=== PATIENT | female | born 1955 | race Caucasian/White ===

== ENCOUNTER 2018-01-08 12:46 | Inpatient (IN) | payer OTHER ==
[~2018-01-08] VITALS: Ht 165.1 cm; Wt 93.2 kg
[~2018-01-08 12:46] MED LIST: LEVOTHYROXINE150 MCG PO
--- NOTE | 2018-01-08 13:08 | ED GENERAL ADULT ---
History of Present Illness General Chief Complaint: General Adult Stated Complaint: FALL Source: patient, family, old records, EMS Exam Limitations: confusion Vital Signs & Intake/Output Vital Signs & Intake/Output Vital Signs Date Time Temp Pulse Resp B/P B/P Pulse O2 O2 Flow FiO2 Mean Ox Delivery Rate 01/08 1438 72 22 108/71 100 Nasal 2.0L Cannula 01/08 1352 99 Nasal 2.0L Cannula 01/08 1254 90 18 126/74 100 Nasal Cannula Allergies Coded Allergies: Sulfa (Sulfonamide Antibiotics) (UNKNOWN 09/03/17) Reconcile Medications Levothyroxine Sodium 150 MCG TABLET 1 TAB PO DAILY HYPOTHYROID (Reported) Triage Note: PT WAS HOME BY HERSELF AND WAS USING HER DRESSER TO WALK BY AND FELL. PT THEN PULLED THE DRESSER ON HERSELF. BEFORE HER FALL PT PUT THE PROPANE STOVE ON SO IT WAS LEAKING INTO THE HOUSE UNTIL HER RETURNED HOME TO FIND HER ON THE FLOOR. SPOUSE WAS GONE FROM 0700 UNTIL NOON WHEN HE CAME HOME TO CHECK ON HER. PT IN NON COMPLIANT WITH HER THYROID MEDS PER SPOUSE. PT IS SLOW TO RESPOND BUT OFFERS NO COMPLAINTS AT THIS TIME Triage Nurses Notes Reviewed? yes HPI: Patient lives at home with her . Her gives her her Synthroid in the morning and then he goes to work. He usually calls multiple times during the day to check on her. Today she took her Synthroid but then spit it out. states that this is unusual for her. He then went to work and called but she did not answer so he became concerned so came home. He found the patient on the floor with a dresser on top of her. There was also the odor propane in the house. Patient had turned on the stove but did not like it. EMS and fire department were contacted. also found behind the tipped over dresser that her multiple Synthroid tablets that look like they have been spit out over time. He is unsure how long she has been spitting out her Synthroid. Is confused and has no idea where she is otherwise she is here. Past History Travel History Traveled to [place] past 21 day No Medical History Any Pertinent Medical History? see below for history Neurological: NONE EENT: NONE Cardiovascular: NONE Respiratory: NONE Gastrointestinal: NONE Hepatic: NONE Renal: NONE Musculoskeletal: NONE Psychiatric: NONE Endocrine: hypothyroidism Cancer(s): THYROID CA Surgical History Surgical History: THYROIDECTOMY Psychosocial History What is your primary language Irish Tobacco Use: Quit >30 days ago ETOH Use: denies use Illicit Drug Use: denies illicit drug use Family History Hx Contributory? No Review of Systems Review of Systems Constitutional: Reports: see HPI. Physical Exam Physical Exam General Appearance: lethargic, severe distress Head: atraumatic Eyes: Bilateral: PERRL, EOMI. Ears, Nose, Throat: normal pharynx, normal ENT inspection, hearing grossly normal Neck: normal inspection, supple, full range of motion Respiratory: normal breath sounds, chest non-tender, no respiratory distress, lungs clear Cardiovascular: normal peripheral pulses, bradycardia Gastrointestinal: normal bowel sounds, soft, non-tender, no organomegaly Back: normal inspection Extremities: MULTIPLE HEMATOMAS Neurologic/Psych: awake, disoriented x 3 Skin: pallor, COOL Core Measures ACS in differential dx? Yes CVA/TIA Diagnosis: No Sepsis Present: Yes Sepsis Focused Exam Completed? Yes ED Sepsis Exam Date of Focused Sepsis Exam: 01/08/18 Time of Focused Sepsis Exam: 1532 Sepsis Cardiac Exam: Bradycardia Sepsis Resp Exam: CTA Sepsis Cap Refill Exam: >2 sec Sepsis Peripheral Pulse Exam: Normal Sepsis Peripheral Pulse Location: Radial Sepsis Skin Color Exam: Pale, COOL Skin Temp/Moisture Exam: Cool/Dry Progress Differential Diagnoses I considered the following diagnoses in my evaluation of the patient: [Myxedema coma, trauma, sepsis] Plan of Care: Orders Procedure Date/time Status Patient Data 01/08 1519 Active Admit to inpatient 01/08 1509 Active [id number], RIGHT 01/08 1439 Active XRY-HUMERUS, RIGHT 01/[address] CHEST W IV CONTRAST 01/[address] ABD & PELVIS W IV CONTRAST 01/08 1439 Active Add-on Test (ER Only) 01/08 1437 Active BLOOD CULTURE 01/08 1437 Active Add-on Test (ER Only) 01/08 1429 Active LACTIC ACID 01/08 1330 Complete FREE T4 01/08 1330 Complete Telemetry/Fitness And Wellness Coordinator 01/08 1307 Active URINE DRUGS OF ABUSE 01/08 1307 Active URINALYSIS 01/08 1307 Active TSH REFLEX 01/08 1307 Complete TROPONIN LEVEL 01/08 1307 Complete COMPREHENSIVE METABOLIC PANEL 01/08 1307 Complete CBC WITHOUT DIFFERENTIAL 01/08 1307 Complete EKG 01/08 1249 Active Current Medications Sig/Tabatha Start time Last Medication Dose Stop Time Status Admin Vancomycin HCl 1,000 MG ONCE ONE 01/08 1445 AC Dextrose/Water 250 ML 01/08 1544 (D5W) Laboratory Tests 01/08/18 1330: Lactic Acid 1.3 01/08/18 1330: Anion Gap 10, Estimated GFR > 60, BUN/Creatinine Ratio 48.6 H, Glucose 145 H, Calcium 9.7, Total Bilirubin 1.5 H, AST 2923 H, ALT 2400 H, Alkaline Phosphatase 76, Troponin I < 0.01, Total Protein 6.8, Albumin 3.8, Globulin 3.0, Albumin/Globulin Ratio 1.3, Free T4 < 0.07 L, TSH &T3 &Free T4 Intrp 63.500 H, CBC w Diff MAN DIFF ORDERED, RBC 3.42 L, MCV 93.9, MCH 32.0 H, MCHC 34.0, RDW 16.7 H, MPV 8.9, Gran % 71.7, Lymphocytes % 20.1 L, Monocytes % 7.7, Eosinophils % 0.3, Basophils % 0.2, Absolute Granulocytes 0.7 L, Segmented Neutrophils 61, Band Neutrophils 5, Absolute Lymphocytes 0.2 L, Lymphocytes 20 L, Monocytes 11 H, Absolute Monocytes 0.1, Absolute Eosinophils 0, Basophils 3 H, Absolute Basophils 0, Nucleated RBCs 2 H, Platelet Estimate , Hypochromic- Microcytic 2+, Poikilocytosis 1+, Anisocytosis 1+ Microbiology 01/08 1515 BLOOD: Blood Culture - RECD 01/08 1505 BLOOD: Blood Culture - RECD Diagnostic Imaging: Viewed by Me: CT Scan. Discussed w/RAD: CT Scan. Radiology Impression: PATIENT: MILAGROS PERERIA PRESENT AGE: 62 PATIENT ACCOUNT NO: [id number] : 54 LOCATION: [facility] ORDERING PHYSICIAN: Eyad Noguera MD SERVICE DATE: 01/08/18 EXAM TYPE: CAT - CT CERV SPINE WO IV CONTRAST; CT HEAD WO IV CONTRAST EXAMINATION: CT HEAD AND CERVICAL SPINE CLINICAL INFORMATION: Patient found on floor. Confused. COMPARISON: No relevant prior imaging. TECHNIQUE: Access Clerk images were obtained. CT acquisition of the head and cervical spine was performed without intravenous administration of contrast. Data was reformatted into multiplanar images at the acquisition workstation. DLP: 925.97 mGy-cm. FINDINGS: Head: There is no acute intracranial hemorrhage or abnormal extra-axial collection. No intracranial mass effect or midline shift. Lateral and third ventricles are normal. No hydrocephalus. Rg-white matter differentiation is grossly preserved and there is no evidence of acute territorial infarct. The calvarium and skull base are intact. Mastoid air cells and middle ear cavities are well aerated. Visualized paranasal sinuses are well-aerated. Cervical spine: There is nonspecific straightening of the cervical lordosis. Vertebral alignment is otherwise normal. Vertebral heights are preserved. There is loss of intervertebral disc height with associated disc osteophyte spurring at the levels of C4-C5, C5-C6, and C6- C7. No acute fracture. No abnormal prevertebral soft tissue swelling. A small amount of atheromatous calcification involves both carotid bifurcations. Chronic changes of a thyroidectomy are noted. Soft tissues of the neck are otherwise unremarkable. Visualized lung apices are clear. IMPRESSION: Head: No evidence of acute territorial infarct or hemorrhage. Cervical spine: No acute cervical spine fracture. Mild degenerative changes at multiple levels. Grossly no evidence of canal compromise. DICTATED BY: Lance Garcia MD DATE/TIME DICTATED:01/08/181425 DAY CARE DIRECTOR:TIGIST DATE/TIME TRANSCRIBED:01/08/181425 CONFIDENTIAL, DO NOT COPY WITHOUT APPROPRIATE AUTHORIZATION. <Electronically signed in Other Vendor System> SIGNED BY: Lance Garcia MD 01/08/18 1436 Initial ED EKG: BRADYCARDIA Comments: D/W DR. ISRAEL AND DR. FANG Departure Departure Disposition: STILL A PATIENT Condition: Critical Clinical Impression Primary Impression: Myxedema coma Secondary Impressions: Bradycardia, Leukopenia, Thrombocytopenia Referrals: Jefferson Mead MD (PCP/Family) Departure Forms: Customer Survey General Discharge Information Admission Note Spoke With: Beni Bo MD Documentation of Exam: Documentation of any treatments & extenuating circumstances including Concerns Regarding Discharge (functional status, medication knowledge or non-compliance, living conditions, etc.) that warrant an admission rather than observation: [ICU ADMISSION, ENDOCRINE CONULT, CARDIOLOGYCONSULT, HEME CONSULT, CULTURES, BROAD SPECTRUM ABX] Critical Care Note Critical Care Note Critical Care Time: mins: (120 MIN)
[2018-01-08 13:44] LABS: ABSOLUTE BASOPHIL COUNT 0 /CUMM (0.0-0.2); ABSOLUTE EOSINOPHIL COUNT 0 /CUMM (0.0-0.7); ABSOLUTE GRANULOCYTE CT 0.7 /CUMM (1.4-6.5); ABSOLUTE LYMPH COUNT 0.2 /CUMM (1.2-3.4); ABSOLUTE MONOCYTE COUNT 0.1 /CUMM (0.10-0.60); BASOPHIL % 0.2 % (0.0-2.0); HEMATOCRIT 32.1 % (37-47)
[2018-01-08 13:47] LABS: EOSINOPHIL % 0.3 % (0-5); GRANULOCYTE % 71.7 % (42.2-75.2); MEAN CORPUSCULAR VOLUME 93.9 FL (81.0-99.0); MEAN PLATELET VOLUME 8.9 FL (7.4-10.4); RBC DISTRIBUTION WIDTH 16.7 % (11.5-14.5); RED BLOOD CELL CT 3.42 /CUMM (4.20-5.40)
[2018-01-08 14:03] LABS: PLATELET COUNT 32 /CUMM (130-400)
--- NOTE | 2018-01-08 14:17 | RADIOLOGY REPORT ---
EXAMINATION: XR PORTABLE CHEST CLINICAL INFORMATION: Confusion COMPARISON: None TECHNIQUE: Portable frontal view of the chest was obtained. FINDINGS: Borderline heart size. Low lung volumes. No acute airspace opacity. Bony thorax is intact. Postoperative changes with surgical clips lower neck. IMPRESSION: No acute pulmonary disease.
--- NOTE | 2018-01-08 14:36 | CT SCAN REPORT ---
EXAMINATION: CT HEAD AND CERVICAL SPINE CLINICAL INFORMATION: Patient found on floor. Confused. COMPARISON: No relevant prior imaging. TECHNIQUE: Chocolate Finisher Operator images were obtained. CT acquisition of the head and cervical spine was performed without intravenous administration of contrast. Data was reformatted into multiplanar images at the acquisition workstation. DLP: 925.97 mGy-cm. FINDINGS: Head: There is no acute intracranial hemorrhage or abnormal extra-axial collection. No intracranial mass effect or midline shift. Lateral and third ventricles are normal. No hydrocephalus. Rg-white matter differentiation is grossly preserved and there is no evidence of acute territorial infarct. The calvarium and skull base are intact. Mastoid air cells and middle ear cavities are well aerated. Visualized paranasal sinuses are well-aerated. Cervical spine: There is nonspecific straightening of the cervical lordosis. Vertebral alignment is otherwise normal. Vertebral heights are preserved. There is loss of intervertebral disc height with associated disc osteophyte spurring at the levels of C4-C5, C5-C6, and C6-C7. No acute fracture. No abnormal prevertebral soft tissue swelling. A small amount of atheromatous calcification involves both carotid bifurcations. Chronic changes of a thyroidectomy are noted. Soft tissues of the neck are otherwise unremarkable. Visualized lung apices are clear. IMPRESSION: Head: No evidence of acute territorial infarct or hemorrhage. Cervical spine: No acute cervical spine fracture. Mild degenerative changes at multiple levels. Grossly no evidence of canal compromise.
--- NOTE | 2018-01-08 15:58 | RADIOLOGY REPORT ---
EXAMINATION: XR TIBIA AND FIBULA, RIGHT CLINICAL INFORMATION: Pain. Hematoma. COMPARISON: None TECHNIQUE: AP and lateral views of the right tibia and fibula were obtained. FINDINGS: There are no fractures or dislocations. There is mild medial compartment narrowing and osteophyte formation. There is mild tibial spine spurring. There is a small plantar surface calcaneal spur. There is no ankle joint effusion. IMPRESSION: Mild degenerative change without evidence of acute injury.
--- NOTE | 2018-01-08 15:59 | RADIOLOGY REPORT ---
EXAMINATION: XR HUMERUS, RIGHT CLINICAL INFORMATION: Trauma. Found on floor. COMPARISON: None TECHNIQUE: AP and lateral views of the right humerus. FINDINGS: [id number] osteoarthritis of the acromioclavicular joint as manifest by subarticular cystic change and osteophyte formation. Mild osteoarthritis of the glenohumeral joint, as well. The humerus is intact and alignment is normal at the glenohumeral joint and elbow. No elbow joint effusion. IMPRESSION: 1. The right humerus is intact. 2. 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
--- NOTE | 2018-01-08 16:28 | History & Physical ---
Vernon Schililng MD 01/08/18 1857: General Information and HPI MD Statement: I have seen and personally examined MILAGROS PEREIRA and documented this H&P. The patient is a 62 year old F who presented with a patient stated chief complaint of [confusion]. Source of Information: family, EMS Exam Limitations: not alert/orientated, clinical condition, confusion History of Present Illness: Patient is a 62-year-old female with past medical history of long-standing hypothyroidism and thyroid cancer status post total thyroidectomy and multiple radioactive iodine ablations in 1989 and 1998, status post hernia repair and cholecystectomy presenting this admission with confusion. Due to patient's clinical condition majority of the history was obtained from patient's who is at bedside. When patient is questioned she simply states that she is doing fine. Patient has trouble answering simple questions like her name and birthdate. Patient was brought in by EMS after patient's returned home from work early to find patient at the foot of the bed on the floor with dresser on top of her. reports that there was the smell of gas in the apartment and EMS found the stove was on. Patient's states that he has been giving the patient her thyroid medication every morning. States that this week he spoke to the patient about taking vitamins which he gave her for the first time the night before this admission. States this morning patient refused to chew the vitamin pill and spit it out at which point he noticed that the thyroid medication was stuck to the pill. After which the noticed that there were more thyroid medications on the floor under the bed and behind the dresser. States that he thinks there was as many as 60-70 pills. Reports that over the past 2 weeks patient has become acutely worse and has become weak and confused. States that she has not been eating well for the past 6 months and does not eat on her own. Reports that the patient has lost approximately 30-40 pounds. States that the patient is reliant on him to move around and has become very weak and recently has had trouble standing up. States patient does not go outside and is either in bed or sitting on the couch. Patient has been on thyroid medications for the past 30 years. Patient's states that up until patient and her moved from [place] in 2009 patient has been taking care of her medications and her health with no problem. Reports that the move was quite traumatic as he had lost his job and they were required to move out of the house they had been living in for the past 17 years. Reports that the patient over the past year and a half has been deteriorating. Reports in February 2017 patient was sent in by her primary care physician for concern of myxedema coma and was seen in the ED. At that time patient was treated in the ED and sent home with instructions to take her thyroid medications. States that the patient has not been compliant with her medications since approximately September 2016 when she reported to the physician that she stopped taking the pills because the color of the pill changed. reports that he was sick a few weeks ago with flulike symptoms however the patient did not exhibit any symptoms herself. States that aside from himself patient has not been exposed to anyone also she does not leave the house. Denies any recent travel. reports that patient has been falling over the past year. Past medical history: Hypothyroidism, thyroid cancer, hamartoma Past surgical history: Thyroidectomy, radioactive iodine ablation 2, cholecystectomy, hernia repair and Social history: Patient lives with her in an apartment. Patient is reliant on her for meals and medications. reports that patient is able to change and shower herself. Patient quit smoking in 1983, denies alcohol use. Family history: Grandmother- goiter, father- diabetic, 1 daughter in good health Medications: Levothyroxine 150 g daily, multivitamin supplement Per , patient has only been seeing her pcp, Dr. Taurus Mead. Allergies/Medications Allergies: Coded Allergies: Sulfa (Sulfonamide Antibiotics) (UNKNOWN 09/03/17) Home Med list Levothyroxine Sodium 150 MCG TABLET 1 TAB PO DAILY HYPOTHYROID (Reported) Past History Travel History Traveled to [place] past 21 day No Medical History Neurological: NONE EENT: NONE Cardiovascular: NONE Respiratory: NONE Gastrointestinal: NONE Hepatic: NONE Renal: NONE Musculoskeletal: NONE Psychiatric: NONE Endocrine: hypothyroidism Cancer(s): THYROID CA Surgical History Surgical History: cholecystectomy, THYROIDECTOMY, hernia repair Past Family/Social History Psychosocial History ETOH Use: denies use Illicit Drug Use: denies illicit drug use Review of Systems Review of Systems Constitutional: Reports: see HPI (limited due to confusion). Exam & Diagnostic Data Last 24 Hrs of Vital Signs/I&O Vital Signs Date Time Temp Pulse Resp B/P B/P Pulse O2 O2 Flow FiO2 Mean Ox Delivery Rate 01/08 1833 52 20 96/58 98 Nasal 2.0L Cannula 01/08 1807 Nasal 2.0L Cannula 01/08 1626 94/60 01/08 1625 108 22 104/76 100 Nasal 2.0L Cannula 01/08 1438 72 22 108/71 100 Nasal 2.0L Cannula 01/08 1352 99 Nasal 2.0L Cannula 01/08 1254 90 18 126/74 100 Nasal Cannula Intake & Output 01/08 1600 01/08 0800 01/08 0000 Intake Total 0 Output Total 0 Balance 0 Intake, Oral 0 Output, Urine 0 Patient 155 lb Weight Weight Estimated Measurement Method Physical Exam General Appearance Alert, No Acute Distress, patient is alert to person but not place or time, only states she is fine, follows some commands, but not all Skin dry skin, cuts on hands and feet, bruising on her shins Skin Temp/Moisture Exam: Cool/Dry HEENT Atraumatic, dry mucosal membranes, pupils are equal and reactive to light but sluggish Neck No thryomegaly, No LAD Cardiovascular Normal S1, Normal S2, bradycardic Lungs Clear to Auscultation, Normal Air Movement Abdomen Soft, No Tenderness, hypoactive bowel sounds Neurological Cranial Nerves 3-12 NL, unable to assess completely due to confusion, moving all extremities, absent deep tendon reflexes Extremities No Clubbing, No Cyanosis, No Edema, Normal Pulses, No Tenderness/ Swelling, dry skin, bruising, dry blood and cuts on toes of right foot Last 24 Hrs of Labs/Chad: Laboratory Tests 01/08/18 1758: Urine Opiates Screen < 100, Methadone Screen < 40, Barbiturate Screen < 60, Ur Phencyclidine Scrn < 6.00, Amphetamines Screen < 100, U Benzodiazepines Scrn < 85, Urine Cocaine Screen < 50, Urine Cannabis Screen < 5.00, Urine Color Pending , Urine Clarity Pending, Urine pH Pending, Ur Specific [place] Pending, Urine Protein Pending, Urine Ketones Pending, Urine Nitrite Pending, Urine Bilirubin Pending, Urine Urobilinogen Pending, Ur Leukocyte Esterase Pending, Ur Microscopic SEDIMENT EXAMINED, Urine RBC Pending, Urine Hemoglobin Pending, Urine Glucose Pending 01/08/18 1330: Lactic Acid 1.3 01/08/18 1330: Anion Gap 10, Estimated GFR > 60, BUN/Creatinine Ratio 48.6 H, Glucose 145 H, Calcium 9.7, Total Bilirubin 1.5 H, AST 2923 H, ALT 2400 H, Alkaline Phosphatase 76, Lactate Dehydrogenase 22518 H, Troponin I < 0.01, Total Protein 6.8, Albumin 3.8, Globulin 3.0, Albumin/Globulin Ratio 1.3, Free T4 < 0.07 L, TSH &T3 &Free T4 Intrp 63.500 H, Cortisol PM Sample 14.8 H, CBC w Diff MAN DIFF ORDERED, RBC 3.42 L, MCV 93.9, MCH 32.0 H, MCHC 34.0, RDW 16.7 H, MPV 8.9, Gran % 71.7, Lymphocytes % 20.1 L, Monocytes % 7.7, Eosinophils % 0.3, Basophils % 0.2, Absolute Granulocytes 0.7 L, Segmented Neutrophils 61, Band Neutrophils 5, Absolute Lymphocytes 0.2 L, Lymphocytes 20 L, Monocytes 11 H, Absolute Monocytes 0.1, Absolute Eosinophils 0, Basophils 3 H, Absolute Basophils 0, Nucleated RBCs 2 H, Platelet Estimate , Hypochromic-Microcytic 2 +, Poikilocytosis 1+, Anisocytosis 1+, Retic Count 1.48 01/08/18 1307: Thyroglobulin Pending, Thyroglobulin Antibody Pending Microbiology 01/08 1758 URINE ROUT: Urine Culture - RECD 01/08 1718 UPPER RESP: Surveillance Culture - COLB 01/08 1718 GI: Surveillance Culture - COLB 01/08 1705 NASOPHARYN: Influenza Virus A & B Rapid Smear - COLB 01/08 1515 BLOOD: Blood Culture - RECD 01/08 1505 BLOOD: Blood Culture - RECD Assessment/Plan Assessment: Patient is a 62-year-old female with past medical history significant for iatrogenic hypothyroidism status post total thyroidectomy for thyroid cancer presenting this admission with myxedema coma secondary to noncompliance, neutropenia, thrombocytopenia and bradycardia. Patient is admitted to the ICU for management of following: Respiratory Patient is currently saturating well on 2 L nasal cannula. Infectious: Neutropenia Patient has an absolute neutrophil count of 700. Etiology of patient's neutropenia is unclear at this time and requires further workup. Patient remains afebrile on admission however this is likely due to severe hypothyroidism. Therefore patient is being covered by antibiotics with ceftazidime and vancomycin. Hematology was consulted. - Continue ceftaz and vancomycin - Repeat CBCs in a.m. - Hepatitis panel - HIV panel - Rapid flu Cardiac: Bradycardia Likely secondary to severe hypothyroidism. - Serial troponin and EKG - Echocardiogram - Cardiology consulted - Monitor on telemetry Hypotension - Patient received IV fluid boluses and stress dose steroids - continue to monitor bp - continue IV fluids Heme: Pancytopenia: Patient is neutropenic, anemic and severely thrombocytopenic. There have been case reports of pancytopenia with severe hypothyroidism however patient will require further workup at this time. Patient has a reticulocyte count of 1.48% with absolute reticulocyte count of 1.1 and a reticulocyte count index of 0.75 indicating bone marrow suppression. LDH count is elevated. - Iron panel, B12, folate - haptoglobin, direct bilirubin - HIV, hepatitis panel - Continue to monitor CBC - Hematology consulted. Appreciate recommendations. - Thrombocytopenic precautions Metabolic: Myxedema coma Patient presented confused, hypothermic, bradycardic and with elevated TSH and low T4. Patient has been noncompliant with medications. Endocrinology was consulted. Patient was given levothyroxine 100 g. A cortisol level was checked in the setting of hypotension. Patient's cortisol level was low and she was given 100 mg IV Solu-Cortef. - Repeat free T4 and TSH tomorrow - Thyroglobulin panel for concern of recurrent cancer - Warming with bear hugger Transaminitis: Unclear etiology of abnormal LFTs. Patient reports no abdominal pain. No pathology seen on CT Abd. Patient's LFTs may be secondary to hypotension - Abdominal ultrasound Alimentary Hypernatremia - D5 normal saline at a rate of 100 mL per hour - Repeat sodium in a.m. Patient is nothing by mouth and setting of AMS. Neurology Altered mental status in setting of severe hypothyroidism. Patient was found on the ground with a dressing over her it is unclear if she fell. Patient has had multiple falls recently. Head CT and cervical CT were negative for any acute findings. Tibula/ fibula and humerus x-rays without any acute fracture. - Nothing by mouth - Swallow eval - Fall precautions - Neurochecks - PT eval Nephrology: None DVT prophylaxis: Alps only in the setting of thrombocytopenia As Ranked By This Provider Problem List: 1. Myxedema coma 2. Bradycardia 3. Leukopenia 4. Thrombocytopenia Core Measures/Misc (9/17) Acute Coronary Syndrome ACS Diagnosis: No Congestive Heart Failure Congestive Heart Failure Diagnosis No Cerebrovascular Accident CVA/TIA Diagnosis: No VTE (View Protocol) VTE Risk Factors Age>40 No Mechanical VTE Prophylaxis d/t N/A MechProphylax Ordered No VTE Pharm Prophylaxis d/t Platelets below ref range Sepsis (View protocol) Sepsis Present: No Beni Bo MD 01/08/18 1628: Attending MD Review Statement Attending Statement Attending MD Statement: examined this patient, discuss w/resident/PA/CASHIER SELF SERV[employer] GASOLINE, agreed w/resident/PA/[employer] GASOLINE, discussed with family, reviewed EMR data (avail), discussed with nursing, discussed with case mgmt, reviewed images, amended to note Attending Assessment/Plan: Beni Contreras M.D. have examined this patient, reviewed available EMR data, personally reviewed images, discussed with resident/PA/[employer] G[employer]OLINE, discussed management plan with housestaff and nursing staff, discussed managment plan all of healthcare providers, discussed management plan with patient and/or family, agreed with resident/PA/[employer] G[employer]OLINE. The past history and parts of the chart have been autopopulated. Impression 62 year old woman * pancytopenia * hx of thyroid ca - significant hypothyroidism consistent with myxedema * transaminitis Plan -agree with above residents plan -f/u endocrine and heme recs -stress steroids, iv thyroid replacement -empiric abx, if no evidence of infection and continues to no longer be thrombocytpoenic will d/c abx -ECHO DVT prophylaxis at all times TTS 35 min D/w TTS 40 min [place] 01/08/18 1652: Resident Review Statement Resident Statement: examined this patient, discussed with business management intern, agreed with business management intern, discussed with family, reviewed EMR data (avail), discussed with nursing , discussed with case mgmt, reviewed images, amended to note Other Findings: This is a 62-year-old women with medical history of long-standing hypothyroidism and papillary thyroid cancer status post total thyroidectomy and multiple radioactive iodine ablations in 1989 and 1998, status post hernia repair and cholecystectomy. She presented to the ED with C/O confusion and AMS. Most of the history was taken from her . He stated that he has been giving the thyroid medication to her every morning and she was taking the Med with water in early AM before he go to work. This AM due to her AMS and confusion status he thought she had stroke but as patient refused to chew the vitamin pill and spit it out at which point he noticed that the thyroid medication was stuck to the pill. After which the noticed that there were more thyroid medications on the floor under the bed and behind the dresser. States that he thinks there was as many as 60-70 pills. Also he stated that over the past 2 weeks patient has become acutely worse and has become weak and confused. States that she has not been eating well for the past 6 months and does not eat on her own. Reports that the patient has lost approximately 30-40 pounds. Reports in February 2017 patient was sent in by her primary care physician for concern of myxedema coma and was seen in the ED. At that time patient was treated in the ED and sent home with instructions to take her thyroid medications. States that the patient has not been compliant with her medications since approximately September 2016 when she reported to the physician that she stopped taking the pills because the color of the pill changed. In the ED she was found to be hypothermic and bradycardic and her TSH was 63.500 with sever pancytopenia. She was evaluated by the mold shifter and she recommended 100 MCG iv levothyroxin and to check the cortisol, thyroglobulin panel to assess the need for stress dose of IV steroid. Also was consulted via the ED team for the bradycardic. she received 1 dose of IV Vanc and fortaz in the ED and the Blood Cx sent. Physical exam, imaging and lab as above. 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 -Hypotension/bradycardia due to above. -Pancytopenia with sever leukopenia with possible underlying infection process. -Transaminitis with hyperbilirubinemia. -Hx of papillary thyroid cancer status post resection and radioactive iodine. Plan: -Admit patient to critical care unit -Vital every shift, continuous blood pressure monitoring -Neutropenic precaution, bleeding precaution -As recommended by endocrinology 100 MCG of levothyroxine was given -Stress dose of hydrocortisone 100 mg IV -Continue passive warming with bear hugger -Check cortisol, thyroglobulin panel -Recheck TSH, free T4 in a.m. -Keep systolic blood pressure more than 90 or map more than 60 -Continue IV fluid hydration, if needed will start pressor(consent obtained from her ) -Echocardiogram, serial troponin and EKG -Cardiology consultation -Continue IV vancomycin and Fortaz -Panculture, obtain hepatitis panel, HIV panel, rapid flu. -Obtain iron panel, LDH, heptoglobin, reticulocyte count -Type and crossmatch, if needed will give platelet -Hematology consultation(we discussed with over the phone he recommended to obtain the above test for now) -Obtain CT abdomen pelvis, chest without IV contrast -Trend LFTs -Avoid NSAIDs, Tylenol -Keep nothing by mouth for now -Repeat electrolytes as needed -Pain pathway -DVT prophylaxis:Alps -Full code I spoke with around 10:45 PM regarding the hospital don't carry isoproterenol drip, so he recommended using Levophed if needed I spoke with around 11:36 PM regarding giving the patient additional dose of IV hydrocortisone 100 mg as the BP still low and to start Q8 after that she agreed
--- NOTE | 2018-01-08 16:58 | Cons- Endocrinology ---
General Information and HPI Consulting Request Date of Consult: 01/08/18 Requested By: ER and ICU Reason for Consult: evaluation and management of profound hypothyroidism. Source of Information: family Exam Limitations: unable to give history History of Present Illness: 62 y/o female, hx of thyroid cancer which was diagnosed in and was treated with thyroid surgery twice and ELDER twice. Detail unclear. She was supposed to take Levothyroxine 150 mcg daily. However, she hasn't been compliance with the medication. Patient was in ER in 05/2017 and 08/2017-- her TSH was > 60 and free T4 was < 0.07. She was brought to ER today again after she was found that she was on the floor. In ER, patient was hypothermia and bradycardic. Blood work showed TSH 63.5, free T4 < 0.07, random cortisol 14.8; [id number] and ALT 2400; WBC 1.0, platelet 32 and H/H 10.9/32.1 Allergies/Medications Allergies: Coded Allergies: Sulfa (Sulfonamide Antibiotics) (UNKNOWN 09/03/17) Home Med List: Levothyroxine Sodium 150 MCG TABLET 1 TAB PO DAILY HYPOTHYROID (Reported) Review of Systems Review of Systems Constitutional: Reports: see HPI (unable to provide information). Past History Travel History Traveled to [place] past 21 day No Medical History Neurological: NONE EENT: NONE Cardiovascular: NONE Respiratory: NONE Gastrointestinal: NONE Hepatic: NONE Renal: NONE Musculoskeletal: NONE Psychiatric: NONE Endocrine: hypothyroidism Cancer(s): THYROID CA Surgical History Surgical History: THYROIDECTOMY Psychosocial History ETOH Use: denies use Illicit Drug Use: denies illicit drug use Exam & Diagnostic Data Last 24 Hrs of Vital Signs/I&O Vital Signs Date Time Temp Pulse Resp B/P B/P Pulse O2 O2 Flow FiO2 Mean Ox Delivery Rate 01/08 1626 94/60 01/08 1625 108 22 104/76 100 Nasal 2.0L Cannula 01/08 1438 72 22 108/71 100 Nasal 2.0L Cannula 01/08 1352 99 Nasal 2.0L Cannula 01/08 1254 90 18 126/74 100 Nasal Cannula Intake & Output 01/08 1600 01/08 0800 04/ 0000 Intake Total 0 Output Total 0 Balance 0 Intake, Oral 0 Output, Urine 0 Patient 155 lb Weight Weight Estimated Measurement Method Physical Exam General Appearance: anxious, pale, puffy Respiratory: decreased breath sounds Cardiovascular: bradycardia Gastrointestinal: soft Extremities: no edema Labs/Chad Results: Laboratory Tests 01/08 01/08 01/08 1330 1330 1307 Chemistry Sodium (137 - 145 mmol/L) 147 H Potassium (3.5 - 5.1 mmol/L) 4.0 Chloride (98 - 107 mmol/L) 104 Carbon Dioxide (22 - 30 mmol/L) 33 H Anion Gap (5 - 16) 10 BUN (7 - 17 mg/dL) 34 H Creatinine (0.5 - 1.0 mg/dL) 0.7 Estimated GFR (>60 ml/min) > 60 BUN/Creatinine Ratio (7 - 25 %) 48.6 H Glucose (65 - 99 mg/dL) 145 H Lactic Acid (0.7 - 2.1 mmol/L) 1.3 Calcium (8.4 - 10.2 mg/dL) 9.7 Total Bilirubin (0.2 - 1.3 mg/dL) 1.5 H AST (14 - 36 U/L) 2923 H ALT (9 - 52 U/L) 2400 H Alkaline Phosphatase (<127 U/L) 76 Troponin I (< 0.11 ng/ml) < 0.01 Total Protein (6.3 - 8.2 g/dL) 6.8 Albumin (3.5 - 5.0 g/dL) 3.8 Globulin (1.9 - 4.2 gm/dL) 3.0 Albumin/Globulin Ratio (1.1 - 2.2 %) 1.3 Free T4 (0.78 - 2.44 ng/dL) < 0.07 L Thyroglobulin Pending TSH &T3 &Free T4 Intrp (0.270 - 4.20 uIU/mL) 63.500 H Cortisol PM Sample (1.7 - 14.1) 14.8 H Hematology CBC w Diff MAN DIFF ORDERED WBC (4.8 - 10.8 /CUMM) 1.0 *L RBC (4.20 - 5.40 /CUMM) 3.42 L Hgb (12.0 - 16.0 G/DL) 10.9 L Hct (37 - 47 %) 32.1 L MCV (81.0 - 99.0 FL) 93.9 MCH (27.0 - 31.0 PG) 32.0 H MCHC (33.0 - 37.0 G/DL) 34.0 RDW (11.5 - 14.5 %) 16.7 H Plt Count (130 - 400 /CUMM) 32 L MPV (7.4 - 10.4 FL) 8.9 Gran % (42.2 - 75.2 %) 71.7 Lymphocytes % (20.5 - 51.1 %) 20.1 L Monocytes % (1.7 - 9.3 %) 7.7 Eosinophils % (0 - 5 %) 0.3 Basophils % (0.0 - 2.0 %) 0.2 Absolute Granulocytes (1.4 - 6.5 /CUMM) 0.7 L Segmented Neutrophils (42.2 - 75.2 %) 61 Band Neutrophils (0.0 - 5.0 %) 5 Absolute Lymphocytes (1.2 - 3.4 /CUMM) 0.2 L Lymphocytes (20.5 - 51.1 %) 20 L Monocytes (1.7 - 9.3 %) 11 H Absolute Monocytes (0.10 - 0.60 /CUMM) 0.1 Absolute Eosinophils (0.0 - 0.7 /CUMM) 0 Basophils (0.0 - 2.0 %) 3 H Absolute Basophils (0.0 - 0.2 /CUMM) 0 Nucleated RBCs (0.0 - 0.0 /100WBC) 2 H Platelet Estimate (ADEQUATE) Hypochromic-Microcytic 2+ Poikilocytosis 1+ Anisocytosis 1+ Immunology Thyroglobulin Antibody Pending Assessment/Plan Assessment/Plan 62 y/o female, hx of thyroid cancer which was diagnosed in and was treated with thyroid surgery twice and ELDER twice. Detail unclear. She was supposed to take Levothyroxine 150 mcg daily. However, she hasn't been compliance with the medication. Patient was in ER in 05/2017 and 08/2017-- her TSH was > 60 and free T4 was < 0.07. She presented to ER today again after she was found that she was on the floor. Patient was hypothermia and bradycardic. Blood work showed profound hypothyroidism along with borderline low cortisol, abnormal LFT and pancytopenia. Plan: 1. Levothyroxine 100 mcg iv x one time stat; 2. stress dose of hydrocortisone 100 mg x one time stat; 3. monitor vital signs; 4. continue the current supportive treatments; 5. abnormal LFT and pancytopenia--- underlying etiology unclear ---recommend checking Tg panel; ---recommend liver u.s ---recommend hematology consult. 6. repeat free T4 and TSH tomorrow am. will follow Consult Acknowledgment - Thank you for your consult request.
--- NOTE | 2018-01-08 17:56 | CT SCAN REPORT ---
EXAMINATION: CT CHEST, ABDOMEN AND PELVIS WITHOUT CONTRAST CLINICAL INFORMATION: Pain after fall. Trauma. COMPARISON: 09/03/2017. TECHNIQUE: Contiguous axial thin section helical images of the chest, abdomen and pelvis were performed without oral or IV contrast. The data set was reformatted in the coronal and sagittal planes and reviewed on an independent workstation. DLP: 629 mGy-cm. FINDINGS: The heart is of normal size. There is a small pericardial effusion. There is neither mediastinal, hilar nor axillary lymphadenopathy. There are no chest wall masses. Review of lung windows demonstrates that there are neither pleural effusions nor pneumothoraces. There are no consolidations. There is dependent bibasilar atelectasis. There are no pulmonary parenchymal nodules. The liver is of normal size and attenuation without focal lesions nor intrahepatic biliary ductal dilation. The patient is status post cholecystectomy. Surgical clips are identified. The spleen, pancreas, adrenal glands are unremarkable. Both kidneys are of normal size and attenuation without hydronephrosis or nephrolithiasis. There is no abdominal free fluid. There is neither mesenteric nor retroperitoneal lymphadenopathy. There is a fat-containing umbilical hernia. Normal unopacified loops of small and large bowel are identified. There is no pelvic free fluid. The urinary bladder is unremarkable. There is neither pelvic nor inguinal lymphadenopathy. Bone windows: Neither sclerotic nor lytic bone lesions are identified. IMPRESSION: No evidence for acute traumatic injury. Small pericardial effusion. Status post cholecystectomy. Dependent bibasilar atelectasis. Fat-containing umbilical hernia.
[2018-01-08 19:30] VITALS: BP 96/72
--- NOTE | 2018-01-08 22:06 | Cons- Cardiology ---
General Information and HPI Consulting Request Date of Consult: 01/08/18 Requested By: Beni Bo MD History of Present Illness: This patient is a 62 year old female with history of hypothyroidism and thyroid cancer status post total thyroidectomy along with multiple radioactive iodine ablations in 1989 and 1998. The patient was brought to the ER after her found her on the floor with a dresser on top of her. The stove was also left on and there was the smell of gas in the house. This morning the patient's also found her thyroid medication under the bed and behind the dresser. The patient has been noted to be weak and confused over the past two weeks. She has lost 30-40 pounds and is not eating well. She also has trouble standing up. The patient is currently too ill to give a history. No chest discomfort, shortness of breath, lightheadedness or palpitations are admitted to or reported. The patient at the present time is bradycardiac and hypotensive. She was found on initial labs to be severely hypothyroid. Ms. Goode has been on thyroid medications for the past 30 years. In February 2017 the patient was sent in by her primary care physician for concern of myxedema coma and was seen in the ED. At that time patient she was treated in the ER and sent home with instructions to take her thyroid medications. She has not been compliant with her medications since approximately September 2016 when she reported to the physician that she stopped taking the pills because the color of the pill changed. Allergies/Medications Allergies: Coded Allergies: Sulfa (Sulfonamide Antibiotics) (UNKNOWN 09/03/17) Home Med List: Levothyroxine Sodium 150 MCG TABLET 1 TAB PO DAILY HYPOTHYROID (Reported) Review of Systems Review of Systems: A review of systems in unobtainable. Past History Travel History Traveled to [place] past 21 day No Medical History Neurological: NONE EENT: NONE Cardiovascular: NONE Respiratory: NONE Gastrointestinal: NONE Hepatic: NONE Renal: NONE Musculoskeletal: NONE Psychiatric: NONE Endocrine: hypothyroidism Cancer(s): THYROID CA Surgical History Surgical History: cholecystectomy, THYROIDECTOMY hernia repair Psychosocial History ETOH Use: denies use Illicit Drug Use: denies illicit drug use Exam & Diagnostic Data Vital Signs and I&O Vital Signs Date Time Temp Pulse Resp B/P B/P Pulse O2 O2 Flow FiO2 Mean Ox Delivery Rate 01/08 2150 Nasal 2.0L Cannula 04/05 1930 94.8 40 19 96/72 96 01/08 1833 52 20 96/58 98 Nasal 2.0L Cannula 01/08 1807 Nasal 2.0L Cannula 01/08 1626 94/60 01/08 1625 108 22 104/76 100 Nasal 2.0L Cannula 01/08 1438 72 22 108/71 100 Nasal 2.0L Cannula 01/08 1352 99 Nasal 2.0L Cannula 01/08 1254 90 18 126/74 100 Nasal Cannula Intake & Output 01/08 1600 01/08 0801/08 0000 01/07 1600 01/07 0801/07 0000 Intake Total 0 Output Total 0 Balance 0 Intake, Oral 0 Output, Urine 0 Patient 155 lb Weight Weight Estimated Measurement Method Physical Exam: General: WD/WN female; lethargic with decreased responsiveness HEENT: swollen left cheek, PERRL, EOMI Neck: no JVD, no carotid bruit Heart: bradycardic with regular rhythm, no murmur Lungs: clear bilaterally Abdomen: soft, NT, +ve bowel sounds Extremities; 1+ edema bilaterally Assessment/Plan Assessment/Plan * This patient is hypotensive and bradycardic due to myxedema and myxedema coma. She may have hepatic congestion with shock liver causing her elevated hepatic transaminases. Although she has very low voltage on her ECG she is in a sinus rhythm. A small pericaridial effusion is noted which is not unexpected in the setting of severe hypothyroidism which may also be contributing to low voltage. I do not think she has evidence of tamponade. * This patient should be given a 500cc NS fluid bolus followed by a constant infusion to maintain her blood pressure. It is expected that her bradycardia will improve with thyroid supplementation and with steroid therapy. For now keep transcutaneous pacer pads in place and have atropine by the bedside. If she has persistent brdycardia with hypotension then begin an isoproterenol drip. Her bradycardia is expected to be transient. Although it is almost certain that her bradycardia is related to hypothyroidism, I would sent off a Lyme titer. * Obtain an echocardiogram. Consult Acknowledgment - Thank you for your consult request.
[2018-01-08 23:12] LABS: PT 11.6 SEC (9.4-12.5); PTT 39 SEC (25-37)
[2018-01-09] VITALS: BP 90/0
[2018-01-09 04:22] LABS: ABSOLUTE BASOPHIL COUNT 0 /CUMM (0.0-0.2); ABSOLUTE EOSINOPHIL COUNT 0 /CUMM (0.0-0.7); ABSOLUTE GRANULOCYTE CT 1.7 /CUMM (1.4-6.5); ABSOLUTE LYMPH COUNT 0.1 /CUMM (1.2-3.4); ABSOLUTE MONOCYTE COUNT 0 /CUMM (0.10-0.60); BASOPHIL % 0.4 % (0.0-2.0); EOSINOPHIL % 0.1 % (0-5); GRANULOCYTE % 91.8 % (42.2-75.2); HEMATOCRIT 28.7 % (37-47); MEAN CORPUSCULAR HGB CONC 34.1 G/DL (33.0-37.0); MEAN CORPUSCULAR VOLUME 93.7 FL (81.0-99.0); MEAN PLATELET VOLUME 9.2 FL (7.4-10.4); PLATELET COUNT 40 /CUMM (130-400); RBC DISTRIBUTION WIDTH 16.6 % (11.5-14.5); RED BLOOD CELL CT 3.07 /CUMM (4.20-5.40)
[2018-01-09 04:30] LABS: WHITE BLOOD CELL COUNT 1.9 /CUMM (4.8-10.8)
--- NOTE | 2018-01-09 07:40 | PN- Resident CRCU ---
Shakir QUICK,[place] 01/09/18 0740: Subjective HPI/CRCU Issues: Overnight events: Patient overnight has remained hypotensive with blood pressure ranging from 60s to 90s/40s to 60s. Patient's heart rate has improved to the 60s. Patient is no longer hypothermic with the bear hugger. Patient today is arousable but remains lethargic and does not respond to questions. Accu-Cheks: 300, 145, 106 Labs: WBC 1.9 up from 1.0, 91.8% granulocytes, H&H 9.8 and 28.7, platelet count 40 up from 32 Smear showing nucleated red blood cells Haptoglobin pending Sodium 148, potassium 3.9, chloride 112, bicarbonate 26, BUN 25, creatinine 0.7, glucose 114, calcium 8.7, phosphorus 2.5, magnesium 1.5, total bilirubin 1.1 AST 1454 (down from 2923) ALT 1590 (down from 2400) LDH 7954 down from 34030) B12 >000 Folate 16.1 TSH 63.3 (down from 63.5) T4 0.09 (down from < 0.07) Utox negative U/A: +protein Thyroglobulin pending Lyme Ab pending Hep panel pending HIV nonreactive CT Chest/Abd/Pelvis: No evidence for acute traumatic injury. Small pericardial effusion Status post cholecystectomy Dependent bibasilar atelectasis. Fat-containing umbilical hernia Objective Vital Signs & I&O Last 8 Hrs of Vitals and I&O: Vital Signs Date Time Temp Pulse Resp B/P B/P Pulse O2 O2 Flow FiO2 Mean Ox Delivery Rate 01/09 0800 95 Nasal 2.0L Cannula 01/09 0800 98.4 60 16 90/60 96 Nasal 2.0L Cannula 01/09 0400 96 Nasal 2.0L Cannula 01/09 0000 98 Nasal 2.0L Cannula 01/09 0000 97.3 67 20 90/0 98 Nasal 2.0L Cannula 01/08 2150 Nasal 2.0L Cannula 01/09 2000 99 Nasal 2.0L Cannula 01/08 1930 94.8 40 19 96/72 96 / 1833 52 20 96/58 98 Nasal 2.0L Cannula 01/08 1807 Nasal 2.0L Cannula 01/08 1626 94/60 01/08 1625 108 22 104/76 100 Nasal 2.0L Cannula 01/08 1438 72 22 108/71 100 Nasal 2.0L Cannula 01/08 1352 99 Nasal 2.0L Cannula 01/08 1254 90 18 126/74 100 Nasal Cannula Intake & Output 01/09 1600 Intake Total Output Total Balance Patient 187 lb Weight Exam General Appearance: lethargic, awake, but not responding to questions or following commands Head: atraumatic, normal appearance Ears, Nose, Throat: dry mucosal membranes Respiratory: normal breath sounds, chest non-tender, no respiratory distress, lungs clear Cardiovascular: regular rate/rhythm Gastrointestinal: soft, non-tender, hypoactive Extremities: no edema, absent deep tendon reflexes, bruising on shins Cranial Nerves: pupils equal and reactive but sluggish, is not speaking but turns to voices Skin: warm/dry Current Medications: Current Medications Sig/Tabatha Start time Last Medication Dose Route Stop Time Status Admin Ceftazidime 1,000 MG IQ8 01/09 0000 AC 01/09 IV 0823 Ceftazidime 0 .STK-MED ONE 01/08 1530 DC .ROUTE Ceftazidime 1,000 MG ONCE ONE 01/08 1445 DC 04/05 IV 04 1446 1531 Dextrose/Sodium 500 ML .Q1H 01/08 1930 DC Chloride IV Dextrose/Sodium 1,000 ML Q10H 01/08 1630 DC 04/ Chloride IV 01/09 0229 1643 Glycerin/Mineral Oil 1 JUAN ALBERTO TID PRN 01/08 1645 01/09 TOP 0430 Hydrocortisone 100 MG ONE ONE 01/08 2345 CAN Sodium Succinate IV 01/08 2346 Hydrocortisone 100 MG Q8 01/08 2345 AC 04 Sodium Succinate IV 0608 Hydrocortisone 100 MG ONE ONE 01/08 1645 DC 04/05 Sodium Succinate IV 04/ 1646 1923 Lactated Ringer's 1,000 ML Q10H 01/09 0615 AC 01/09 IV 0657 Levothyroxine Sodium 100 MCG DAILY AC 01/09 0808 IV Levothyroxine Sodium 100 MCG ONCE ONE 01/08 1545 DC 04/05 IV 01/08 1546 1717 Magnesium Oxide 400 MG ONE ONE 01/08 2130 CAN PO 01/08 2131 Magnesium Sulfate 1 GM Q2H 01/09 0615 AC 01/09 Dextrose/Water 100 ML IV 01/09 1014 0657 Methylprednisolone 0 .STK-MED ONE 01/08 1730 DC .ROUTE Morphine Sulfate 2 MG Q4P PRN 01/08 1645 AC IV Norepinephrine 4 MG .STK-MED ONE 01/08 2337 DC IV 01/08 2338 Norepinephrine 4 MG Q8H 01/08 2330 AC Sodium Chloride 250 ML IV Pantoprazole Sodium 40 MG DAILY 01/08 1930 AC / IV 2020 Phosphate 250 MG ONCE ONE 01/08 2130 CAN PO 01/08 2131 Sodium Chloride 500 ML BOLUS ONE 01/09 0615 CAN IV 01/09 0714 Sodium Chloride 1,000 ML Q10H 01/09 0330 DC 04 IV 0336 Sodium Chloride 1,000 ML BOLUS ONE 01/09 0200 DC 04/ IV 01/09 0259 2345 Sodium Chloride 500 ML BOLUS ONE 01/09 0200 DC / IV 01/09 0259 0203 Sodium Chloride 1,000 ML BOLUS ONE 01/08 2330 CAN IV 01/09 0029 Sodium Chloride 1,000 ML BOLUS ONE 01/08 2145 DC 04/ IV 01/08 2244 2301 Sodium Chloride 1,000 ML BOLUS ONE 01/08 2015 DC 04/05 IV /05 2114 2022 Vancomycin HCl 1,000 MG DAILY 01/09 1000 AC Dextrose/Water 250 ML IV Vancomycin HCl 0 .STK-MED ONE 01/08 1530 DC .ROUTE Vancomycin HCl 1,000 MG ONCE ONE 01/08 1445 DC 04 Dextrose/Water 250 ML IV 01/08 1544 1547 Impression/Plan Impression/Problem List Impression: Patient is a 62-year-old female with past medical history significant for iatrogenic hypothyroidism status post total thyroidectomy for thyroid cancer presenting this admission with myxedema coma secondary to noncompliance, neutropenia, thrombocytopenia and bradycardia. Patient is admitted to the ICU for management of following: Respiratory Patient is currently saturating well on 2 L nasal cannula. Infectious: Neutropenia Patient has an absolute neutrophil count of 700 on admission. This has slightly improved today. Etiology of patient's neutropenia is unclear at this time however may be secondary to severe hypothyroidism. Further work up is necessary. Patient remains was severely hypothermic on admission however this is likely due to severe hypothyroidism. Patient is prophylaxtically being covered with antibiotics as the mortality rate of patient's with myxedema coma who become septic is much higher. There are no signs of acute infection. Patient is HIV and hepatitis negative. Rapid flu was negative. CXR shows no infiltrates. Blood and urine cultures were sent with no growth. Due to bradycardia, a lyme titer was sent. - Continue ceftaz and vancomycin - Repeat CBCs in a.m. - Follow up blood cultures - Follow up urine cultures Cardiac: Bradycardia Likely secondary to severe hypothyroidism. Serial troponin and EKG have been negative. Lyme titer ordered in setting of bradycardia and pancytopneia which was negative. ECHO shows low normal EF of 50% with no wall motion abnormalities or significant valvular pathology, with moderate LV hypertrophy, with a small pericardial effusion - which is seen with hypothyroidism. - Cardiology consulted - Monitor on telemetry - Transcutaneous pacer pads and atropine at bedside Hypotension Patient's hypotension is likely secondary to severe hypothyroidism. Patient has received IV fluid boluses along with stress dose steroids. Patient continues to remain hypotensive however patient's manual blood pressure this morning is >90 systolic after receiving a small fluid bolus. Patient's hypotension worsened this afternoon requiring levophed and a central line. An right internal jugular line was placed. Patient had received levophed peripherally for a short duration prior to accessing central line. After ~15 minutes patient had an adverse reaction to the levophed in the right arm and appeared to have phlebitis. The levophed through the peripheral IV site was stopped. Patient was given phentolamine to counter act the vasocontrictive effect of levophed and a cold compress was placed on top. - continue IV levophed through the central line - continue to monitor bp - continue IV D5 1/2 NS - continue IV Solu-Medrol q8h - continue compress on right arm Heme: Pancytopenia: Patient is neutropenic, anemic and severely thrombocytopenic. There have been case reports of pancytopenia with severe hypothyroidism however patient will require further workup at this time. Patient has a reticulocyte count of 1.48% with absolute reticulocyte count of 1.1 and a reticulocyte count index of 0.75 indicating bone marrow suppression which can be caused by hypothyroidism. LDH count is elevated. Iron panel revealed elevated iron, normal TIBC and elevated ferritin. Vitamin B12 is elevated. Folate levels normal. HIV negative. - haptoglobin pending - flow cytometry - Continue to monitor CBC - Hematology consulted. Appreciate recommendations. - Thrombocytopenic precautions Metabolic: Myxedema coma Patient presented confused, hypothermic, bradycardic and with elevated TSH and low T4. Patient has been noncompliant with medications. Endocrinology was consulted. Patient was given levothyroxine 100 g IV x 1 on admission. A cortisol level was checked in the setting of hypotension. Patient's cortisol level was low and she was given 100 mg IV Solu-Cortef. Patient's TSH and Free T4 has minimally changed. Patient continues to remain lethargic. Patient is was normothermic in the morning however started to become hypothermic again in the afternoon. - Continue IV Levothyroxine - Continue IV Solu-Cortef - Repeat free T4 and TSH tomorrow - Thyroglobulin panel for concern of recurrent cancer - Warming with bear austen Transaminitis: Unclear etiology of abnormal LFTs. Patient reports no abdominal pain. LFTs are improving today. CT Abd/Pelvis shows no focal defects in the liver. Patient is s /p cholecystectomy. Alk phos and bili are normal. These abnormal LFTs may be secondary to severe hypothyroidism, however this is unclear. Alimentary Hypernatremia Patients with hypothyroidism typically have hyponatremia, however patient on presentation appears severely dehydrated which may be the cause of her hypernatremia. Patient has also been given multiple doses of normal saline. - D5 1/2 normal saline at a rate of 100 mL per hour - Repeat sodium in a.m. Swallow evaluation Patient placed on puree with nectar thick liquids. Neurology Altered mental status in setting of severe hypothyroidism. Patient was found on the ground with a dresser over her - it is unclear if she fell. Patient has had multiple falls recently. Head CT and cervical CT were negative for any acute findings. Tibula/ fibula and humerus x-rays without any acute fracture. - Fall precautions - Neurochecks - PT eval Nephrology: None DVT prophylaxis: Alps only in the setting of thrombocytopenia Problem List: 1. Myxedema coma 2. Bradycardia 3. Pancytopenia Pain Ratin Pain Location: n/a Tomorrow's Labs & Rationales: cbc - pancytopenia icu bundle - electrolytes, abnormal lfts tsh and t4 - severe hypothyroidism Plan DVT/Prophylaxis: mechanical (only due to thrombocytopenia) Beni Bo MD 01/09/18 1446: Attending MD Review Statement Attending Sign Off Attending Cosign Statement: I have: examined this patient, reviewed [facility] EMR data, personally reviewd images, discussd w/resident/PA/GATE SERVICES SUPERVISOR, discussed mgmt plan w/clarence, discussed mgmt plan w/CM, discussed mgmt plan w/pt, agreed w/resident/PA/GATE SERVICES SUPERVISOR, amended to note. Other Findings: Impression 62 year old woman * pancytopenia * hx of thyroid ca - significant hypothyroidism consistent with myxedema * transaminitis Plan -agree with above residents plan -RUQ sono, trend lfts, if no improvement GI consult -f/u endocrine and heme recs -stress steroids, iv thyroid replacement -empiric abx, if no evidence of infection and continues to no longer be thrombocytpoenic will d/c abx -ECHO DVT prophylaxis at all times Central access in anticipation of possible pressors TTS 35 min D/w
[2018-01-09 08:00] VITALS: BP 90/60
--- NOTE | 2018-01-09 08:14 | PN- Endocrinology ---
Assessment/Plan Endoscopy Assessment: 62 y/o female, hx of thyroid cancer which was diagnosed in and was treated with thyroid surgery twice and ELDER twice. Detail unclear. She was supposed to take Levothyroxine 150 mcg daily. However, she hasn't been compliance with the medication. Patient was in ER in 05/2017 and 08/2017-- her TSH was > 60 and free T4 was < 0.07. She presented to ER today again after she was found that she was on the floor. Patient was hypothermia and bradycardic. Blood work showed profound hypothyroidism along with borderline low cortisol, abnormal LFT and pancytopenia. She was put on Levothyroxine 100 mcg iv and stress dose of steroid. Her HR has improved. But she was hypotensive overnight and she was started on pressor. Currently she is on hydrocortisone 100 mg iv every 8 hours. Am lab showed TSH 63.3 and free T4 0.09. Plan: 1. continue Levothyroxine 100 mcg iv daily for now; 2. continue stress dose of steroid-- hydrocortisone 100 mg iv every 8 hours. 3. continue other supportive treatment; 4. monitor vital sign and electrolytes. 5. repeat free T4 level tomorrow am. will follow. Subjective Subjective: She is still lethargic. Objective Last 24 Hrs of Vital Signs/I&O Vital Signs Date Time Temp Pulse Resp B/P B/P Pulse O2 O2 Flow FiO2 Mean Ox Delivery Rate 01/09 0400 96 Nasal 2.0L Cannula 01/09 0000 98 Nasal 2.0L Cannula 01/09 0000 97.3 67 20 90/0 98 Nasal 2.0L Cannula 01/08 2150 Nasal 2.0L Cannula / 2000 99 Nasal 2.0L Cannula 04/05 1930 94.8 40 19 96/72 96 04/05 1833 52 20 96/58 98 Nasal 2.0L Cannula 04/05 1807 Nasal 2.0L Cannula 04/05 1626 94/60 04/05 1625 108 22 104/76 100 Nasal 2.0L Cannula 04/05 1438 72 22 108/71 100 Nasal 2.0L Cannula 04/05 1352 99 Nasal 2.0L Cannula 04/05 1254 90 18 126/74 100 Nasal Cannula Intake & Output 01/09 1600 /06 0800 04/ 0000 Intake Total 1736 2500 Output Total 430 145 Balance 1306 2355 Intake, IV 1736 2500 Number 0 Bowel Movements Output, Urine 430 145 Patient 187 lb 188 lb 155 lb Weight Weight Bed scale Bed scale Measurement Method Results Pertinent Lab/Chad Results: Laboratory Tests 01/09 01/09 01/08 0350 0005 1845 Chemistry Sodium (137 - 145 mmol/L) 148 H Potassium (3.5 - 5.1 mmol/L) 3.9 Chloride (98 - 107 mmol/L) 112 H Carbon Dioxide (22 - 30 mmol/L) 26 Anion Gap (5 - 16) 11 BUN (7 - 17 mg/dL) 25 H Creatinine (0.5 - 1.0 mg/dL) 0.7 Estimated GFR (>60 ml/min) > 60 Glucose (65 - 99 mg/dL) 114 H Calcium (8.4 - 10.2 mg/dL) 8.7 Phosphorus (2.5 - 4.5 mg/dL) 2.5 Magnesium (1.6 - 2.3 mg/dL) 1.5 L Total Bilirubin (0.2 - 1.3 mg/dL) 1.1 AST (14 - 36 U/L) 1454 H ALT (9 - 52 U/L) 1590 H Troponin I (< 0.11 ng/ml) < 0.01 < 0.01 Albumin (3.5 - 5.0 g/dL) 3.2 L TSH (0.270 - 4.200 uIU/mL) 63.300 H Free T4 (0.78 - 2.44 ng/dL) 0.09 L Hematology CBC w Diff MAN DIFF ORDERED WBC (4.8 - 10.8 /CUMM) 1.9 L RBC (4.20 - 5.40 /CUMM) 3.07 L Hgb (12.0 - 16.0 G/DL) 9.8 L Hct (37 - 47 %) 28.7 L MCV (81.0 - 99.0 FL) 93.7 MCH (27.0 - 31.0 PG) 32.0 H MCHC (33.0 - 37.0 G/DL) 34.1 RDW (11.5 - 14.5 %) 16.6 H Plt Count (130 - 400 /CUMM) 40 L MPV (7.4 - 10.4 FL) 9.2 Gran % (42.2 - 75.2 %) 91.8 H Lymphocytes % (20.5 - 51.1 %) 5.9 L Monocytes % (1.7 - 9.3 %) 1.8 Eosinophils % (0 - 5 %) 0.1 Basophils % (0.0 - 2.0 %) 0.4 Absolute Granulocytes (1.4 - 6.5 /CUMM) 1.7 Segmented Neutrophils (42.2 - 75.2 %) 85 H Band Neutrophils (0.0 - 5.0 %) 1 Absolute Lymphocytes (1.2 - 3.4 /CUMM) 0.1 L Lymphocytes (20.5 - 51.1 %) 9 L Monocytes (1.7 - 9.3 %) 3 Absolute Monocytes (0.10 - 0.60 /CUMM) 0 L Eosinophils (0 - 5.0 %) 1 Absolute Eosinophils (0.0 - 0.7 /CUMM) 0 Basophils (0.0 - 2.0 %) 1 Absolute Basophils (0.0 - 0.2 /CUMM) 0 Nucleated RBCs (0.0 - 0.0 /100WBC) 2 H Platelet Estimate (ADEQUATE) DECREASED Normochromic RBCs VERIFIED Macrocytic Cells FEW Ovalocytes FEW Stomatocytes FEW Other Body Source Fld Total RBCs Counted (%) 100 Serology Lyme Disease Antibody Pending 01/08 01/08 01/08 1845 1758 1330 Chemistry Lactic Acid (0.7 - 2.1 mmol/L) 1.3 Phosphorus (2.5 - 4.5 mg/dL) 2.7 Magnesium (1.6 - 2.3 mg/dL) 1.8 Iron (37 - 170 ug/dL) 265 H TIBC (265 - 497 ug/dL) 296 Ferritin (11.1 - 264 ng/mL) 5770.0 H Direct Bilirubin (< 0.4 mg/dL) 0.7 H Lactate Dehydrogenase (313 - 618 U/L) 7954 H Troponin I (< 0.11 ng/ml) < 0.01 Vitamin B12 (239 - 931 pg/mL) > 1000 H Folate (2.76 - 20.0 ng/mL) 16.1 Hematology Haptoglobin Pending Serology Hepatitis A IgM Ab (NONREACTIVE) Pending Hep Bs Antigen (NONREACTIVE) Pending Hep B Core IgM Ab Conf (NONREACTIVE) Pending Hepatitis C Antibody (NONREACTIVE) Pending HIV 1&2 Ab Western Blot (NONREACTIVE) NONREACTIVE Toxicology Urine Opiates Screen (>2000 NG/ML) < 100 Methadone Screen (>300 NG/ML) < 40 Barbiturate Screen (>200 NG/ML) < 60 Ur Phencyclidine Scrn (>25 NG/ML) < 6.00 Amphetamines Screen (>1000 NG/ML) < 100 U Benzodiazepines Scrn (>200 NG/ML) < 85 Urine Cocaine Screen (>300 NG/ML) < 50 Urine Cannabis Screen (>50 NG/ML) < 5.00 Urines Urinalysis LIGHT H Urine Color (YEL,AMB,STR) YEL Urine Clarity (CLEAR) CLEAR Urine pH (5.0 - 8.0) 6.5 Ur Specific Nora (1.001 - 1.035) 1.025 Urine Protein (NEG,<30 MG/DL) 100 H Urine Ketones (NEG) NEG Urine Nitrite (NEG) NEG Urine Bilirubin (NEG) NEG Urine Urobilinogen (0.1 - 1.0 EU/dl) 1.0 Ur Leukocyte Esterase (NEG) NEG Ur Microscopic SEDIMENT EXAMINED Urine RBC (0 - 5 /HPF) 1-3 Ur Epithelial Cells (NONE,FEW) RARE Urine Hemoglobin (NEG) TRACE-LYSED Urine Glucose (N MG/DL) NEG 01/08 01/08 1330 1307 Chemistry Sodium (137 - 145 mmol/L) 147 H Potassium (3.5 - 5.1 mmol/L) 4.0 Chloride (98 - 107 mmol/L) 104 Carbon Dioxide (22 - 30 mmol/L) 33 H Anion Gap (5 - 16) 10 BUN (7 - 17 mg/dL) 34 H Creatinine (0.5 - 1.0 mg/dL) 0.7 Estimated GFR (>60 ml/min) > 60 BUN/Creatinine Ratio (7 - 25 %) 48.6 H Glucose (65 - 99 mg/dL) 145 H Calcium (8.4 - 10.2 mg/dL) 9.7 Total Bilirubin (0.2 - 1.3 mg/dL) 1.5 H AST (14 - 36 U/L) 2923 H ALT (9 - 52 U/L) 2400 H Alkaline Phosphatase (<127 U/L) 76 Lactate Dehydrogenase (313 - 618 U/L) 21059 H Troponin I (< 0.11 ng/ml) < 0.01 Total Protein (6.3 - 8.2 g/dL) 6.8 Albumin (3.5 - 5.0 g/dL) 3.8 Globulin (1.9 - 4.2 gm/dL) 3.0 Albumin/Globulin Ratio (1.1 - 2.2 %) 1.3 Free T4 (0.78 - 2.44 ng/dL) < 0.07 L Thyroglobulin Pending TSH &T3 &Free T4 Intrp (0.270 - 4.20 uIU/mL) 63.500 H Cortisol PM Sample (1.7 - 14.1) 14.8 H Coagulation PT (9.4 - 12.5 SEC) 11.6 INR (0.90 - 1.19) 1.06 APTT (25 - 37 SEC) 39 H Hematology CBC w Diff MAN DIFF ORDERED WBC (4.8 - 10.8 /CUMM) 1.0 *L RBC (4.20 - 5.40 /CUMM) 3.42 L Hgb (12.0 - 16.0 G/DL) 10.9 L Hct (37 - 47 %) 32.1 L MCV (81.0 - 99.0 FL) 93.9 MCH (27.0 - 31.0 PG) 32.0 H MCHC (33.0 - 37.0 G/DL) 34.0 RDW (11.5 - 14.5 %) 16.7 H Plt Count (130 - 400 /CUMM) 32 L MPV (7.4 - 10.4 FL) 8.9 Gran % (42.2 - 75.2 %) 71.7 Lymphocytes % (20.5 - 51.1 %) 20.1 L Monocytes % (1.7 - 9.3 %) 7.7 Eosinophils % (0 - 5 %) 0.3 Basophils % (0.0 - 2.0 %) 0.2 Absolute Granulocytes (1.4 - 6.5 /CUMM) 0.7 L Segmented Neutrophils (42.2 - 75.2 %) 61 Band Neutrophils (0.0 - 5.0 %) 5 Absolute Lymphocytes (1.2 - 3.4 /CUMM) 0.2 L Lymphocytes (20.5 - 51.1 %) 20 L Monocytes (1.7 - 9.3 %) 11 H Absolute Monocytes (0.10 - 0.60 /CUMM) 0.1 Absolute Eosinophils (0.0 - 0.7 /CUMM) 0 Basophils (0.0 - 2.0 %) 3 H Absolute Basophils (0.0 - 0.2 /CUMM) 0 Nucleated RBCs (0.0 - 0.0 /100WBC) 2 H Platelet Estimate (ADEQUATE) Hypochromic-Microcytic 2+ Poikilocytosis 1+ Anisocytosis 1+ Retic Count (0.5 - 2.0 %) 1.48 Immunology Thyroglobulin Antibody Pending
--- NOTE | 2018-01-09 08:21 | Cons- Hematology ---
General Information and HPI Consulting Request Date of Consult: 01/09/18 Requested By: Beni Bo MD Reason for Consult: pancytopenia Source of Information: old records Exam Limitations: clinical condition, confusion History of Present Illness: Mrs. Goode is a 62-year-old female with hypothyroidism, thyroid malignancy status post total thyroidectomy, ELDER ablation who presented to the hospital after being found to be confused and down by her . History is obtained through chart review given her clinical condition. She was found to be down with dresser on top of her by her after he returned home from work. It was noted that the stove was on and smell of gas in the home. EMS was called. She has not been feeling well over the past year according to her . He found pills behind the dresser. He has been giving her medication every morning but suspect she is spiting them out. She has been more confused and deconditioned over the last few weeks. She has had weight loss. She has been sitting or lying in bed most of the time. She has had similar issue in 2017 with not taking her thyroid medication. On presentation to the hospital, she was noted to not be responsive. Her blood work demonstrated WBC of 1,000, Hgb 10.9, Hct 32.1, MCV 93.9, platelet of 32,000 , 2% nucleated RBC, ALT 2400, AST 2923, bilirubin 1.5, creatinine 0.7, TSH 63.5, and free T4 0.9. CT head and cervical were relatively normal. CT abdomen and pelvis were also normal. She was noted to be hypotensive and bradycardiac. She was started on levothyroxine IV and hydrocortisone. She was started on empiric antibiotics and fluids. Allergies/Medications Allergies: Coded Allergies: Sulfa (Sulfonamide Antibiotics) (UNKNOWN 09/03/17) Home Med List: Levothyroxine Sodium 150 MCG TABLET 1 TAB PO DAILY HYPOTHYROID (Reported) Current Medications: Current Medications Sig/Tabatha Start time Last Medication Dose Route Stop Time Status Admin Ceftazidime 1,000 MG IQ8 01/09 0000 AC 01/09 IV 0031 Ceftazidime 0 .STK-MED ONE 01/08 1530 DC .ROUTE Ceftazidime 1,000 MG ONCE ONE 01/08 1445 DC 01/08 IV 01/08 1446 1531 Dextrose/Sodium 500 ML .Q1H 01/08 1930 DC Chloride IV Dextrose/Sodium 1,000 ML Q10H 01/08 1630 DC 04/05 Chloride IV 01/09 0229 1643 Glycerin/Mineral Oil 1 JUAN ALBERTO TID PRN 01/08 1645 AC 04/ TOP 0430 Hydrocortisone 100 MG ONE ONE 04 2345 CAN Sodium Succinate IV 04 2346 Hydrocortisone 100 MG Q8 01/08 2345 AC 04 Sodium Succinate IV 0608 Hydrocortisone 100 MG ONE ONE 01/08 1645 DC 04/ Sodium Succinate IV 04 1646 1923 Lactated Ringer's 1,000 ML Q10H 01/09 0615 AC 01/09 IV 0657 Levothyroxine Sodium 100 MCG ONCE ONE 01/08 1545 DC 04 IV 01/08 1546 1717 Magnesium Oxide 400 MG ONE ONE 01/08 2130 CAN PO 01/08 2131 Magnesium Sulfate 1 GM Q2H 01/09 0615 AC 01/09 Dextrose/Water 100 ML IV 01/09 1014 0657 Methylprednisolone 0 .STK-MED ONE 01/08 1730 DC .ROUTE Morphine Sulfate 2 MG Q4P PRN 01/08 1645 AC IV Norepinephrine 4 MG .STK-MED ONE 01/08 2337 DC IV 01/08 2338 Norepinephrine 4 MG Q8H 01/08 2330 AC Sodium Chloride 250 ML IV Pantoprazole Sodium 40 MG DAILY 01/08 1930 AC 0405 IV 2020 Phosphate 250 MG ONCE ONE 01/08 2130 CAN PO 01/08 2131 Sodium Chloride 500 ML BOLUS ONE 01/09 0615 CAN IV 01/09 0714 Sodium Chloride 1,000 ML Q10H / 0330 DC 04/ IV 0336 Sodium Chloride 1,000 ML BOLUS ONE 01/09 0200 DC 04/05 IV 04 0259 2345 Sodium Chloride 500 ML BOLUS ONE 01/09 0200 DC 04/06 IV 04 0259 0203 Sodium Chloride 1,000 ML BOLUS ONE 01/08 2330 CAN IV 04 0029 Sodium Chloride 1,000 ML BOLUS ONE 01/08 2145 DC 04/05 IV 04 2244 2301 Sodium Chloride 1,000 ML BOLUS ONE 01/08 2015 DC 04/05 IV 04/05 2114 2022 Vancomycin HCl 1,000 MG DAILY 01/09 1000 AC Dextrose/Water 250 ML IV Vancomycin HCl 0 .STK-MED ONE 01/08 1530 DC .ROUTE Vancomycin HCl 1,000 MG ONCE ONE 01/08 1445 DC 01/08 Dextrose/Water 250 ML IV 01/08 1544 1547 Review of Systems Review of Systems: Unable to obtain due to clinical status, non-responsive Past History Travel History Traveled to [place] past 21 day No Medical History Neurological: NONE EENT: NONE Cardiovascular: NONE Respiratory: NONE Gastrointestinal: NONE Hepatic: NONE Renal: NONE Musculoskeletal: NONE Psychiatric: NONE Endocrine: hypothyroidism Cancer(s): THYROID CA Surgical History Surgical History: cholecystectomy, THYROIDECTOMY hernia repair Psychosocial History Where Do You Live? Home Services at Home: None Smoking Status: Former Smoker ETOH Use: denies use Illicit Drug Use: denies illicit drug use Exam & Diagnostic Data Vital Signs and I&O Vital Signs Date Time Temp Pulse Resp B/P B/P Pulse O2 O2 Flow FiO2 Mean Ox Delivery Rate 01/09 0400 96 Nasal 2.0L Cannula 01/09 0000 98 Nasal 2.0L Cannula 01/09 0000 97.3 67 20 90/0 98 Nasal 2.0L Cannula 01/08 2150 Nasal 2.0L Cannula 01/08 2000 99 Nasal 2.0L Cannula 01/08 1930 94.8 40 19 96/72 96 04 1833 52 20 96/58 98 Nasal 2.0L Cannula 01/08 1807 Nasal 2.0L Cannula 01/08 1626 94/60 01/08 1625 108 22 104/76 100 Nasal 2.0L Cannula 01/08 1438 72 22 108/71 100 Nasal 2.0L Cannula 01/08 1352 99 Nasal 2.0L Cannula 01/08 1254 90 18 126/74 100 Nasal Cannula Intake & Output 01/09 1600 01/09 0800 01/09 0000 Intake Total 1736 2500 Output Total 430 145 Balance 1306 2355 Intake, IV 1736 2500 Number 0 Bowel Movements Output, Urine 430 145 Patient 85.105 kg 70.307 kg Weight Weight Bed scale Bed scale Measurement Method Physical Exam General Appearance: no apparent distress, awake Head: atraumatic, normal appearance, swelling (left side of face) Eyes: Bilateral: PERRL, EOMI. Ears, Nose, Throat: normal pharynx, moist mucus membranes Neck: supple Respiratory: normal breath sounds, chest non-tender, no respiratory distress, quiet respiration Cardiovascular: regular rate/rhythm Gastrointestinal: normal bowel sounds, soft, tenderness (diffusely) Extremities: no edema Neurologic/Psych: awake, disoriented x 3, unresponsive Skin: normal color, warm/dry, petechiae noted Lymphatic: no anterior cervical nettie, no organomegaly or lymphadenopathy Last 48 Hours of Lab Results: Laboratory Tests 01/09 01/09 01/08 0350 0005 1845 Chemistry Sodium (137 - 145 mmol/L) 148 H Potassium (3.5 - 5.1 mmol/L) 3.9 Chloride (98 - 107 mmol/L) 112 H Carbon Dioxide (22 - 30 mmol/L) 26 Anion Gap (5 - 16) 11 BUN (7 - 17 mg/dL) 25 H Creatinine (0.5 - 1.0 mg/dL) 0.7 Estimated GFR (>60 ml/min) > 60 Glucose (65 - 99 mg/dL) 114 H Calcium (8.4 - 10.2 mg/dL) 8.7 Phosphorus (2.5 - 4.5 mg/dL) 2.5 Magnesium (1.6 - 2.3 mg/dL) 1.5 L Total Bilirubin (0.2 - 1.3 mg/dL) 1.1 AST (14 - 36 U/L) 1454 H ALT (9 - 52 U/L) 1590 H Troponin I (< 0.11 ng/ml) < 0.01 < 0.01 Albumin (3.5 - 5.0 g/dL) 3.2 L TSH (0.270 - 4.200 uIU/mL) 63.300 H Free T4 (0.78 - 2.44 ng/dL) 0.09 L Hematology CBC w Diff MAN DIFF ORDERED WBC (4.8 - 10.8 /CUMM) 1.9 L RBC (4.20 - 5.40 /CUMM) 3.07 L Hgb (12.0 - 16.0 G/DL) 9.8 L Hct (37 - 47 %) 28.7 L MCV (81.0 - 99.0 FL) 93.7 MCH (27.0 - 31.0 PG) 32.0 H MCHC (33.0 - 37.0 G/DL) 34.1 RDW (11.5 - 14.5 %) 16.6 H Plt Count (130 - 400 /CUMM) 40 L MPV (7.4 - 10.4 FL) 9.2 Gran % (42.2 - 75.2 %) 91.8 H Lymphocytes % (20.5 - 51.1 %) 5.9 L Monocytes % (1.7 - 9.3 %) 1.8 Eosinophils % (0 - 5 %) 0.1 Basophils % (0.0 - 2.0 %) 0.4 Absolute Granulocytes (1.4 - 6.5 /CUMM) 1.7 Segmented Neutrophils (42.2 - 75.2 %) 85 H Band Neutrophils (0.0 - 5.0 %) 1 Absolute Lymphocytes (1.2 - 3.4 /CUMM) 0.1 L Lymphocytes (20.5 - 51.1 %) 9 L Monocytes (1.7 - 9.3 %) 3 Absolute Monocytes (0.10 - 0.60 /CUMM) 0 L Eosinophils (0 - 5.0 %) 1 Absolute Eosinophils (0.0 - 0.7 /CUMM) 0 Basophils (0.0 - 2.0 %) 1 Absolute Basophils (0.0 - 0.2 /CUMM) 0 Nucleated RBCs (0.0 - 0.0 /100WBC) 2 H Platelet Estimate (ADEQUATE) DECREASED Normochromic RBCs VERIFIED Macrocytic Cells FEW Ovalocytes FEW Stomatocytes FEW Other Body Source Fld Total RBCs Counted (%) 100 Serology Lyme Disease Antibody Pending 01/08 01/08 01/08 1845 1758 1330 Chemistry Lactic Acid (0.7 - 2.1 mmol/L) 1.3 Phosphorus (2.5 - 4.5 mg/dL) 2.7 Magnesium (1.6 - 2.3 mg/dL) 1.8 Iron (37 - 170 ug/dL) 265 H TIBC (265 - 497 ug/dL) 296 Ferritin (11.1 - 264 ng/mL) 5770.0 H Direct Bilirubin (< 0.4 mg/dL) 0.7 H Lactate Dehydrogenase (313 - 618 U/L) 7954 H Troponin I (< 0.11 ng/ml) < 0.01 Vitamin B12 (239 - 931 pg/mL) > 1000 H Folate (2.76 - 20.0 ng/mL) 16.1 Hematology Haptoglobin Pending Serology Hepatitis A IgM Ab (NONREACTIVE) Pending Hep Bs Antigen (NONREACTIVE) Pending Hep B Core IgM Ab Conf (NONREACTIVE) Pending Hepatitis C Antibody (NONREACTIVE) Pending HIV 1&2 Ab Western Blot (NONREACTIVE) NONREACTIVE Toxicology Urine Opiates Screen (>2000 NG/ML) < 100 Methadone Screen (>300 NG/ML) < 40 Barbiturate Screen (>200 NG/ML) < 60 Ur Phencyclidine Scrn (>25 NG/ML) < 6.00 Amphetamines Screen (>1000 NG/ML) < 100 U Benzodiazepines Scrn (>200 NG/ML) < 85 Urine Cocaine Screen (>300 NG/ML) < 50 Urine Cannabis Screen (>50 NG/ML) < 5.00 Urines Urinalysis LIGHT H Urine Color (YEL,AMB,STR) YEL Urine Clarity (CLEAR) CLEAR Urine pH (5.0 - 8.0) 6.5 Ur Specific [place] (1.001 - 1.035) 1.025 Urine Protein (NEG,<30 MG/DL) 100 H Urine Ketones (NEG) NEG Urine Nitrite (NEG) NEG Urine Bilirubin (NEG) NEG Urine Urobilinogen (0.1 - 1.0 EU/dl) 1.0 Ur Leukocyte Esterase (NEG) NEG Ur Microscopic SEDIMENT EXAMINED Urine RBC (0 - 5 /HPF) 1-3 Ur Epithelial Cells (NONE,FEW) RARE Urine Hemoglobin (NEG) TRACE-LYSED Urine Glucose (N MG/DL) NEG 01/08 01/08 1330 1307 Chemistry Sodium (137 - 145 mmol/L) 147 H Potassium (3.5 - 5.1 mmol/L) 4.0 Chloride (98 - 107 mmol/L) 104 Carbon Dioxide (22 - 30 mmol/L) 33 H Anion Gap (5 - 16) 10 BUN (7 - 17 mg/dL) 34 H Creatinine (0.5 - 1.0 mg/dL) 0.7 Estimated GFR (>60 ml/min) > 60 BUN/Creatinine Ratio (7 - 25 %) 48.6 H Glucose (65 - 99 mg/dL) 145 H Calcium (8.4 - 10.2 mg/dL) 9.7 Total Bilirubin (0.2 - 1.3 mg/dL) 1.5 H AST (14 - 36 U/L) 2923 H ALT (9 - 52 U/L) 2400 H Alkaline Phosphatase (<127 U/L) 76 Lactate Dehydrogenase (313 - 618 U/L) 21830 H Troponin I (< 0.11 ng/ml) < 0.01 Total Protein (6.3 - 8.2 g/dL) 6.8 Albumin (3.5 - 5.0 g/dL) 3.8 Globulin (1.9 - 4.2 gm/dL) 3.0 Albumin/Globulin Ratio (1.1 - 2.2 %) 1.3 Free T4 (0.78 - 2.44 ng/dL) < 0.07 L Thyroglobulin Pending TSH &T3 &Free T4 Intrp (0.270 - 4.20 uIU/mL) 63.500 H Cortisol PM Sample (1.7 - 14.1) 14.8 H Coagulation PT (9.4 - 12.5 SEC) 11.6 INR (0.90 - 1.19) 1.06 APTT (25 - 37 SEC) 39 H Hematology CBC w Diff MAN DIFF ORDERED WBC (4.8 - 10.8 /CUMM) 1.0 *L RBC (4.20 - 5.40 /CUMM) 3.42 L Hgb (12.0 - 16.0 G/DL) 10.9 L Hct (37 - 47 %) 32.1 L MCV (81.0 - 99.0 FL) 93.9 MCH (27.0 - 31.0 PG) 32.0 H MCHC (33.0 - 37.0 G/DL) 34.0 RDW (11.5 - 14.5 %) 16.7 H Plt Count (130 - 400 /CUMM) 32 L MPV (7.4 - 10.4 FL) 8.9 Gran % (42.2 - 75.2 %) 71.7 Lymphocytes % (20.5 - 51.1 %) 20.1 L Monocytes % (1.7 - 9.3 %) 7.7 Eosinophils % (0 - 5 %) 0.3 Basophils % (0.0 - 2.0 %) 0.2 Absolute Granulocytes (1.4 - 6.5 /CUMM) 0.7 L Segmented Neutrophils (42.2 - 75.2 %) 61 Band Neutrophils (0.0 - 5.0 %) 5 Absolute Lymphocytes (1.2 - 3.4 /CUMM) 0.2 L Lymphocytes (20.5 - 51.1 %) 20 L Monocytes (1.7 - 9.3 %) 11 H Absolute Monocytes (0.10 - 0.60 /CUMM) 0.1 Absolute Eosinophils (0.0 - 0.7 /CUMM) 0 Basophils (0.0 - 2.0 %) 3 H Absolute Basophils (0.0 - 0.2 /CUMM) 0 Nucleated RBCs (0.0 - 0.0 /100WBC) 2 H Platelet Estimate (ADEQUATE) Hypochromic-Microcytic 2+ Poikilocytosis 1+ Anisocytosis 1+ Retic Count (0.5 - 2.0 %) 1.48 Immunology Thyroglobulin Antibody Pending Imaging/Other Studies: CT chest/abdomen/pelvis 01/08/2018: The heart is of normal size. There is a small pericardial effusion. There is neither mediastinal, hilar nor axillary lymphadenopathy. There are no chest wall masses. Review of lung windows demonstrates that there are neither pleural effusions nor pneumothoraces. There are no consolidations. There is dependent bibasilar atelectasis. There are no pulmonary parenchymal nodules. The liver is of normal size and attenuation without focal lesions nor intrahepatic biliary ductal dilation. The patient is status post cholecystectomy. Surgical clips are identified. The spleen, pancreas, adrenal glands are unremarkable. Both kidneys are of normal size and attenuation without hydronephrosis or nephrolithiasis. There is no abdominal free fluid. There is neither mesenteric nor retroperitoneal lymphadenopathy. There is a fat-containing umbilical hernia. Normal unopacified loops of small and large bowel are identified. There is no pelvic free fluid. The urinary bladder is unremarkable. There is neither pelvic nor inguinal lymphadenopathy. Bone windows: Neither sclerotic nor lytic bone lesions are identified. IMPRESSION: No evidence for acute traumatic injury. Small pericardial effusion. Status post cholecystectomy. Dependent bibasilar atelectasis. Fat-containing umbilical hernia. Assessment/Plan Assessment: Mrs. Goode is a 62-year-old female with hypothyroidism, thyroid malignancy status post total thyroidectomy, ELDER ablation who presented to the hospital after being found to be confused and down by her . History is obtained through chart review given her clinical condition. She was noted to be down when her returned from work. EMS was call. noted large number of pills behind the dresser and suspect she had spit out her medications. On presentation, she was noted to be pancytopenic with WBC 1.0, platelet of 32, 000, and hemoglobin of 10.9. Vitamin B12 and folated was normal. Ferritin was elevated at 5770. Her AST and ALT were >2000. LDH is elevated at 7954. Bilirubin was elevated at 1.5. Her TSH was elevated and T4 was low. There is concern for myxedema coma. She was started on hydrocortisone and levothyroxine. She was started on empiric antibiotics. Imaging with CT head, cervical, chest, abdomen, and pelvis are reviewed and negative for any significant acute findings. She was admitted to the ICU for monitoring. She remains non-verbal. Blood work demonstrated WBC 1.9, hemoglobin 9.8, and platelet of 40,000 this morning. She has 2% nucleated RBC. Peripheral blood smear was reviewd. She has increased bands, decreased bands, no nucleated RBC, segmented neutrophils, and no blast. Blood work demonstrated improvement this morning. AST and ALT have decreased to 1500. Bilirubin has normalized. HIV was negative. Pancytopenia is likely related to myxedema coma. This has been seen previous in case reports. Other etiology may include medication effects. It is unclear if she had taken other medications. Underlying hematologic disorder can not be rule out at the moment. Given the nucleated RBC, it is reason to send for flow cytometry. If pancytopenia persist with treatement of hypothyroidism, she should have bone marrow biopsy done. She will be continued on supportive care for now. Recommendations: Pancytopenia: -send for flow cytometry -monitor CBC -consider bone marrow biopsy/aspiration if persistent pancytoenia Myxedema coma: -endocrinology following -treatment as per primary Problem List: 1. Pancytopenia 2. Myxedema coma Other Findings/Comments: Please call [phone] with any questions or concerns. Consult Acknowledgment - Thank you for your consult request.
--- NOTE | 2018-01-09 13:46 | ECHOCARDIOGRAM REPORT ---
MILAGROS PEREIRA Age: 62 : 1955 Gender: F Exam Date: 01/08/2018 18:01 Exam Location: ER Ht (in): 65 Wt (lb): 155 BSA: 1.81 BP: 94 / 60 Ordering Physician: Vernon Schilling MD Referring Physician: Thierno Liriano MD, PhD Technologist: Niecy Ivy EVELYN Room Number: [id number] Indications: HYPOTENSION Rhythm: Sinus bradycardia Technical Quality: good FINDINGS Left Ventricle Normal left ventricular size with mild to moderate left ventricular hypertrophy. Low normal systolic function with no obvious regional wall motion abnormalities. Normal left ventricular diastolic filling pattern for age. The ejection fraction is visually estimated at 50%. Right Ventricle The right ventricle is thickened with normal function. Right Atrium The right atrium is normal in size. Left Atrium The left atrium is normal in size. The interatrial septum is intact. Mitral Valve The mitral valve is normal in structure and function. There is trace mitral regurgitation. Aortic Valve Structurally normal aortic valve without significant sclerosis or stenosis. There is no aortic regurgitation. Tricuspid Valve The tricuspid valve is normal in structure and function. There is trace tricuspid regurgitation. Pulmonary artery systolic pressure is normal. Pulmonic Valve Structurally normal pulmonic valve. There is no pulmonic regurgitation. Pericardium Normal pericardium with small effusion. No pleural effusion. Great Vessels Normal aortic root dimension. The aortic arch and great vessels are well seen and are normal. CONCLUSIONS 1. Low normal EF of 50%. 2. Mild to moderate left ventricular hypertrophy. 3. Trace mitral regurgitation. 4. Trace tricuspid regurgitation. 5. Small pericardial effusion. Thierno Liriano M.D. (Electronically Signed) Final Date: 09 January 2018 13:46 MEASUREMENTS (Male / Female) Normal Values 2D ECHO LV Diastolic Diameter PLAX 4.0 cm 4.2 - 5.9 / 3.9 - 5.3 cm LV Systolic Diameter PLAX 2.1 cm 2.1 - 4.0 cm LV Fractional Shortening PLAX 47.5 % 25 - 46 % LV Ejection Fraction 2D Teich 79.4 % IVS Diastolic Thickness 1.5 cm LVPW Diastolic Thickness 1.3 cm LV Relative Wall Thickness 0.7 RV Internal Dim ED PLAX 2.7 cm 1.9 - 3.8 cm LVOT Diameter 1.9 cm Aortic Root Diameter 3.0 cm LA Systolic Diameter LX 3.3 cm 3.0 - 4.0 / 2.7 - 3.8 cm Ascending Aorta Diameter 2.9 cm DOPPLER AV Peak Velocity 102.0 cm/s AV Peak Gradient 4.2 mmHg AV Mean Velocity 68.0 cm/s AV Mean Gradient 2.0 mmHg AV Velocity Time Integral 39.0 cm LVOT Peak Velocity 64.7 cm/s LVOT Peak Gradient 1.7 mmHg LVOT Mean Velocity 40.9 cm/s LVOT Mean Gradient 1.0 mmHg LVOT Velocity Time Integral 21.5 cm LVOT Stroke Volume 61.0 cm AV Area Cont Eq vti 1.6 cm AV Area Cont Eq pk 1.8 cm MV Peak Velocity 62.0 cm/s MV Peak Gradient 1.5 mmHg MV Mean Velocity 38.2 cm/s MV Mean Gradient 1.0 mmHg Mitral E Point Velocity 69.6 cm/s Mitral A Point Velocity 49.4 cm/s Mitral E to A Ratio 1.4 MV PHT Velocity 65.2 cm/s MV Deceleration [place] 160.0 cm/s MV Pressure Half Time 122.3 ms MV Area PHT 1.8 cm MV Deceleration Time 239.0 ms TR Peak Velocity 127.0 cm/s TR Peak Gradient 6.5 mmHg Right Atrial Pressure 5.0 mmHg Pulmonary Artery Systolic Pressu 11.5 mmHg Right Ventricular Systolic Press 11.5 mmHg PV Peak Velocity 52.1 cm/s PV Peak Gradient 1.1 mmHg PV Mean Velocity 40.9 cm/s PV Mean Gradient 1.0 mmHg PV Velocity Time Integral 20.7 cm LV E' Lateral Velocity 6.5 cm/s Mitral E to LV E' Lateral Ratio 10.7 LV E' Septal Velocity 3.9 cm/s Mitral E to LV E' Septal Ratio 17.8
--- NOTE | 2018-01-09 14:29 | Proc Note Internal Medicine ---
Medicine Procedure Procedure Date: 01/09/18 Medical Procedure(s): central venous cath place Pre-Operative Diagnosis: Hypotension Myxedema Coma Post-Operative Diagnosis: Same Estimated Blood Loss: less than 50ml Anesthesia: local monitored anesthesi Procedure Findings: Resident: Vernon Schilling/Skip Cisneros Attending: Dr. Beni Bo A time-out was completed verifying correct patient, procedure, site, positioning , and special equipment if applicable. The patient was placed in a dependent position appropriate for central line placement based on the vein to be cannulated. The patients right neck was prepped and draped in sterile fashion. 1% Lidocaine was used to anesthetize the surrounding skin area. A triple lumen 9 -[place] Cordis catheter was introduced into the the internal jugularusing the Seldinger technique and under ultrasound guidance. The catheter was threaded smoothly over the guide wire and appropriate blood return was obtained. Each lumen of the catheter was evacuated of air and flushed with sterile saline. The catheter was then sutured in place to the skin and a sterile dressing applied. Perfusion to the extremity distal to the point of catheter insertion was checked and found to be adequate. Dr. Cisneros was present for the entire procedure. The patient tolerated the procedure well and there were no complications. A portable chest xray was ordered to confirm placement.
--- NOTE | 2018-01-09 15:21 | RADIOLOGY REPORT ---
EXAMINATION: XR PORTABLE CHEST CLINICAL INFORMATION: IJ placement COMPARISON: Chest CT scan 01/09/2020 TECHNIQUE: Portable AP supine view of the chest was obtained. FINDINGS: The x-ray is taken with rotation toward the left side. A right-sided IJ catheter is in place with its tip projecting over inferior aspect of the right ventricle. No pneumothorax. The cardiomediastinal silhouette is unremarkable based on AP view. Retrocardiac opacity noted, could represent atelectasis. Blunting of the left lateral costophrenic angle can represent pleural effusion. IMPRESSION: Right IJ central venous catheter is in place with its tip projecting over the inferior right ventricle. No pneumothorax. Left lower lobe opacity and possible small left-sided pleural effusion.
[2018-01-09 16:00] VITALS: BP 86/60
--- NOTE | 2018-01-09 17:03 | RADIOLOGY REPORT ---
EXAMINATION: XR PORTABLE CHEST CLINICAL INFORMATION: Status post right IJ placement after readjustment COMPARISON: Radiograph from earlier today TECHNIQUE: Portable frontal view of the chest was obtained. FINDINGS: The right internal jugular central venous catheter is been partially retracted. The patient is rotated which limits exact evaluation, but this terminates over the expected region of the cavoatrial junction at this time. Small left pleural effusion again noted with basilar opacity. The right lung appears clear. No pneumothorax. The cardiomediastinal silhouette is unchanged, with a calcified aorta. IMPRESSION: Right internal jugular central venous catheter has been retracted, now terminating in the region of the cavoatrial junction. Persistent small left pleural effusion with airspace opacity.
--- NOTE | 2018-01-09 17:09 | PN- Cardiology ---
Subjective Subjective: * Patient is still not able to answer questions. * sinus bradycardia with improved heart rate compared to yesterday. Blood pressure is in the 85-90 systolic range. * Patient is making adequate urine. * Low normal EF on echo Objective Vital Signs and I&Os Vital Signs Date Time Temp Pulse Resp B/P B/P Pulse O2 O2 Flow FiO2 Mean Ox Delivery Rate 01/09 1648 59 91/63 01/09 1322 50 76/00 01/09 0800 95 Nasal 2.0L Cannula 01/09 0800 98.4 60 16 90/60 96 Nasal 2.0L Cannula 01/09 0400 96 Nasal 2.0L Cannula 01/09 0000 98 Nasal 2.0L Cannula 01/09 0000 97.3 67 20 90/0 98 Nasal 2.0L Cannula 01/08 2150 Nasal 2.0L Cannula 01/08 2000 99 Nasal 2.0L Cannula 01/08 1930 94.8 40 19 96/72 96 01/08 1833 52 20 96/58 98 Nasal 2.0L Cannula 01/08 1807 Nasal 2.0L Cannula Intake & Output 01/09 1600 01/09 0800 01/09 0000 04/ 1600 01/08 0800 04 0000 Intake Total 1048 1736 2500 0 Output Total 200 430 145 0 Balance 848 1306 2355 0 Intake, IV 1048 1736 2500 Intake, Oral 0 Number 0 Bowel Movements Output, Stool 0 Output, Urine 200 430 145 0 Patient 187 lb 188 lb 155 lb 155 lb Weight Weight Bed scale Bed scale Estimated Measurement Method Physical Exam: General: WD/WN female; lethargic with decreased responsiveness HEENT: swollen left cheek, PERRL, EOMI Neck: no JVD, no carotid bruit Heart: bradycardic with regular rhythm, no murmur Lungs: clear bilaterally Extremities; 1+ edema bilaterally Assessment/Plan Assessment/Plan * This patient has a borderline blood pressure. I would add levophed to maintain her BP at 90 systolic to avoid ATN and to improve cerebral perfusion. Her bradycardia is improved to a reasonable level in the 50's. Her hemodynamic issues are due to myxedema and are expected to improve. She may have hepatic congestion with shock liver causing her elevated hepatic transaminases. Although she has very low voltage on her ECG she is in a sinus rhythm. A small pericaridial effusion is noted which is not unexpected in the setting of severe hypothyroidism which may also be contributing to low voltage. There is no evidence of tamponade. Continue maintenance IV fluids. * It is expected that her bradycardia will improve with thyroid supplementation and with steroid therapy. For now keep transcutaneous pacer pads in place and have atropine by the bedside. Continue telemetry? Yes
--- NOTE | 2018-01-09 17:46 | ULTRASOUND REPORT ---
EXAMINATION: US ABDOMEN COMPLETE CLINICAL INFORMATION: Abnormal LFTs. COMPARISON: CT 09/03/2017 TECHNIQUE: Real-time imaging of the abdominal viscera. FINDINGS: PANCREAS: Not well seen secondary to bowel gas. ABDOMINAL AORTA: The proximal segment is normal in caliber. INFERIOR VENA CAVA: Visualized portions are normal. LIVER: There is diffuse increased liver parenchymal echogenicity, consistent with hepatic steatosis. The liver is normal in size and contour. No biliary ductal dilatation. GALLBLADDER: Status post cholecystectomy. COMMON BILE DUCT: Normal in caliber measuring 0.4 cm in diameter. RIGHT KIDNEY: Normal. No hydronephrosis. No renal calculi or focal parenchymal lesions. The kidney measures 9.2 cm in maximum dimension. LEFT KIDNEY: Not visualized due to patient positioning. SPLEEN: Not able to be assessed due to patient positioning and condition. FREE FLUID: None. IMPRESSION: No acute findings of the right upper quadrant. The left abdomen is not assessed. The pancreas is not assessed due to bowel gas. Hepatic steatosis. Status post cholecystectomy.
[2018-01-09 23:00] VITALS: BP 108/60
[2018-01-10 04:54] LABS: ABSOLUTE BASOPHIL COUNT 0 /CUMM (0.0-0.2); ABSOLUTE EOSINOPHIL COUNT 0 /CUMM (0.0-0.7); ABSOLUTE GRANULOCYTE CT 4.4 /CUMM (1.4-6.5); ABSOLUTE LYMPH COUNT 0.2 /CUMM (1.2-3.4); ABSOLUTE MONOCYTE COUNT 0 /CUMM (0.10-0.60); BASOPHIL % 0.1 % (0.0-2.0); EOSINOPHIL % 0 % (0-5); HEMATOCRIT 26.3 % (37-47); MEAN CORPUSCULAR HGB CONC 34.4 G/DL (33.0-37.0); MEAN CORPUSCULAR VOLUME 92.9 FL (81.0-99.0); MEAN PLATELET VOLUME 9.4 FL (7.4-10.4); PLATELET COUNT 37 /CUMM (130-400); RBC DISTRIBUTION WIDTH 16.8 % (11.5-14.5); RED BLOOD CELL CT 2.83 /CUMM (4.20-5.40)
[2018-01-10 05:02] LABS: WHITE BLOOD CELL COUNT 4.6 /CUMM (4.8-10.8)
[2018-01-10 08:00] VITALS: BP 98/60
--- NOTE | 2018-01-10 08:06 | PN- Endocrinology ---
Assessment/Plan Endoscopy Assessment: 62 y/o female, hx of thyroid cancer which was diagnosed in and was treated with thyroid surgery twice and ELDER twice. Detail unclear. She was supposed to take Levothyroxine 150 mcg daily. However, she hasn't been compliance with the medication. Patient was in ER in 05/2017 and 08/2017-- her TSH was > 60 and free T4 was < 0.07. She presented to ER today again after she was found that she was on the floor. Patient was hypothermia and bradycardic. Blood work showed profound hypothyroidism along with borderline low cortisol, abnormal LFT and pancytopenia. The patient is on levothyroxine 100 mcg IV daily and continues on hydrocortisone 100 mg every 8 hours. She is still on levo fed. She is awake but does not answer questions. Labs show that her white blood count is improved to 4.6 hematocrit 26.3 and platelets 37,000. TSH is 40.5 with a free T4 0.18. These numbers are getting better. The patient's potassium is low at 3.3. Calcium is 8.1 and albumin 3.1. Plan: Suggest continue the present dose of levothyroxine intravenously and continue hydrocortisone 100 mg every 8 hours. The patient has hypernatremia and a hyperosmolar state. She would benefit from some free water. She is is not taking anything p.o. at this point we may want to give her free water through a Keofeed tube. With regard to repleting her potassium, the dangers of giving potassium phosphate would be to lower the patient's serum calcium resulting tetany. The patient's phosphorus level is not low and raising it to a high level can lower the serum calcium and also cause precipitation out of calcium phosphorus complexes. Subjective Subjective: Does not answer questions appropriately Objective Last 24 Hrs of Vital Signs/I&O Vital Signs Date Time Temp Pulse Resp B/P B/P Pulse O2 O2 Flow FiO2 Mean Ox Delivery Rate 01/10 0400 99 Nasal 2.0L Cannula 01/10 0300 80 15 96/68 01/10 0000 100 Nasal 2.0L Cannula 01/09 2300 95.8 51 16 108/60 99 Nasal 2.0L Cannula 01/09 2000 98 Nasal 2.0L Cannula 01/09 1648 59 91/63 01/09 1600 97 Nasal 2.0L Cannula 01/09 1600 96.7 56 20 86/60 99 Nasal 2.0L Cannula 01/09 1322 50 76/00 01/09 1200 97 Nasal 2.0L Cannula Intake & Output 01/10 1600 01/10 0801/10 0000 Intake Total 906 1374 Output Total 145 155 Balance 761 1219 Intake, IV 906 1374 Number 0 0 Bowel Movements Output, Urine 145 155 Vital Signs Date Time Temp Pulse Resp B/P B/P Pulse O2 O2 Flow FiO2 Mean Ox Delivery Rate 01/10 0400 99 Nasal 2.0L Cannula 01/10 0300 80 15 96/68 04/ 0000 100 Nasal 2.0L Cannula 01/09 2300 95.8 51 16 108/60 99 Nasal 2.0L Cannula 01/09 2000 98 Nasal 2.0L Cannula 01/09 1648 59 91/63 01/09 1600 97 Nasal 2.0L Cannula 01/09 1600 96.7 56 20 86/60 99 Nasal 2.0L Cannula 01/09 1322 50 76/00 01/09 1200 97 Nasal 2.0L Cannula Intake & Output 01/10 1600 01/10 0801/10 0000 Intake Total 906 1374 Output Total 145 155 Balance 761 1219 Intake, IV 906 1374 Number 0 0 Bowel Movements Output, Urine 145 155 Physical Exam General Appearance: awake, lethargic Head: normal appearance Neck: normal inspection Respiratory: normal breath sounds Cardiovascular: regular rate/rhythm Abdomen: normal bowel sounds Extremities: normal inspection Current Medications: Current Medications Sig/Tabatha Start time Last Medication Dose Route Stop Time Status Admin Ceftazidime 1,000 MG IQ8 01/09 0000 DC 01/09 IV 01/10 0000 2314 Dextrose/Sodium 1,000 ML Q10H / 1815 AC 01/10 Chloride IV 0509 Glycerin/Mineral Oil 1 JUAN ALBERTO TID PRN 01/08 1645 AC 01/09 TOP 0430 Hydrocortisone 100 MG Q8 / 2345 AC 04 [place] 0610 Lactated Ringer's 1,000 ML Q10H / 0615 DC 01/09 IV 1648 Levothyroxine Sodium 100 MCG DAILY AC 01/09 0808 AC 01/09 IV 0938 Lidocaine 20 ML .STK-MED ONE 01/09 1528 DC IA 01/09 1529 Magnesium Sulfate 1 GM Q2H 01/09 0615 DC 01/09 Dextrose/Water 100 ML IV 01/09 1014 0938 Morphine Sulfate 2 MG Q4P PRN 01/08 1645 AC IV Norepinephrine 4 MG Q13H 01/09 1500 AC 01/10 Sodium Chloride 250 ML IV 0300 Norepinephrine 4 MG Q8H 01/08 2330 DC 01/09 Sodium Chloride 250 ML IV 1322 Pantoprazole Sodium 40 MG DAILY 01/08 1930 AC 01/09 IV 0938 Phentolamine Mesylate 5 MG ONE ONE 01/09 1715 DC 01/09 IV 01/09 1716 1730 Potassium Phosphate 15 mMol ONE ONE 01/10 0615 AC Sodium Chloride 250 ML IV 01/10 1019 Potassium Phosphate 15 mMol ONE ONE 01/09 1245 DC 01/09 Sodium Chloride 250 ML IV 01/09 1649 1649 Vancomycin HCl 1,000 MG DAILY 01/09 1000 DC 01/09 Dextrose/Water 250 ML IV 0938 Results Pertinent Lab/Chad Results: Laboratory Tests 01/10 01/09 01/09 0400 1748 0810 Blood Gas pH (7.35 - 7.45 PH) 7.42 pCO2 (35 - 45 TORR) 39 pO2 (80 - 100 TORR) 122 H HCO3 (21 - 28 MEQ/L) 25 ABG O2 Sat (Measured) (>96.0 %) 97.0 P-50 (Temp Corrected) N Carboxyhemoglobin (1.5 - 5.0 %) 0.2 L O2 Concentration % 2L Temperature (97.0 - 100.0 FARH) 97.1 O2 Delivery Method N/C Chemistry Sodium (137 - 145 mmol/L) 147 H Potassium (3.5 - 5.1 mmol/L) 3.3 L Chloride (98 - 107 mmol/L) 110 H Carbon Dioxide (22 - 30 mmol/L) 27 Anion Gap (5 - 16) 10 BUN (7 - 17 mg/dL) 21 H Creatinine (0.5 - 1.0 mg/dL) 0.8 Estimated GFR (>60 ml/min) > 60 Glucose (65 - 99 mg/dL) 170 H Calcium (8.4 - 10.2 mg/dL) 8.1 L Phosphorus (2.5 - 4.5 mg/dL) 3.1 Magnesium (1.6 - 2.3 mg/dL) 2.0 Total Bilirubin (0.2 - 1.3 mg/dL) 0.7 AST (14 - 36 U/L) 689 H ALT (9 - 52 U/L) 1113 H Ammonia (9 - 30 umol/L) < 9 L Albumin (3.5 - 5.0 g/dL) 3.1 L TSH (0.270 - 4.200 uIU/mL) 40.500 H Free T4 (0.78 - 2.44 ng/dL) 0.18 L Hematology CBC w Diff MAN DIFF ORDERED WBC (4.8 - 10.8 /CUMM) 4.6 L RBC (4.20 - 5.40 /CUMM) 2.83 L Hgb (12.0 - 16.0 G/DL) 9.1 L Hct (37 - 47 %) 26.3 L MCV (81.0 - 99.0 FL) 92.9 MCH (27.0 - 31.0 PG) 32.0 H MCHC (33.0 - 37.0 G/DL) 34.4 RDW (11.5 - 14.5 %) 16.8 H Plt Count (130 - 400 /CUMM) 37 L MPV (7.4 - 10.4 FL) 9.4 Gran % (42.2 - 75.2 %) 95.0 H Lymphocytes % (20.5 - 51.1 %) 4.1 L Monocytes % (1.7 - 9.3 %) 0.8 L Eosinophils % (0 - 5 %) 0 Basophils % (0.0 - 2.0 %) 0.1 Absolute Granulocytes (1.4 - 6.5 /CUMM) 4.4 Segmented Neutrophils (42.2 - 75.2 %) 89 H Band Neutrophils (0.0 - 5.0 %) 5 Absolute Lymphocytes (1.2 - 3.4 /CUMM) 0.2 L Lymphocytes (20.5 - 51.1 %) 5 L Monocytes (1.7 - 9.3 %) 1 L Absolute Monocytes (0.10 - 0.60 /CUMM) 0 L Absolute Eosinophils (0.0 - 0.7 /CUMM) 0 Absolute Basophils (0.0 - 0.2 /CUMM) 0 Nucleated RBCs (0.0 - 0.0 /100WBC) 2 H Platelet Estimate (ADEQUATE) DECREASED Polychromasia 1+ Anisocytosis 1+ Macrocytic Cells 1+ Miscellaneous Phlebotomy Draw Site LEFT RADIAL 01/09 01/09 01/08 0350 0005 1845 Chemistry Sodium (137 - 145 mmol/L) 148 H Potassium (3.5 - 5.1 mmol/L) 3.9 Chloride (98 - 107 mmol/L) 112 H Carbon Dioxide (22 - 30 mmol/L) 26 Anion Gap (5 - 16) 11 BUN (7 - 17 mg/dL) 25 H Creatinine (0.5 - 1.0 mg/dL) 0.7 Estimated GFR (>60 ml/min) > 60 Glucose (65 - 99 mg/dL) 114 H Calcium (8.4 - 10.2 mg/dL) 8.7 Phosphorus (2.5 - 4.5 mg/dL) 2.5 Magnesium (1.6 - 2.3 mg/dL) 1.5 L Total Bilirubin (0.2 - 1.3 mg/dL) 1.1 AST (14 - 36 U/L) 1454 H ALT (9 - 52 U/L) 1590 H Creatine Kinase (30 - 135 U/L) 398 H Troponin I (< 0.11 ng/ml) < 0.01 < 0.01 Albumin (3.5 - 5.0 g/dL) 3.2 L TSH (0.270 - 4.200 uIU/mL) 63.300 H Free T4 (0.78 - 2.44 ng/dL) 0.09 L Hematology CBC w Diff MAN DIFF ORDERED WBC (4.8 - 10.8 /CUMM) 1.9 L RBC (4.20 - 5.40 /CUMM) 3.07 L Hgb (12.0 - 16.0 G/DL) 9.8 L Hct (37 - 47 %) 28.7 L MCV (81.0 - 99.0 FL) 93.7 MCH (27.0 - 31.0 PG) 32.0 H MCHC (33.0 - 37.0 G/DL) 34.1 RDW (11.5 - 14.5 %) 16.6 H Plt Count (130 - 400 /CUMM) 40 L MPV (7.4 - 10.4 FL) 9.2 Gran % (42.2 - 75.2 %) 91.8 H Lymphocytes % (20.5 - 51.1 %) 5.9 L Monocytes % (1.7 - 9.3 %) 1.8 Eosinophils % (0 - 5 %) 0.1 Basophils % (0.0 - 2.0 %) 0.4 Absolute Granulocytes (1.4 - 6.5 /CUMM) 1.7 Segmented Neutrophils (42.2 - 75.2 %) 85 H Band Neutrophils (0.0 - 5.0 %) 1 Absolute Lymphocytes (1.2 - 3.4 /CUMM) 0.1 L Lymphocytes (20.5 - 51.1 %) 9 L Monocytes (1.7 - 9.3 %) 3 Absolute Monocytes (0.10 - 0.60 /CUMM) 0 L Eosinophils (0 - 5.0 %) 1 Absolute Eosinophils (0.0 - 0.7 /CUMM) 0 Basophils (0.0 - 2.0 %) 1 Absolute Basophils (0.0 - 0.2 /CUMM) 0 Nucleated RBCs (0.0 - 0.0 /100WBC) 2 H Platelet Estimate (ADEQUATE) DECREASED Normochromic RBCs VERIFIED Macrocytic Cells FEW Ovalocytes FEW Stomatocytes FEW Miscellaneous Flow Cytometry Specimen Pending Other Body Source Fld Total RBCs Counted (%) 100 Serology Lyme Disease Antibody (RATIO) 0.07 01/08 01/08 01/08 1845 1758 1330 Chemistry Lactic Acid (0.7 - 2.1 mmol/L) 1.3 Phosphorus (2.5 - 4.5 mg/dL) 2.7 Magnesium (1.6 - 2.3 mg/dL) 1.8 Iron (37 - 170 ug/dL) 265 H TIBC (265 - 497 ug/dL) 296 Ferritin (11.1 - 264 ng/mL) 5770.0 H Direct Bilirubin (< 0.4 mg/dL) 0.7 H Lactate Dehydrogenase (313 - 618 U/L) 7954 H Troponin I (< 0.11 ng/ml) < 0.01 Vitamin B12 (239 - 931 pg/mL) > 1000 H Folate (2.76 - 20.0 ng/mL) 16.1 Hematology Haptoglobin Pending Serology Hepatitis A IgM Ab (NONREACTIVE) NONREACTIVE Hep Bs Antigen (NONREACTIVE) NONREACTIVE Hep B Core IgM Ab Conf (NONREACTIVE) NONREACTIVE Hepatitis C Antibody (NONREACTIVE) NONREACTIVE HIV 1&2 Ab Western Blot (NONREACTIVE) NONREACTIVE Toxicology Urine Opiates Screen (>2000 NG/ML) < 100 Methadone Screen (>300 NG/ML) < 40 Barbiturate Screen (>200 NG/ML) < 60 Ur Phencyclidine Scrn (>25 NG/ML) < 6.00 Amphetamines Screen (>1000 NG/ML) < 100 U Benzodiazepines Scrn (>200 NG/ML) < 85 Urine Cocaine Screen (>300 NG/ML) < 50 Urine Cannabis Screen (>50 NG/ML) < 5.00 Urines Urinalysis LIGHT H Urine Color (YEL,AMB,STR) YEL Urine Clarity (CLEAR) CLEAR Urine pH (5.0 - 8.0) 6.5 Ur Specific [place] (1.001 - 1.035) 1.025 Urine Protein (NEG,<30 MG/DL) 100 H Urine Ketones (NEG) NEG Urine Nitrite (NEG) NEG Urine Bilirubin (NEG) NEG Urine Urobilinogen (0.1 - 1.0 EU/dl) 1.0 Ur Leukocyte Esterase (NEG) NEG Ur Microscopic SEDIMENT EXAMINED Urine RBC (0 - 5 /HPF) 1-3 Ur Epithelial Cells (NONE,FEW) RARE Urine Hemoglobin (NEG) TRACE-LYSED Urine Glucose (N MG/DL) NEG 01/08 01/08 1330 1307 Chemistry Sodium (137 - 145 mmol/L) 147 H Potassium (3.5 - 5.1 mmol/L) 4.0 Chloride (98 - 107 mmol/L) 104 Carbon Dioxide (22 - 30 mmol/L) 33 H Anion Gap (5 - 16) 10 BUN (7 - 17 mg/dL) 34 H Creatinine (0.5 - 1.0 mg/dL) 0.7 Estimated GFR (>60 ml/min) > 60 BUN/Creatinine Ratio (7 - 25 %) 48.6 H Glucose (65 - 99 mg/dL) 145 H Calcium (8.4 - 10.2 mg/dL) 9.7 Total Bilirubin (0.2 - 1.3 mg/dL) 1.5 H AST (14 - 36 U/L) 2923 H ALT (9 - 52 U/L) 2400 H Alkaline Phosphatase (<127 U/L) 76 Lactate Dehydrogenase (313 - 618 U/L) 18128 H Troponin I (< 0.11 ng/ml) < 0.01 Total Protein (6.3 - 8.2 g/dL) 6.8 Albumin (3.5 - 5.0 g/dL) 3.8 Globulin (1.9 - 4.2 gm/dL) 3.0 Albumin/Globulin Ratio (1.1 - 2.2 %) 1.3 Free T4 (0.78 - 2.44 ng/dL) < 0.07 L Thyroglobulin (() ng/mL) 0.1 L TSH &T3 &Free T4 Intrp (0.270 - 4.20 uIU/mL) 63.500 H Cortisol PM Sample (1.7 - 14.1) 14.8 H Coagulation PT (9.4 - 12.5 SEC) 11.6 INR (0.90 - 1.19) 1.06 APTT (25 - 37 SEC) 39 H Hematology CBC w Diff MAN DIFF ORDERED WBC (4.8 - 10.8 /CUMM) 1.0 *L RBC (4.20 - 5.40 /CUMM) 3.42 L Hgb (12.0 - 16.0 G/DL) 10.9 L Hct (37 - 47 %) 32.1 L MCV (81.0 - 99.0 FL) 93.9 MCH (27.0 - 31.0 PG) 32.0 H MCHC (33.0 - 37.0 G/DL) 34.0 RDW (11.5 - 14.5 %) 16.7 H Plt Count (130 - 400 /CUMM) 32 L MPV (7.4 - 10.4 FL) 8.9 Gran % (42.2 - 75.2 %) 71.7 Lymphocytes % (20.5 - 51.1 %) 20.1 L Monocytes % (1.7 - 9.3 %) 7.7 Eosinophils % (0 - 5 %) 0.3 Basophils % (0.0 - 2.0 %) 0.2 Absolute Granulocytes (1.4 - 6.5 /CUMM) 0.7 L Segmented Neutrophils (42.2 - 75.2 %) 61 Band Neutrophils (0.0 - 5.0 %) 5 Absolute Lymphocytes (1.2 - 3.4 /CUMM) 0.2 L Lymphocytes (20.5 - 51.1 %) 20 L Monocytes (1.7 - 9.3 %) 11 H Absolute Monocytes (0.10 - 0.60 /CUMM) 0.1 Absolute Eosinophils (0.0 - 0.7 /CUMM) 0 Basophils (0.0 - 2.0 %) 3 H Absolute Basophils (0.0 - 0.2 /CUMM) 0 Nucleated RBCs (0.0 - 0.0 /100WBC) 2 H Platelet Estimate (ADEQUATE) Hypochromic-Microcytic 2+ Poikilocytosis 1+ Anisocytosis 1+ Retic Count (0.5 - 2.0 %) 1.48 Immunology Thyroglobulin Antibody (< or = 1 IU/mL) <1
--- NOTE | 2018-01-10 08:31 | PN- Resident CRCU ---
Subjective HPI/CRCU Issues: Patient is in ICU with central line, with low blood pressure requiring IV levophed running at 3mcg (was started at 5 yesterday). I followed up and examined the patient today. She is resting comfortably in bed, appears slightly slow to respond to conversation as yesterday. She mentions she is comfortable, has not been drinking as much water as instructed for her hypernatremia, doesn't endorse any fever or chills, chest pain, shortness of breath, confusion. 24 Hour Events: A central line was placed on the right internal jugular vein, to start her on IV levophed at yesterday afternoon. Objective Vital Signs & I&O Last 8 Hrs of Vitals and I&O: Vital Signs Date Time Temp Pulse Resp B/P B/P Pulse O2 O2 Flow FiO2 Mean Ox Delivery Rate 01/10 0800 Room Air 01/10 0800 96.1 52 10 98/60 94 Room Air 01/10 0400 99 Nasal 2.0L Cannula 01/10 0300 80 15 96/68 04 0000 100 Nasal 2.0L Cannula 01/09 2300 95.8 51 16 108/60 99 Nasal 2.0L Cannula 01/09 2000 98 Nasal 2.0L Cannula 01/09 1648 59 91/63 01/09 1600 97 Nasal 2.0L Cannula / 1600 96.7 56 20 86/60 99 Nasal 2.0L Cannula / 1322 50 76/00 / 1200 97 Nasal 2.0L Cannula Exam General Appearance: alert, awake, comfortable, obese Head: atraumatic, normal appearance, chronic hamartoma of left cheek, no change Neck: normal inspection, supple, full range of motion Respiratory: no respiratory distress, quiet respiration, rhonchi (b/l) Cardiovascular: regular rate/rhythm, edema, bradycardia (50s) Gastrointestinal: normal bowel sounds, soft, non-tender Extremities: normal inspection, normal capillary refill, normal range of motion, no pitting edema Cranial Nerves: normal hearing, PERRL, slow speech, as yesterday Skin: intact, normal color, warm/dry Skin Temp/Moisture Exam: Warm/Dry Sepsis Skin Exam (color): Normal for Ethnicity Sepsis Peripheral Pulse Location: Radial Sepsis Peripheral Pulse Exam: Weak Sepsis Cap Refill Exam: <2 Sec Central Line Site: Rt IJV Date In: 01/09/18 Need for Catheter: pressors Noble Site: urethra Still Needed? Yes (strict i/o note, low UO rt now) IV Drips IV Drips: D5W 1/2 NS @ 100 ml/hr Nutrition Nutrition: P.O. diet Current Medications: Current Medications Sig/Tabatha Start time Last Medication Dose Route Stop Time Status Admin Ceftazidime 1,000 MG IQ8 01/09 0000 DC 01/09 IV 01/10 0000 2314 Dextrose/Sodium 1,000 ML Q10H 01/09 1815 AC 01/10 Chloride IV 0509 Glycerin/Mineral Oil 1 JUAN ALBERTO TID PRN 01/08 1645 AC 01/09 TOP 0430 Hydrocortisone 100 MG Q8 01/08 2345 AC 01/10 Sodium Succinate IV 0610 Lactated Ringer's 1,000 ML Q10H 01/09 0615 DC 01/09 IV 1648 Levothyroxine Sodium 100 MCG DAILY AC 01/09 0808 AC 01/09 IV 0938 Lidocaine 20 ML .STK-MED ONE 01/09 1528 DC IA 01/09 1529 Magnesium Sulfate 1 GM Q2H 01/09 0615 DC 01/09 Dextrose/Water 100 ML IV 01/09 1014 0938 Morphine Sulfate 2 MG Q4P PRN 01/08 1645 AC IV Norepinephrine 4 MG Q13H 01/09 1500 AC 01/10 Sodium Chloride 250 ML IV 0300 Norepinephrine 4 MG Q8H / 2330 DC 01/09 Sodium Chloride 250 ML IV 1322 Pantoprazole Sodium 40 MG DAILY / 1930 AC 01/10 IV 0931 Phentolamine Mesylate 5 MG ONE ONE 01/09 1715 DC 04 IV 01/09 1716 1730 Potassium Chloride 20 MEQ Q1H 01/10 1015 UNVr IV 01/10 1116 Potassium Chloride 40 MEQ ONCE ONE 01/10 1000 CANr PO 01/10 1001 Potassium Phosphate 15 mMol ONE ONE 01/10 0615 CAN Sodium Chloride 250 ML IV 01/10 1019 Potassium Phosphate 15 mMol ONE ONE 01/09 1245 DC / Sodium Chloride 250 ML IV 01/09 1649 1649 Vancomycin HCl 1,000 MG DAILY 04/ 1000 DC 04/ Dextrose/Water 250 ML IV 0938 Impression/Plan Impression/Problem List Impression: 62-year-old female with past history of iatrogenic hypothyroidism after total thyroidectomy for thyroid cancer on oral supplements presented with myxedema picture secondary to noncompliance, pancytopenia, and bradycardia is in the ICU for management of following issues: Respiratory Saturating well on room air. Infectious Neutropenia Patient's absolute neutrophil count on admission was 700, and with hypothermia, patient was started empirically on ceftazidime and vancomycin after blood and urine cultures sent to the lab. -Cultures are negative so far. -Continuing Ceftazidime and vancomycin for now Cardiology Bradycardia, hypotension Likely due to hypothyroidism, patient has a tendency to become bradycardic, in hypotensive. She was found to have heart rate of 44-55 yesterday, with systolic BP of 70s over Doppler only, therefore a triple-lumen catheter was placed on right internal jugular vein yesterday and started with IV Levophed, initially at 5. -Continuing IV Levophed as blood pressure this morning is 90/60 -Plan to titrate down IV pressor as her blood pressure increases -Patient still has heart rate around 50s, sinus rhythm, thus continuing pacer pads on with atropine by the bedside -If persistent bradycardic, then will start Dopamine drip -Following cardiology recommendations. Hematology Pancytopenia Patient's initial presentation of pancytopenia is likely due to hypothyroidism, which since admission, has improved slightly as mentioned above. Hematology has been on board, who suggested a bone marrow biopsy if the patient fails to improve. -Daily CBC monitoring -We'll avoid heparin products in view of thrombocytopenia -Continue thrombocytopenic precautions -We'll follow hematology recommendations Metabolic Myxedema/hypothyroidism Patient's clinical picture, in her left findings were consistent with myxedematous state. She received IV levothyroxin, IV steroids in the ED, after which we have been following recommendations according to puppy sitter. -Continue with IV levothyroxin 100 g daily -Continue with IV hydrocortisone 100 mg every 8 hours -Continue to monitor thyroid function tests closely -Continue to watch temperature very closely, with malissa boyce as needed -We'll follow hematology recommendations Hypokalemia Patient is having food poorly PO, thus will supplement her potassium by IV (20 meq x2 via central line), tried PO first (pt not taking pill or powder form) Hypernatremia Her sodium has remained on the higher side, today at 147, and if she does not comply with oral free water supplements, will plan for [place] tube for free water flusehes today. -Continue with D5W 1/2 NS @100 ml/hr for now, THIS BAG -Switch to D5W @60 ml/hr after this Alimentary Passed swallow eval yesterday. -Continuing PO, Pure with nectar thick liquids Neurology Patient's current condition seems to be due to hypothyroidism. -Continue neuro checks, fall precautions Nephrology No issues Catheters: Noble catheter, triple lumen catheter in right internal jugular vein, still required Diet: Pure with nectar thick liquids DVT prophylaxis: Alps only (thrombocytopenia) CODE STATUS: Full code Problem List: 1. Hypothyroidism 2. Myxedema coma 3. Bradycardia 4. Hypotension 5. Pancytopenia 6. Hypokalemia 7. Hypernatremia Pain Ratin Pain Goal: Pain 4 or less Pain Plan: prn Tomorrow's Labs & Rationales: ICU bundle, CBC, TFT as follow up, closely watching Plan DVT/Prophylaxis: mechanical (only due to thrombocytopenia)
--- NOTE | 2018-01-10 11:21 | PN- CRCU ---
Subjective HPI/Critical Care Issues: Patient is in ICU with central line, with low blood pressure requiring IV levophed running at 3mcg (was started at 5 yesterday). I followed up and examined the patient today. She is resting comfortably in bed, appears slightly slow to respond to conversation as yesterday. She mentions she is comfortable, has not been drinking as much water as instructed for her hypernatremia, doesn't endorse any fever or chills, chest pain, shortness of breath, confusion. 24 Hour Events: A central line was placed on the right internal jugular vein, to start her on IV levophed at yesterday afternoon. Objective Current Medications: Current Medications Sig/Tabatha Start time Last Medication Dose Route Stop Time Status Admin Ceftazidime 1,000 MG IQ8 01/09 0000 DC 01/09 IV 01/10 0000 2314 Dextrose/Sodium 1,000 ML Q10H 01/09 1815 AC 01/10 Chloride IV 0509 Glycerin/Mineral Oil 1 JUAN ALBERTO TID PRN 01/08 1645 AC 01/09 TOP 0430 Hydrocortisone 100 MG Q8 01/08 2345 AC 01/10 S[place] 0610 Lactated Ringer's 1,000 ML Q10H 01/09 0615 DC 01/09 IV 1648 Levothyroxine Sodium 100 MCG DAILY AC 01/09 0808 AC 01/10 IV 1103 Lidocaine 20 ML .STK-MED ONE 01/09 1528 DC IA 01/09 1529 Morphine Sulfate 2 MG Q4P PRN 01/08 1645 AC IV Norepinephrine 4 MG Q13H 01/09 1500 AC 01/10 Sodium Chloride 250 ML IV 0300 Norepinephrine 4 MG Q8H / 2330 DC 01/09 Sodium Chloride 250 ML IV 1322 Pantoprazole Sodium 40 MG DAILY 01/08 1930 AC 01/10 IV 0931 Phentolamine Mesylate 5 MG ONE ONE 01/09 1715 DC 01/09 IV 01/09 1716 1730 Potassium Chloride 20 MEQ Q1H 01/10 1015 AC 01/10 IV 01/10 1116 1031 Potassium Chloride 40 MEQ ONCE ONE 01/10 1000 CAN PO 01/10 1001 Potassium Phosphate 15 mMol ONE ONE 01/10 0615 CAN Sodium Chloride 250 ML IV 01/10 1019 Potassium Phosphate 15 mMol ONE ONE 01/09 1245 DC 01/09 Sodium Chloride 250 ML IV 01/09 1649 1649 Vancomycin HCl 1,000 MG DAILY 01/09 1000 DC 01/09 Dextrose/Water 250 ML IV 0938 Vital Signs & I&O Last 24 Hrs of Vitals and I&O: Vital Signs Date Time Temp Pulse Resp B/P B/P Pulse O2 O2 Flow FiO2 Mean Ox Delivery Rate 01/11 800 Room Air 01/10 08 96.1 52 10 98/60 94 Room Air 01/10 0400 99 Nasal 2.0L Cannula 01/10 0300 80 15 96/68 01/10 0000 100 Nasal 2.0L Cannula 01/09 2300 95.8 51 16 108/60 99 Nasal 2.0L Cannula 01/09 2000 98 Nasal 2.0L Cannula 01/09 1648 59 91/63 01/09 1600 97 Nasal 2.0L Cannula 01/09 1600 96.7 56 20 86/60 99 Nasal 2.0L Cannula 01/09 1322 50 76/00 01/09 1200 97 Nasal 2.0L Cannula Intake & Output 01/10 1600 01/10 0801/10 0000 Intake Total 906 1374 Output Total 145 155 Balance 761 1219 Intake, IV 906 1374 Number 0 0 Bowel Movements Output, Urine 145 155 Patient 194 lb Weight Weight Bed scale Measurement Method Impression/Plan Impression/Plan Impression/Plan: General Appearance: no apparent distress, awake Head: atraumatic, normal appearance, swelling (left side of face) Eyes: Bilateral: PERRL, EOMI. 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 total thyroidectomy for thyroid cancer on oral supplements presented with myxedema picture secondary to noncompliance, pancytopenia, and bradycardia Issues Profound hypothyroidism with myexedema coma like features now improving slowly Mild hypotension now better due to hypothyroidism and prob hypocortisol with no clinical evidence of septic or cardiogenic shock Pt has a small pericardial effusion but no tamponade physiology Pancytopenia prob related to his endo issues, hiv neg and no evidence of consumption, heme onboard and flow pending Hyperosmolar state slowly improving SHock liver with fatty liver aswell improving, no evidence of sig cirrhosis Bilateral atx and obesity with no sig hypercarbia REC COnt current rx Change to iv d5 with kcl in it Keep cvp around 6 Avoid unnecessary bolus Cont levofed and titrate off to map of 60 - 65 IF persistantly belen can change to dopamine 5 mics Replace potassium by kcl by mouth Will follow Pt is critically ill still needing vasopressors etc and tts 38 mins Discussed with taina
[2018-01-10 12:00] VITALS: BP 102/70
--- NOTE | 2018-01-10 13:50 | PN- Cardiology ---
Subjective Subjective: The patient is more alert today. She is sitting comfortably in bed and is able to respond to questions. No chest pain. No shortness of breath. She denies lightheadedness or dizziness. She remains on Levophed for blood pressure support. Objective Vital Signs and I&Os Vital Signs Date Time Temp Pulse Resp B/P B/P Pulse O2 O2 Flow FiO2 Mean Ox Delivery Rate 01/10 1200 96.0 72 19 102/70 96 Room Air 01/10 0800 Room Air 01/10 08 96.1 52 10 98/60 94 Room Air 01/10 0400 99 Nasal 2.0L Cannula 01/10 0300 80 15 96/68 01/10 0000 100 Nasal 2.0L Cannula 01/09 2300 95.8 51 16 108/60 99 Nasal 2.0L Cannula 01/09 2000 98 Nasal 2.0L Cannula 01/09 1648 59 91/63 01/09 1600 97 Nasal 2.0L Cannula 01/09 1600 96.7 56 20 86/60 99 Nasal 2.0L Cannula Intake & Output 01/10 1600 01/10 0800 01/10 0000 01/09 1600 01/09 0800 01/09 0000 Intake Total 906 1374 1048 1736 2500 Output Total 145 155 200 430 145 Balance 761 0040 424 5850 2355 Intake, IV 906 1374 1048 1736 2500 Number 0 0 0 Bowel Movements Output, Stool 0 Output, Urine 145 155 200 430 145 Patient 194 lb 187 lb 188 lb 155 lb Weight Weight Bed scale Bed scale Bed scale Measurement Method Physical Exam: Gen: NAD HEENT: normal Lungs: clear to auscultation, normal resp. effort Heart: RRR, S1, S2, no murmurs Abdomen: Soft, nontender, no masses Extremities: 1+ edema Neuro: Alert and oriented x 3, cranial nerves intact Current Medications: Current Medications Sig/Tabatha Start time Last Medication Dose Route Stop Time Status Admin Ceftazidime 1,000 MG IQ8 01/09 0000 DC 01/09 IV 01/10 0000 2314 Dextrose/Sodium 1,000 ML Q10H 01/09 1815 DC 01/10 Chloride IV 0509 Dextrose/Water 1,000 ML .[id number] 01/10 1115 DC IV Glycerin/Mineral Oil 1 JUAN ALBERTO TID PRN 01/08 1645 AC 04/06 TOP 0430 Hydrocortisone 100 MG Q8 01/08 2345 AC 01/10 S[place] 0610 Lactated Ringer's 1,000 ML Q10H 01/09 0615 DC 01/09 IV 1648 Levothyroxine Sodium 100 MCG DAILY AC 01/09 0808 AC 01/10 IV 1103 Lidocaine 20 ML .STK-MED ONE 01/09 1528 DC IA 01/09 1529 Morphine Sulfate 2 MG Q4P PRN 01/08 1645 AC IV Norepinephrine 4 MG Q13H 01/09 1500 AC 01/10 Sodium Chloride 250 ML IV 0300 Norepinephrine 4 MG Q8H 01/08 2330 DC 01/09 Sodium Chloride 250 ML IV 1322 Pantoprazole Sodium 40 MG DAILY 01/08 1930 AC 01/10 IV 0931 Phentolamine Mesylate 5 MG ONE ONE 01/09 1715 DC 01/09 IV 01/09 1716 1730 Potassium Chloride 40 MEQ Q20H 01/10 1130 AC Dextrose/Water 1,000 ML IV Potassium Chloride 20 MEQ Q1H 01/10 1015 DC 01/10 IV 01/10 1116 1139 Potassium Chloride 40 MEQ ONCE ONE 01/10 1000 CAN PO 01/10 1001 Potassium Phosphate 15 mMol ONE ONE 01/10 0615 CAN Sodium Chloride 250 ML IV 01/10 1019 Potassium Phosphate 15 mMol ONE ONE 01/09 1245 DC 01/09 Sodium Chloride 250 ML IV 01/09 1649 1649 Vancomycin HCl 1,000 MG DAILY 01/09 1000 DC 04/ Dextrose/Water 250 ML IV 0938 Results Last 48 Hrs of Labs/Mics: Laboratory Tests 01/10/18 0400: Anion Gap 10, Estimated GFR > 60, Glucose 170 H, Calcium 8.1 L, Phosphorus 3.1 , Magnesium 2.0, Total Bilirubin 0.7, AST 689 H, ALT 1113 H, Albumin 3.1 L, TSH 40.500 H, Free T4 0.18 L, CBC w Diff MAN DIFF ORDERED, RBC 2.83 L, MCV 92.9, MCH 32.0 H, MCHC 34.4, RDW 16.8 H, MPV 9.4, Gran % 95.0 H, Lymphocytes % 4.1 L, Monocytes % 0.8 L, Eosinophils % 0, Basophils % 0.1, Absolute Granulocytes 4.4, Segmented Neutrophils 89 H, Band Neutrophils 5, Absolute Lymphocytes 0.2 L, Lymphocytes 5 L, Monocytes 1 L, Absolute Monocytes 0 L, Absolute Eosinophils 0, Absolute Basophils 0, Nucleated RBCs 2 H, Platelet Estimate DECREASED, Polychromasia 1+, Anisocytosis 1+, Macrocytic Cells 1+ 01/09/18 1748: Ammonia < 9 L 01/09/18 0810: pH 7.42, pCO2 39, pO2 122 H, HCO3 25, ABG O2 Sat (Measured) 97.0, P-50 (Temp Corrected) N, Carboxyhemoglobin 0.2 L, O2 Concentration % 2L, Temperature 97.1, O2 Delivery Method N/C, Phlebotomy Draw Site LEFT RADIAL 01/09/18 0350: Anion Gap 11, Estimated GFR > 60, Glucose 114 H, Calcium 8.7, Phosphorus 2.5, Magnesium 1.5 L, Total Bilirubin 1.1, AST 1454 H, ALT 1590 H, Creatine Kinase 398 H, Troponin I < 0.01, Albumin 3.2 L, TSH 63.300 H, Free T4 0.09 L, CBC w Diff MAN DIFF ORDERED, RBC 3.07 L, MCV 93.7, MCH 32.0 H, MCHC 34.1, RDW 16.6 H, MPV 9.2, Gran % 91.8 H, Lymphocytes % 5.9 L, Monocytes % 1.8, Eosinophils % 0.1, Basophils % 0.4, Absolute Granulocytes 1.7, Segmented Neutrophils 85 H, Band Neutrophils 1, Absolute Lymphocytes 0.1 L, Lymphocytes 9 L, Monocytes 3, Absolute Monocytes 0 L, Eosinophils 1, Absolute Eosinophils 0, Basophils 1, Absolute Basophils 0, Nucleated RBCs 2 H, Platelet Estimate DECREASED, Normochromic RBCs VERIFIED, Macrocytic Cells FEW, Ovalocytes FEW, Stomatocytes FEW, Flow Cytometry Specimen Pending, Fld Total RBCs Counted 100 01/09/18 0005: Troponin I < 0.01 01/08/18 1845: Lyme Disease Antibody 0.07 01/08/18 184: Phosphorus 2.7, Magnesium 1.8, Iron 265 H, TIBC 296, Ferritin 5770.0 H, Direct Bilirubin 0.7 H, Lactate Dehydrogenase 7954 H, Troponin I < 0.01, Vitamin B12 > 1000 H, Folate 16.1, Haptoglobin Pending, Hepatitis A IgM Ab NONREACTIVE, Hep Bs Antigen NONREACTIVE, Hep B Core IgM Ab Conf NONREACTIVE, Hepatitis C Antibody NONREACTIVE, HIV 1&2 Ab Western Blot NONREACTIVE 01/08/18 1758: Urine Opiates Screen < 100, Methadone Screen < 40, Barbiturate Screen < 60, Ur Phencyclidine Scrn < 6.00, Amphetamines Screen < 100, U Benzodiazepines Scrn < 85, Urine Cocaine Screen < 50, Urine Cannabis Screen < 5.00, Urinalysis LIGHT H , Urine Color YEL, Urine Clarity CLEAR, Urine pH 6.5, Ur Specific Matteson 1.025, Urine Protein 100 H, Urine Ketones NEG, Urine Nitrite NEG, Urine Bilirubin NEG, Urine Urobilinogen 1.0, Ur Leukocyte Esterase NEG, Ur Microscopic SEDIMENT EXAMINED, Urine RBC 1-3, Ur Epithelial Cells RARE, Urine Hemoglobin TRACE-LYSED, Urine Glucose NEG Microbiology 01/08 2039 NASOPHARYN: Influenza Virus A & B Rapid Smear - COMP 01/08 1850 UPPER RESP: Surveillance Culture - COMP 01/08 1850 GI: Surveillance Culture - COMP 01/08 1758 URINE ROUT: Urine Culture - COMP Recent Imaging Studies: Chest x-ray: Right internal jugular central venous catheter has been retracted, now terminating in the region of the cavoatrial junction. Persistent small left pleural effusion with airspace opacity. Assessment/Plan Assessment/Plan Assessment: 1. Status post total thyroidectomy 2. 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 Small pericardial effusion 4. Hypotension 5. Sinus bradycardia Plan: * Continue Levophed for blood pressure support * If further significant bradycardia, would consider changing from Levophed to dopamine * Supplement potassium Continue telemetry? Yes
[2018-01-10 16:00] VITALS: BP 98/70
[2018-01-10 23:00] VITALS: BP 102/60
[2018-01-11 04:50] LABS: ABSOLUTE BASOPHIL COUNT 0 /CUMM (0.0-0.2); ABSOLUTE EOSINOPHIL COUNT 0 /CUMM (0.0-0.7); ABSOLUTE GRANULOCYTE CT 4.1 /CUMM (1.4-6.5); ABSOLUTE LYMPH COUNT 0.2 /CUMM (1.2-3.4); ABSOLUTE MONOCYTE COUNT 0.1 /CUMM (0.10-0.60); BASOPHIL % 0 % (0.0-2.0); EOSINOPHIL % 0 % (0-5); HEMATOCRIT 29.3 % (37-47); MEAN CORPUSCULAR HGB 32.1 PG (27.0-31.0); MEAN CORPUSCULAR HGB CONC 34.2 G/DL (33.0-37.0); MEAN CORPUSCULAR VOLUME 93.9 FL (81.0-99.0); MEAN PLATELET VOLUME 8.9 FL (7.4-10.4); RBC DISTRIBUTION WIDTH 16.6 % (11.5-14.5); RED BLOOD CELL CT 3.12 /CUMM (4.20-5.40)
[2018-01-11 05:23] LABS: WHITE BLOOD CELL COUNT 4.4 /CUMM (4.8-10.8)
[2018-01-11 05:24] LABS: PLATELET COUNT 38 /CUMM (130-400)
[2018-01-11 08:00] VITALS: BP 120/74
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
--- NOTE | 2018-01-11 08:53 | PN- Endocrinology ---
Assessment/Plan Endoscopy Assessment: Patient is alert and awake. She is still somewhat confused. She knows she is in [facility]. She is trying to pull all the lines out and pull out her Noble catheter. The patient's labs today show a TSH of 37 and a free T4 0.24. Her thyroid tests are gradually improving. Her serum sodium is now more normal at 145 with a creatinine of 0.7. Calcium is 8.9 with an albumin of 3.7. The patient is still requiring pressors. Plan: Suggest discontinue the warming blanket. Continue the present dose of thyroid hormone and continue hydrocortisone 100 mg IV every 8 hours. Check the patient's vitamin D level. Try to improve her dietary intake. Apparently she did eat one meal yesterday. Right now she is refusing breakfast. The patient still has a metabolic encephalopathy from severe hypothyroidism. It will take several weeks before her brain responds completely to normalization of her thyroid hormone levels. Subjective Subjective: Cannot answer questions appropriately Objective Last 24 Hrs of Vital Signs/I&O Vital Signs Date Time Temp Pulse Resp B/P B/P Pulse O2 O2 Flow FiO2 Mean Ox Delivery Rate 01/11 0400 94 Nasal 2.0L Cannula 01/116 20 18 01/11 0315 40 18 01/11 0000 95 Room Air Room Air 01/10 2300 94.6 50 13 102/60 95 Room Air Room Air 01/11 2000 98 Room Air Room Air 01/10 1600 Room Air 01/10 1600 95.9 54 9 98/70 97 Room Air 01/10 1200 Room Air 01/10 1200 96.0 72 19 102/70 96 Room Air Intake & Output 01/11 1600 08 0800 08 0000 Intake Total 665 1027 Output Total 670 163 Balance -5 864 Intake, IV 665 707 Intake, Oral 320 Number 0 0 Bowel Movements Output, Urine 670 163 Vital Signs Date Time Temp Pulse Resp B/P B/P Pulse O2 O2 Flow FiO2 Mean Ox Delivery Rate 01/11 0400 94 Nasal 2.0L Cannula 01/11 0316 20 18 /68 01/11 0315 40 18 /01/11 0000 95 Room Air Room Air 01/10 2300 94.6 50 13 102/60 95 Room Air Room Air 01/11 2000 98 Room Air Room Air 01/10 1600 Room Air 01/10 1600 95.9 54 9 98/70 97 Room Air 01/10 1200 Room Air 01/10 1200 96.0 72 19 102/70 96 Room Air Intake & Output 01/11 1600 01/11 0800 01/11 0000 Intake Total 665 1027 Output Total 670 163 Balance -5 864 Intake, IV 665 707 Intake, Oral 320 Number 0 0 Bowel Movements Output, Urine 670 163 Physical Exam General Appearance: alert, awake, lethargic Head: normal appearance Neck: normal inspection Respiratory: normal breath sounds Cardiovascular: regular rate/rhythm Abdomen: normal bowel sounds Extremities: normal inspection Current Medications: Current Medications Sig/Tabatha Start time Last Medication Dose Route Stop Time Status Admin Dextrose/Sodium 1,000 ML Q10H 01/09 1815 DC 01/10 Chloride IV 0509 Dextrose/Water 1,000 ML .[id number] 01/10 1115 DC IV Dopamine HCl 400 MG Q12H 01/11 0245 AC 01/11 Dextrose/Water 500 ML IV 0315 Glycerin/Mineral Oil 1 JUAN ALBERTO TID PRN 01/08 1645 AC 01/09 TOP 0430 Hydrocortisone 100 MG Q8 01/08 2345 AC 01/11 Sodium Succinate IV 0626 Levothyroxine Sodium 100 MCG DAILY AC 01/09 0808 AC 01/10 IV 1103 Morphine Sulfate 2 MG Q4P PRN 01/08 1645 AC IV Norepinephrine 4 MG Q13H 01/09 1500 AC 01/11 Sodium Chloride 250 ML IV 0316 Pantoprazole Sodium 40 MG DAILY 01/08 1930 AC 01/10 IV 0931 Potassium Chloride 40 MEQ Q20H 01/10 1130 AC 01/11 Dextrose/Water 1,000 ML IV 0819 Potassium Chloride 20 MEQ Q1H 01/10 1015 DC 01/10 IV 01/10 1116 1139 Potassium Chloride 40 MEQ ONCE ONE 01/10 1000 CAN PO 01/10 1001 Potassium Phosphate 15 mMol ONE ONE 01/11 0900 AC Dextrose/Water 250 ML IV 01/11 1304 Results Pertinent Lab/Chad Results: Laboratory Tests 01/11 0439 Chemistry Sodium (137 - 145 mmol/L) 145 Potassium (3.5 - 5.1 mmol/L) 3.6 Chloride (98 - 107 mmol/L) 109 H Carbon Dioxide (22 - 30 mmol/L) 25 Anion Gap (5 - 16) 11 BUN (7 - 17 mg/dL) 17 Creatinine (0.5 - 1.0 mg/dL) 0.7 Estimated GFR (>60 ml/min) > 60 Glucose (65 - 99 mg/dL) 186 H Calcium (8.4 - 10.2 mg/dL) 8.9 Phosphorus (2.5 - 4.5 mg/dL) 2.2 L Magnesium (1.6 - 2.3 mg/dL) 2.0 Total Bilirubin (0.2 - 1.3 mg/dL) 0.9 AST (14 - 36 U/L) 437 H ALT (9 - 52 U/L) 939 H Albumin (3.5 - 5.0 g/dL) 3.7 TSH (0.270 - 4.200 uIU/mL) 37.100 H Free T4 (0.78 - 2.44 ng/dL) 0.24 L Hematology CBC w Diff NO MAN DIFF REQ WBC (4.8 - 10.8 /CUMM) 4.4 L RBC (4.20 - 5.40 /CUMM) 3.12 L Hgb (12.0 - 16.0 G/DL) 10.0 L Hct (37 - 47 %) 29.3 L MCV (81.0 - 99.0 FL) 93.9 MCH (27.0 - 31.0 PG) 32.1 H MCHC (33.0 - 37.0 G/DL) 34.2 RDW (11.5 - 14.5 %) 16.6 H Plt Count (130 - 400 /CUMM) 38 L MPV (7.4 - 10.4 FL) 8.9 Gran % (42.2 - 75.2 %) 93.0 H Lymphocytes % (20.5 - 51.1 %) 5.5 L Monocytes % (1.7 - 9.3 %) 1.5 L Eosinophils % (0 - 5 %) 0 Basophils % (0.0 - 2.0 %) 0 Absolute Granulocytes (1.4 - 6.5 /CUMM) 4.1 Absolute Lymphocytes (1.2 - 3.4 /CUMM) 0.2 L Absolute Monocytes (0.10 - 0.60 /CUMM) 0.1 Absolute Eosinophils (0.0 - 0.7 /CUMM) 0 Absolute Basophils (0.0 - 0.2 /CUMM) 0
--- NOTE | 2018-01-11 11:00 | PN- Cardiology ---
Subjective Subjective: The patient is awake and alert, however she continues to not lethargic. She has been in sinus bradycardia with heart rate in the 50s, occasionally dropping to the 40s in the high 30s. She is now on dopamine for support of blood pressure and heart rate. Repeat EKG today shows significantly decreased voltage compared to the prior EKG. thyroid function studies are gradually improving Objective Vital Signs and I&Os Vital Signs Date Time Temp Pulse Resp B/P B/P Pulse O2 O2 Flow FiO2 Mean Ox Delivery Rate 01/12 800 97.6 52 10 120/74 93 Room Air 01/11 0400 94 Nasal 2.0L Cannula 01/11 0316 20 18 99/68 01/11 0315 40 18 99/68 01/11 0000 95 Room Air Room Air 01/10 2300 94.6 50 13 102/60 95 Room Air Room Air 01/10 2000 98 Room Air Room Air 01/10 1600 Room Air 01/10 1600 95.9 54 9 98/70 97 Room Air 01/10 1200 Room Air 01/10 1200 96.0 72 19 102/70 96 Room Air Intake & Output 01/11 1600 01/11 0800 08 0000 01/10 1600 01/10 0800 01/10 0000 Intake Total 665 1027 0032 282 3511 Output Total 670 163 150 145 155 Balance -5 864 639 966 8274 Intake, IV 665 707 895 013 3499 Intake, Oral 320 220 Number 0 0 0 0 Bowel Movements Output, Urine 670 163 150 145 155 Patient 189 lb 194 lb Weight Weight Bed scale Bed scale Measurement Method Physical Exam: Gen: The patient is in no acute distress HEENT: Normal nose, ears, and oropharynx. Pupils equal bilaterally. Conjunctiva normal. Neck: Supple with no JVD, no masses, and no thyromegaly Lungs: Clear to auscultation with normal respiratory effort Heart: RRR, S1, S2, no murmurs. 1+ peripheral edema, 2+ pulses in the lower extremities bilaterally Abdomen: Soft, nontender, no masses. No hepatomegaly. No splenomegaly Extremities: No clubbing or cyanosis. Normal muscle strength in the upper and lower extremities Skin: Normal skin turgor with no skin ulcers or lesions noted. Neuro: Cranial nerves intact. Sensation intact Psych: Alert and oriented x 3 with depressed affect Current Medications: Current Medications Sig/Tabatha Start time Last Medication Dose Route Stop Time Status Admin Dextrose/Sodium 1,000 ML Q10H 01/09 1815 DC 01/10 Chloride IV 0509 Dextrose/Water 1,000 ML .[id number] 01/10 1115 DC IV Dopamine HCl 400 MG Q12H 01/11 0245 AC 01/11 Dextrose/Water 500 ML IV 0315 Glycerin/Mineral Oil 1 JUAN ALBERTO TID PRN 01/08 1645 01/09 TOP 0430 Hydrocortisone 100 MG Q8 01/08 2345 AC 01/11 Sodium Succinate IV 0626 Levothyroxine Sodium 100 MCG DAILY AC 01/09 0808 AC 01/10 IV 1103 Morphine Sulfate 2 MG Q4P PRN 01/08 1645 AC IV Norepinephrine 4 MG Q13H 01/09 1500 AC 01/11 Sodium Chloride 250 ML IV 0316 Pantoprazole Sodium 40 MG DAILY 01/08 1930 AC 01/11 IV 0921 Potassium Chloride 40 MEQ Q20H 01/10 1130 AC 01/11 Dextrose/Water 1,000 ML IV 0819 Potassium Chloride 20 MEQ Q1H 01/10 1015 DC 01/10 IV 01/10 1116 1139 Potassium Phosphate 15 mMol ONE ONE 01/11 0900 AC 01/11 Dextrose/Water 250 ML IV 01/11 1304 0921 Results Last 48 Hrs of Labs/Mics: Laboratory Tests 01/11/18 0439: Anion Gap 11, Estimated GFR > 60, Glucose 186 H, Calcium 8.9, Phosphorus 2.2 L , Magnesium 2.0, Total Bilirubin 0.9, AST 437 H, ALT 939 H, Albumin 3.7, 25-OH Vitamin D Total Pending, TSH 37.100 H, Free T4 0.24 L, CBC w Diff NO MAN DIFF REQ, RBC 3.12 L, MCV 93.9, MCH 32.1 H, MCHC 34.2, RDW 16.6 H, MPV 8.9, Gran % 93.0 H, Lymphocytes % 5.5 L, Monocytes % 1.5 L, Eosinophils % 0, Basophils % 0, Absolute Granulocytes 4.1, Absolute Lymphocytes 0.2 L, Absolute Monocytes 0.1, Absolute Eosinophils 0, Absolute Basophils 0 01/10/18 0400: Anion Gap 10, Estimated GFR > 60, Glucose 170 H, Calcium 8.1 L, Phosphorus 3.1 , Magnesium 2.0, Total Bilirubin 0.7, AST 689 H, ALT 1113 H, Albumin 3.1 L, TSH 40.500 H, Free T4 0.18 L, CBC w Diff MAN DIFF ORDERED, RBC 2.83 L, MCV 92.9, MCH 32.0 H, MCHC 34.4, RDW 16.8 H, MPV 9.4, Gran % 95.0 H, Lymphocytes % 4.1 L, Monocytes % 0.8 L, Eosinophils % 0, Basophils % 0.1, Absolute Granulocytes 4.4, Segmented Neutrophils 89 H, Band Neutrophils 5, Absolute Lymphocytes 0.2 L, Lymphocytes 5 L, Monocytes 1 L, Absolute Monocytes 0 L, Absolute Eosinophils 0, Absolute Basophils 0, Nucleated RBCs 2 H, Platelet Estimate DECREASED, Polychromasia 1+, Anisocytosis 1+, Macrocytic Cells 1+ 01/09/18 1748: Ammonia < 9 L Recent Imaging Studies: Echocardiogram 01/08/18: 1. Low normal EF of 50%. 2. Mild to moderate left ventricular hypertrophy. 3. Trace mitral regurgitation. 4. Trace tricuspid regurgitation. 5. Small pericardial effusion. EKG tracing is independently reviewed, and shows significantly decreased voltage compared to the prior EKG. The rhythm is difficult to discern with the low- voltage, but appears to be most likely sinus bradycardia at a rate of 50. Assessment/Plan Assessment/Plan Assessment: 1. Status post total thyroidectomy 2. 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 Small pericardial effusion 4. Hypotension 5. Sinus bradycardia 6. Profoundly decreased voltage on EKG compared to prior EKG, with concern for increasing pericardial effusion. Lead placement may play a role as well. Recommendations: * Would repeat a limited echo to reevaluate pericardial effusion * Continue dopamine for blood pressure and heart rate support * Management of hypothyroidism/myxedema as per endocrine Critical care time: 40 minutes Continue telemetry? Yes
--- NOTE | 2018-01-11 11:26 | PN- CRCU ---
Subjective HPI/Critical Care Issues: The patient is awake and alert, however she continues to not lethargic. She has been in sinus bradycardia with heart rate in the 50s, occasionally dropping to the 40s in the high 30s. She is now on dopamine for support of blood pressure and heart rate. Repeat EKG today shows significantly decreased voltage compared to the prior EKG. thyroid function studies are gradually improving Objective Current Medications: Current Medications Sig/Tabatha Start time Last Medication Dose Route Stop Time Status Admin Dextrose/Water 1,000 ML .[id number] 01/10 1115 DC IV Dopamine HCl 400 MG Q12H 01/11 0245 AC 01/11 Dextrose/Water 500 ML IV 0315 Glycerin/Mineral Oil 1 JUAN ALBERTO TID PRN 01/08 1645 AC 01/09 TOP 0430 Hydrocortisone 100 MG Q8 01/08 2345 AC 01/11 Sodium Succinate IV 0626 Levothyroxine Sodium 100 MCG DAILY AC 01/09 0808 AC 01/10 IV 1103 Morphine Sulfate 2 MG Q4P PRN 01/08 1645 AC IV Norepinephrine 4 MG Q13H 01/09 1500 AC 01/11 Sodium Chloride 250 ML IV 0316 Pantoprazole Sodium 40 MG DAILY 01/08 1930 AC 01/11 IV 0921 Potassium Chloride 40 MEQ Q20H 01/10 1130 AC 01/11 Dextrose/Water 1,000 ML IV 0819 Potassium Phosphate 15 mMol ONE ONE 01/11 0900 AC 01/11 Dextrose/Water 250 ML IV 01/11 1304 0921 Vital Signs & I&O Last 24 Hrs of Vitals and I&O: Vital Signs Date Time Temp Pulse Resp B/P B/P Pulse O2 O2 Flow FiO2 Mean Ox Delivery Rate 01/12 800 97.6 52 10 120/74 93 Room Air 01/11 0400 94 Nasal 2.0L Cannula 01/11 0316 20 18 99/68 01/11 0315 40 18 99/68 / 0000 95 Room Air Room Air 01/10 2300 94.6 50 13 102/60 95 Room Air Room Air 01/10 2000 98 Room Air Room Air 01/10 1600 Room Air 01/10 1600 95.9 54 9 98/70 97 Room Air 01/10 1200 Room Air 01/10 1200 96.0 72 19 102/70 96 Room Air Intake & Output 01/11 1600 01/11 0800 01/11 0000 Intake Total 665 1027 Output Total 670 163 Balance -5 864 Intake, IV 665 707 Intake, Oral 320 Number 0 0 Bowel Movements Output, Urine 670 163 Patient 189 lb Weight Weight Bed scale Measurement Method Exam Other Physical Findings: Gen: The patient is in no acute distress HEENT: Normal nose, ears, and oropharynx. Pupils equal bilaterally. Conjunctiva normal. Neck: Supple with no JVD, no masses, and no thyromegaly Lungs: Clear to auscultation with normal respiratory effort Heart: RRR, S1, S2, no murmurs. 1+ peripheral edema, 2+ pulses in the lower extremities bilaterally Abdomen: Soft, nontender, no masses. No hepatomegaly. No splenomegaly Extremities: No clubbing or cyanosis. Normal muscle strength in the upper and lower extremities Skin: Normal skin turgor with no skin ulcers or lesions noted. Neuro: Cranial nerves intact. Sensation intact Psych: Alert and oriented x 3 with depressed affect Laboratory Tests 01/11 01/10 0439 0400 Chemistry Sodium (137 - 145 mmol/L) 145 147 H Potassium (3.5 - 5.1 mmol/L) 3.6 3.3 L Chloride (98 - 107 mmol/L) 109 H 110 H Carbon Dioxide (22 - 30 mmol/L) 25 27 Anion Gap (5 - 16) 11 10 BUN (7 - 17 mg/dL) 17 21 H Creatinine (0.5 - 1.0 mg/dL) 0.7 0.8 Estimated GFR (>60 ml/min) > 60 > 60 Glucose (65 - 99 mg/dL) 186 H 170 H Calcium (8.4 - 10.2 mg/dL) 8.9 8.1 L Phosphorus (2.5 - 4.5 mg/dL) 2.2 L 3.1 Magnesium (1.6 - 2.3 mg/dL) 2.0 2.0 Total Bilirubin (0.2 - 1.3 mg/dL) 0.9 0.7 AST (14 - 36 U/L) 437 H 689 H ALT (9 - 52 U/L) 939 H 1113 H Albumin (3.5 - 5.0 g/dL) 3.7 3.1 L 25-OH Vitamin D Total (30 - 100 ng/ml) 26.6 L TSH (0.270 - 4.200 uIU/mL) 37.100 H 40.500 H Free T4 (0.78 - 2.44 ng/dL) 0.24 L 0.18 L Hematology CBC w Diff NO MAN DIFF REQ MAN DIFF ORDERED WBC (4.8 - 10.8 /CUMM) 4.4 L 4.6 L RBC (4.20 - 5.40 /CUMM) 3.12 L 2.83 L Hgb (12.0 - 16.0 G/DL) 10.0 L 9.1 L Hct (37 - 47 %) 29.3 L 26.3 L MCV (81.0 - 99.0 FL) 93.9 92.9 MCH (27.0 - 31.0 PG) 32.1 H 32.0 H MCHC (33.0 - 37.0 G/DL) 34.2 34.4 RDW (11.5 - 14.5 %) 16.6 H 16.8 H Plt Count (130 - 400 /CUMM) 38 L 37 L MPV (7.4 - 10.4 FL) 8.9 9.4 Gran % (42.2 - 75.2 %) 93.0 H 95.0 H Lymphocytes % (20.5 - 51.1 %) 5.5 L 4.1 L Monocytes % (1.7 - 9.3 %) 1.5 L 0.8 L Eosinophils % (0 - 5 %) 0 0 Basophils % (0.0 - 2.0 %) 0 0.1 Absolute Granulocytes (1.4 - 6.5 /CUMM) 4.1 4.4 Segmented Neutrophils (42.2 - 75.2 %) 89 H Band Neutrophils (0.0 - 5.0 %) 5 Absolute Lymphocytes (1.2 - 3.4 /CUMM) 0.2 L 0.2 L Lymphocytes (20.5 - 51.1 %) 5 L Monocytes (1.7 - 9.3 %) 1 L Absolute Monocytes (0.10 - 0.60 /CUMM) 0.1 0 L Absolute Eosinophils (0.0 - 0.7 /CUMM) 0 0 Absolute Basophils (0.0 - 0.2 /CUMM) 0 0 Nucleated RBCs (0.0 - 0.0 /100WBC) 2 H Platelet Estimate (ADEQUATE) DECREASED Polychromasia 1+ Anisocytosis 1+ Macrocytic Cells 1+ 04 1748 Chemistry Ammonia (9 - 30 umol/L) < 9 L Microbiology Date/Time Procedure - Status Source Growth 01/08 2039 Influenza Virus A & B Rapid Smear - COMP NASOPHARYN 01/08 1850 Surveillance Culture - COMP UPPER RESP 01/08 1850 Surveillance Culture - COMP GI 01/08 1758 Urine Culture - COMP URINE ROUT 01/08 1515 Blood Culture - RES BLOOD 01/08 1505 Blood Culture - RES BLOOD Impression/Plan Impression/Plan Impression/Plan: EKG low voltage complex 62-year-old female with past history of iatrogenic hypothyroidism after total thyroidectomy for thyroid cancer on oral supplements presented with myxedema picture secondary to noncompliance, pancytopenia, and bradycardia Issues Profound hypothyroidism with myexedema coma like features now improving slowly Mild hypotension now better due to hypothyroidism and prob hypocortisol with no clinical evidence of septic Pt has a small pericardial effusion but no tamponade physiology before - now with ekg findings sugg of worsening effusion (low electrical complex by ekg) Sig belen Pancytopenia prob related to his endo issues, hiv neg and no evidence of consumption, heme onboard and flow pending Hyperosmolar state slowly improving Improving SHock liver with fatty liver Bilateral atx and obesity with no sig hypercarbia REC ECHOI COnt Dopa Carido on board COnt current rx Cont d5 with kcl in it Keep cvp around 6 Avoid unnecessary boluses of fluid Cont levofed and titrate off to map of 60 - 65 Replace potassium by kcl by mouth Will follow Pt is critically ill still needing vasopressors etc and tts 38 mins Discussed with
[2018-01-11 12:00] VITALS: BP 142/90
[2018-01-11 16:00] VITALS: BP 138/84
[2018-01-11 23:00] VITALS: BP 142/80
[2018-01-12 04:42] LABS: ABSOLUTE BASOPHIL COUNT 0 /CUMM (0.0-0.2); ABSOLUTE EOSINOPHIL COUNT 0 /CUMM (0.0-0.7); ABSOLUTE GRANULOCYTE CT 6.2 /CUMM (1.4-6.5); ABSOLUTE LYMPH COUNT 0.3 /CUMM (1.2-3.4); ABSOLUTE MONOCYTE COUNT 0.2 /CUMM (0.10-0.60); BASOPHIL % 0 % (0.0-2.0); EOSINOPHIL % 0 % (0-5); GRANULOCYTE % 92.8 % (42.2-75.2); HEMATOCRIT 33.2 % (37-47); MEAN CORPUSCULAR HGB 32.3 PG (27.0-31.0); MEAN CORPUSCULAR HGB CONC 34.7 G/DL (33.0-37.0); MEAN CORPUSCULAR VOLUME 93.1 FL (81.0-99.0); MEAN PLATELET VOLUME 8.3 FL (7.4-10.4); PLATELET COUNT 48 /CUMM (130-400); RBC DISTRIBUTION WIDTH 16.7 % (11.5-14.5); RED BLOOD CELL CT 3.57 /CUMM (4.20-5.40)
[2018-01-12 04:52] LABS: WHITE BLOOD CELL COUNT 6.7 /CUMM (4.8-10.8)
--- NOTE | 2018-01-12 07:21 | PN- Resident CRCU ---
Shakir QUICK,[place] 01/12/18 0720: Subjective HPI/CRCU Issues: Overnight events: No acute events. However patient is continuing to refuse medications and food. Patient continues to deny any complaints at this time. Patient is alert and oriented 2. Currently on an IV dopamine drip, D5 half normal saline at 50 mL with potassium 40 mEq running at 60 mL per hour Vitals: 97.6, lowest temperature 97, heart rate 36-63, sinus bradycardia, first- degree AV block, respiration rate 12-30, blood pressure 136/88, CVP 4, saturating 97-100% on room air Accu-Cheks: 186, 204, 194, 155, 151, 167, WBC 6.7, H&H 11.5 and 33.2, platelet count 48 (all cell counts have increased from previous) Sodium 148, potassium 3.0, chloride 103, bicarbonate 32, BUN 11 and 0.7, glucose 170, calcium 9.1, phosphorus 2.0, magnesium 1.9, albumin 4.2 AST 235 downtrending from 437 previous day ALT 825 downtrending from 939 previous day TSH 13.8 downtrending from 37.1 previous day Free T4 0.32 up from 0.24 Echocardiogram showing normal left ejection fraction of 60% with trace pericardial effusion. Objective Vital Signs & I&O Last 8 Hrs of Vitals and I&O: Intake & Output 01/12 1600 01/12 0801/12 0000 Intake Total 923 883 Output Total 1950 1850 Balance -1027 -967 Intake, IV 923 873 Intake, Oral 10 Number 0 0 Bowel Movements Output, Urine 1949 1850 Patient 181 lb Weight Weight Bed scale Measurement Method Vital Signs Date Time Temp Pulse Resp B/P B/P Pulse O2 O2 Flow FiO2 Mean Ox Delivery Rate 01/13 800 97.0 48 20 132/84 96 Room Air 01/12 0800 96 Room Air 01/12 0400 97 Room Air Room Air 01/12 0011 97.4 50 30 138/79 01/12 0000 96 Room Air Room Air 01/11 2300 97.6 59 19 142/80 94 Room Air Room Air 01/11 2000 97 Room Air Room Air 01/11 1600 97.5 47 28 138/84 96 Room Air 01/11 1600 96 Room Air 01/11 1200 Room Air 04/08 1200 97.4 45 10 142/90 96 Room Air Intake & Output 01/12 1600 Intake Total Output Total Balance Patient 181 lb Weight Weight Bed scale Measurement Method Exam General Appearance: well developed/nourished, alert, awake 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 Respiratory: normal breath sounds, chest non-tender, no respiratory distress, quiet respiration, lungs clear Cardiovascular: regular rate/rhythm Gastrointestinal: normal bowel sounds, soft, non-tender Cranial Nerves: normal hearing, normal speech, PERRL IV Drips IV Drips: IV dopamine Current Medications: Current Medications Sig/Tabatha Start time Last Medication Dose Route Stop Time Status Admin Bisacodyl 10 MG ONCE ONE 01/12 1100 DC 01/12 MD 01/12 1101 1116 Dopamine HCl 400 MG Q12H 01/11 0245 AC 01/12 Dextrose/Water 500 ML IV 0857 Glycerin/Mineral Oil 1 JUAN ALBERTO TID PRN 01/08 1645 AC 01/09 TOP 0430 Hydrocortisone 50 MG Q8 01/12 1400 AC Sodium Succinate IV Hydrocortisone 100 MG Q8 01/08 2345 DC 01/12 Sodium Succinate IV 0558 Levothyroxine Sodium 100 MCG DAILY 01/12 1000 AC 01/12 IV 0941 Levothyroxine Sodium 100 MCG DAILY AC 01/11 1200 DC 01/11 IV 1221 Levothyroxine Sodium 100 MCG DAILY AC 01/09 0808 DC 01/10 IV 1103 Morphine Sulfate 2 MG Q4P PRN 01/08 1645 AC IV Norepinephrine 4 MG Q13H 01/09 1500 DC 01/11 Sodium Chloride 250 ML IV 0316 Pantoprazole Sodium 40 MG DAILY 01/08 1930 AC 01/12 IV 0941 Potassium Chloride 40 MEQ Q20H 01/11 1500 AC 01/12 Dextrose/Sodium 1,000 ML IV 0310 Chloride Potassium Chloride 40 MEQ Q20H 01/10 1130 DC 01/11 Dextrose/Water 1,000 ML IV 0819 Potassium Phosphate 15 mMol ONE ONE 01/12 1100 AC Dextrose/Water 250 ML IV 01/12 1504 Potassium Phosphate 15 mMol ONE ONE 01/11 0900 DC 01/11 Dextrose/Water 250 ML IV 01/11 1304 0921 Impression/Plan Impression/Problem List Impression: Patient is a 62-year-old female with past medical history significant for iatrogenic hypothyroidism status post total thyroidectomy for thyroid cancer presenting this admission with myxedema coma secondary to noncompliance, neutropenia, thrombocytopenia and bradycardia. Patient is admitted to the ICU for management of following: Respiratory Patient is currently saturating well on 2 L nasal cannula. Infectious: Neutropenia Patient has an absolute neutrophil count of 700 on admission. This has slightly improved today. Etiology of patient's neutropenia is unclear at this time however may be secondary to severe hypothyroidism. Further work up is necessary. Patient was severely hypothermic on admission however this is likely due to severe hypothyroidism. Patient is HIV and hepatitis negative. Rapid flu was negative. CXR shows no infiltrates. Blood and urine cultures were sent with no growth. Lyme titer was negative. Patient was prophylaxtically covered with antibiotics as the mortality rate of patient's with myxedema coma who become septic is much higher, however antibiotics have been stopped as there are no signs of acute infection and WBC count has increased to normal and likely neutropenia was secondary to severe hypothyroidism. - Repeat CBCs in a.m. - Follow up blood cultures - Follow up urine cultures - Monitor vitals closely Cardiac: Bradycardia Likely secondary to severe hypothyroidism. Serial troponin and EKG have been negative. Lyme titer ordered in setting of bradycardia and pancytopneia which was negative. ECHO shows low normal EF of 50% with no wall motion abnormalities or significant valvular pathology, with moderate LV hypertrophy, with a small pericardial effusion - which is seen with hypothyroidism. Patient over the weekend continued to remain bradycardic with improvement in blood pressure on levophed. Per cardiology patient's leveophed was discontinued and patient was started on dopamine drip. HR remains in the 30s to 60s. Patient's EKG yesterday showed low voltage with concern of worsening pericardial effusion. Repeat limited echo showed trace pericardial effusion. Per cardiology, patient may require pacemaker. - Cardiology consulted - Monitor on telemetry - Transcutaneous pacer pads and atropine at bedside - Continue IV dopamine drip Hypotension- resolved Patient's hypotension is likely secondary to severe hypothyroidism. Patient has received IV fluid boluses along with stress dose steroids. Patient continues to remain hypotensive however patient's manual blood pressure this morning is >90 systolic after receiving a small fluid bolus. Patient's hypotension worsened on 01/10 requiring levophed and a central line. A right internal jugular line was placed. Patient had received levophed peripherally for a short duration prior to accessing central line. After ~15 minutes patient had an adverse reaction to the levophed in the right arm and appeared to have phlebitis. The levophed through the peripheral IV site was stopped. Patient was given phentolamine to counter act the vasocontrictive effect of levophed and a cold compress was placed on top. The site appears to be improving. Levo fed was discontinued over the weekend as patient's blood pressure improved. - continue to monitor bp - continue IV D5 1/2 NS - decrease IV Solu-Medrol to 50 every 8 - continue compress on right arm as needed Heme: Pancytopenia: Resolving Patient on admission was neutropenic, anemic and severely thrombocytopenic. There have been case reports of pancytopenia with severe hypothyroidism however patient will require further workup at this time. Patient had a reticulocyte count of 1.48% with absolute reticulocyte count of 1.1 and a reticulocyte count index of 0.75 indicating bone marrow suppression which can be caused by hypothyroidism. LDH count is elevated. Iron panel revealed elevated iron, normal TIBC and elevated ferritin. Vitamin B12 is elevated. Folate levels normal. HIV negative. Flow cytometry was performed which showed no evidence of active myelodysplasia or blasts, monoclonal B-cell lymphoproliferative disease, and no unusual phenotype T cells identified. As all cell lines are improving with current treatment it is likely that patient 's pancytopenia is due to her severe hypothyroidism. - haptoglobin pending - Continue to monitor CBC - Hematology consulted. Appreciate recommendations. - Thrombocytopenic precautions Metabolic: Myxedema coma Patient presented confused, hypothermic, bradycardic and with elevated TSH and low T4. Patient has been noncompliant with medications. Endocrinology was consulted. Patient was given levothyroxine 100 g IV x 1 on admission. A cortisol level was checked in the setting of hypotension. Patient's cortisol level was low and she was started on 100 mg IV Solu-Cortef q8h. Today patient continues to remain confused however is more vocal. Patient's hypothermia has resolved. Patient continues to remain bradycardic currently on an IV dopamine drip. With improvement of patient's blood pressure, IV Solu- Cortef was decreased today to 50 mg every 8 hours. - Continue IV Levothyroxine - Continue IV Solu-Cortef - Repeat free T4 and TSH tomorrow - Warming with bear hugger if necessary. Transaminitis: Unclear etiology of abnormal LFTs. Patient reports no abdominal pain. LFTs are improving today. CT Abd/Pelvis shows no focal defects in the liver. Patient is s /p cholecystectomy. Alk phos and bili are normal. These abnormal LFTs may be secondary to severe hypothyroidism, however this is unclear. Alimentary Hypernatremia Patients with hypothyroidism typically have hyponatremia, however patient on presentation appears severely dehydrated which may be the cause of her hypernatremia. Patient has also been given multiple doses of normal saline. - D5 1/2 normal saline at a rate of 60 mL per hour - Continue to monitor Na Swallow evaluation Patient placed on puree with nectar thick liquids. Patient is refusing to eat. Currently on IV fluids. Patient may require NG tube if she continues to refuse. Neurology Altered mental status in setting of severe hypothyroidism. Patient was found on the ground with a dresser over her - it is unclear if she fell. Patient has had multiple falls recently. Head CT and cervical CT were negative for any acute findings. Tibula/ fibula and humerus x-rays without any acute fracture. - Fall precautions - Neurochecks - PT eval Nephrology: None DVT prophylaxis: Alps only in the setting of thrombocytopenia Problem List: 1. Myxedema coma 2. Hypothyroidism 3. Bradycardia 4. Thrombocytopenia Pain Ratin Tomorrow's Labs & Rationales: cbc - anemia, thrombocytopenia icu bundle - monitor electrolytes, lfts tsh and free t4 - hypothyroidism Plan DVT/Prophylaxis: mechanical (only due to thrombocytopenia) Beni Bo MD 01/12/18 0916: Attending MD Review Statement Attending Sign Off Attending Cosign Statement: I have: examined this patient, reviewed [facility] EMR data, personally reviewd images, discussd w/resident/PA/CHECK SERVICES CLERK, discussed mgmt plan w/clarence, discussed mgmt plan w/CM, discussed mgmt plan w/pt, agreed w/resident/PA/CHECK SERVICES CLERK, amended to note. Other Findings: Impression 62 year old woman * pancytopenia * hx of thyroid ca - significant hypothyroidism consistent with myxedema * transaminitis improved * bradycardia Plan -agree with above residents plan -f/u endocrine and heme recs -stress steroids, iv thyroid replacement -off empiric abx -EF 50%, cont dopamine DVT prophylaxis at all times TTS 35 min TTS 35 min D/w
--- NOTE | 2018-01-12 07:26 | PN- Hematology ---
Subjective Subjective: She denies any new issues. She remains disoriented. Review of Systems: Limited due to mental status. Objective Vital Signs and I&Os Vital Signs Date Time Temp Pulse Resp B/P B/P Pulse O2 O2 Flow FiO2 Mean Ox Delivery Rate 01/12 0400 97 Room Air Room Air 01/12 0011 97.4 50 30 138/79 04/ 0000 96 Room Air Room Air 01/11 2300 97.6 59 19 142/80 94 Room Air Room Air 01/11 2000 97 Room Air Room Air 01/11 1600 97.5 47 28 138/84 96 Room Air 01/11 1600 96 Room Air 01/11 1200 Room Air 01/11 1200 97.4 45 10 142/90 96 Room Air 01/11 0800 93 Room Air 01/11 0800 97.6 52 10 120/74 93 Room Air Intake & Output 01/12 0800 / 0000 08 1600 01/11 0800 01/11 0000 01/10 1600 Intake Total 627 723 5588 665 1027 1125 Output Total 1950 1850 1900 670 163 150 Balance -1027 -967 -793 -5 864 975 Intake, IV 323 582 7240 665 707 905 Intake, Oral 10 10 320 220 Number 0 0 0 0 Bowel Movements Output, Urine 1950 1850 1900 670 163 150 Patient 85.729 kg 87.997 kg Weight Weight Bed scale Bed scale Measurement Method Physical Exam General Appearance: no apparent distress, alert, awake, comfortable Head: atraumatic Respiratory: normal breath sounds, chest non-tender, no respiratory distress, quiet respiration Cardiovascular: bradycardia Abdomen: normal bowel sounds, soft, non-tender, no organomegaly Extremities: no edema Skin: ecchymosis (left thigh) Current Medications: Current Medications Sig/Tabatha Start time Last Medication Dose Route Stop Time Status Admin Dopamine HCl 400 MG Q12H 01/11 0245 AC 01/12 Dextrose/Water 500 ML IV 0011 Glycerin/Mineral Oil 1 JUAN ALBERTO TID PRN 01/08 1645 AC 01/09 TOP 0430 Hydrocortisone 100 MG Q8 01/08 2345 AC 01/12 Sodium Succinate IV 0558 Levothyroxine Sodium 100 MCG DAILY AC 01/11 1200 AC 01/11 IV 1221 Levothyroxine Sodium 100 MCG DAILY AC 01/09 0808 DC 01/10 IV 1103 Morphine Sulfate 2 MG Q4P PRN 01/08 1645 AC IV Norepinephrine 4 MG Q13H 01/09 1500 DC 01/11 Sodium Chloride 250 ML IV 0316 Pantoprazole Sodium 40 MG DAILY 01/08 1930 AC 01/11 IV 0921 Potassium Chloride 40 MEQ Q20H 01/11 1500 AC 01/12 Dextrose/Sodium 1,000 ML IV 0310 Chloride Potassium Chloride 40 MEQ Q20H 01/10 1130 DC 01/11 Dextrose/Water 1,000 ML IV 0819 Potassium Phosphate 15 mMol ONE ONE 01/11 0900 DC 01/11 Dextrose/Water 250 ML IV 01/11 1304 0921 Results Last 24 Hours of Lab Results: Laboratory Tests 01/126 Chemistry Sodium (137 - 145 mmol/L) 148 H Potassium (3.5 - 5.1 mmol/L) 3.0 L Chloride (98 - 107 mmol/L) 103 Carbon Dioxide (22 - 30 mmol/L) 32 H Anion Gap (5 - 16) 13 BUN (7 - 17 mg/dL) 11 Creatinine (0.5 - 1.0 mg/dL) 0.7 Estimated GFR (>60 ml/min) > 60 Glucose (65 - 99 mg/dL) 170 H Calcium (8.4 - 10.2 mg/dL) 9.1 Phosphorus (2.5 - 4.5 mg/dL) 2.0 L Magnesium (1.6 - 2.3 mg/dL) 1.9 Total Bilirubin (0.2 - 1.3 mg/dL) 1.3 AST (14 - 36 U/L) 235 H ALT (9 - 52 U/L) 825 H Albumin (3.5 - 5.0 g/dL) 4.2 TSH (0.270 - 4.200 uIU/mL) 13.800 H Free T4 (0.78 - 2.44 ng/dL) 0.32 L Hematology CBC w Diff MAN DIFF ORDERED WBC (4.8 - 10.8 /CUMM) 6.7 RBC (4.20 - 5.40 /CUMM) 3.57 L Hgb (12.0 - 16.0 G/DL) 11.5 L Hct (37 - 47 %) 33.2 L MCV (81.0 - 99.0 FL) 93.1 MCH (27.0 - 31.0 PG) 32.3 H MCHC (33.0 - 37.0 G/DL) 34.7 RDW (11.5 - 14.5 %) 16.7 H Plt Count (130 - 400 /CUMM) 48 L MPV (7.4 - 10.4 FL) 8.3 Gran % (42.2 - 75.2 %) 92.8 H Lymphocytes % (20.5 - 51.1 %) 3.8 L Monocytes % (1.7 - 9.3 %) 3.4 Eosinophils % (0 - 5 %) 0 Basophils % (0.0 - 2.0 %) 0 Absolute Granulocytes (1.4 - 6.5 /CUMM) 6.2 Segmented Neutrophils (42.2 - 75.2 %) 91 H Band Neutrophils (0.0 - 5.0 %) 2 Absolute Lymphocytes (1.2 - 3.4 /CUMM) 0.3 L Lymphocytes (20.5 - 51.1 %) 2 L Monocytes (1.7 - 9.3 %) 5 Absolute Monocytes (0.10 - 0.60 /CUMM) 0.2 Absolute Eosinophils (0.0 - 0.7 /CUMM) 0 Absolute Basophils (0.0 - 0.2 /CUMM) 0 Platelet Estimate (ADEQUATE) DECREASED Polychromasia 1+ Hypochromic-Microcytic 1+ Ovalocytes FEW Other Body Source Fld Total RBCs Counted (%) 100 Assessment/Plan Hematology Assessment/Recommendations: Mrs. Goode is a 62-year-old female with hypothyroidism, thyroid malignancy status post total thyroidectomy, ELDER ablation who presented to the hospital after being found to be confused and down by her . On presentation, she was noted to be pancytopenic with WBC 1.0, platelet of 32,000, and hemoglobin of 10.9. Vitamin B12 and folated was normal. Ferritin was elevated at 5770. Her AST and ALT were >2000. LDH is elevated at 7954. Bilirubin was elevated at 1.5. Her TSH was elevated and T4 was low. There is concern for myxedema coma. She was started on hydrocortisone and levothyroxine. She was started on empiric antibiotics. Imaging with CT head, cervical, chest, abdomen, and pelvis are reviewed and negative for any significant acute findings. She remains disoriented but seems more alert. She remains on dopamine for pressor support. She is off antibiotics. She remains on hydrocortisone and levothyroxine. Endocrine is following patient. Pancytopenia is improving. This should continue to improve with improvement in her clinical condition and myxedema coma. Platelet will likely be the last to improve. Flow cytometry is pending. Pancytopenia: -follow up flow cytometry Myxedema coma: -endocrinology following -treatment as per primary and endocrinology Please call [phone] with any questions or concerns. Problem List: 1. Pancytopenia 2. Myxedema coma 3. Bradycardia
[2018-01-12 08:00] VITALS: BP 132/84
--- NOTE | 2018-01-12 08:53 | PN- Endocrinology ---
Assessment/Plan Endoscopy Assessment: 62 y/o female, hx of thyroid cancer which was diagnosed in and was treated with thyroid surgery twice and ELDER twice. Detail unclear. She was supposed to take Levothyroxine 150 mcg daily. However, she hasn't been compliance with the medication. Patient was in ER in 05/2017 and 08/2017-- her TSH was > 60 and free T4 was < 0.07. She presented to ER today again after she was found that she was on the floor. Patient was hypothermia and bradycardic. Blood work showed profound hypothyroidism along with borderline low cortisol, abnormal LFT and pancytopenia. She was put on Levothyroxine 100 mcg iv and stress dose of steroid. She is still on dopamine drip. Her BP has improved. Repeat TFT showed TSH 13.8 and free T4 0.32. Plan: 1. continue Levothyroxine 100 mcg iv daily for now; 2. decrease Hydrocortisone to 50 mg iv every 8 hours; 3. replete K; 4. continue monitoring electrolytes, vital signs; 5. monitor TSH, free T4 tomorrow. will follow. Subjective Subjective: Her facial swelling has been better. Objective Last 24 Hrs of Vital Signs/I&O Vital Signs Date Time Temp Pulse Resp B/P B/P Pulse O2 O2 Flow FiO2 Mean Ox Delivery Rate 01/12 0400 97 Room Air Room Air 01/12 0011 97.4 50 30 138/79 04 0000 96 Room Air Room Air 01/11 2300 97.6 59 19 142/80 94 Room Air Room Air 01/11 2000 97 Room Air Room Air 01/11 1600 97.5 47 28 138/84 96 Room Air 01/11 1600 96 Room Air 01/11 1200 Room Air 01/11 1200 97.4 45 10 142/90 96 Room Air Intake & Output 01/12 1600 01/12 0800 01/12 0000 Intake Total 923 883 Output Total 1950 1850 Balance -1027 -967 Intake, IV 923 873 Intake, Oral 10 Number 0 0 Bowel Movements Output, Urine 1949 1849 Results Pertinent Lab/Chad Results: Laboratory Tests 01/13 416 Chemistry Sodium (137 - 145 mmol/L) 148 H Potassium (3.5 - 5.1 mmol/L) 3.0 L Chloride (98 - 107 mmol/L) 103 Carbon Dioxide (22 - 30 mmol/L) 32 H Anion Gap (5 - 16) 13 BUN (7 - 17 mg/dL) 11 Creatinine (0.5 - 1.0 mg/dL) 0.7 Estimated GFR (>60 ml/min) > 60 Glucose (65 - 99 mg/dL) 170 H Calcium (8.4 - 10.2 mg/dL) 9.1 Phosphorus (2.5 - 4.5 mg/dL) 2.0 L Magnesium (1.6 - 2.3 mg/dL) 1.9 Total Bilirubin (0.2 - 1.3 mg/dL) 1.3 AST (14 - 36 U/L) 235 H ALT (9 - 52 U/L) 825 H Albumin (3.5 - 5.0 g/dL) 4.2 TSH (0.270 - 4.200 uIU/mL) 13.800 H Free T4 (0.78 - 2.44 ng/dL) 0.32 L Hematology CBC w Diff MAN DIFF ORDERED WBC (4.8 - 10.8 /CUMM) 6.7 RBC (4.20 - 5.40 /CUMM) 3.57 L Hgb (12.0 - 16.0 G/DL) 11.5 L Hct (37 - 47 %) 33.2 L MCV (81.0 - 99.0 FL) 93.1 MCH (27.0 - 31.0 PG) 32.3 H MCHC (33.0 - 37.0 G/DL) 34.7 RDW (11.5 - 14.5 %) 16.7 H Plt Count (130 - 400 /CUMM) 48 L MPV (7.4 - 10.4 FL) 8.3 Gran % (42.2 - 75.2 %) 92.8 H Lymphocytes % (20.5 - 51.1 %) 3.8 L Monocytes % (1.7 - 9.3 %) 3.4 Eosinophils % (0 - 5 %) 0 Basophils % (0.0 - 2.0 %) 0 Absolute Granulocytes (1.4 - 6.5 /CUMM) 6.2 Segmented Neutrophils (42.2 - 75.2 %) 91 H Band Neutrophils (0.0 - 5.0 %) 2 Absolute Lymphocytes (1.2 - 3.4 /CUMM) 0.3 L Lymphocytes (20.5 - 51.1 %) 2 L Monocytes (1.7 - 9.3 %) 5 Absolute Monocytes (0.10 - 0.60 /CUMM) 0.2 Absolute Eosinophils (0.0 - 0.7 /CUMM) 0 Absolute Basophils (0.0 - 0.2 /CUMM) 0 Platelet Estimate (ADEQUATE) DECREASED Polychromasia 1+ Hypochromic-Microcytic 1+ Ovalocytes FEW Other Body Source Fld Total RBCs Counted (%) 100
--- NOTE | 2018-01-12 09:46 | ECHOCARDIOGRAM REPORT ---
MILAGROS PEREIRA Age: 62 : 1955 Gender: F Exam Date: 01/11/2018 11:40 Exam Location: [facility] Ht (in): 65 Wt (lb): 187 BSA: 2.00 BP: 138 / 68 Ordering Physician: JUAN CARLSO BEAVER MD Referring Physician: Thierno Liriano MD, PhD Technologist: Niecy Ivy [facility] Room Number: 104 Indications: ARRHYTHMIAS, F/U PERICARDIAL EFFUSION Rhythm: Sinus Technical Quality: limited study FINDINGS Left Ventricle Normal left ventricular size, wall thickness and systolic function with no obvious regional wall motion abnormalities. The ejection fraction is visually estimated at 60%. Right Ventricle The right ventricle is normal in size and function. Right Atrium The right atrium is normal in size. Left Atrium The left atrium is normal in size. The interatrial septum is intact. Mitral Valve The mitral valve is normal in structure and function. There is no mitral regurgitation. Aortic Valve Structurally normal aortic valve without significant sclerosis or stenosis. There is no aortic regurgitation. Tricuspid Valve The tricuspid valve is normal in structure and function. There is no tricuspid regurgitation. Pulmonic Valve Structurally normal pulmonic valve. There is no pulmonic regurgitation. Pericardium Normal pericardium with trace effusion. No pleural effusion. Great Vessels Normal aortic root dimension. The aortic arch and great vessels are well seen and are normal. CONCLUSIONS 1. Limited study. Normal EF of 60%. 2. Trace pericardial effusion. Thierno Liriano M.D. (Electronically Signed) Final Date: 12 January 2018 09:46 MEASUREMENTS (Male / Female) Normal Values
[2018-01-12 12:00] VITALS: BP 122/62
--- NOTE | 2018-01-12 12:06 | Transfer of Care Summary ---
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 Patient is admitted to the ICU for management of followin. Severe hypothyroidism with myxedema coma features 2. Pancytopenia 3. Persistent Bradycardia 4. Hypotension 2/2 hypothyroidism and adrenal insufficiency 5. Small pericardial effusion 6. Shock liver with hepatosteatosis 7. Confusion/AMS 2/2 to hypothyroidism Neutropenia - improving Patient has an absolute neutrophil count of 700 on admission. Etiology of patient's neutropenia is unclear at this time however may be secondary to severe hypothyroidism. Further work up is necessary. Patient was severely hypothermic on admission however this is likely due to severe hypothyroidism. Patient is HIV and hepatitis negative. Rapid flu was negative. CXR shows no infiltrates. Blood and urine cultures were sent with no growth. Lyme titer was negative. Patient was prophylaxtically covered with antibiotics as the mortality rate of patient's with myxedema coma who become septic is much higher, however antibiotics have been stopped as there are no signs of acute infection and WBC count has increased to normal and likely neutropenia was secondary to severe hypothyroidism. - Repeat CBCs in a.m. - Follow up blood cultures - Follow up urine cultures - Monitor vitals closely Bradycardia Likely secondary to severe hypothyroidism. Serial troponin and EKG have been negative. Lyme titer ordered in setting of bradycardia and pancytopneia which was negative. ECHO shows low normal EF of 50% with no wall motion abnormalities or significant valvular pathology, with moderate LV hypertrophy, with a small pericardial effusion - which is seen with hypothyroidism. Patient over the weekend continued to remain bradycardic with improvement in blood pressure on levophed. Per cardiology patient's leveophed was discontinued and patient was started on dopamine drip. HR remains in the 30s to 60s. Patient's EKG yesterday showed low voltage with concern of worsening pericardial effusion. Repeat limited echo showed trace pericardial effusion. Per cardiology, patient may require pacemaker. - Cardiology consulted - Monitor on telemetry - Transcutaneous pacer pads and atropine at bedside - Discontinue IV dopamine per cardiology Hypotension- resolved Patient's hypotension is likely secondary to severe hypothyroidism. Patient has received IV fluid boluses along with stress dose steroids. Patient continues to remain hypotensive however patient's manual blood pressure this morning is >90 systolic after receiving a small fluid bolus. Patient's hypotension worsened on 01/10 requiring levophed and a central line. A right internal jugular line was placed. Patient had received levophed peripherally for a short duration prior to accessing central line. After ~15 minutes patient had an adverse reaction to the levophed in the right arm and appeared to have phlebitis. The levophed through the peripheral IV site was stopped. Patient was given phentolamine to counter act the vasocontrictive effect of levophed and a cold compress was placed on top. The site appears to be improving. Levo fed was discontinued over the weekend as patient's blood pressure improved. - continue to monitor bp - continue IV D5 / NS - decrease IV Solu-Medrol to 50 every 8 - continue compress on right arm as needed Pancytopenia: Resolving Patient on admission was neutropenic, anemic and severely thrombocytopenic. There have been case reports of pancytopenia with severe hypothyroidism however patient will require further workup at this time. Patient had a reticulocyte count of 1.48% with absolute reticulocyte count of 1.1 and a reticulocyte count index of 0.75 indicating bone marrow suppression which can be caused by hypothyroidism. LDH count is elevated. Iron panel revealed elevated iron, normal TIBC and elevated ferritin. Vitamin B12 is elevated. Folate levels normal. HIV negative. Flow cytometry was performed which showed no evidence of active myelodysplasia or blasts, monoclonal B-cell lymphoproliferative disease, and no unusual phenotype T cells identified. As all cell lines are improving with current treatment it is likely that patient 's pancytopenia is due to her severe hypothyroidism. - haptoglobin pending - Continue to monitor CBC - Hematology consulted. Appreciate recommendations. - Thrombocytopenic precautions Myxedema coma Patient presented confused, hypothermic, bradycardic and with elevated TSH and low T4. Patient has been noncompliant with medications. Endocrinology was consulted. Patient was given levothyroxine 100 g IV x 1 on admission. A cortisol level was checked in the setting of hypotension. Patient's cortisol level was low and she was started on 100 mg IV Solu-Cortef q8h. Today patient continues to remain confused however is more vocal. Patient's hypothermia has resolved. Patient continues to remain bradycardic currently on an IV dopamine drip. With improvement of patient's blood pressure, IV Solu- Cortef was decreased today to 50 mg every 8 hours. - Continue IV Levothyroxine - Continue IV Solu-Cortef - Repeat free T4 and TSH tomorrow - Warming with bear hugger if necessary. Shock liver 2/2 Severe hypothyroidism These abnormal LFTs may be secondary to severe hypothyroidism, however this is unclear. Patient reports no abdominal pain. LFTs are improving today. CT Abd/ Pelvis shows no focal defects in the liver. Patient is s/p cholecystectomy. Alk phos and bili are normal. Hypernatremia Patients with hypothyroidism typically have hyponatremia, however patient on presentation appears severely dehydrated which may be the cause of her hypernatremia. Patient has also been given multiple doses of normal saline. - D5 1/2 normal saline at a rate of 60 mL per hour - Continue to monitor Na Swallow evaluation Patient placed on puree with nectar thick liquids. Patient is refusing to eat. Currently on IV fluids. Patient may require NG tube if she continues to refuse. Altered mental status in setting of severe hypothyroidism. Patient was found on the ground with a dresser over her - it is unclear if she fell. Patient has had multiple falls recently. Head CT and cervical CT were negative for any acute findings. Tibula/ fibula and humerus x-rays without any acute fracture. - Fall precautions - Neurochecks - PT eval DVT prophylaxis: Alps only in the setting of thrombocytopenia Assessment/Plan: see above None DVT prophylaxis: Alps only in the setting of thrombocytopenia
--- NOTE | 2018-01-12 13:13 | PN- Cardiology ---
Subjective Subjective: * Patient is slow to respond and does not know where she is at the present time but denies any complaints and certainly communicates better than she did the day of admission. * sinus rhythm * Normal EF on echo with small effusion. * potassium is 3.0 Objective Vital Signs and I&Os Vital Signs Date Time Temp Pulse Resp B/P B/P Pulse O2 O2 Flow FiO2 Mean Ox Delivery Rate 01/13 800 97.0 48 20 132/84 96 Room Air 01/12 0800 96 Room Air 01/12 0400 97 Room Air Room Air 01/12 0011 97.4 50 30 138/79 04/ 0000 96 Room Air Room Air 01/11 2300 97.6 59 19 142/80 94 Room Air Room Air 01/11 2000 97 Room Air Room Air 01/11 1600 97.5 47 28 138/84 96 Room Air 01/11 1600 96 Room Air Intake & Output 01/12 1600 01/12 0800 04/ 0000 / 1600 01/11 0800 01/11 0000 Intake Total 720 092 1332 665 1027 Output Total 1950 1849 1900 670 163 Balance -1027 -967 -793 -5 864 Intake, IV 093 535 5875 665 707 Intake, Oral 10 10 320 Number 0 0 0 0 Bowel Movements Output, Urine 1949 1849 1899 670 163 Patient 181 lb 189 lb Weight Weight Bed scale Bed scale Measurement Method Physical Exam: General: WD/WN female; slow to respond HEENT: swollen left cheek, PERRL, EOMI Neck: no JVD, no carotid bruit Heart: bradycardic with regular rhythm, no murmur Lungs: clear bilaterally Extremities; 1+ edema bilaterally Assessment/Plan Assessment/Plan * This patient has a well controlled blood pressure despite some bradycardia. She is maintaining her renal function. Stop Dopamine. Her bradycardia is improved to a reasonable level in the 50's and will hopefully improve with hormone replacement for her hypothyroidism. If not we will need to consider a permanent pacemaker. She may have hepatic congestion with shock liver causing her elevated hepatic transaminases but these enzymes are improving. A small pericaridial effusion is noted which is not unexpected in the setting of severe hypothyroidism which may have contributed to her low voltage. There is no evidence of tamponade and the effusion has become smaller. Continue maintenance IV fluids. Continue telemetry? Yes
[2018-01-12 16:00] VITALS: BP 128/72
--- NOTE | 2018-01-12 22:08 | Event Note ---
Event Note Event Note: Situation Recurrent bradycardia Background 62 year old woman with multiple medical problems admitted for myxedema coma with hypotension and multipe electrolyte abnormalities requiring IV levothyroxine and vasopressor support. Patient had a period of bradycardia this morning for which it was recommended to discontinue dopamine. Patients blood pressure dropped to the 60s systolic when dopamine was at 5mcg. 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 Normal Saline + KCl was increased to 125mL/hr. Assessment Patients heart rate remains in the 50-70s in the evening when she was at rest but dropped to the 30s-40s between 9:30 PM and 10PM. Telemetry tracting demonstrated varying TX interval with occasional non-conducted P-waves concerning for wenkebach. Patient otherwise remained hemodynamically stable. Potassium was found to be 2.9 during the evening labs; this was drawn just after K-Phos and IV KCL was given. Chemistries should be rechecked. When patient was awakened her heart rate increased to 70s-80s. Recommendations -Stat ICU bundle -Replete electrolytes if needed -Obtain EKG if arrhythmia returns -Pacer pads in place conneceted to machine -Atropine at bedside
[2018-01-13] VITALS: BP 110/80
[2018-01-13 05:56] LABS: ABSOLUTE BASOPHIL COUNT 0 /CUMM (0.0-0.2); ABSOLUTE EOSINOPHIL COUNT 0 /CUMM (0.0-0.7); ABSOLUTE GRANULOCYTE CT 4.2 /CUMM (1.4-6.5); ABSOLUTE LYMPH COUNT 0.3 /CUMM (1.2-3.4); ABSOLUTE MONOCYTE COUNT 0.2 /CUMM (0.10-0.60); BASOPHIL % 0 % (0.0-2.0); EOSINOPHIL % 0.1 % (0-5); GRANULOCYTE % 89.2 % (42.2-75.2); HEMATOCRIT 32.1 % (37-47); MEAN CORPUSCULAR HGB 31.6 PG (27.0-31.0); MEAN CORPUSCULAR HGB CONC 33.7 G/DL (33.0-37.0); MEAN PLATELET VOLUME 8.5 FL (7.4-10.4); PLATELET COUNT 43 /CUMM (130-400); RBC DISTRIBUTION WIDTH 16.2 % (11.5-14.5); RED BLOOD CELL CT 3.41 /CUMM (4.20-5.40); WHITE BLOOD CELL COUNT 4.7 /CUMM (4.8-10.8)
--- NOTE | 2018-01-13 07:41 | PN- Resident CRCU ---
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 -Hx of papillary thyroid cancer status post resection and radioactive iodine -Confusion/AMS with agitation due to Myxedema coma. -Hypotension/bradycardia due to above, remains on dopamine. -Pancytopenia (improving). -Transaminitis due to shock liver 2/2 Myxedema coma. 24 Hour Events: Patient is somnolent and arousable to sternal rub only. Still refusing by mouth medications and meals. Patient was tried to wean off the dopamine drip last night but was bradycardic and hypotensive again and the dopamine drip was restarted. Heart rate currently in the mid 50s. She had a negative fluid balance of almost 1600 yesterday. ABGs was obtained last night beacuse of patient's mental status which showed metabolic alkolosis with PH of 7.48 and HCO3 of 30. RIJ day 5 Noble Catheter day 6 Objective Vital Signs & I&O Last 8 Hrs of Vitals and I&O: Intake & Output 01/13 1600 Intake Total 1455 Output Total 1200 Balance 255 Intake, IV 1455 Intake, Oral 0 Number 0 Bowel Movements Output, Urine 1200 Exam General Appearance: no apparent distress, Somnolent Head: atraumatic, normal appearance Neck: normal inspection, supple Respiratory: normal breath sounds, lungs clear Cardiovascular: regular rate/rhythm Gastrointestinal: normal bowel sounds, soft, non-tender Cranial Nerves: normal hearing, normal speech, PERRL IV Drips IV Drips: Dopamine Current Medications: Current Medications Sig/Tabatha Start time Last Medication Dose Route Stop Time Status Admin Atropine Sulfate 0.5 MG Q 5 MINUTES X 3 DO.. 01/12 2230 AC IV Atropine Sulfate 0.5 MG Q 5 MINUTES X 3 DO.. 01/12 2215 CAN IV Dopamine HCl 400 MG Q12H 01/13 1200 AC 01/13 Dextrose/Water 500 ML IV 1216 Dopamine HCl 400 MG Q12H 01/11 0245 DC 01/12 Dextrose/Water 500 ML IV 2305 Glycerin/Mineral Oil 1 JUAN ALBERTO TID PRN 01/08 1645 AC 01/09 TOP 0430 Hydrocortisone 50 MG Q8 01/12 1400 AC 01/13 Sodium Succinate IV 0556 Levothyroxine Sodium 100 MCG DAILY 01/12 1000 AC 01/13 IV 0952 Magnesium Sulfate 1 GM Q2H 01/12 1945 DC 01/12 Dextrose/Water 100 ML IV 01/12 2344 2311 Morphine Sulfate 2 MG Q4P PRN 01/08 1645 AC IV Pantoprazole Sodium 40 MG DAILY 01/08 1930 AC 01/13 IV 0801 Potassium Chloride 20 MEQ ONCE ONE 01/13 0800 DC 01/13 IV 01/13 0801 0801 Potassium Chloride 20 MEQ Q1H 01/13 0230 DC 01/13 IV 01/13 0331 0343 Potassium Chloride 40 MEQ Q13H 01/12 1815 AC 01/13 Sodium Chloride 1,000 ML IV 1217 Potassium Chloride 40 MEQ Q20H 01/11 1500 DC 01/12 Dextrose/Sodium 1,000 ML IV 0310 Chloride Potassium Phosphate 15 mMol ONE ONE 01/13 0800 DC 01/13 Sodium Chloride 250 ML IV 01/13 1204 0952 Potassium Phosphate 15 mMol ONE ONE 01/12 1100 DC 01/12 Dextrose/Water 250 ML IV 01/12 1504 1324 Impression/Plan Impression/Problem List Impression: Patient is a 62-year-old female with past medical history significant for iatrogenic hypothyroidism status post total thyroidectomy for thyroid cancer presenting this admission with myxedema coma secondary to noncompliance, neutropenia, thrombocytopenia and bradycardia. Patient is admitted to the ICU for management of following: Respiratory Patient's also supplemental oxygen and saturating 96% on room air. Infectious: Neutropenia Patient has an absolute neutrophil count of 700 on admission improved to 4.2 today. Etiology of patient's neutropenia is unclear at this time however may be secondary to severe hypothyroidism, less likely infectious as patient is HIV and hepatitis negative, Rapid flu, lyme titre, blood and urine Cx were negative and CXR also negative for any acute pathology. Patient was initially prophylaxtically covered with antibiotics as the mortality rate of patient's with myxedema coma who become septic is much higher, however antibiotics have been stopped as there are no signs of acute infection and WBC count has increased to normal and likely neutropenia was secondary to severe hypothyroidism. - Follow off antibiotics - Repeat CBCs in a.m. - Follow up blood and urine cultures - Monitor vitals closely Cardiac: 1. Bradycardia Likely secondary to severe hypothyroidism. Lyme titer ordered in setting of bradycardia and pancytopneia was negative. Patient was initially started on Levophed for hypotension but was switched to dopamine after improvement of blood pressure but with persistent bradycardia. Initial echocardiogram showed normal ejection fraction with small pericardial effusion. Repeat limited echo was done for concerns of worsening pericardial effusion as patient's EKG on 01/11/18 showed low voltage which showed trace pericardial effusion. - Appreciate cardiology recommendations - Transcutaneous pacer pads and atropine at bedside - Continue IV dopamine drip - Monitor on telemetry; showning 2;1 AV block. Patient might need a permanent pacemaker placement. 2. Hypotension Patient's hypotension is likely secondary to severe hypothyroidism. Patient's hypotension worsened on 01/10 requiring levophed and a central line. A right internal jugular line was placed on 01/09/18. Levo fed was discontinued over the weekend and was started on dopamine because of persistent hypotesion and bradycardia. Patient was tried to wean off dopamine yesterday but SBP dropped down to 60's and dopamine drip was restarted. - Continue to monitor bp - Continue dopamine drip; will try to titrate down - Continue hydration with IV NS - Continue IV Solu-Medrol 50mg every 8 - Continue compress on right arm as needed.(Phlebitis from peripheral levophed) Heme: Pancytopenia: Improving Patient on admission was neutropenic, anemic and severely thrombocytopenic. There have been case reports of pancytopenia with severe hypothyroidism however patient will require further workup at this time. Patient had a reticulocyte count of 1.48% with absolute reticulocyte count of 1.1 and a reticulocyte count index of 0.75 indicating bone marrow suppression which can be caused by hypothyroidism. LDH count is elevated. Iron panel revealed elevated iron, normal TIBC and elevated ferritin. Vitamin B12 is elevated. Folate levels normal. HIV negative. Flow cytometry was performed which showed no evidence of active myelodysplasia or blasts, monoclonal B-cell lymphoproliferative disease, and no unusual phenotype T cells identified. As all cell lines are improving with current treatment it is likely that patient 's pancytopenia is due to her severe hypothyroidism. - haptoglobin pending - Continue to monitor CBC - Hematology consulted. Appreciate recommendations. - Thrombocytopenic precautions Metabolic: Myxedema coma; from medication non-compliance Patient presented confused, hypothermic, bradycardic and with elevated TSH and low T4. Patient's hypothermia has resolved. Patient continues to remain bradycardic and hypotensive requiring IV dopamine drip, IV Solu-Cortef was decreased today to 50 mg every 8 hours. - Appreciate endocrinology recommendations - Continue IV Levothyroxine - Continue IV Solu-Cortef - Repeat free T4 and TSH tomorrow - Warming with bear hugger if necessary. Transaminitis: Unclear etiology of abnormal LFTs. Patient reports no abdominal pain. LFTs are improving. CT Abd/Pelvis shows no focal defects in the liver. Patient is s/p cholecystectomy. Alk phos and bili are normal. These abnormal LFTs may be secondary to severe hypothyroidism, however this is unclear. Alimentary 1. Hypernatremia; resolved Patients with hypothyroidism typically have hyponatremia, however patient on presentation appeared severely dehydrated which may be the cause of her hypernatremia. Patient has also been given multiple doses of normal saline. - Continue normal saline at 125 ml per hour - Continue to monitor Na 2. Swallow evaluation Patient is refusing to eat. Currently on IV fluids. Patient may require NG tube if she continues to refuse. Will keep nothing by mouth pending swallow evaluation Neurology Altered mental status in setting of severe hypothyroidism. Patient was found on the ground with a dresser over her - it is unclear if she fell. Patient has had multiple falls recently. Head CT and cervical CT were negative for any acute findings. Tibula/ fibula and humerus x-rays without any acute fracture. - Fall precautions - Neurochecks - PT eval- pending Nephrology: None DVT prophylaxis: Alps only in the setting of thrombocytopenia Patient is full code Problem List: 1. Myxedema coma 2. Hypothyroidism 3. Bradycardia Pain Ratin Pain Location: NA Tomorrow's Labs & Rationales: CBC(Pancytopenia) ICU bundle Plan DVT/Prophylaxis: mechanical (only due to thrombocytopenia) Beni Bo MD 01/13/18 1337: Attending MD Review Statement Attending Sign Off Attending Cosign Statement: I have: examined this patient, reviewed [employer] EMR data, personally reviewd images, discussd w/resident/PA/CREDIT REPORTING CLERK, discussed mgmt plan w/clarence, discussed mgmt plan w/CM, discussed mgmt plan w/pt, agreed w/resident/PA/CREDIT REPORTING CLERK, amended to note. Other Findings: Impression 62 year old woman * pancytopenia * hx of thyroid ca - significant hypothyroidism consistent with myxedema * transaminitis improved * bradycardia Plan -f/u endocrine and heme recs -stress steroids, iv thyroid replacement -off empiric abx -EF 50%, cont dopamine -f/u cardiology DVT prophylaxis at all times TTS 35 min
[2018-01-13 08:00] VITALS: BP 118/78
--- NOTE | 2018-01-13 09:15 | PN- Endocrinology ---
Assessment/Plan Endoscopy Assessment: 62 y/o female, hx of thyroid cancer which was diagnosed in and was treated with thyroid surgery twice and ELDER twice. Detail unclear. She was supposed to take Levothyroxine 150 mcg daily. However, she hasn't been compliance with the medication. Patient was in ER in 05/2017 and 08/2017-- her TSH was > 60 and free T4 was < 0.07. She presented to ER today again after she was found that she was on the floor. Patient was hypothermia and bradycardic. Blood work showed profound hypothyroidism along with borderline low cortisol, abnormal LFT and pancytopenia. She was put on Levothyroxine 100 mcg iv and stress dose of steroid. The dopamine drip was off for a while. But she had bardycardia again. She was restarted on Dopamine drip. Hydrocortisone was decreased to 50 mg iv every 8 hours. Repeat TFT showed TSH 10.9 and free T4 0.35. Plan: 1. continue Levothyroxine 100 mcg iv daily for now; 2. continue Hydrocortisone 50 mg iv every 8 hours for now; 3. replete K; 4. continue monitoring electrolytes, vital signs; 5. monitor TSH, free T4 in 2-3 days. will follow. Plan: see above. Subjective Subjective: Patient was sleeping in the morning. Objective Last 24 Hrs of Vital Signs/I&O Vital Signs Date Time Temp Pulse Resp B/P B/P Pulse O2 O2 Flow FiO2 Mean Ox Delivery Rate 01/14 800 97.6 51 16 118/78 96 Room Air 01/13 0400 98 Room Air 01/13 0000 96.2 56 18 110/80 95 Room Air 01/12 2305 96.2 54 20 127/78 01/12 2000 96 Room Air 01/12 1600 Room Air 01/12 1600 97.1 66 22 128/72 96 Room Air 01/12 1200 Room Air 01/12 1200 97.0 66 15 122/62 99 Room Air Intake & Output 01/13 1600 01/13 0800 01/13 0000 Intake Total 1172 1288 Output Total 1250 1020 Balance -78 268 Intake, IV 1172 1288 Output, Urine 1250 1020 Results Pertinent Lab/Chad Results: Laboratory Tests 01/13 01/13 0545 0500 Blood Gas pH (7.35 - 7.45 PH) 7.48 H pCO2 (35 - 45 TORR) 41 pO2 (80 - 100 TORR) 70 L HCO3 (21 - 28 MEQ/L) 30 H ABG O2 Sat (Measured) (>96.0 %) 94.0 L P-50 (Temp Corrected) Y Carboxyhemoglobin (1.5 - 5.0 %) 0.4 L O2 Concentration % RA Temperature (97.0 - 100.0 FARH) 97.1 Chemistry Sodium (137 - 145 mmol/L) 143 Potassium (3.5 - 5.1 mmol/L) 3.3 L Chloride (98 - 107 mmol/L) 99 Carbon Dioxide (22 - 30 mmol/L) 35 H Anion Gap (5 - 16) 9 BUN (7 - 17 mg/dL) 10 Creatinine (0.5 - 1.0 mg/dL) 0.6 Estimated GFR (>60 ml/min) > 60 Glucose (65 - 99 mg/dL) 138 H Calcium (8.4 - 10.2 mg/dL) 8.3 L Phosphorus (2.5 - 4.5 mg/dL) 1.9 L Magnesium (1.6 - 2.3 mg/dL) 2.1 Total Bilirubin (0.2 - 1.3 mg/dL) 1.3 AST (14 - 36 U/L) 151 H ALT (9 - 52 U/L) 655 H Troponin I (< 0.11 ng/ml) 0.01 Albumin (3.5 - 5.0 g/dL) 3.5 TSH (0.270 - 4.200 uIU/mL) 10.900 H Free T4 (0.78 - 2.44 ng/dL) 0.35 L Hematology CBC w Diff MAN DIFF ORDERED WBC (4.8 - 10.8 /CUMM) 4.7 L RBC (4.20 - 5.40 /CUMM) 3.41 L Hgb (12.0 - 16.0 G/DL) 10.8 L Hct (37 - 47 %) 32.1 L MCV (81.0 - 99.0 FL) 94.0 MCH (27.0 - 31.0 PG) 31.6 H MCHC (33.0 - 37.0 G/DL) 33.7 RDW (11.5 - 14.5 %) 16.2 H Plt Count (130 - 400 /CUMM) 43 L MPV (7.4 - 10.4 FL) 8.5 Gran % (42.2 - 75.2 %) 89.2 H Lymphocytes % (20.5 - 51.1 %) 5.8 L Monocytes % (1.7 - 9.3 %) 4.9 Eosinophils % (0 - 5 %) 0.1 Basophils % (0.0 - 2.0 %) 0 Absolute Granulocytes (1.4 - 6.5 /CUMM) 4.2 Segmented Neutrophils (42.2 - 75.2 %) 93 H Band Neutrophils (0.0 - 5.0 %) 3 Absolute Lymphocytes (1.2 - 3.4 /CUMM) 0.3 L Lymphocytes (20.5 - 51.1 %) 3 L Monocytes (1.7 - 9.3 %) 1 L Absolute Monocytes (0.10 - 0.60 /CUMM) 0.2 Absolute Eosinophils (0.0 - 0.7 /CUMM) 0 Absolute Basophils (0.0 - 0.2 /CUMM) 0 Platelet Estimate (ADEQUATE) VERIFIED BY SMEAR Basophilic Stippling RARE Anisocytosis 1+ Macrocytic Cells FEW Stomatocytes 1+ Miscellaneous Phlebotomy Draw Site RIGHT BRACHIAL 01/13 01/12 01/12 0000 2200 1758 Chemistry Sodium (137 - 145 mmol/L) Cancelled 143 142 Potassium (3.5 - 5.1 mmol/L) Cancelled 3.2 L 2.9 *L Chloride (98 - 107 mmol/L) Cancelled 100 98 Carbon Dioxide (22 - 30 mmol/L) Cancelled 35 H 34 H Anion Gap (5 - 16) Cancelled 8 9 BUN (7 - 17 mg/dL) Cancelled 11 11 Creatinine (0.5 - 1.0 mg/dL) Cancelled 0.6 0.7 Estimated GFR (>60 ml/min) > 60 > 60 BUN/Creatinine Ratio Cancelled Glucose (65 - 99 mg/dL) 128 H 153 H Calcium (8.4 - 10.2 mg/dL) 8.4 8.4 Phosphorus (2.5 - 4.5 mg/dL) 2.2 L 2.8 Magnesium (1.6 - 2.3 mg/dL) 2.0 1.6 Total Bilirubin (0.2 - 1.3 mg/dL) 1.3 1.3 AST (14 - 36 U/L) 154 H 171 H ALT (9 - 52 U/L) 663 H 690 H Albumin (3.5 - 5.0 g/dL) 3.5 3.6
--- NOTE | 2018-01-13 10:01 | PN- Hematology ---
Subjective Subjective: She remains non-verbal. She remains on pressor. Review of Systems: Unable to obtain due to clinical status. Objective Vital Signs and I&Os Vital Signs Date Time Temp Pulse Resp B/P B/P Pulse O2 O2 Flow FiO2 Mean Ox Delivery Rate 01/14 800 97.6 51 16 118/78 96 Room Air 01/13 0800 96 Room Air 01/13 0400 98 Room Air 01/13 0000 96.2 56 18 110/80 95 Room Air 01/12 2305 96.2 54 20 127/78 01/12 2000 96 Room Air 01/12 1600 Room Air 01/12 1600 97.1 66 22 128/72 96 Room Air 01/12 1200 Room Air 01/12 1200 97.0 66 15 122/62 99 Room Air Intake & Output 01/13 1600 01/13 0800 01/13 0000 01/12 1600 01/12 0800 01/12 0000 Intake Total 1172 1288 1143 923 883 Output Total 1250 1020 1999 1949 1849 Balance -78 268 -857 -1027 -967 Intake, IV 1172 1288 1143 923 873 Intake, Oral 0 10 Number 0 0 Bowel Movements Output, Urine 1250 1020 1999 1949 1849 Patient 82.299 kg Weight Weight Bed scale Measurement Method Physical Exam: General Appearance: no apparent distress, alert, awake, comfortable Head: atraumatic Respiratory: normal breath sounds, chest non-tender, no respiratory distress, quiet respiration Cardiovascular: bradycardia Abdomen: normal bowel sounds, soft, non-tender, no organomegaly Extremities: no edema Skin: ecchymosis (left thigh) Current Medications: Current Medications Sig/Tabatha Start time Last Medication Dose Route Stop Time Status Admin Atropine Sulfate 0.5 MG Q 5 MINUTES X 3 DO.. 01/12 2230 AC IV Atropine Sulfate 0.5 MG Q 5 MINUTES X 3 DO.. 01/12 2215 CAN IV Bisacodyl 10 MG ONCE ONE 01/12 1100 DC 01/12 TN 01/12 1101 1116 Dopamine HCl 400 MG Q12H 01/11 0245 DC 01/12 Dextrose/Water 500 ML IV 2305 Glycerin/Mineral Oil 1 JUAN ALBERTO TID PRN 01/08 1645 AC 01/09 TOP 0430 Hydrocortisone 50 MG Q8 01/12 1400 AC 01/13 Sodium Succinate IV 0556 Levothyroxine Sodium 100 MCG DAILY 01/12 1000 AC 01/13 IV 0952 Magnesium Sulfate 1 GM Q2H 01/12 1945 DC 01/12 Dextrose/Water 100 ML IV 01/12 2344 2311 Morphine Sulfate 2 MG Q4P PRN 01/08 1645 AC IV Pantoprazole Sodium 40 MG DAILY 01/08 1930 AC 01/13 IV 0801 Potassium Chloride 20 MEQ ONCE ONE 01/13 0800 DC 01/13 IV 01/13 0801 0801 Potassium Chloride 20 MEQ Q1H 01/13 0230 DC 01/13 IV 01/13 0331 0343 Potassium Chloride 40 MEQ Q13H 01/12 1815 AC 01/12 Sodium Chloride 1,000 ML IV 1823 Potassium Chloride 40 MEQ Q20H 01/11 1500 DC 01/12 Dextrose/Sodium 1,000 ML IV 0310 Chloride Potassium Phosphate 15 mMol ONE ONE 01/13 08 AC 01/13 Sodium Chloride 250 ML IV 01/13 1204 0952 Potassium Phosphate 15 mMol ONE ONE 01/12 1100 DC 01/12 Dextrose/Water 250 ML IV 01/12 1504 1324 Results Last 24 Hours of Lab Results: Laboratory Tests 01/13 01/13 0545 0500 Blood Gas pH (7.35 - 7.45 PH) 7.48 H pCO2 (35 - 45 TORR) 41 pO2 (80 - 100 TORR) 70 L HCO3 (21 - 28 MEQ/L) 30 H ABG O2 Sat (Measured) (>96.0 %) 94.0 L P-50 (Temp Corrected) Y Carboxyhemoglobin (1.5 - 5.0 %) 0.4 L O2 Concentration % RA Temperature (97.0 - 100.0 FARH) 97.1 Chemistry Sodium (137 - 145 mmol/L) 143 Potassium (3.5 - 5.1 mmol/L) 3.3 L Chloride (98 - 107 mmol/L) 99 Carbon Dioxide (22 - 30 mmol/L) 35 H Anion Gap (5 - 16) 9 BUN (7 - 17 mg/dL) 10 Creatinine (0.5 - 1.0 mg/dL) 0.6 Estimated GFR (>60 ml/min) > 60 Glucose (65 - 99 mg/dL) 138 H Calcium (8.4 - 10.2 mg/dL) 8.3 L Phosphorus (2.5 - 4.5 mg/dL) 1.9 L Magnesium (1.6 - 2.3 mg/dL) 2.1 Total Bilirubin (0.2 - 1.3 mg/dL) 1.3 AST (14 - 36 U/L) 151 H ALT (9 - 52 U/L) 655 H Troponin I (< 0.11 ng/ml) 0.01 Albumin (3.5 - 5.0 g/dL) 3.5 TSH (0.270 - 4.200 uIU/mL) 10.900 H Free T4 (0.78 - 2.44 ng/dL) 0.35 L Hematology CBC w Diff MAN DIFF ORDERED WBC (4.8 - 10.8 /CUMM) 4.7 L RBC (4.20 - 5.40 /CUMM) 3.41 L Hgb (12.0 - 16.0 G/DL) 10.8 L Hct (37 - 47 %) 32.1 L MCV (81.0 - 99.0 FL) 94.0 MCH (27.0 - 31.0 PG) 31.6 H MCHC (33.0 - 37.0 G/DL) 33.7 RDW (11.5 - 14.5 %) 16.2 H Plt Count (130 - 400 /CUMM) 43 L MPV (7.4 - 10.4 FL) 8.5 Gran % (42.2 - 75.2 %) 89.2 H Lymphocytes % (20.5 - 51.1 %) 5.8 L Monocytes % (1.7 - 9.3 %) 4.9 Eosinophils % (0 - 5 %) 0.1 Basophils % (0.0 - 2.0 %) 0 Absolute Granulocytes (1.4 - 6.5 /CUMM) 4.2 Segmented Neutrophils (42.2 - 75.2 %) 93 H Band Neutrophils (0.0 - 5.0 %) 3 Absolute Lymphocytes (1.2 - 3.4 /CUMM) 0.3 L Lymphocytes (20.5 - 51.1 %) 3 L Monocytes (1.7 - 9.3 %) 1 L Absolute Monocytes (0.10 - 0.60 /CUMM) 0.2 Absolute Eosinophils (0.0 - 0.7 /CUMM) 0 Absolute Basophils (0.0 - 0.2 /CUMM) 0 Platelet Estimate (ADEQUATE) VERIFIED BY SMEAR Basophilic Stippling RARE Anisocytosis 1+ Macrocytic Cells FEW Stomatocytes 1+ Miscellaneous Phlebotomy Draw Site RIGHT BRACHIAL 01/13 01/12 01/12 0000 2200 1758 Chemistry Sodium (137 - 145 mmol/L) Cancelled 143 142 Potassium (3.5 - 5.1 mmol/L) Cancelled 3.2 L 2.9 *L Chloride (98 - 107 mmol/L) Cancelled 100 98 Carbon Dioxide (22 - 30 mmol/L) Cancelled 35 H 34 H Anion Gap (5 - 16) Cancelled 8 9 BUN (7 - 17 mg/dL) Cancelled 11 11 Creatinine (0.5 - 1.0 mg/dL) Cancelled 0.6 0.7 Estimated GFR (>60 ml/min) > 60 > 60 BUN/Creatinine Ratio Cancelled Glucose (65 - 99 mg/dL) 128 H 153 H Calcium (8.4 - 10.2 mg/dL) 8.4 8.4 Phosphorus (2.5 - 4.5 mg/dL) 2.2 L 2.8 Magnesium (1.6 - 2.3 mg/dL) 2.0 1.6 Total Bilirubin (0.2 - 1.3 mg/dL) 1.3 1.3 AST (14 - 36 U/L) 154 H 171 H ALT (9 - 52 U/L) 663 H 690 H Albumin (3.5 - 5.0 g/dL) 3.5 3.6 Assessment/Plan Hematology Assessment/Recommendations: Mrs. Goode is a 62-year-old female with hypothyroidism, thyroid malignancy status post total thyroidectomy, ELDER ablation who presented to the hospital after being found to be confused and down by her . On presentation, she was noted to be pancytopenic with WBC 1.0, platelet of 32,000, and hemoglobin of 10.9. Vitamin B12 and folated was normal. Ferritin was elevated at 5770. Her AST and ALT were >2000. LDH is elevated at 7954. Bilirubin was elevated at 1.5. Her TSH was elevated and T4 was low. There is concern for myxedema coma. She was started on hydrocortisone and levothyroxine. She was started on empiric antibiotics. Imaging with CT head, cervical, chest, abdomen, and pelvis are reviewed and negative for any significant acute findings. She remains in critical condition. Counts are stable. She remains on hydrocortisone and levothyroxine. She remains on dopamine. She does have bruising. Platelets remain low. She should have DIC checked. Flow cytometry is unremarkable. She will be monitored for now. Pancytopenia: -check DIC panel -monitor CBC Myxedema coma: -endocrinology following -treatment as per primary and endocrinology Please call [phone] with any questions or concerns. Problem List: 1. Pancytopenia 2. Myxedema coma
[2018-01-13 15:24] LABS: PT 10.3 SEC (9.4-12.5); PTT 26 SEC (25-37)
[2018-01-13 16:00] VITALS: BP 124/80
--- NOTE | 2018-01-13 19:01 | PN- Cardiology ---
Subjective Subjective: * Patient is not responding to questions today. * sinus bradycardia with a brief episode of second degree AV block and also first degree AV block * potassium is 3.3 * improving hepatic transaminases * thyroid function remains low * platelets are 43 * Patient remains on dopamine to maintain her BP Objective Vital Signs and I&Os Vital Signs Date Time Temp Pulse Resp B/P B/P Pulse O2 O2 Flow FiO2 Mean Ox Delivery Rate 01/13 1600 97.0 58 14 124/80 98 Room Air 01/13 1216 47 149/84 01/13 08 97.6 51 16 118/78 96 Room Air 01/13 08 96 Room Air 01/13 0400 98 Room Air 01/13 0000 96.2 56 18 110/80 95 Room Air 01/12 2305 96.2 54 20 127/78 01/13 2000 96 Room Air Intake & Output 01/13 1600 01/13 0800 01/13 0000 01/12 1600 01/12 0800 01/12 0000 Intake Total 1455 1172 1288 1143 923 883 Output Total 1200 1250 1020 1999 1949 1849 Balance 255 -78 268 -857 -1027 -967 Intake, IV 1455 1172 1288 1143 923 873 Intake, Oral 0 0 10 Number 0 0 0 Bowel Movements Output, Urine 1200 1250 1020 1999 1949 1849 Patient 181 lb Weight Weight Bed scale Measurement Method Physical Exam: General: WD/WN female; slow to respond HEENT: swollen left cheek, PERRL, EOMI Neck: no JVD, no carotid bruit Heart: bradycardic with regular rhythm, no murmur Lungs: clear bilaterally Extremities; 1+ edema bilaterally Assessment/Plan Assessment/Plan * This patient has hypotension off dopamine. I suspect that her baseline blood pressure is no elevated and we should have as our goal a systolic pressure of 90mmHg as long as she maintains her renal function. Decrease dopamine as tolerated. Continue IV NS. * I would be very reluctant to place a pacemaker in this patient with a presumed reversible cause of her bradycardia and a platelet level of 43. We will continue to monitor her blood pressure and heart rate as she has her hypothyroidism treated. * She may have hepatic congestion with shock liver causing her elevated hepatic transaminases but these enzymes are improving. A small pericaridial effusion is noted which is not unexpected in the setting of severe hypothyroidism which may have contributed to her low voltage. There is no evidence of tamponade and the effusion has become smaller. Continue maintenance IV fluids. Continue telemetry? Yes
[2018-01-13 23:00] VITALS: BP 106/76
[2018-01-14 05:32] LABS: ABSOLUTE BASOPHIL COUNT 0 /CUMM (0.0-0.2); ABSOLUTE EOSINOPHIL COUNT 0 /CUMM (0.0-0.7); ABSOLUTE LYMPH COUNT 0.3 /CUMM (1.2-3.4); ABSOLUTE MONOCYTE COUNT 0.2 /CUMM (0.10-0.60); BASOPHIL % 0 % (0.0-2.0); EOSINOPHIL % 0 % (0-5); GRANULOCYTE % 89.6 % (42.2-75.2); HEMATOCRIT 29.8 % (37-47); MEAN CORPUSCULAR HGB 32.4 PG (27.0-31.0); MEAN CORPUSCULAR HGB CONC 34.8 G/DL (33.0-37.0); PLATELET COUNT 47 /CUMM (130-400); RBC DISTRIBUTION WIDTH 16.7 % (11.5-14.5); RED BLOOD CELL CT 3.21 /CUMM (4.20-5.40); WHITE BLOOD CELL COUNT 4.5 /CUMM (4.8-10.8)
--- NOTE | 2018-01-14 07:36 | PN- Resident CRCU ---
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 -Hx of papillary thyroid cancer status post resection and radioactive iodine -Confusion/AMS with agitation likely due to Myxedema coma. -Hypotension/bradycardia due to above, remains on dopamine. -Pancytopenia (improving). -Transaminitis due to shock liver 2/2 Myxedema coma - resolving. 24 Hour Events: Patient remains somnolent, nonverbal but responding to sternal rub. She was following commands yesterday but refusing today. Also trying to resist the examination. Patient continues to be on dopamine. Tried to titrate down last night but the patient got hypotensive and dopamine had to be increased back up to maintain the blood pressure. RIJ day 6 Noble Catheter day 7 Objective Vital Signs & I&O Last 8 Hrs of Vitals and I&O: Intake & Output 01/15 0800 Intake Total 1163 Output Total 500 Balance 663 Intake, IV 1163 Intake, Oral 0 Number 0 Bowel Movements Output, Urine 500 Exam General Appearance: no apparent distress, somnolent Head: atraumatic, normal appearance Respiratory: normal breath sounds, chest non-tender, lungs clear Cardiovascular: regular rate/rhythm Gastrointestinal: normal bowel sounds, soft, non-tender Extremities: normal inspection, no edema IV Drips IV Drips: Dopamine Current Medications: Current Medications Sig/Tabatha Start time Last Medication Dose Route Stop Time Status Admin Atropine Sulfate 0.5 MG Q 5 MINUTES X 3 DO.. 01/12 2230 AC IV Dopamine HCl 400 MG Q12H 01/13 1200 AC 01/14 Dextrose/Water 500 ML IV 0519 Glycerin/Mineral Oil 1 JUAN ALBERTO TID PRN 01/08 1645 AC 01/09 TOP 0430 Hydrocortisone 50 MG Q8 01/12 1400 AC 01/14 Sodium Succinate IV 0519 Levothyroxine Sodium 100 MCG DAILY 01/12 1000 AC 01/13 IV 0952 Morphine Sulfate 2 MG Q4P PRN 01/08 1645 AC IV Pantoprazole Sodium 40 MG DAILY 01/08 1930 AC 01/13 IV 0801 Potassium Chloride 20 MEQ Q1H 01/14 0630 DC 01/14 IV 01/14 0731 0809 Potassium Chloride 40 MEQ Q13H 01/12 1815 AC 01/14 Sodium Chloride 1,000 ML IV 0520 Potassium Phosphate 15 mMol ONE ONE 01/13 0800 DC 01/13 Sodium Chloride 250 ML IV 01/13 9326 3184 Impression/Plan Impression/Problem List Impression: Patient is a 62-year-old female with past medical history significant for iatrogenic hypothyroidism status post total thyroidectomy for thyroid cancer presenting this admission with myxedema coma secondary to noncompliance, neutropenia, thrombocytopenia and bradycardia. Patient is admitted to the ICU for management of following: Respiratory Patient not on supplemental oxygen and saturating 100% on room air. Infectious: Neutropenia Patient has an absolute neutrophil count of 700 on admission which is gradually improving, 4.5 today. Etiology of patient's neutropenia is unclear at this time however may be secondary to severe hypothyroidism, less likely infectious as patient is HIV and hepatitis negative, Rapid flu, lyme titre, blood and urine Cx were negative and CXR also negative for any acute pathology. Patient was initially prophylactically covered with antibiotics as the mortality rate of patient's with myxedema coma who become septic is much higher, however antibiotics have been stopped as there are no signs of acute infection and WBC count has increased to normal and likely neutropenia was secondary to severe hypothyroidism. - Follow off antibiotics - Repeat CBCs in a.m. - Follow up blood and urine cultures - remain negative thus far - Monitor vitals closely Cardiac: 1. Bradycardia Likely secondary to severe hypothyroidism. Lyme titer ordered in setting of bradycardia and pancytopneia was negative. Patient was initially started on Levophed for hypotension but was switched to dopamine for hypotension and bradycardia. Initial echocardiogram showed normal ejection fraction with small pericardial effusion. Repeat limited echo was done for concerns of worsening pericardial effusion as patient's EKG on 01/11/18 showed low voltage, but repeat echocardiogram showed trace pericardial effusion. - Appreciate cardiology recommendations - Transcutaneous pacer pads and atropine at bedside - Continue IV dopamine drip, remains on 4 g/KG/minute as the patient becomes hypotensive. Will try to titrate down slowly by o.5 mcg instead of 1 mcg. - Monitor on telemetry 2. Hypotension Patient's hypotension is likely secondary to severe hypothyroidism. Patient's hypotension worsened on 01/10 requiring levophed and a central line. A right internal jugular line was placed on 01/09/18. Levo fed was discontinued over the weekend and was started on dopamine because of persistent hypotesion and bradycardia. Patient was tried to wean off dopamine yesterday but SBP dropped down to 60's and dopamine drip was restarted. - Continue to monitor bp - Continue dopamine drip; will try to titrate down - Continue hydration with IV NS - Continue IV Solu-Medrol 50mg every 8 - Continue compress on right arm as needed.(Phlebitis from peripheral levophed) Heme: Pancytopenia: Improving Patient on admission was neutropenic, anemic and severely thrombocytopenic. There have been case reports of pancytopenia with severe hypothyroidism however patient will require further workup at this time. Patient had a reticulocyte count of 1.48% with absolute reticulocyte count of 1.1 and a reticulocyte count index of 0.75 indicating bone marrow suppression which can be caused by hypothyroidism. LDH count is elevated. Iron panel revealed elevated iron, normal TIBC and elevated ferritin. Vitamin B12 is elevated. Folate levels normal. HIV negative. Flow cytometry was performed which showed no evidence of active myelodysplasia or blasts, monoclonal B-cell lymphoproliferative disease, and no unusual phenotype T cells identified. As all cell lines are improving with current treatment it is likely that patient 's pancytopenia is due to her severe hypothyroidism. - haptoglobin pending - Continue to monitor CBC - Hematology consulted. Appreciate recommendations. - DIC panel negative. - Thrombocytopenic precautions Metabolic: Myxedema coma; from medication non-compliance Patient presented confused, hypothermic, bradycardic and with elevated TSH and low T4. Patient's hypothermia has resolved. Patient continues to remain bradycardic and hypotensive requiring IV dopamine drip, and IV Solu-Cortef 50 mg every 8 hours. - Appreciate endocrinology recommendations - Continue IV Levothyroxine - Continue IV Solu-Cortef - Repeat free T4 and TSH tomorrow - Warming with bear hugger if necessary. Transaminitis: Unclear etiology of abnormal LFTs. Patient reports no abdominal pain. LFTs are improving. CT Abd/Pelvis shows no focal defects in the liver. Patient is s/p cholecystectomy. Alk phos and bili are normal. These abnormal LFTs may be secondary to severe hypothyroidism, however this is unclear. Alimentary 1. Hypernatremia; resolved Patients with hypothyroidism typically have hyponatremia, however patient on presentation appeared severely dehydrated which may be the cause of her hypernatremia. Patient has also been given multiple doses of normal saline. - Continue normal saline at 125 ml per hour - Continue to monitor Na 2. Swallow evaluation Patient is refusing to eat. Currently on IV fluids. Patient may require NG tube if she continues to refuse. Will keep nothing by mouth pending swallow evaluation Neurology Altered mental status in setting of severe hypothyroidism. Patient was found on the ground with a dresser over her - it is unclear if she fell. Patient has had multiple falls recently. Head CT and cervical CT were negative for any acute findings. Tibula/ fibula and humerus x-rays without any acute fracture. - ?? Repeat Head CT for worsening Mental status - Fall precautions - Neurochecks - PT eval- pending Nephrology: None DVT prophylaxis: Alps only in the setting of thrombocytopenia Patient is full code Problem List: 1. Myxedema coma 2. Bradycardia 3. Pancytopenia 4. Hypotension Pain Ratin Pain Location: NA Pain Goal: Remain pain free Pain Plan: Pain Patwhay Tomorrow's Labs & Rationales: CBC ICU Bundle Plan DVT/Prophylaxis: mechanical (only due to thrombocytopenia) Beni Bo MD 01/14/18 1111: Attending MD Review Statement Attending Sign Off Attending Cosign Statement: I have: examined this patient, reviewed [facility] EMR data, personally reviewd images, discussd w/resident/PA/JET WIPER, discussed mgmt plan w/clarence, discussed mgmt plan w/CM, discussed mgmt plan w/pt, agreed w/resident/PA/JET WIPER, amended to note. Other Findings: Impression 62 year old woman * pancytopenia * hx of thyroid ca - significant hypothyroidism consistent with myxedema * transaminitis improved * bradycardia Plan -f/u endocrine and heme recs -steroids, iv thyroid replacement -EF 50%, cont dopamine -f/u cardiology -?adjustment vs converstion disorder -neurology consultation, unclear altered status, but purposeful movements -ct head, sinus, face (chronic left cheek swelling) DVT prophylaxis at all times TTS 35 min
[2018-01-14 08:00] VITALS: BP 112/70
--- NOTE | 2018-01-14 09:22 | PN- Endocrinology ---
Assessment/Plan Endoscopy Assessment: 62 y/o female, hx of thyroid cancer which was diagnosed in and was treated with thyroid surgery twice and ELDER twice. Detail unclear. She was supposed to take Levothyroxine 150 mcg daily. However, she hasn't been compliance with the medication. Patient was in ER in 05/2017 and 08/2017-- her TSH was > 60 and free T4 was < 0.07. She presented to ER today again after she was found that she was on the floor. Patient was hypothermia and bradycardic. Blood work showed profound hypothyroidism along with borderline low cortisol, abnormal LFT and pancytopenia. She was put on Levothyroxine 100 mcg iv and stress dose of steroid. The dopamine drip was off for a while. But she had bardycardia again. She was restarted on Dopamine drip. Hydrocortisone was decreased to 50 mg iv every 8 hours. Repeat TFT showed TSH 10.9 and free T4 0.35. Plan: 1. continue Levothyroxine 100 mcg iv daily for now; 2. continue Hydrocortisone 50 mg iv every 8 hours for now; 3. continue monitoring electrolytes, vital signs; 4. monitor TSH, free T4 tomorrow am. will follow. Subjective Subjective: She is still lethargic. Objective Last 24 Hrs of Vital Signs/I&O Vital Signs Date Time Temp Pulse Resp B/P B/P Pulse O2 O2 Flow FiO2 Mean Ox Delivery Rate 01/15 800 97.8 60 18 112/70 100 Room Air 01/14 0519 51 106/81 01/14 0400 99 Room Air 01/14 0000 99 Room Air 01/13 2300 97.2 51 13 106/76 99 Room Air 01/13 2000 94 Room Air 01/13 1600 97.0 58 14 124/80 98 Room Air 01/13 1216 47 149/84 Intake & Output 01/14 1600 01/14 0800 01/14 0000 Intake Total 1303 1155 Output Total 510 1025 Balance 793 130 Intake, IV 1303 1155 Intake, Oral 0 0 Number 0 0 Bowel Movements Output, Urine 510 1025 Results Pertinent Lab/Chad Results: Laboratory Tests 01/14 01/13 01/13 0423 1317 1317 Chemistry Sodium (137 - 145 mmol/L) 141 139 Potassium (3.5 - 5.1 mmol/L) 3.5 3.3 L Chloride (98 - 107 mmol/L) 102 98 Carbon Dioxide (22 - 30 mmol/L) 32 H 35 H Anion Gap (5 - 16) 7 7 BUN (7 - 17 mg/dL) 10 9 Creatinine (0.5 - 1.0 mg/dL) 0.5 0.5 Estimated GFR (>60 ml/min) > 60 > 60 BUN/Creatinine Ratio (7 - 25 %) 20.0 Glucose (65 - 99 mg/dL) 142 H Calcium (8.4 - 10.2 mg/dL) 7.9 L Phosphorus (2.5 - 4.5 mg/dL) 2.6 Magnesium (1.6 - 2.3 mg/dL) 1.8 1.9 Total Bilirubin (0.2 - 1.3 mg/dL) 1.3 AST (14 - 36 U/L) 123 H ALT (9 - 52 U/L) 621 H Troponin I (< 0.11 ng/ml) < 0.01 Albumin (3.5 - 5.0 g/dL) 3.7 Coagulation PT (9.4 - 12.5 SEC) 10.3 INR (0.90 - 1.19) 0.95 APTT (25 - 37 SEC) 26 Fibrinogen Activity (200 - 393 MG/DL) 181 L D-Dimer High Sensitivty (0 - 243 ng/ml) 211 Hematology CBC w Diff MAN DIFF ORDERED WBC (4.8 - 10.8 /CUMM) 4.5 L RBC (4.20 - 5.40 /CUMM) 3.21 L Hgb (12.0 - 16.0 G/DL) 10.4 L Hct (37 - 47 %) 29.8 L MCV (81.0 - 99.0 FL) 93.0 MCH (27.0 - 31.0 PG) 32.4 H MCHC (33.0 - 37.0 G/DL) 34.8 RDW (11.5 - 14.5 %) 16.7 H Plt Count (130 - 400 /CUMM) 47 L MPV (7.4 - 10.4 FL) 8.0 Gran % (42.2 - 75.2 %) 89.6 H Lymphocytes % (20.5 - 51.1 %) 5.7 L Monocytes % (1.7 - 9.3 %) 4.7 Eosinophils % (0 - 5 %) 0 Basophils % (0.0 - 2.0 %) 0 Absolute Granulocytes (1.4 - 6.5 /CUMM) 4.0 Segmented Neutrophils (42.2 - 75.2 %) 93 H Absolute Lymphocytes (1.2 - 3.4 /CUMM) 0.3 L Lymphocytes (20.5 - 51.1 %) 3 L Monocytes (1.7 - 9.3 %) 4 Absolute Monocytes (0.10 - 0.60 /CUMM) 0.2 Absolute Eosinophils (0.0 - 0.7 /CUMM) 0 Absolute Basophils (0.0 - 0.2 /CUMM) 0 Platelet Estimate (ADEQUATE) DECREASED Polychromasia 1+ Poikilocytosis 1+ Basophilic Stippling SLIGHT Ovalocytes 1+ Stomatocytes RARE Other Body Source Fld Total RBCs Counted (%) 100
--- NOTE | 2018-01-14 12:11 | Cons- Neurology ---
General Information and HPI Consulting Request Date of Consult: 01/14/18 Requested By: Beni Bo MD Reason for Consult: Altered mental status Source of Information: RN, EMR Exam Limitations: unable to give history, clinical condition History of Present Illness: 62-year-old woman who was reportedly found down at home, under her dresser which had reportedly fallen on top of her. She sustained head and facial bruising. CT head showed no acute abnormalities. 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 She had reportedly been spitting out her levothyroxine medication after her had administered it to her. About 100 pills were apparently found which she had not taken. She has had multi-organ system complications due to her profound hypothyroidism; Hypotension/bradycardia, remains on dopamine. Pancytopenia (improving). Transaminitis due to shock liver. Her clinical status had improved to the point where she was able to speak a few words and follow some commands. However in the past few days, she has become resistant to care and examination. She reportedly closes her eyes tightly when I exam is attempted and maintains her eyes closed otherwise. As far as her extremities, she holds them in an elbow flexed position and resists examiners movements. She holds her legs in extension. There is been no tonic-clonic jerking, but apparently there was some mild muscle twitching when she first presented. She was seen by psychiatry regarding a question of conversion reaction. She received 0.5 mg of lorazepam about 45 minutes prior to my examination. Allergies/Medications Allergies: Coded Allergies: Sulfa (Sulfonamide Antibiotics) (UNKNOWN 09/03/17) Home Med List: Levothyroxine Sodium 150 MCG TABLET 1 TAB PO DAILY HYPOTHYROID (Reported) Current Medications: Current Medications Sig/Tabatha Start time Last Medication Dose Route Stop Time Status Admin Atropine Sulfate 0.5 MG Q 5 MINUTES X 3 DO.. 01/12 2230 AC IV Dopamine HCl 400 MG Q12H 01/13 1200 AC 01/14 Dextrose/Water 500 ML IV 0519 Glycerin/Mineral Oil 1 JUAN ALBERTO TID PRN 01/08 1645 AC 01/09 TOP 0430 Hydrocortisone 50 MG Q8 01/12 1400 AC 01/14 Sodium Succinate IV 0519 Levothyroxine Sodium 100 MCG DAILY 01/12 1000 AC 01/14 IV 0931 Lorazepam 0.5 MG ONCE ONE 01/14 1045 DC 01/14 IV 01/14 1046 1040 Magnesium Sulfate 1 GM ONCE ONE 01/14 1100 AC Dextrose/Water 100 ML IV 01/14 1459 Morphine Sulfate 2 MG Q4P PRN 01/08 1645 AC IV Pantoprazole Sodium 40 MG DAILY 01/08 1930 AC 01/14 IV 0917 Potassium Chloride 20 MEQ Q1H 01/14 0630 DC 01/14 IV 01/14 0731 0809 Potassium Chloride 40 MEQ Q13H 01/12 1815 AC 01/14 Sodium Chloride 1,000 ML IV 0520 Potassium Phosphate 15 mMol ONE ONE 01/13 0800 DC 01/13 Sodium Chloride 250 ML IV 01/13 1204 0952 Review of Systems Review of Systems: Unobtainable Past History Travel History Traveled to [place] past 21 day No Medical History Neurological: NONE EENT: NONE Cardiovascular: NONE Respiratory: NONE Gastrointestinal: NONE Hepatic: NONE Renal: NONE Musculoskeletal: NONE Psychiatric: NONE Endocrine: hypothyroidism Cancer(s): THYROID CA Surgical History Surgical History: cholecystectomy, THYROIDECTOMY hernia repair Psychosocial History Where Do You Live? Home Services at Home: None Smoking Status: Former Smoker ETOH Use: denies use Illicit Drug Use: denies illicit drug use Exam & Diagnostic Data Vital Signs and I&O Vital Signs Date Time Temp Pulse Resp B/P B/P Pulse O2 O2 Flow FiO2 Mean Ox Delivery Rate 01/15 800 97.8 60 18 112/70 100 Room Air 01/14 0519 51 106/81 01/14 0400 99 Room Air 01/14 0000 99 Room Air 01/13 2300 97.2 51 13 106/76 99 Room Air 01/13 2000 94 Room Air 01/13 1600 97.0 58 14 124/80 98 Room Air 01/13 1216 47 149/84 Intake & Output 01/14 1600 01/14 0800 01/14 0000 Intake Total 1303 1155 Output Total 510 1025 Balance 793 130 Intake, IV 1303 1155 Intake, Oral 0 0 Number 0 0 Bowel Movements Output, Urine 510 1025 Physical Exam: Lying in the ICU bed, eyes closed, breathing comfortably Head: Healing periorbital ecchymoses Neck supple Thyroidectomy scar evident Heart regular rate and rhythm Extremities 1-2+ pedal edema. Intact peripheral pulses Left mid face soft tissue fullness, reportedly present since childhood Neurologic exam: Obtunded to comatose Mild resistance to eye exam. Unable to visualize fundi as a result Pupils equal round and reactive to light Full extraocular motility on oculocephalic maneuvers No visual tracking Corneal reflexes present Grimaces her face symmetrically Tongue is midline does not protrude on command Motor: Lower extremities flaccid. No withdrawal to noxious stimuli. Mild resistance to upper extremity exam. Biceps appear strong. Other muscle group testing limited by lethargy Tendon reflexes hypoactive Plantar responses flexor Last 48 Hours of Lab Results: Laboratory Tests 01/14 01/13 01/13 0423 1317 1317 Chemistry Sodium (137 - 145 mmol/L) 141 139 Potassium (3.5 - 5.1 mmol/L) 3.5 3.3 L Chloride (98 - 107 mmol/L) 102 98 Carbon Dioxide (22 - 30 mmol/L) 32 H 35 H Anion Gap (5 - 16) 7 7 BUN (7 - 17 mg/dL) 10 9 Creatinine (0.5 - 1.0 mg/dL) 0.5 0.5 Estimated GFR (>60 ml/min) > 60 > 60 BUN/Creatinine Ratio (7 - 25 %) 20.0 Glucose (65 - 99 mg/dL) 142 H Calcium (8.4 - 10.2 mg/dL) 7.9 L Phosphorus (2.5 - 4.5 mg/dL) 2.6 Magnesium (1.6 - 2.3 mg/dL) 1.8 1.9 Total Bilirubin (0.2 - 1.3 mg/dL) 1.3 AST (14 - 36 U/L) 123 H ALT (9 - 52 U/L) 621 H Troponin I (< 0.11 ng/ml) < 0.01 Albumin (3.5 - 5.0 g/dL) 3.7 Coagulation PT (9.4 - 12.5 SEC) 10.3 INR (0.90 - 1.19) 0.95 APTT (25 - 37 SEC) 26 Fibrinogen Activity (200 - 393 MG/DL) 181 L D-Dimer High Sensitivty (0 - 243 ng/ml) 211 Hematology CBC w Diff MAN DIFF ORDERED WBC (4.8 - 10.8 /CUMM) 4.5 L RBC (4.20 - 5.40 /CUMM) 3.21 L Hgb (12.0 - 16.0 G/DL) 10.4 L Hct (37 - 47 %) 29.8 L MCV (81.0 - 99.0 FL) 93.0 MCH (27.0 - 31.0 PG) 32.4 H MCHC (33.0 - 37.0 G/DL) 34.8 RDW (11.5 - 14.5 %) 16.7 H Plt Count (130 - 400 /CUMM) 47 L MPV (7.4 - 10.4 FL) 8.0 Gran % (42.2 - 75.2 %) 89.6 H Lymphocytes % (20.5 - 51.1 %) 5.7 L Monocytes % (1.7 - 9.3 %) 4.7 Eosinophils % (0 - 5 %) 0 Basophils % (0.0 - 2.0 %) 0 Absolute Granulocytes (1.4 - 6.5 /CUMM) 4.0 Segmented Neutrophils (42.2 - 75.2 %) 93 H Absolute Lymphocytes (1.2 - 3.4 /CUMM) 0.3 L Lymphocytes (20.5 - 51.1 %) 3 L Monocytes (1.7 - 9.3 %) 4 Absolute Monocytes (0.10 - 0.60 /CUMM) 0.2 Absolute Eosinophils (0.0 - 0.7 /CUMM) 0 Absolute Basophils (0.0 - 0.2 /CUMM) 0 Platelet Estimate (ADEQUATE) DECREASED Polychromasia 1+ Poikilocytosis 1+ Basophilic Stippling SLIGHT Ovalocytes 1+ Stomatocytes RARE Other Body Source Fld Total RBCs Counted (%) 100 01/13 01/13 0545 0500 Blood Gas pH (7.35 - 7.45 PH) 7.48 H pCO2 (35 - 45 TORR) 41 pO2 (80 - 100 TORR) 70 L HCO3 (21 - 28 MEQ/L) 30 H ABG O2 Sat (Measured) (>96.0 %) 94.0 L P-50 (Temp Corrected) Y Carboxyhemoglobin (1.5 - 5.0 %) 0.4 L O2 Concentration % RA Temperature (97.0 - 100.0 FARH) 97.1 Chemistry Sodium (137 - 145 mmol/L) 143 Potassium (3.5 - 5.1 mmol/L) 3.3 L Chloride (98 - 107 mmol/L) 99 Carbon Dioxide (22 - 30 mmol/L) 35 H Anion Gap (5 - 16) 9 BUN (7 - 17 mg/dL) 10 Creatinine (0.5 - 1.0 mg/dL) 0.6 Estimated GFR (>60 ml/min) > 60 Glucose (65 - 99 mg/dL) 138 H Calcium (8.4 - 10.2 mg/dL) 8.3 L Phosphorus (2.5 - 4.5 mg/dL) 1.9 L Magnesium (1.6 - 2.3 mg/dL) 2.1 Total Bilirubin (0.2 - 1.3 mg/dL) 1.3 AST (14 - 36 U/L) 151 H ALT (9 - 52 U/L) 655 H Troponin I (< 0.11 ng/ml) 0.01 Albumin (3.5 - 5.0 g/dL) 3.5 TSH (0.270 - 4.200 uIU/mL) 10.900 H Free T4 (0.78 - 2.44 ng/dL) 0.35 L Hematology CBC w Diff MAN DIFF ORDERED WBC (4.8 - 10.8 /CUMM) 4.7 L RBC (4.20 - 5.40 /CUMM) 3.41 L Hgb (12.0 - 16.0 G/DL) 10.8 L Hct (37 - 47 %) 32.1 L MCV (81.0 - 99.0 FL) 94.0 MCH (27.0 - 31.0 PG) 31.6 H MCHC (33.0 - 37.0 G/DL) 33.7 RDW (11.5 - 14.5 %) 16.2 H Plt Count (130 - 400 /CUMM) 43 L MPV (7.4 - 10.4 FL) 8.5 Gran % (42.2 - 75.2 %) 89.2 H Lymphocytes % (20.5 - 51.1 %) 5.8 L Monocytes % (1.7 - 9.3 %) 4.9 Eosinophils % (0 - 5 %) 0.1 Basophils % (0.0 - 2.0 %) 0 Absolute Granulocytes (1.4 - 6.5 /CUMM) 4.2 Segmented Neutrophils (42.2 - 75.2 %) 93 H Band Neutrophils (0.0 - 5.0 %) 3 Absolute Lymphocytes (1.2 - 3.4 /CUMM) 0.3 L Lymphocytes (20.5 - 51.1 %) 3 L Monocytes (1.7 - 9.3 %) 1 L Absolute Monocytes (0.10 - 0.60 /CUMM) 0.2 Absolute Eosinophils (0.0 - 0.7 /CUMM) 0 Absolute Basophils (0.0 - 0.2 /CUMM) 0 Platelet Estimate (ADEQUATE) VERIFIED BY SMEAR Basophilic Stippling RARE Anisocytosis 1+ Macrocytic Cells FEW Stomatocytes 1+ Miscellaneous Phlebotomy Draw Site RIGHT BRACHIAL 01/13 01/12 01/12 0000 2200 1758 Chemistry Sodium (137 - 145 mmol/L) Cancelled 143 142 Potassium (3.5 - 5.1 mmol/L) Cancelled 3.2 L 2.9 *L Chloride (98 - 107 mmol/L) Cancelled 100 98 Carbon Dioxide (22 - 30 mmol/L) Cancelled 35 H 34 H Anion Gap (5 - 16) Cancelled 8 9 BUN (7 - 17 mg/dL) Cancelled 11 11 Creatinine (0.5 - 1.0 mg/dL) Cancelled 0.6 0.7 Estimated GFR (>60 ml/min) > 60 > 60 BUN/Creatinine Ratio Cancelled Glucose (65 - 99 mg/dL) 128 H 153 H Calcium (8.4 - 10.2 mg/dL) 8.4 8.4 Phosphorus (2.5 - 4.5 mg/dL) 2.2 L 2.8 Magnesium (1.6 - 2.3 mg/dL) 2.0 1.6 Total Bilirubin (0.2 - 1.3 mg/dL) 1.3 1.3 AST (14 - 36 U/L) 154 H 171 H ALT (9 - 52 U/L) 663 H 690 H Albumin (3.5 - 5.0 g/dL) 3.5 3.6 Imaging/Other Studies: PATIENT: MILAGROS PEREIRA PRESENT AGE: 62 PATIENT ACCOUNT NO: [id number] : 54 LOCATION: [facility] ORDERING PHYSICIAN: Eyad Noguera MD SERVICE DATE: 01/08/18 EXAM TYPE: CAT - CT CERV SPINE WO IV CONTRAST; CT HEAD WO IV CONTRAST EXAMINATION: CT HEAD AND CERVICAL SPINE CLINICAL INFORMATION: Patient found on floor. Confused. COMPARISON: No relevant prior imaging. TECHNIQUE: Rn Advice images were obtained. CT acquisition of the head and cervical spine was performed without intravenous administration of contrast. Data was reformatted into multiplanar images at the acquisition workstation. DLP: 925.97 mGy-cm. FINDINGS: Head: There is no acute intracranial hemorrhage or abnormal extra-axial collection. No intracranial mass effect or midline shift. Lateral and third ventricles are normal. No hydrocephalus. Rg-white matter differentiation is grossly preserved and there is no evidence of acute territorial infarct. The calvarium and skull base are intact. Mastoid air cells and middle ear cavities are well aerated. Visualized paranasal sinuses are well-aerated. Cervical spine: There is nonspecific straightening of the cervical lordosis. Vertebral alignment is otherwise normal. Vertebral heights are preserved. There is loss of intervertebral disc height with associated disc osteophyte spurring at the levels of C4-C5, C5-C6, and C6-C7. No acute fracture. No abnormal prevertebral soft tissue swelling. A small amount of atheromatous calcification involves both carotid bifurcations. Chronic changes of a thyroidectomy are noted. Soft tissues of the neck are otherwise unremarkable. Visualized lung apices are clear. IMPRESSION: Head: No evidence of acute territorial infarct or hemorrhage. Cervical spine: No acute cervical spine fracture. Mild degenerative changes at multiple levels. Grossly no evidence of canal compromise. DICTATED BY: Lance Garcia MD DATE/TIME DICTATED:01/08/181425 BRAKESHOE REPAIRER:TIGIST DATE/TIME TRANSCRIBED:01/08/181425 CONFIDENTIAL, DO NOT COPY WITHOUT APPROPRIATE AUTHORIZATION. <Electronically signed in Other Vendor System> SIGNED BY: Lance Garcia MD 01/08 7910 Assessment/Plan Assessment: Metabolic/ ?hypoxic encephalopathy in the setting of myxedema coma with multiorgan complications which have included hypotension, bradycardia, and shock liver. Recently sedated with lorazepam Recommendations: A repeat head CT is planned. Would also check EEG and serum ammonia level Continue supportive care Will follow Consult Acknowledgment - Thank you for your consult request.
--- NOTE | 2018-01-14 13:47 | CT SCAN REPORT ---
EXAMINATION: CT HEAD AND FACE. CLINICAL INFORMATION: Altered mental status. COMPARISON: CT scan of the head 01/08/2018. TECHNIQUE: House Coordinator images were obtained. CT acquisition of the head and face was performed without intravenous administration of contrast. Data was reformatted into multiplanar images at the acquisition workstation. DLP: 1028.54 mGy-cm. FINDINGS: Head: There is no acute intracranial hemorrhage or abnormal extra-axial collection. No intracranial mass effect or midline shift. Lateral and third ventricles are normal. No hydrocephalus. Rg-white matter differentiation is grossly preserved and there is no evidence of acute territorial infarct. The calvarium and skull base are intact. Mastoid air cells and middle ear cavities are well aerated. Face: There is mild swelling within the subcutaneous tissues over the left zygomatic arch. Nasal bones, zygomatic arches, and pterygoid processes are intact. No evidence of an acute facial fracture. The lamina papyracea and orbital floors are intact. Orbital apices are unremarkable. Globes are symmetric. No abnormal retrobulbar mass or inflammation. Of note there is a prominent torus palatini that is partially included within the [id number] of this examination. No active paranasal sinus disease. Major paranasal sinuses pathways are patent. IMPRESSION: Mild asymmetric facial swelling over the left zygomatic arch. No acute facial fracture. No acute intracranial hemorrhage.
[2018-01-14 16:00] VITALS: BP 110/62
--- NOTE | 2018-01-14 20:05 | PN- Cardiology ---
Subjective Subjective: * Patient is not responding to questions but appears to have purposeful movements. * sinus bradycardia with a brief episode of second degree AV block and also first degree AV block * potassium is 3.5 * improving hepatic transaminases * thyroid function remains low * platelets are 47 * Patient remains on dopamine to maintain her BP Objective Vital Signs and I&Os Vital Signs Date Time Temp Pulse Resp B/P B/P Pulse O2 O2 Flow FiO2 Mean Ox Delivery Rate 01/14 1719 54 102/60 01/14 1600 96.8 49 49 110/62 97 Room Air 01/14 0800 97.8 60 18 112/70 100 Room Air 01/14 0519 51 106/81 01/14 0400 99 Room Air 01/14 0000 99 Room Air 01/13 2300 97.2 51 13 106/76 99 Room Air Intake & Output 01/14 1600 01/14 0800 01/14 0000 01/13 1600 01/13 0800 01/13 0000 Intake Total 1111 1303 1155 1455 1172 1288 Output Total 332 497 0786 1200 1250 1020 Balance 511 793 130 255 -78 268 Intake, IV 1111 1303 1155 1455 1172 1288 Intake, Oral 0 0 0 0 Number 0 0 0 0 Bowel Movements Output, Urine 337 589 7423 1200 1250 1020 Physical Exam: General: WD/WN female; doesn't open eyes but appears to have purposeful movements when one touches her HEENT: swollen left cheek, PERRL, EOMI Neck: no JVD, no carotid bruit Heart: RRR, no murmur Lungs: clear bilaterally Extremities; no edema Assessment/Plan Assessment/Plan * This patient has hypotension off dopamine although we have been able to decrease it to 3mcg. I suspect that her baseline blood pressure is not very high and we should have as our goal a systolic pressure of 90mmHg as long as she maintains her renal function. Decrease dopamine as tolerated. Continue IV NS. * I would be very reluctant to place a pacemaker in this patient with a presumed reversible cause of her bradycardia and a platelet level of 47. We will continue to monitor her blood pressure and heart rate as she has her hypothyroidism treated. * She may have hepatic congestion with shock liver causing her elevated hepatic transaminases but these enzymes are improving. A small pericaridial effusion is noted which is not unexpected in the setting of severe hypothyroidism which may have contributed to her low voltage. There is no evidence of tamponade and the effusion has become smaller. Continue maintenance IV fluids. Continue telemetry? Yes
[2018-01-14 23:00] VITALS: BP 103/60
[2018-01-15 05:12] LABS: ABSOLUTE BASOPHIL COUNT 0 /CUMM (0.0-0.2); ABSOLUTE EOSINOPHIL COUNT 0 /CUMM (0.0-0.7); ABSOLUTE GRANULOCYTE CT 2.8 /CUMM (1.4-6.5); ABSOLUTE LYMPH COUNT 0.2 /CUMM (1.2-3.4); ABSOLUTE MONOCYTE COUNT 0.1 /CUMM (0.10-0.60); BASOPHIL % 0 % (0.0-2.0); EOSINOPHIL % 0 % (0-5); GRANULOCYTE % 89.1 % (42.2-75.2); HEMATOCRIT 26.5 % (37-47); MEAN CORPUSCULAR HGB 31.8 PG (27.0-31.0); MEAN CORPUSCULAR HGB CONC 34.2 G/DL (33.0-37.0); MEAN CORPUSCULAR VOLUME 92.9 FL (81.0-99.0); MEAN PLATELET VOLUME 7.9 FL (7.4-10.4); PLATELET COUNT 54 /CUMM (130-400); RBC DISTRIBUTION WIDTH 16.1 % (11.5-14.5); RED BLOOD CELL CT 2.85 /CUMM (4.20-5.40); WHITE BLOOD CELL COUNT 3.2 /CUMM (4.8-10.8)
--- NOTE | 2018-01-15 07:34 | PN- Resident CRCU ---
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 -Hx of papillary thyroid cancer status post resection and radioactive iodine -Confusion/AMS with agitation likely due to Myxedema coma/ ?? Psychiatric issues. -Hypotension/bradycardia due to above, remains on dopamine. -Pancytopenia (improving). -Transaminitis due to shock liver 2/2 Myxedema coma - resolving. 24 Hour Events: The patient appears much improved today compared to yesterday, she is alert and awake, oriented 3 and answering questions. States she still does not feel hungry but would try to eat smething today. She denies any chest pain or abdominal pain. Continues to be on dopamine drip to maintain her blood pressure. Objective Vital Signs & I&O Last 8 Hrs of Vitals and I&O: Intake & Output 01/15 1600 Intake Total 973.7 Output Total 475 Balance 498.7 Intake, IV 963.7 Intake, Oral 10 Number 1 Bowel Movements Output, Urine 475 Exam General Appearance: well developed/nourished, no apparent distress, alert, awake Head: atraumatic, normal appearance Respiratory: normal breath sounds, chest non-tender, lungs clear Cardiovascular: regular rate/rhythm Gastrointestinal: normal bowel sounds, soft, non-tender Extremities: normal inspection, no edema Cranial Nerves: normal hearing, normal speech, PERRL Current Medications: Current Medications Sig/Tabatha Start time Last Medication Dose Route Stop Time Status Admin Atropine Sulfate 0.5 MG Q 5 MINUTES X 3 DO.. 01/12 2230 AC IV Dopamine HCl 400 MG Q12H 01/13 1200 AC 01/15 Dextrose/Water 500 ML IV 0529 Glycerin/Mineral Oil 1 JUAN ALBERTO TID PRN 01/08 1645 AC 01/09 TOP 0430 Hydrocortisone 50 MG Q8 01/12 1400 AC 01/15 Sodium Succinate IV 1359 Levothyroxine Sodium 100 MCG DAILY 01/12 1000 AC 01/15 IV 1105 Magnesium Sulfate 1 GM ONCE ONE 01/14 1100 DC 01/14 Dextrose/Water 100 ML IV 01/14 1459 1211 Morphine Sulfate 2 MG Q4P PRN 01/08 1645 AC IV Pantoprazole Sodium 40 MG DAILY 01/08 1930 AC 01/15 IV 0914 Potassium Chloride 20 MEQ Q1H 01/15 0630 DC 01/15 IV 01/15 0731 0821 Potassium Chloride 40 MEQ Q13H 01/12 1815 AC 01/15 Sodium Chloride 1,000 ML IV 1024 Impression/Plan Impression/Problem List Impression: Patient is a 62-year-old female with past medical history significant for iatrogenic hypothyroidism status post total thyroidectomy for thyroid cancer presenting this admission with myxedema coma secondary to noncompliance, neutropenia, thrombocytopenia and bradycardia. Patient is admitted to the ICU for management of following: Respiratory Patient not on supplemental oxygen and saturating 93% on room air. Infectious: Neutropenia Patient has an absolute neutrophil count of 700 on admission, now fluctuating b/ w 1.7 to 6.2. Etiology of patient's neutropenia is unclear at this time however may be secondary to severe hypothyroidism, less likely infectious as patient is HIV and hepatitis negative, Rapid flu, lyme titre, blood and urine Cx were negative and CXR also negative for any acute pathology. Patient was initially prophylactically covered with antibiotics as the mortality rate of patient's with myxedema coma who become septic is much higher, however antibiotics have been stopped as there are no signs of acute infection and WBC count has increased to normal and likely neutropenia was secondary to severe hypothyroidism. - Follow off antibiotics - Repeat CBCs in a.m. - Follow up blood and urine cultures - remain negative thus far - Monitor vitals closely Cardiac: 1. Bradycardia Likely secondary to severe hypothyroidism. Lyme titer ordered in setting of bradycardia and pancytopneia was negative. Patient was initially started on Levophed for hypotension but was switched to dopamine for hypotension and bradycardia. Initial echocardiogram showed normal ejection fraction with small pericardial effusion. Repeat limited echo was done for concerns of worsening pericardial effusion as patient's EKG on 01/11/18 showed low voltage, but repeat echocardiogram showed trace pericardial effusion. - Appreciate cardiology recommendations - Transcutaneous pacer pads and atropine at bedside - IV dopamine drip titrated down to 1 g/KG/minute, SBP dropped down to 68 when taken off dopamine. - Monitor on telemetry 2. Hypotension Patient's hypotension is likely secondary to severe hypothyroidism. Patient's hypotension worsened on 01/10 requiring levophed and a central line. A right internal jugular line was placed on 01/09/18. Levo fed was discontinued over the weekend and was started on dopamine because of persistent hypotesion and bradycardia. Patient was tried to wean off dopamine yesterday but SBP dropped down to 60's and dopamine drip was restarted. - Continue to monitor bp - Continue dopamine drip; will try to take her off of dopamine. - Continue hydration with IV NS - Continue IV Solu-Medrol 50mg every 8 - Continue compress on right arm as needed.(Phlebitis from peripheral levophed) Heme: Pancytopenia: Improving Patient on admission was neutropenic, anemic and severely thrombocytopenic. There have been case reports of pancytopenia with severe hypothyroidism however patient will require further workup at this time. Patient had a reticulocyte count of 1.48% with absolute reticulocyte count of 1.1 and a reticulocyte count index of 0.75 indicating bone marrow suppression which can be caused by hypothyroidism. LDH count is elevated. Iron panel revealed elevated iron, normal TIBC and elevated ferritin. Vitamin B12 is elevated. Folate levels normal. HIV negative. Flow cytometry was performed which showed no evidence of active myelodysplasia or blasts, monoclonal B-cell lymphoproliferative disease, and no unusual phenotype T cells identified. As all cell lines are improving with current treatment it is likely that patient 's pancytopenia is due to her severe hypothyroidism. - haptoglobin level is 17 - Continue to monitor CBC - Hematology consulted. Appreciate recommendations. - DIC panel negative. - Thrombocytopenic precautions Metabolic: Myxedema coma; from medication non-compliance Patient presented confused, hypothermic, bradycardic and with elevated TSH and low T4. Patient's hypothermia has resolved. Patient continues to remain bradycardic and hypotensive requiring IV dopamine drip, and IV Solu-Cortef 50 mg every 8 hours. - Appreciate endocrinology recommendations - Continue IV Levothyroxine - Continue IV Solu-Cortef - Repeat free T4 and TSH improving, will repeat in 2 days. - Warming with bear hugger if necessary. Transaminitis: Unclear etiology of abnormal LFTs. Patient reports no abdominal pain. LFTs are improving. CT Abd/Pelvis shows no focal defects in the liver. Patient is s/p cholecystectomy. Alk phos and bili are normal. These abnormal LFTs may be secondary to severe hypothyroidism, however this is unclear. Alimentary 1. Hypernatremia; resolved Patients with hypothyroidism typically have hyponatremia, however patient on presentation appeared severely dehydrated which may be the cause of her hypernatremia. Patient has also been given multiple doses of normal saline. - Continue normal saline at 125 ml per hour - Continue to monitor Na 2. Swallow evaluation Patient is refusing to eat. Currently on IV fluids. Patient may require NG tube if she continues to refuse. Will keep nothing by mouth after failing swallow evaluation, repeat swallow eval tomorrow. Neurology Altered mental status in setting of severe hypothyroidism. Patient was found on the ground with a dresser over her - it is unclear if she fell. Patient has had multiple falls recently. Head CT and cervical CT were negative for any acute findings. Tibula/ fibula and humerus x-rays without any acute fracture. Mental status significantly improved today. - Repeat Head CT done yesterday for worsening Mental status remained negative - Neurology recommendations apprecited - EEG pending - Neurochecks - PT eval- pending - Fall precautions Nephrology: None DVT prophylaxis: Alps only in the setting of thrombocytopenia Patient is full code Problem List: 1. Myxedema coma 2. Bradycardia 3. Pancytopenia 4. Hypotension Pain Ratin Pain Location: NA Pain Goal: Remain pain free Pain Plan: NA Tomorrow's Labs & Rationales: CBC ICU Bundle Plan DVT/Prophylaxis: mechanical (only due to thrombocytopenia) Beni Bo MD 01/15/18 1122: Attending MD Review Statement Attending Sign Off Attending Cosign Statement: I have: examined this patient, reviewed [employer] EMR data, personally reviewd images, discussd w/resident/PA/HOUSE SUPERINTENDENT, discussed mgmt plan w/clarence, discussed mgmt plan w/CM, discussed mgmt plan w/pt, agreed w/resident/PA/HOUSE SUPERINTENDENT, amended to note. Other Findings: Impression 62 year old woman * pancytopenia * hx of thyroid ca - significant hypothyroidism consistent with myxedema * transaminitis improved * bradycardia Plan -f/u endocrine and heme recs -steroids, iv thyroid replacement -EF 50%, cont dopamine -f/u cardiology -neurology appreciated -significant mental status improvement DVT prophylaxis at all times TTS 35 min
[2018-01-15 08:00] VITALS: BP 90/60
--- NOTE | 2018-01-15 08:06 | PN- Hematology ---
Subjective Subjective: She remains relatively stable. She remains non-verbal. She continues to be hypotensive and on dopamine. Review of Systems: Unable to obtain due to clinical status. Objective Vital Signs and I&Os Vital Signs Date Time Temp Pulse Resp B/P B/P Pulse O2 O2 Flow FiO2 Mean Ox Delivery Rate 01/15 0529 54 91/55 01/15 0400 96 Room Air 01/15 0000 98 Room Air 01/14 2300 96.9 68 12 103/60 96 Room Air 01/14 2000 99 Room Air 01/14 1719 54 102/60 01/14 1600 96.8 49 49 110/62 97 Room Air Intake & Output 01/15 1600 01/15 0800 01/15 0000 01/14 1600 01/14 0800 01/14 0000 Intake Total 1163 1126 1111 1303 1155 Output Total 500 650 975 776 1840 Balance 663 476 511 793 130 Intake, IV 1163 1126 1111 1303 1155 Intake, Oral 0 0 0 0 0 Number 0 0 0 0 0 Bowel Movements Output, Urine 500 650 308 832 2807 Physical Exam: General Appearance: no apparent distress, alert, awake, comfortable Head: atraumatic, central line in right neck Respiratory: normal breath sounds, chest non-tender, no respiratory distress, quiet respiration Cardiovascular: bradycardia Abdomen: normal bowel sounds, soft, non-tender, no organomegaly Extremities: no edema Skin: ecchymosis in thigh, petechia in extremites worse in the RUE Current Medications: Current Medications Sig/Tabatha Start time Last Medication Dose Route Stop Time Status Admin Atropine Sulfate 0.5 MG Q 5 MINUTES X 3 DO.. 01/12 2230 AC IV Dopamine HCl 400 MG Q12H 01/13 1200 AC 01/15 Dextrose/Water 500 ML IV 0529 Glycerin/Mineral Oil 1 JUAN ALBERTO TID PRN 01/08 1645 AC 01/09 TOP 0430 Hydrocortisone 50 MG Q8 01/12 1400 AC 01/15 Sodium Succinate IV 0528 Levothyroxine Sodium 100 MCG DAILY 01/12 1000 AC 01/14 IV 0931 Lorazepam 0.5 MG ONCE ONE 01/14 1045 DC 01/14 IV 01/14 1046 1040 Magnesium Sulfate 1 GM ONCE ONE 01/14 1100 DC 01/14 Dextrose/Water 100 ML IV 01/14 1459 1211 Morphine Sulfate 2 MG Q4P PRN 04/05 1645 AC IV Pantoprazole Sodium 40 MG DAILY 01/08 193 AC 01/14 IV 0917 Potassium Chloride 20 MEQ Q1H 01/15 0630 DC 01/15 IV 01/15 0731 0635 Potassium Chloride 40 MEQ Q13H 01/12 1815 AC 01/14 Sodium Chloride 1,000 ML IV 2316 Results Last 24 Hours of Lab Results: Laboratory Tests 01/15 01/14 0413 1441 Chemistry Sodium (137 - 145 mmol/L) 140 Potassium (3.5 - 5.1 mmol/L) 3.3 L Chloride (98 - 107 mmol/L) 102 Carbon Dioxide (22 - 30 mmol/L) 34 H Anion Gap (5 - 16) 4 L BUN (7 - 17 mg/dL) 11 Creatinine (0.5 - 1.0 mg/dL) 0.5 Estimated GFR (>60 ml/min) > 60 BUN/Creatinine Ratio (7 - 25 %) 22.0 Magnesium (1.6 - 2.3 mg/dL) 1.9 Ammonia (9 - 30 umol/L) 15 TSH (0.270 - 4.200 uIU/mL) 6.560 H Free T4 (0.78 - 2.44 ng/dL) 0.48 L Hematology CBC w Diff MAN DIFF ORDERED WBC (4.8 - 10.8 /CUMM) 3.2 L RBC (4.20 - 5.40 /CUMM) 2.85 L Hgb (12.0 - 16.0 G/DL) 9.1 L Hct (37 - 47 %) 26.5 L MCV (81.0 - 99.0 FL) 92.9 MCH (27.0 - 31.0 PG) 31.8 H MCHC (33.0 - 37.0 G/DL) 34.2 RDW (11.5 - 14.5 %) 16.1 H Plt Count (130 - 400 /CUMM) 54 L MPV (7.4 - 10.4 FL) 7.9 Gran % (42.2 - 75.2 %) 89.1 H Lymphocytes % (20.5 - 51.1 %) 6.7 L Monocytes % (1.7 - 9.3 %) 4.2 Eosinophils % (0 - 5 %) 0 Basophils % (0.0 - 2.0 %) 0 Absolute Granulocytes (1.4 - 6.5 /CUMM) 2.8 Segmented Neutrophils (42.2 - 75.2 %) 83 H Band Neutrophils (0.0 - 5.0 %) 5 Absolute Lymphocytes (1.2 - 3.4 /CUMM) 0.2 L Lymphocytes (20.5 - 51.1 %) 8 L Monocytes (1.7 - 9.3 %) 3 Absolute Monocytes (0.10 - 0.60 /CUMM) 0.1 Absolute Eosinophils (0.0 - 0.7 /CUMM) 0 Absolute Basophils (0.0 - 0.2 /CUMM) 0 Metamyelocytes (0.0 - 1.0 %) 1 Platelet Estimate (ADEQUATE) DECREASED Polychromasia 1+ Basophilic Stippling RARE Anisocytosis 1+ Stomatocytes FEW Elliptocytes FEW Recent Imaging Studies: CT sinues/head 01/14/2018: Mild asymmetric facial swelling over the left zygomatic arch. No acute facial fracture. No acute intracranial hemorrhage. Assessment/Plan Hematology Assessment/Recommendations: Mrs. Goode is a 62-year-old female with hypothyroidism, thyroid malignancy status post total thyroidectomy, ELDER ablation who presented to the hospital after being found to be confused and down by her . On presentation, she was noted to be pancytopenic with WBC 1.0, platelet of 32,000, and hemoglobin of 10.9. Vitamin B12 and folated was normal. Ferritin was elevated at 5770. Her AST and ALT were >2000. LDH is elevated at 7954. Bilirubin was elevated at 1.5. Her TSH was elevated and T4 was low. There is concern for myxedema coma. She was started on hydrocortisone and levothyroxine. She was started on empiric antibiotics. Imaging with CT head, cervical, chest, abdomen, and pelvis are reviewed and negative for any significant acute findings. Pancytopenia of unclear etiology but likely from underlying myxedema coma. Flow cytometry is unremarkable. DIC demonstrates low fibrinogen at 181. She remains in critic condition. WBC is downward trending. Platelet count is stable. She remains on pressor. She should have DIC panel monitored and have cryo if fibrinogen is <100. Pancytopenia: -monitor DIC panel -monitor CBC -transfuse with cryo if fibrinogen <100 or bleeding Myxedema coma: -endocrinology following -treatment as per primary and endocrinology Please call [phone] with any questions or concerns. Problem List: 1. Pancytopenia 2. Myxedema coma
--- NOTE | 2018-01-15 09:09 | PN- Neurology ---
Subjective Subjective: Clearly improved. Opens eyes to voice. Attempts to engage in conversation. Objective Vital Signs and I&Os Vital Signs Date Time Temp Pulse Resp B/P B/P Pulse O2 O2 Flow FiO2 Mean Ox Delivery Rate 01/15 0529 54 91/55 01/15 0400 96 Room Air 01/15 0000 98 Room Air 01/14 2300 96.9 68 12 103/60 96 Room Air 01/14 2000 99 Room Air 01/14 1719 54 102/60 01/14 1600 96.8 49 49 110/62 97 Room Air Intake & Output 01/15 1600 01/15 0800 01/15 0000 01/14 1600 01/14 0800 01/14 0000 Intake Total 1163 1126 1111 1303 1155 Output Total 500 650 915 774 7717 Balance 663 476 511 793 130 Intake, IV 1163 1126 1111 1303 1155 Intake, Oral 0 0 0 0 0 Number 0 0 0 0 0 Bowel Movements Output, Urine 500 650 757 176 2037 Physical Exam: Awake, lethargic Opens eyes to voice Knows she is in a hospital, did not know it was [facility] Know she is in [place] and the president is Jenn Initially stated the year was 1917, then corrected to 2017. There was some verbal perseveration and her responses to questions as she kept repeating "2018" with subsequent questions. Stated the month was August Speech is slow and hypophonic, but fluent Full extraocular motility Symmetric facial movements She displays less than antigravity strength throughout, though effort may be reduced Current Medications: Current Medications Sig/Tabatha Start time Last Medication Dose Route Stop Time Status Admin Atropine Sulfate 0.5 MG Q 5 MINUTES X 3 DO.. 01/12 2230 AC IV Dopamine HCl 400 MG Q12H 01/13 1200 AC 01/15 Dextrose/Water 500 ML IV 0529 Glycerin/Mineral Oil 1 JUAN ALBERTO TID PRN 01/08 1645 AC 01/09 TOP 0430 Hydrocortisone 50 MG Q8 01/12 1400 AC 01/15 Sodium Succinate IV 0528 Levothyroxine Sodium 100 MCG DAILY 01/12 1000 AC 01/14 IV 0931 Magnesium Sulfate 1 GM ONCE ONE 01/14 1100 DC 01/14 Dextrose/Water 100 ML IV 01/14 1459 1211 Morphine Sulfate 2 MG Q4P PRN 01/08 164 AC IV Pantoprazole Sodium 40 MG DAILY 04/05 1930 AC 01/15 IV 0914 Potassium Chloride 20 MEQ Q1H 01/15 0630 DC 01/15 IV 01/15 0731 0821 Potassium Chloride 40 MEQ Q13H 01/12 1815 AC 01/15 Sodium Chloride 1,000 ML IV 1024 Results Last 24 Hours of Lab Results: Laboratory Tests 01/15 01/14 0413 1441 Chemistry Sodium (137 - 145 mmol/L) 140 Potassium (3.5 - 5.1 mmol/L) 3.3 L Chloride (98 - 107 mmol/L) 102 Carbon Dioxide (22 - 30 mmol/L) 34 H Anion Gap (5 - 16) 4 L BUN (7 - 17 mg/dL) 11 Creatinine (0.5 - 1.0 mg/dL) 0.5 Estimated GFR (>60 ml/min) > 60 BUN/Creatinine Ratio (7 - 25 %) 22.0 Magnesium (1.6 - 2.3 mg/dL) 1.9 Ammonia (9 - 30 umol/L) 15 TSH (0.270 - 4.200 uIU/mL) 6.560 H Free T4 (0.78 - 2.44 ng/dL) 0.48 L Hematology CBC w Diff MAN DIFF ORDERED WBC (4.8 - 10.8 /CUMM) 3.2 L RBC (4.20 - 5.40 /CUMM) 2.85 L Hgb (12.0 - 16.0 G/DL) 9.1 L Hct (37 - 47 %) 26.5 L MCV (81.0 - 99.0 FL) 92.9 MCH (27.0 - 31.0 PG) 31.8 H MCHC (33.0 - 37.0 G/DL) 34.2 RDW (11.5 - 14.5 %) 16.1 H Plt Count (130 - 400 /CUMM) 54 L MPV (7.4 - 10.4 FL) 7.9 Gran % (42.2 - 75.2 %) 89.1 H Lymphocytes % (20.5 - 51.1 %) 6.7 L Monocytes % (1.7 - 9.3 %) 4.2 Eosinophils % (0 - 5 %) 0 Basophils % (0.0 - 2.0 %) 0 Absolute Granulocytes (1.4 - 6.5 /CUMM) 2.8 Segmented Neutrophils (42.2 - 75.2 %) 83 H Band Neutrophils (0.0 - 5.0 %) 5 Absolute Lymphocytes (1.2 - 3.4 /CUMM) 0.2 L Lymphocytes (20.5 - 51.1 %) 8 L Monocytes (1.7 - 9.3 %) 3 Absolute Monocytes (0.10 - 0.60 /CUMM) 0.1 Absolute Eosinophils (0.0 - 0.7 /CUMM) 0 Absolute Basophils (0.0 - 0.2 /CUMM) 0 Metamyelocytes (0.0 - 1.0 %) 1 Platelet Estimate (ADEQUATE) DECREASED Polychromasia 1+ Basophilic Stippling RARE Anisocytosis 1+ Stomatocytes FEW Elliptocytes FEW Recent Imaging Studies: PATIENT: MILAGROS PEREIRA PRESENT AGE: 62 PATIENT ACCOUNT NO: [id number] : 54 LOCATION: [facility] ORDERING PHYSICIAN: Eun Sharp MD SERVICE DATE: 01/14/18- EXAM TYPE: CAT - CT FACE/SINUS WITHOUT CONT; CT HEAD WO IV CONTRAST EXAMINATION: CT HEAD AND FACE. CLINICAL INFORMATION: Altered mental status. COMPARISON: CT scan of the head 01/08/2018. TECHNIQUE: Director Of Maintenance images were obtained. CT acquisition of the head and face was performed without intravenous administration of contrast. Data was reformatted into multiplanar images at the acquisition workstation. DLP: 1028.54 mGy-cm. FINDINGS: Head: There is no acute intracranial hemorrhage or abnormal extra-axial collection. No intracranial mass effect or midline shift. Lateral and third ventricles are normal. No hydrocephalus. Rg-white matter differentiation is grossly preserved and there is no evidence of acute territorial infarct. The calvarium and skull base are intact. Mastoid air cells and middle ear cavities are well aerated. Face: There is mild swelling within the subcutaneous tissues over the left zygomatic arch. Nasal bones, zygomatic arches, and pterygoid processes are intact. No evidence of an acute facial fracture. The lamina papyracea and orbital floors are intact. Orbital apices are unremarkable. Globes are symmetric. No abnormal retrobulbar mass or inflammation. Of note there is a prominent torus palatini that is partially included within the [id number] of this examination. No active paranasal sinus disease. Major paranasal sinuses pathways are patent. IMPRESSION: Mild asymmetric facial swelling over the left zygomatic arch. No acute facial fracture. No acute intracranial hemorrhage. DICTATED BY: Lance Garcia MD DATE/TIME DICTATED:01/14/181337 BUTTONHOLE MACHINE OPERATOR:TIGIST DATE/TIME TRANSCRIBED:01/14/181337 CONFIDENTIAL, DO NOT COPY WITHOUT APPROPRIATE AUTHORIZATION. <Electronically signed in Other Vendor System> SIGNED BY: Lance Garcia MD 01/14 5207 Assessment/Plan Assessment: Encephalopathy due to myxedema coma, improving Plan: Continue supportive care will see prn
--- NOTE | 2018-01-15 09:59 | PN- Endocrinology ---
Assessment/Plan Endoscopy Assessment: 62 y/o female, hx of thyroid cancer which was diagnosed in and was treated with thyroid surgery twice and ELDER twice. Detail unclear. She was supposed to take Levothyroxine 150 mcg daily. However, she hasn't been compliance with the medication. Patient was in ER in 05/2017 and 08/2017-- her TSH was > 60 and free T4 was < 0.07. She presented to ER today again after she was found that she was on the floor. Patient was hypothermia and bradycardic. Blood work showed profound hypothyroidism along with borderline low cortisol, abnormal LFT and pancytopenia. She was put on Levothyroxine 100 mcg iv and stress dose of steroid. The dopamine drip was off for a while. But she had bardycardia again. She was restarted on Dopamine drip. Hydrocortisone was decreased to 50 mg iv every 8 hours. Repeat TFT showed TSH 6.56 and free T4 0.48. Plan: 1. continue Levothyroxine 100 mcg iv daily for now; 2. continue Hydrocortisone 50 mg iv every 8 hours for now; 3. continue monitoring electrolytes, vital signs; 4. monitor TSH, free T4 in 2 days. will follow. Subjective Subjective: She is awake and alert this morning. Objective Last 24 Hrs of Vital Signs/I&O Vital Signs Date Time Temp Pulse Resp B/P B/P Pulse O2 O2 Flow FiO2 Mean Ox Delivery Rate 01/15 0800 93 Room Air 01/15 0800 96.6 54 11 90/60 93 Room Air 01/15 0529 54 91/55 01/15 0400 96 Room Air 01/15 0000 98 Room Air 01/14 2300 96.9 68 12 103/60 96 Room Air 01/14 2000 99 Room Air 01/14 1719 54 102/60 01/14 1600 96.8 49 49 110/62 97 Room Air Intake & Output 01/15 1600 01/15 0800 01/15 0000 Intake Total 1163 1126 Output Total 500 650 Balance 663 476 Intake, IV 1163 1126 Intake, Oral 0 0 Number 0 0 Bowel Movements Output, Urine 500 650
[2018-01-15 12:00] VITALS: BP 100/60
[2018-01-15 16:00] VITALS: BP 90/60
--- NOTE | 2018-01-15 19:19 | ELECTROENCEPHALOGRAM REPORT ---
Electroencephalogram Report Electroencephalogram Results Date of service: 01/15/18 Attending MD: Beni Bo MD Photography Instructor: Kiley EEG Number: [id number] Test Utilizes: 10-20 system, 21 lead 18 channel digital recording Pertinent Hx/Physical/Neuro Findings/Clin Diagnosis: Altered mental status. Inpatient Medications: Current Medications Sig/Tabatha Start time Last Medication Dose Route Stop Time Status Admin Atropine Sulfate 0.5 MG Q 5 MINUTES X 3 DO.. 01/12 2230 AC IV Dopamine HCl 400 MG Q12H 01/13 1200 AC 01/15 Dextrose/Water 500 ML IV 0529 Glycerin/Mineral Oil 1 JUAN ALBERTO TID PRN 01/08 1645 AC 01/09 TOP 0430 Hydrocortisone 50 MG Q8 01/12 1400 AC 01/15 Sodium Succinate IV 1359 Levothyroxine Sodium 100 MCG DAILY 01/12 1000 AC 01/15 IV 1105 Morphine Sulfate 2 MG Q4P PRN 01/08 1645 DC IV Pantoprazole Sodium 40 MG DAILY 01/08 1930 AC 01/15 IV 0914 Potassium Chloride 20 MEQ Q1H 01/15 0630 DC 01/15 IV 01/15 0731 0821 Potassium Chloride 40 MEQ Q13H 01/12 1815 AC 01/15 Sodium Chloride 1,000 ML IV 1814 Interpretation: The recording demonstrates the normal frequency gradient, faster beta rhythms seen up front while slower alpha rhythms persist in the posterior regions during wakefulness. During drowsiness the rhythms slow down to delta range. The overall amplitude is low around 5-10 microvolts. There are rare isolated low amplitude phase reversing sharps in the left temporal region. There are other spikes within the same region that seem to reflect myokymia. The posterior dominant rhythm is 8 Hz bilaterally. Impression: Recording suggestive of a mild encephalopathy with occasional rare sharps within the temporal lobe that may suggest some epileptogenic potential. No actual seizures were recorded.
--- NOTE | 2018-01-15 22:00 | PN- Cardiology ---
Subjective Subjective: * Patient is a bit more responsive today and follows commands. * sinus rhythm * Decreasing H/H. Platelets remain low at 54K. * Potassium is 3.3 * Free T4 remains very low. Objective Vital Signs and I&Os Vital Signs Date Time Temp Pulse Resp B/P B/P Pulse O2 O2 Flow FiO2 Mean Ox Delivery Rate 01/15 2000 95 01/15 1600 Room Air 01/15 1600 96.4 52 8 90/60 98 Room Air 01/15 1200 Room Air 01/15 1200 96.7 57 12 100/60 96 Room Air 01/15 0800 93 Room Air 01/15 0800 96.6 54 11 90/60 93 Room Air 01/15 0529 54 91/55 01/15 0400 96 Room Air 01/15 0000 98 Room Air 01/14 2300 96.9 68 12 103/60 96 Room Air Intake & Output 01/15 1600 01/15 0800 01/15 0000 / 1600 01/14 0800 01/14 0000 Intake Total 973.7 1163 1126 1111 1303 1155 Output Total 475 500 650 983 096 2245 Balance 498.7 663 476 511 793 130 Intake, IV 963.7 1163 1126 1111 1303 1155 Intake, Oral 10 0 0 0 0 0 Number 1 0 0 0 0 0 Bowel Movements Output, Urine 475 500 650 150 825 0830 Physical Exam: General: WD/WN female; doesn't open eyes but has purposeful movements and follows commands HEENT: swollen left cheek, PERRL, EOMI Neck: no JVD, no carotid bruit Heart: RRR, no murmur Lungs: clear bilaterally Extremities; no edema Assessment/Plan Assessment/Plan * This patient had hypotension off dopamine although we have been able to decrease it to 1mcg which is a renal dose. Titrate the dopamine to off. I suspect that her baseline blood pressure is not very high and we should have as our goal a systolic pressure of 90mmHg as long as she maintains her renal function. Continue IV NS. * I would be very reluctant to place a pacemaker in this patient with a presumed reversible cause of her bradycardia and a platelet level of 54. We will continue to monitor her blood pressure and heart rate as she has her hypothyroidism treated. * She may have hepatic congestion with shock liver causing her elevated hepatic transaminases but these enzymes are improving. A small pericaridial effusion is noted which is not unexpected in the setting of severe hypothyroidism which may have contributed to her low voltage. There is no evidence of tamponade and the effusion has become smaller. Continue maintenance IV fluids. Continue telemetry? Yes
[2018-01-15 23:00] VITALS: BP 100/60
[2018-01-16 04:58] LABS: ABSOLUTE BASOPHIL COUNT 0 /CUMM (0.0-0.2); ABSOLUTE EOSINOPHIL COUNT 0 /CUMM (0.0-0.7); ABSOLUTE LYMPH COUNT 0.2 /CUMM (1.2-3.4); ABSOLUTE MONOCYTE COUNT 0.1 /CUMM (0.10-0.60); BASOPHIL % 0.1 % (0.0-2.0); EOSINOPHIL % 0 % (0-5); GRANULOCYTE % 90.6 % (42.2-75.2); HEMATOCRIT 24.4 % (37-47); MEAN CORPUSCULAR HGB 31.7 PG (27.0-31.0); MEAN CORPUSCULAR HGB CONC 34.1 G/DL (33.0-37.0); MEAN CORPUSCULAR VOLUME 92.9 FL (81.0-99.0); MEAN PLATELET VOLUME 8.2 FL (7.4-10.4); PLATELET COUNT 61 /CUMM (130-400); RBC DISTRIBUTION WIDTH 16.3 % (11.5-14.5); RED BLOOD CELL CT 2.63 /CUMM (4.20-5.40); WHITE BLOOD CELL COUNT 3.3 /CUMM (4.8-10.8)
[2018-01-16 05:05] LABS: PT 10.3 SEC (9.4-12.5); PTT 25 SEC (25-37)
--- NOTE | 2018-01-16 07:11 | PN- Resident CRCU ---
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 -Hx of papillary thyroid cancer status post resection and radioactive iodine -Confusion/AMS with agitation likely due to Myxedema coma/ ?? Psychiatric issues. -Hypotension/bradycardia due to above, remains on dopamine. -Pancytopenia (improving). -Transaminitis due to shock liver 2/2 Myxedema coma - resolving. 24 Hour Events: Patient is alert, awake and oriented 3. Answering questions in full sentences. Denies any pain anywhere. Still does not feel hungry but willing to try to eat later today. RIJ day 8 Noble catheter day 9 Objective Vital Signs & I&O Last 8 Hrs of Vitals and I&O: Intake & Output 01/16 1600 Intake Total 1142 Output Total 200 Balance 942 Intake, IV 1112 Intake, Oral 30 Number 0 Bowel Movements Output, Urine 200 Exam General Appearance: well developed/nourished, no apparent distress, alert, awake Head: atraumatic, normal appearance Respiratory: normal breath sounds, lungs clear Cardiovascular: regular rate/rhythm Gastrointestinal: normal bowel sounds, soft, non-tender Extremities: no edema, Ecchymosis over the left thigh, slightly enlarged compared to yesterday Cranial Nerves: normal hearing, normal speech, PERRL Current Medications: Current Medications Sig/Tabatha Start time Last Medication Dose Route Stop Time Status Admin Atropine Sulfate 0.5 MG Q 5 MINUTES X 3 DO.. 01/12 2230 AC IV Dopamine HCl 400 MG Q12H 01/13 1200 DC 01/15 Dextrose/Water 500 ML IV 0529 Glycerin/Mineral Oil 1 JUAN ALBERTO TID PRN 01/08 1645 01/09 TOP 0430 Hydrocortisone 50 MG Q8 01/12 1400 AC 01/16 Sodium Succinate IV 0514 Levothyroxine Sodium 100 MCG DAILY 01/12 1000 AC 01/16 IV 0954 Magnesium Sulfate 1 GM ONCE ONE 01/16 06 DC 01/16 Dextrose/Water 100 ML IV 01/16 0959 0602 Morphine Sulfate 2 MG Q4P PRN 01/08 1645 DC IV Pantoprazole Sodium 40 MG DAILY 01/08 1930 AC 01/16 IV 0954 Potassium Chloride 20 MEQ ONCE ONE 01/16 0600 DC 01/16 IV 01/16 0601 0703 Potassium Chloride 40 MEQ Q13H 01/12 1815 AC 01/16 Sodium Chloride 1,000 ML IV 1223 Impression/Plan Impression/Problem List Impression: Patient is a 62-year-old female with past medical history significant for iatrogenic hypothyroidism status post total thyroidectomy for thyroid cancer presenting this admission with myxedema coma secondary to noncompliance, neutropenia, thrombocytopenia and bradycardia. Patient is admitted to the ICU for management of following: Respiratory Patient not on supplemental oxygen and saturating 93% on room air. Infectious: Neutropenia Patient has an absolute neutrophil count of 700 on admission, now fluctuating b/ w 1.7 to 6.2. Etiology of patient's neutropenia is unclear at this time however may be secondary to severe hypothyroidism, less likely infectious as patient is HIV and hepatitis negative, Rapid flu, lyme titre, blood and urine Cx were negative and CXR also negative for any acute pathology. Patient was initially prophylactically covered with antibiotics as the mortality rate of patient's with myxedema coma who become septic is much higher, however antibiotics have been stopped as there are no signs of acute infection and WBC count has increased to normal and likely neutropenia was secondary to severe hypothyroidism. - Follow off antibiotics - Repeat CBCs in a.m. - Follow up blood and urine cultures - remain negative thus far - Monitor vitals closely Cardiac: 1. Bradycardia Likely secondary to severe hypothyroidism. Lyme titer ordered in setting of bradycardia and pancytopneia was negative. Patient was initially started on Levophed for hypotension but was switched to dopamine for hypotension and bradycardia. Initial echocardiogram showed normal ejection fraction with small pericardial effusion. Repeat limited echo was done for concerns of worsening pericardial effusion as patient's EKG on 01/11/18 showed low voltage, but repeat echocardiogram showed trace pericardial effusion. - Off dopamine drip - Appreciate cardiology recommendations - Transcutaneous pacer pads and atropine at bedside - Monitor on telemetry 2. Hypotension Patient's hypotension is likely secondary to severe hypothyroidism. Patient's hypotension worsened on 01/10 requiring levophed and a central line. A right internal jugular line was placed on 01/09/18. Levo fed was discontinued over the weekend and was started on dopamine because of persistent hypotesion and bradycardia. She was taken off dopamine drip last night with systolic blood pressure remaining in 90s to 100 100s and heart rate in high 40s. - Continue to monitor bp . - Continue hydration with IV NS - Continue IV Solu-Medrol 50mg every 8 - Continue compress on right arm as needed.(Phlebitis from peripheral levophed) Heme: Pancytopenia: Improving Patient on admission was neutropenic, anemic and severely thrombocytopenic. There have been case reports of pancytopenia with severe hypothyroidism however patient will require further workup at this time. Patient had a reticulocyte count of 1.48% with absolute reticulocyte count of 1.1 and a reticulocyte count index of 0.75 indicating bone marrow suppression which can be caused by hypothyroidism. LDH count is elevated. Iron panel revealed elevated iron, normal TIBC and elevated ferritin. Vitamin B12 is elevated. Folate levels normal. HIV negative. Flow cytometry was performed which showed no evidence of active myelodysplasia or blasts, monoclonal B-cell lymphoproliferative disease, and no unusual phenotype T cells identified. Cell lines improving with current treatment it is likely that patient's pancytopenia is due to her severe hypothyroidism. - haptoglobin level is 17 - Continue to monitor CBC - Hemoglobin dropped from 9.1 to 8.3 today with slight increase in the size of hematoma on left thigh. We will repeat CBCs later in the evening if continues to drop we will do an ultrasound of left thigh to rule out any active bleeding. - Hematology consulted. Appreciate recommendations. - Fibrinogen level dropped 181-149, will repeat DIC panel tomorrow, if fibrinogen level less than 100 cryoglobulin . - Thrombocytopenic precautions Metabolic: Myxedema coma; from medication non-compliance Patient presented confused, hypothermic, bradycardic and with elevated TSH and low T4. Patient's hypothermia has resolved. Continues to remain on IV Solu- Cortef 50 mg every 8 hours but was taken off dopamine drip last night with heart rate remaining in high 40s and systolic blood pressure 90-100. - Appreciate endocrinology recommendations - Continue IV Levothyroxine - Continue IV Solu-Cortef - Free T4 and TSH improving, repeat levels tomorrow. - Warming with bear hugger if necessary. Transaminitis: Unclear etiology of abnormal LFTs. Patient reports no abdominal pain. LFTs are improving. CT Abd/Pelvis shows no focal defects in the liver. Patient is s/p cholecystectomy. Alk phos and bili are normal. These abnormal LFTs may be secondary to severe hypothyroidism, however this is unclear. Alimentary 1. Hypernatremia; resolved Patients with hypothyroidism typically have hyponatremia, however patient on presentation appeared severely dehydrated which may be the cause of her hypernatremia. Patient has also been given multiple doses of normal saline. - Continue normal saline at 125 ml per hour - Continue to monitor Na 2. Swallow evaluation Patient had a repeat swallow eval today and was started on pure and nectar thick diet. Neurology Altered mental status in setting of severe hypothyroidism. Patient was found on the ground with a dresser over her - it is unclear if she fell. Patient has had multiple falls recently. Head CT and cervical CT were negative for any acute findings. Tibula/ fibula and humerus x-rays without any acute fracture. Repeat Head CT was done on 01/14/18 for worsening mental status which remained negative. Neurology consultation was obtained who recommended mild encephalopathy with some epileptogenic potential but was negative for any acute seizures. Ammonia level normal. Spontaneous gradual improvement in mental status, since yesterday. - Neurology recommendations apprecited - Neurochecks - PT eval- pending - Fall precautions Nephrology: None DVT prophylaxis: Alps only in the setting of thrombocytopenia Patient is full code Problem List: 1. Myxedema coma 2. Bradycardia 3. Hypotension 4. Pancytopenia Pain Ratin Pain Location: None Pain Goal: Remain pain free Pain Plan: None Tomorrow's Labs & Rationales: CBC(Pancytopenia) ICU Bundle DIC Panel TSH,Free T4 Plan DVT/Prophylaxis: mechanical (only due to thrombocytopenia) Beni Bo MD 01/16/18 1109: Attending MD Review Statement Attending Sign Off Attending Cosign Statement: I have: examined this patient, reviewed [facility] EMR data, personally reviewd images, discussd w/resident/PA/GROUP ART SUPERVISOR, discussed mgmt plan w/clarence, discussed mgmt plan w/CM, discussed mgmt plan w/pt, agreed w/resident/PA/GROUP ART SUPERVISOR, amended to note. Other Findings: Impression 62 year old woman * pancytopenia * hx of thyroid ca - significant hypothyroidism consistent with myxedema * transaminitis improved * bradycardia Plan -f/u endocrine and heme recs -steroids, iv thyroid replacement -EF 50%, off dopamine -f/u cardiology -neurology appreciated -significant mental status improvement DVT prophylaxis at all times TTS 35 min
--- NOTE | 2018-01-16 07:28 | PN- Hematology ---
Subjective Subjective: She feels a little better this morning. She is more alert. She is still somewhat somnolent this morning. Review of Systems: Limited due to mental status Review of Systems Constitutional: Denies: fever. Gastrointestinal: Denies: abdominal pain. Musculoskeletal: Denies: back pain. Neurological/Psychological: Reports: confusion. All Other Systems: Reviewed and Negative Objective Vital Signs and I&Os Vital Signs Date Time Temp Pulse Resp B/P B/P Pulse O2 O2 Flow FiO2 Mean Ox Delivery Rate 01/16 0400 96 Room Air 01/16 0000 99 Room Air 01/15 2300 96.6 50 12 100/60 96 Room Air 01/15 2000 95 01/15 1600 Room Air 01/15 1600 96.4 52 8 90/60 98 Room Air 01/15 1200 Room Air 01/15 1200 96.7 57 12 100/60 96 Room Air 01/15 0800 93 Room Air 01/15 0800 96.6 54 11 90/60 93 Room Air Intake & Output 01/16 0800 01/16 0000 01/15 1600 01/15 0800 01/15 0000 01/14 1600 Intake Total 1083 1046.3 973.7 1163 1126 1111 Output Total 305 300 475 500 650 600 Balance 778 746.3 498.7 663 476 511 Intake, IV 1083 1046.3 963.7 1163 1126 1111 Intake, Oral 0 0 10 0 0 0 Number 0 1 0 0 0 Bowel Movements Output, Stool 0 Output, Urine 305 300 475 500 650 600 Physical Exam: General Appearance: no apparent distress, alert, awake, comfortable Head: atraumatic, central line in right neck Respiratory: normal breath sounds, chest non-tender, no respiratory distress, quiet respiration Cardiovascular: bradycardia Abdomen: normal bowel sounds, soft, non-tender, no organomegaly Extremities: no edema Neuro: more alert and oriented, somnolent still Skin: ecchymosis in thigh (? slight worse), petechia in extremites (worse in the RUE) Current Medications: Current Medications Sig/Tabatha Start time Last Medication Dose Route Stop Time Status Admin Atropine Sulfate 0.5 MG Q 5 MINUTES X 3 DO.. 01/12 2230 AC IV Dopamine HCl 400 MG Q12H 01/13 1200 AC 01/15 Dextrose/Water 500 ML IV 0529 Glycerin/Mineral Oil 1 JUAN ALBERTO TID PRN 01/08 1645 AC 01/09 TOP 0430 Hydrocortisone 50 MG Q8 01/12 1400 AC 01/16 Sodium Succinate IV 0514 Levothyroxine Sodium 100 MCG DAILY 01/12 1000 AC 01/15 IV 1105 Magnesium Sulfate 1 GM ONCE ONE 01/16 0600 AC 01/16 Dextrose/Water 100 ML IV 01/16 0959 0602 Morphine Sulfate 2 MG Q4P PRN 01/08 1645 DC IV Pantoprazole Sodium 40 MG DAILY 01/08 1930 AC 01/15 IV 0914 Potassium Chloride 20 MEQ ONCE ONE 01/16 0600 DC 01/16 IV 01/16 0601 0703 Potassium Chloride 20 MEQ Q1H 01/15 0630 DC 01/15 IV 01/15 0731 0821 Potassium Chloride 40 MEQ Q13H 01/12 1815 AC 01/16 Sodium Chloride 1,000 ML IV 0230 Results Last 24 Hours of Lab Results: Laboratory Tests 01/16 0419 Chemistry Sodium (137 - 145 mmol/L) 141 Potassium (3.5 - 5.1 mmol/L) 3.6 Chloride (98 - 107 mmol/L) 105 Carbon Dioxide (22 - 30 mmol/L) 31 H Anion Gap (5 - 16) 4 L BUN (7 - 17 mg/dL) 13 Creatinine (0.5 - 1.0 mg/dL) 0.5 Estimated GFR (>60 ml/min) > 60 Glucose (65 - 99 mg/dL) 115 H Calcium (8.4 - 10.2 mg/dL) 7.7 L Phosphorus (2.5 - 4.5 mg/dL) 2.1 L Magnesium (1.6 - 2.3 mg/dL) 1.8 Total Bilirubin (0.2 - 1.3 mg/dL) 1.0 Direct Bilirubin (< 0.4 mg/dL) 0.5 H AST (14 - 36 U/L) 30 ALT (9 - 52 U/L) 279 H Alkaline Phosphatase (<127 U/L) 39 Total Protein (6.3 - 8.2 g/dL) 4.9 L Albumin (3.5 - 5.0 g/dL) 2.5 L Coagulation PT (9.4 - 12.5 SEC) 10.3 INR (0.90 - 1.19) 0.95 APTT (25 - 37 SEC) 25 Fibrinogen Activity (200 - 393 MG/DL) 149 L D-Dimer High Sensitivty (0 - 243 ng/ml) < 200 Hematology CBC w Diff MAN DIFF ORDERED WBC (4.8 - 10.8 /CUMM) 3.3 L RBC (4.20 - 5.40 /CUMM) 2.63 L Hgb (12.0 - 16.0 G/DL) 8.3 L Hct (37 - 47 %) 24.4 L MCV (81.0 - 99.0 FL) 92.9 MCH (27.0 - 31.0 PG) 31.7 H MCHC (33.0 - 37.0 G/DL) 34.1 RDW (11.5 - 14.5 %) 16.3 H Plt Count (130 - 400 /CUMM) 61 L MPV (7.4 - 10.4 FL) 8.2 Gran % (42.2 - 75.2 %) 90.6 H Lymphocytes % (20.5 - 51.1 %) 5.7 L Monocytes % (1.7 - 9.3 %) 3.6 Eosinophils % (0 - 5 %) 0 Basophils % (0.0 - 2.0 %) 0.1 Absolute Granulocytes (1.4 - 6.5 /CUMM) 3.0 Segmented Neutrophils (42.2 - 75.2 %) 88 H Absolute Lymphocytes (1.2 - 3.4 /CUMM) 0.2 L Lymphocytes (20.5 - 51.1 %) 9 L Monocytes (1.7 - 9.3 %) 3 Absolute Monocytes (0.10 - 0.60 /CUMM) 0.1 Absolute Eosinophils (0.0 - 0.7 /CUMM) 0 Absolute Basophils (0.0 - 0.2 /CUMM) 0 Nucleated RBCs (0.0 - 0.0 /100WBC) 1 H Platelet Estimate (ADEQUATE) DECREASED Polychromasia 1+ Poikilocytosis 1+ Basophilic Stippling 1+ Ovalocytes 1+ Other Body Source Fld Total RBCs Counted (%) 100 Assessment/Plan Hematology Assessment/Recommendations: Mrs. Goode is a 62-year-old female with hypothyroidism, thyroid malignancy status post total thyroidectomy, ELDER ablation who presented to the hospital after being found to be confused and down by her . On presentation, she was noted to be pancytopenic with WBC 1.0, platelet of 32,000, and hemoglobin of 10.9. Vitamin B12 and folated was normal. Ferritin was elevated at 5770. Her AST and ALT were >2000. LDH is elevated at 7954. Bilirubin was elevated at 1.5. Her TSH was elevated and T4 was low. There is concern for myxedema coma. She was started on hydrocortisone and levothyroxine. She was started on empiric antibiotics. Imaging with CT head, cervical, chest, abdomen, and pelvis are reviewed and negative for any significant acute findings. Pancytopenia of unclear etiology but likely from underlying myxedema coma. Flow cytometry is unremarkable. DIC demonstrates low fibrinogen. Fibrinogen is 149 today. This should be monitored. WBC have stabilized. Platelet count seems to be improving and is 61,000 this morning. Hemoglobin has decreased to 8.3. Left thigh ecchymosis seems to be slight worse. This should be monitored closely to ensure no hematoma or worsening bleeding. Overall, she seems to be improving. Pancytopenia: -continue to monitor DIC panel -monitor CBC -monitor left thigh ecchymosis/hematoma -transfuse with cryo if fibrinogen <100 or bleeding Myxedema coma: -endocrinology following -treatment as per primary and endocrinology Please call [phone] with any questions or concerns. Problem List: 1. Pancytopenia 2. Myxedema coma
[2018-01-16 08:00] VITALS: BP 100/60
--- NOTE | 2018-01-16 09:02 | PN- Endocrinology ---
Assessment/Plan Endoscopy Assessment: 62 y/o female, hx of thyroid cancer which was diagnosed in and was treated with thyroid surgery twice and ELDER twice. Detail unclear. She was supposed to take Levothyroxine 150 mcg daily. However, she hasn't been compliance with the medication. Patient was in ER in 05/2017 and 08/2017-- her TSH was > 60 and free T4 was < 0.07. She presented to ER today again after she was found that she was on the floor. Patient was hypothermia and bradycardic. Blood work showed profound hypothyroidism along with borderline low cortisol, abnormal LFT and pancytopenia. She was put on Levothyroxine 100 mcg iv and stress dose of steroid. She has been on off on dopamine drip. Currently she is still on Levothyroxine 100 mcg iv daily and hydrocortisone 50 mg iv every 8 hours. Her BP and HR have been relately stable at this point. Patient is awake and she feels slightly better. Plan: continue the current Levothyroxine and hydrocortisone for now; continue monitoring vital signs; repeat TSH and free T4 tomorrow am. will follow. Subjective Subjective: She is awake and feels slightly better. Objective Last 24 Hrs of Vital Signs/I&O Vital Signs Date Time Temp Pulse Resp B/P B/P Pulse O2 O2 Flow FiO2 Mean Ox Delivery Rate 01/16 0800 96 Room Air 01/16 0800 96.8 48 14 100/60 95 Room Air 01/16 0400 96 Room Air 01/16 0000 99 Room Air 01/15 2300 96.6 50 12 100/60 96 Room Air 01/15 2000 95 01/15 1600 Room Air 01/15 1600 96.4 52 8 90/60 98 Room Air 01/15 1200 Room Air 01/15 1200 96.7 57 12 100/60 96 Room Air Intake & Output 01/16 1600 01/16 0800 01/16 0000 Intake Total 1083 1046.3 Output Total 305 300 Balance 778 746.3 Intake, IV 1083 1046.3 Intake, Oral 0 0 Number 0 Bowel Movements Output, Stool 0 Output, Urine 305 300 Results Pertinent Lab/Chad Results: Laboratory Tests 01/16 419 Chemistry Sodium (137 - 145 mmol/L) 141 Potassium (3.5 - 5.1 mmol/L) 3.6 Chloride (98 - 107 mmol/L) 105 Carbon Dioxide (22 - 30 mmol/L) 31 H Anion Gap (5 - 16) 4 L BUN (7 - 17 mg/dL) 13 Creatinine (0.5 - 1.0 mg/dL) 0.5 Estimated GFR (>60 ml/min) > 60 Glucose (65 - 99 mg/dL) 115 H Calcium (8.4 - 10.2 mg/dL) 7.7 L Phosphorus (2.5 - 4.5 mg/dL) 2.1 L Magnesium (1.6 - 2.3 mg/dL) 1.8 Total Bilirubin (0.2 - 1.3 mg/dL) 1.0 Direct Bilirubin (< 0.4 mg/dL) 0.5 H AST (14 - 36 U/L) 30 ALT (9 - 52 U/L) 279 H Alkaline Phosphatase (<127 U/L) 39 Total Protein (6.3 - 8.2 g/dL) 4.9 L Albumin (3.5 - 5.0 g/dL) 2.5 L Coagulation PT (9.4 - 12.5 SEC) 10.3 INR (0.90 - 1.19) 0.95 APTT (25 - 37 SEC) 25 Fibrinogen Activity (200 - 393 MG/DL) 149 L D-Dimer High Sensitivty (0 - 243 ng/ml) < 200 Hematology CBC w Diff MAN DIFF ORDERED WBC (4.8 - 10.8 /CUMM) 3.3 L RBC (4.20 - 5.40 /CUMM) 2.63 L Hgb (12.0 - 16.0 G/DL) 8.3 L Hct (37 - 47 %) 24.4 L MCV (81.0 - 99.0 FL) 92.9 MCH (27.0 - 31.0 PG) 31.7 H MCHC (33.0 - 37.0 G/DL) 34.1 RDW (11.5 - 14.5 %) 16.3 H Plt Count (130 - 400 /CUMM) 61 L MPV (7.4 - 10.4 FL) 8.2 Gran % (42.2 - 75.2 %) 90.6 H Lymphocytes % (20.5 - 51.1 %) 5.7 L Monocytes % (1.7 - 9.3 %) 3.6 Eosinophils % (0 - 5 %) 0 Basophils % (0.0 - 2.0 %) 0.1 Absolute Granulocytes (1.4 - 6.5 /CUMM) 3.0 Segmented Neutrophils (42.2 - 75.2 %) 88 H Absolute Lymphocytes (1.2 - 3.4 /CUMM) 0.2 L Lymphocytes (20.5 - 51.1 %) 9 L Monocytes (1.7 - 9.3 %) 3 Absolute Monocytes (0.10 - 0.60 /CUMM) 0.1 Absolute Eosinophils (0.0 - 0.7 /CUMM) 0 Absolute Basophils (0.0 - 0.2 /CUMM) 0 Nucleated RBCs (0.0 - 0.0 /100WBC) 1 H Platelet Estimate (ADEQUATE) DECREASED Polychromasia 1+ Poikilocytosis 1+ Basophilic Stippling 1+ Ovalocytes 1+ Other Body Source Fld Total RBCs Counted (%) 100
--- NOTE | 2018-01-16 11:17 | Cons- Psychiatry ---
Psychiatric Consult Date of Consult: 01/16/18 Reason for Consult: "Paranoid behavior" History of Present Illness: 62 y.o., , domiciled female JOSHUA 01/08/18 @ 1250 after a fall at home, found by her when he came home at 1200 to check on her. She had pulled his dresser over on herself, but it was stopped by the bed. She reports "feeling a sensation" when she walked by the dresser. The propane stove was also on, possibly unlit. Per her , she has not been compliant with her thyroid medication. She had been sent in to the ED by her PCP, concerned about myxedema coma in February 2017. Previously, she had not been compliant with the levothyroxine, stopping it, per her PCP, because the color of the pills had changed. PMH includes thyroid cancer s/p thyroidectomy now on levothyroxine, cholecystectomy, hernia repair. She was admitted with myxedema coma, bradycardia, leukopenia, thrombicytopenia and altered mental status. On 01/14/18, the patient was mute, not responding to questions by the medical or nursing team. She responded, and began to speak after a one-time dose of lorazepam 0.5 mg IV. Collateral: The patient signed a written release of information (in the paper chart ) to speak with her , Bryson (Juan Luis): They have been together for 44 years. 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 When he lost his job, the patient complained that on her depression. They moved from the [facility] to an apartment in [place] and now they're in an apartment in [place], where the patient is continuing to work in the [employer] business. After her diagnosed with thyroid cancer and subsequent thyroidectomy's, Juan Luis reports that the patient had been an aggressive manager communication of her own health, make in her own appointments in being compliant with orders and medications. 2015, she mentioned to Juan Luis and her doctor that she thought the pills were not correct , because they were the wrong color. In February 2017, Dr. Mead sent her to the [facility], due to concern for myxedema coma. After this, Juan Luis began counting the pills in the file. The patient was apparently throwing them away in the bathroom. Recently her mobility changed, and she had been spitting them out behind the end table next to their bed. Juan Luis discovered approximately 85 thyroid pills on the day of admission. He reports that she had a depressive breakdown in 2007, and was seeing a psychiatrist for a short time, was on a medication but then decided that she didn't need either. At that time, he had lost his job and they had to move, and their daughter, Stephanie, moved away to college in [facility], where she continues to live. The patient went through menopause, and Juan Lius suspects that all of these attributed to her depression. After they moved to [place], the patient mentioned in 2010 that she was going to hurt herself, with no stated plan. She began to see a counselor, Center to an emergency room, and then to a psychiatric hospital, where she remained for approximately a week. She was discharged to outpatient psychiatry, but stopped that soon after. He has noticed over the last 3 or 4 months, that the changes to her memory, forgetting small things, is getting worse. Without her daughter in the home, she doesn't do anything, and will not watch TV unless he is there. He is unaware of family psychiatric history, except to mention that her father had "a breakdown" when she was a teenager. Allergies: Coded Allergies: Sulfa (Sulfonamide Antibiotics) (UNKNOWN 09/03/17) Current Medications: Current Medications Sig/Tabatha Start time Last Medication Dose Route Stop Time Status Admin Atropine Sulfate 0.5 MG Q 5 MINUTES X 3 DO.. 01/12 2230 AC IV Dopamine HCl 400 MG Q12H 01/13 1200 DC 01/15 Dextrose/Water 500 ML IV 0529 Glycerin/Mineral Oil 1 JUAN ALBERTO TID PRN 01/08 1645 AC 01/09 TOP 0430 Hydrocortisone 50 MG Q8 01/12 1400 AC 01/16 Sodium Succinate IV 0514 Levothyroxine Sodium 100 MCG DAILY 01/12 1000 AC 01/16 IV 0954 Magnesium Sulfate 1 GM ONCE ONE 01/16 600 DC 01/16 Dextrose/Water 100 ML IV 01/16 0959 0602 Morphine Sulfate 2 MG Q4P PRN 01/08 1645 DC IV Pantoprazole Sodium 40 MG DAILY 01/08 1930 AC 01/16 IV 0954 Potassium Chloride 20 MEQ ONCE ONE 01/16 06 DC 01/16 IV 01/16 0601 0703 Potassium Chloride 40 MEQ Q13H 01/12 1815 AC 01/16 Sodium Chloride 1,000 ML IV 0230 Past History Past Medical History Neurological: NONE EENT: NONE Cardiovascular: NONE Respiratory: NONE Gastrointestinal: NONE Hepatic: NONE Renal: NONE Musculoskeletal: NONE Psychiatric: depression, suicidal ideation without plan in 2010, requiring hospitalization Endocrine: hypothyroidism Cancer(s): THYROID CA Past Surgical History Surgical History: cholecystectomy, THYROIDECTOMY hernia repair Psychosocial History Strengths/Capabilities: Supportive Physical Limitations (Interventions): Bradycardic, lethargic. Psychiatric Treatment History Psych Treatment Psychiatric Treatment Yes Inpatient Treatment Yes Outpatient Treatment Yes Location of Treatment inpatient and outpatient in [place]. Before that, outpatient in [place] Reason for Treatment Depression, suicidal ideation without plan Dates of Treatment 2007 and 2010 Response to Treatment Unknown, the patient stopped outpatient treatment after a short time. The spouse is unsure what medications she was on. Diagnosis: F32.9 major depressive disorder, unspecified, with anxious features Mood disorder due to a medical condition, hypothyroidism Risk Factors: chronic/serious med cond., SA/MH hospitalized, limited support Substance Use/Abuse History Drug Use/Abuse Substances Used/Abused No (Denies) Substance Abuse Treatment Substance Abuse Treatment Past Substance Abuse [place] No Assessment/Plan Mental Status Orientation: Oriented to person, day, year, "hospital," [place], but not month. Affect: Flat Speech: Soft Neuro-vegetative: Energy Decreased Mental Status Exam: Lethargic, not interested in eating, arousable, oriented to person, day, "hospital," year, state, but not month. She denies AH or VH. She reports 1-2 meals/day She denies any psychiatric diagnosis or treatment She denies use of alcohol or drugs, including cannabis. Sleep is approx, 8 hours and restful. She denies SI, HI, and denies any history of suicide attempt. She endorses thoughts sometimes that it would be better if she were not alive anymore, but denies plan or intent. She reports feeling safe at home, stating that she and her have a lot of arguments. She reports feeling afraid that someone is out to get her, her sometimes. The patient is concerned that her thyroid medication is the wrong one, and the dose is not high enough. She feels depressed about this. Depression 05/15. She denies hopelessness, helplessness, worthlessness or guilt feelings. Anxiety 06/15. Lab Results: Laboratory Tests 01/16 0419 Chemistry Sodium (137 - 145 mmol/L) 141 Potassium (3.5 - 5.1 mmol/L) 3.6 Chloride (98 - 107 mmol/L) 105 Carbon Dioxide (22 - 30 mmol/L) 31 H Anion Gap (5 - 16) 4 L BUN (7 - 17 mg/dL) 13 Creatinine (0.5 - 1.0 mg/dL) 0.5 Estimated GFR (>60 ml/min) > 60 Glucose (65 - 99 mg/dL) 115 H Calcium (8.4 - 10.2 mg/dL) 7.7 L Phosphorus (2.5 - 4.5 mg/dL) 2.1 L Magnesium (1.6 - 2.3 mg/dL) 1.8 Total Bilirubin (0.2 - 1.3 mg/dL) 1.0 Direct Bilirubin (< 0.4 mg/dL) 0.5 H AST (14 - 36 U/L) 30 ALT (9 - 52 U/L) 279 H Alkaline Phosphatase (<127 U/L) 39 Total Protein (6.3 - 8.2 g/dL) 4.9 L Albumin (3.5 - 5.0 g/dL) 2.5 L Coagulation PT (9.4 - 12.5 SEC) 10.3 INR (0.90 - 1.19) 0.95 APTT (25 - 37 SEC) 25 Fibrinogen Activity (200 - 393 MG/DL) 149 L D-Dimer High Sensitivty (0 - 243 ng/ml) < 200 Hematology CBC w Diff MAN DIFF ORDERED WBC (4.8 - 10.8 /CUMM) 3.3 L RBC (4.20 - 5.40 /CUMM) 2.63 L Hgb (12.0 - 16.0 G/DL) 8.3 L Hct (37 - 47 %) 24.4 L MCV (81.0 - 99.0 FL) 92.9 MCH (27.0 - 31.0 PG) 31.7 H MCHC (33.0 - 37.0 G/DL) 34.1 RDW (11.5 - 14.5 %) 16.3 H Plt Count (130 - 400 /CUMM) 61 L MPV (7.4 - 10.4 FL) 8.2 Gran % (42.2 - 75.2 %) 90.6 H Lymphocytes % (20.5 - 51.1 %) 5.7 L Monocytes % (1.7 - 9.3 %) 3.6 Eosinophils % (0 - 5 %) 0 Basophils % (0.0 - 2.0 %) 0.1 Absolute Granulocytes (1.4 - 6.5 /CUMM) 3.0 Segmented Neutrophils (42.2 - 75.2 %) 88 H Absolute Lymphocytes (1.2 - 3.4 /CUMM) 0.2 L Lymphocytes (20.5 - 51.1 %) 9 L Monocytes (1.7 - 9.3 %) 3 Absolute Monocytes (0.10 - 0.60 /CUMM) 0.1 Absolute Eosinophils (0.0 - 0.7 /CUMM) 0 Absolute Basophils (0.0 - 0.2 /CUMM) 0 Nucleated RBCs (0.0 - 0.0 /100WBC) 1 H Platelet Estimate (ADEQUATE) DECREASED Polychromasia 1+ Poikilocytosis 1+ Basophilic Stippling 1+ Ovalocytes 1+ Other Body Source Fld Total RBCs Counted (%) 100 Diffential Diagnosis: Myxedematous psychosis F32.9 major depressive disorder, unspecified, with anxious features Mood disorder due to a medical condition, hypothyroidism Neurocognitive disorder, unspecified Impression: The patient has a history of depression, and treatment for the same, including psychiatric hospitalization in [place] after suicidal ideation without plan, but stated intent. At this time, it appears that her current severe hypothyroidism is adding to what we feel is a pre-existing depressive condition, in the setting of possible neurocognitive changes or early onset dementia. The is now recognizing some cognitive and memory changes, especially over the last few months. We will have suggestions after her current endocrine and medical issues have resolved, and will evaluate her again as her issues resolve. Provisional Treatment Plan: 1. No psychotropic interventions at this time. We will continue to follow along with you. Thank you for this consult.
[2018-01-16 15:55] VITALS: BP 92/62
[2018-01-16 19:53] LABS: ABSOLUTE BASOPHIL COUNT 0 /CUMM (0.0-0.2); ABSOLUTE EOSINOPHIL COUNT 0 /CUMM (0.0-0.7); ABSOLUTE GRANULOCYTE CT 4.4 /CUMM (1.4-6.5); ABSOLUTE LYMPH COUNT 0.2 /CUMM (1.2-3.4); ABSOLUTE MONOCYTE COUNT 0.2 /CUMM (0.10-0.60); BASOPHIL % 0.1 % (0.0-2.0); EOSINOPHIL % 0.1 % (0-5); HEMATOCRIT 25.8 % (37-47); MEAN CORPUSCULAR HGB 31.6 PG (27.0-31.0); MEAN CORPUSCULAR HGB CONC 33.5 G/DL (33.0-37.0); MEAN CORPUSCULAR VOLUME 94.3 FL (81.0-99.0); RBC DISTRIBUTION WIDTH 16.3 % (11.5-14.5); RED BLOOD CELL CT 2.73 /CUMM (4.20-5.40); WHITE BLOOD CELL COUNT 4.8 /CUMM (4.8-10.8)
[2018-01-16 19:59] LABS: PLATELET COUNT 79 /CUMM (130-400)
[2018-01-16 20:00] LABS: GRANULOCYTE % 91.8 % (42.2-75.2)
--- NOTE | 2018-01-16 20:27 | PN- Cardiology ---
Subjective Subjective: * Patient responds quietly but appropriately to questions. * off dopamine * heart rate in the 40-60's * potassium 3.6 * decreasing H/H improved platelets * free T4 remains low Objective Vital Signs and I&Os Vital Signs Date Time Temp Pulse Resp B/P B/P Pulse O2 O2 Flow FiO2 Mean Ox Delivery Rate 01/16 1600 92 Room Air 01/16 1555 97.8 49 11 92/62 92 Room Air 01/16 1200 94 Room Air 01/16 1159 Room Air Room Air 01/16 0800 96 Room Air 01/16 0800 96.8 48 14 100/60 95 Room Air 01/16 0400 96 Room Air 01/16 0000 99 Room Air 01/15 2300 96.6 50 12 100/60 96 Room Air Intake & Output 01/16 1600 01/16 0800 01/16 0000 01/15 1600 01/15 0800 01/15 0000 Intake Total 1142 1083 1046.3 973.7 1163 1126 Output Total 200 305 300 475 500 650 Balance 942 778 746.3 498.7 663 476 Intake, IV 1112 1083 1046.3 963.7 1163 1126 Intake, Oral 30 0 0 10 0 0 Number 0 0 1 0 0 Bowel Movements Output, Stool 0 Output, Urine 200 305 300 475 500 650 Physical Exam: General: WD/WN female; doesn't open eyes but has purposeful movements and follows commands HEENT: swollen left cheek, PERRL, EOMI Neck: no JVD, no carotid bruit Heart: RRR, no murmur Lungs: clear bilaterally Extremities; no edema Assessment/Plan Assessment/Plan * This patient now has a low normal blood pressure off pressores. I suspect that her baseline blood pressure is not very high and we should have as our goal a systolic pressure of 90mmHg as long as she maintains her renal function. Continue IV NS. * I would be very reluctant to place a pacemaker in this patient with a presumed reversible cause of her bradycardia. Her platelets are improving however and therefore if she remains bradycardic or with heart block after her hypothyroidism is treated then I would consider pacemaker placement. We will watch this situation expectantly. * She may have had hepatic congestion with shock liver causing her elevated hepatic transaminases but these enzymes are improving. A small pericaridial effusion is noted which is not unexpected in the setting of severe hypothyroidism which may have contributed to her low voltage. There is no evidence of tamponade and the effusion has become smaller. Continue maintenance IV fluids. Continue telemetry? Yes
[2018-01-17] VITALS: BP 102/60
[2018-01-17 04:17] LABS: ABSOLUTE BASOPHIL COUNT 0 /CUMM (0.0-0.2); ABSOLUTE EOSINOPHIL COUNT 0 /CUMM (0.0-0.7); ABSOLUTE GRANULOCYTE CT 3.5 /CUMM (1.4-6.5); ABSOLUTE LYMPH COUNT 0.2 /CUMM (1.2-3.4); ABSOLUTE MONOCYTE COUNT 0.1 /CUMM (0.10-0.60); BASOPHIL % 0 % (0.0-2.0); EOSINOPHIL % 0 % (0-5); HEMATOCRIT 24.5 % (37-47); MEAN CORPUSCULAR HGB CONC 34.2 G/DL (33.0-37.0); MEAN CORPUSCULAR VOLUME 93.7 FL (81.0-99.0); MEAN PLATELET VOLUME 7.9 FL (7.4-10.4); PLATELET COUNT 81 /CUMM (130-400); RBC DISTRIBUTION WIDTH 16.9 % (11.5-14.5); RED BLOOD CELL CT 2.62 /CUMM (4.20-5.40); WHITE BLOOD CELL COUNT 3.8 /CUMM (4.8-10.8)
[2018-01-17 04:34] LABS: PT 10.5 SEC (9.4-12.5); PTT 25 SEC (25-37)
[2018-01-17 05:51] LABS: GRANULOCYTE % 92.3 % (42.2-75.2)
[2018-01-17 08:34] VITALS: BP 109/57
--- NOTE | 2018-01-17 08:34 | PN- Resident CRCU ---
Subjective HPI/CRCU Issues: -Myxedema coma due to noncompliance with thyroid medication - improving -Hx of papillary thyroid cancer status post resection and radioactive iodine -Confusion/AMS with agitation likely due to Myxedema coma/ ?? Psychiatric issues -results -Hypotension/bradycardia due to above - resolved. -Pancytopenia (improving). -Transaminitis due to shock liver 2/2 Myxedema coma -resolved. 24 Hour Events: Patient's mental status improved significantly. She did eat some breakfast this morning but states that she would prefer more liquids than solids. Reports mild abdominal and rectal discomfort that started this morning. Denies any chest pain, palpitations, shortness of breath, cough, nausea, vomiting, diarrhea/ constipation or any overnight events. Right IJ Day 9 Noble catheter Day 10 Objective Vital Signs & I&O Last 8 Hrs of Vitals and I&O: Intake & Output 01/17 1600 Intake Total 1170 Output Total 250 Balance 920 Intake, IV 1070 Intake, Oral 100 Number 2 Bowel Movements Output, Urine 250 Exam General Appearance: well developed/nourished, no apparent distress, alert, awake , comfortable Head: atraumatic, normal appearance Neck: normal inspection, supple Respiratory: normal breath sounds, chest non-tender, lungs clear Cardiovascular: regular rate/rhythm Gastrointestinal: normal bowel sounds, soft, mild tenderness/discomfort on palpation Extremities: no edema, stable left this echymosis Cranial Nerves: normal hearing, normal speech, PERRL Current Medications: Current Medications Sig/Tabatha Start time Last Medication Dose Route Stop Time Status Admin Atropine Sulfate 0.5 MG Q 5 MINUTES X 3 DO.. 01/12 2230 AC IV Glycerin/Mineral Oil 1 JUAN ALBERTO TID PRN 01/08 1645 AC 01/09 TOP 0430 Hydrocortisone 50 MG Q12 01/17 2100 UNVr Sodium Succinate IV Hydrocortisone 50 MG Q8 01/12 1400 DC 01/17 Sodium Succinate IV 1330 Levothyroxine Sodium 100 MCG DAILY 01/12 1000 AC 01/17 IV 0925 Pantoprazole Sodium 40 MG DAILY 01/08 1930 AC 01/17 IV 0925 Potassium Chloride 40 MEQ Q8H 01/17 1230 AC 01/17 Dextrose/Sodium 1,000 ML IV 1317 Chloride Potassium Chloride 40 MEQ 125 MLS/HR 01/17 1200 CAN IV Potassium Chloride 40 MEQ Q13H 01/17 0400 DC 01/17 Sodium Chloride 1,000 ML IV 0458 Potassium Chloride 40 MEQ Q13H 01/12 1815 DC 01/16 Sodium Chloride 1,000 ML IV 2032 Impression/Plan Impression/Problem List Impression: Patient is a 62-year-old female with past medical history significant for iatrogenic hypothyroidism status post total thyroidectomy for thyroid cancer presenting this admission with myxedema coma secondary to noncompliance, neutropenia, thrombocytopenia and bradycardia. Patient is admitted to the ICU for management of following: Respiratory Patient not on supplemental oxygen and saturating above 90% on room air. Infectious: Neutropenia Patient has an absolute neutrophil count of 700 on admission, now fluctuating b/ w 1.7 to 6.2. Etiology of patient's neutropenia is unclear at this time however may be secondary to severe hypothyroidism, less likely infectious as patient is HIV and hepatitis negative, Rapid flu, lyme titre, blood and urine Cx were negative and CXR also negative for any acute pathology. Patient was initially prophylactically covered with antibiotics as the mortality rate of patient's with myxedema coma who become septic is much higher, however antibiotics have been stopped as there are no signs of acute infection and WBC count has increased to normal and likely neutropenia was secondary to severe hypothyroidism. - Follow off antibiotics - Repeat CBCs in a.m. - Follow up blood and urine cultures - remain negative thus far - Monitor vitals closely Cardiac: 1. Bradycardia Likely secondary to severe hypothyroidism. Lyme titer ordered in setting of bradycardia and pancytopneia was negative. Patient was initially started on Levophed for hypotension but was switched to dopamine for hypotension and bradycardia. Initial echocardiogram showed normal ejection fraction with small pericardial effusion. Repeat limited echo was done for concerns of worsening pericardial effusion as patient's EKG on 01/11/18 showed low voltage, but repeat echocardiogram showed trace pericardial effusion. - Off dopamine drip - Appreciate cardiology recommendations - Transcutaneous pacer pads and atropine at bedside - Monitor on telemetry 2. Hypotension Patient's hypotension is likely secondary to severe hypothyroidism. Patient's hypotension worsened on 01/10 requiring levophed and a central line. A right internal jugular line was placed on 01/09/18. Levo fed was discontinued over the weekend and was started on dopamine because of persistent hypotesion and bradycardia. She was taken off dopamine drip last night with systolic blood pressure remaining in 90s to 100 100s and heart rate in high 40s. - Continue to monitor bp . - Continue hydration with IV D5W 1/2 NS - IV solucortef changed to Q 12 today. - Continue compress on right arm as needed.(Phlebitis from peripheral levophed) Heme: Pancytopenia: Improving Patient on admission was neutropenic, anemic and severely thrombocytopenic. There have been case reports of pancytopenia with severe hypothyroidism however patient will require further workup at this time. Patient had a reticulocyte count of 1.48% with absolute reticulocyte count of 1.1 and a reticulocyte count index of 0.75 indicating bone marrow suppression which can be caused by hypothyroidism. LDH count is elevated. Iron panel revealed elevated iron, normal TIBC and elevated ferritin. Vitamin B12 is elevated. Folate levels normal. HIV negative. Flow cytometry was performed which showed no evidence of active myelodysplasia or blasts, monoclonal B-cell lymphoproliferative disease, and no unusual phenotype T cells identified. Cell lines improving with current treatment it is likely that patient's pancytopenia is due to her severe hypothyroidism. - haptoglobin level is 17 - Continue to monitor CBC - Hematology consulted. Appreciate recommendations. - Fibrinogen level dropped from 181--> 149--> 148, will repeat DIC panel tomorrow, if fibrinogen level less than 100 can give cryo precipitate. - Thrombocytopenic precautions Metabolic: Myxedema coma; from medication non-compliance Patient presented confused, hypothermic, bradycardic and with elevated TSH and low T4. Patient's hypothermia has resolved. Continues to remain on IV Solu- Cortef 50 mg every 8 hours but was taken off dopamine drip last night with heart rate remaining in high 40s and systolic blood pressure 90-100. - Appreciate endocrinology recommendations - Continue IV Levothyroxine - Continue IV Solu-Cortef ; decreased dose from 50 miligrams every 8 hours to every 12 hours. - Free T4 improving, TSH went up from 6.56 to 14.1(dopamine can falsely lower TSH levels), will repeat levels on friday. - Warming with bear hugger if necessary. Transaminitis: Resolved Unclear etiology of abnormal LFTs. Patient reports no abdominal pain. LFTs are improving. CT Abd/Pelvis shows no focal defects in the liver. Patient is s/p cholecystectomy. Alk phos and bili are normal. These abnormal LFTs may be secondary to severe hypothyroidism, however this is unclear. Alimentary 1. Hypernatremia; resolved Patients with hypothyroidism typically have hyponatremia, however patient on presentation appeared severely dehydrated which may be the cause of her hypernatremia. Patient has also been given multiple doses of normal saline. - Will change normal saline to D5 1/2 NS at 125 ml per hour - Continue to monitor Na 2. Swallow evaluation Continue pure and nectar thick diet. Neurology Altered mental status in setting of severe hypothyroidism. Resolved Patient was found on the ground with a dresser over her - it is unclear if she fell. Patient has had multiple falls recently. Head CT and cervical CT were negative for any acute findings. Tibula/ fibula and humerus x-rays without any acute fracture. Repeat Head CT was done on 01/14/18 for worsening mental status which remained negative. Neurology consultation was obtained who recommended mild encephalopathy with some epileptogenic potential but was negative for any acute seizures. Ammonia level normal. - Neurology recommendations apprecited - Neurochecks - PT eval- pending - Fall precautions Nephrology: None DVT prophylaxis: Alps only in the setting of thrombocytopenia Patient is full code Problem List: 1. Myxedema coma 2. Bradycardia 3. Pancytopenia Pain Ratin Pain Location: NA Pain Goal: Remain pain free Pain Plan: NA Tomorrow's Labs & Rationales: CBC(Pancytopenia) ICU Bundle Plan DVT/Prophylaxis: mechanical (only due to thrombocytopenia)
--- NOTE | 2018-01-17 10:25 | PN- CRCU ---
Subjective HPI/Critical Care Issues: Doing better More awake and alert Eating slightly Continues to be on high-dose IV fluids Heart rate stable SIGNIFICANT DATA potassium improving chloride is elevated phosphorous is low her TSH is slightly elevated still free T4 remains low white count 3.8 hemoglobin 8.4 platelets are slowly improving last blood gas reviewed Objective Current Medications: Current Medications Sig/Tabatha Start time Last Medication Dose Route Stop Time Status Admin Atropine Sulfate 0.5 MG Q 5 MINUTES X 3 DO.. 01/12 2230 AC IV Glycerin/Mineral Oil 1 JUAN ALBERTO TID PRN 01/08 1645 AC 01/09 TOP 0430 Hydrocortisone 50 MG Q8 01/12 1400 AC 01/17 Sodium Succinate IV 0522 Levothyroxine Sodium 100 MCG DAILY 01/12 1000 AC 01/17 IV 0925 Magnesium Sulfate 1 GM ONCE ONE 01/16 0600 DC 01/16 Dextrose/Water 100 ML IV 01/16 0959 0602 Pantoprazole Sodium 40 MG DAILY 01/08 1930 AC 01/17 IV 0925 Potassium Chloride 40 MEQ Q13H 01/17 0400 01/17 Sodium Chloride 1,000 ML IV 0458 Potassium Chloride 40 MEQ Q13H 01/12 1815 DC 01/16 Sodium Chloride 1,000 ML IV 2033 Vital Signs & I&O Last 24 Hrs of Vitals and I&O: Vital Signs Date Time Temp Pulse Resp B/P B/P Pulse O2 O2 Flow FiO2 Mean Ox Delivery Rate 01/17 0834 97.1 57 22 109/57 96 Room Air 01/17 0800 96 Room Air 01/17 0000 97.6 48 12 102/60 93 Room Air Room Air 01/16 1600 92 Room Air 01/16 1555 97.8 49 11 92/62 92 Room Air 01/16 1200 94 Room Air 01/16 1159 Room Air Room Air Intake & Output 01/17 1600 01/17 0800 01/17 0000 Intake Total 862 1000 Output Total 270 150 Balance 592 850 Intake, IV 862 1000 Intake, Oral 0 0 Number 0 Bowel Movements Output, Urine 270 150 Impression/Plan Impression/Plan Impression/Plan: General Appearance: no apparent distress, alert, awake, comfortable Head: atraumatic, central line in right neck Respiratory: normal breath sounds, chest non-tender, no respiratory distress, quiet respiration Cardiovascular: bradycardia Abdomen: normal bowel sounds, soft, non-tender, no organomegaly Extremities: no edema Neuro: more alert and oriented, somnolent still Skin: ecchymosis in thigh , petechia in extremites 62-year-old female with past history of iatrogenic hypothyroidism after total thyroidectomy for thyroid cancer on oral supplements presented with myxedema picture secondary to noncompliance, pancytopenia, and bradycardia Issues * Profound hypothyroidism with myexedema coma like features now improving slowly * Mild hypotension now better due to hypothyroidism and prob hypocortisol with no clinical evidence of septic focus * Pt has a small pericardial effusion but no tamponade physiology * Stable Sig belen * Pancytopenia prob related to his endo issues, hiv neg and no evidence of consumption, pt does have low fibrinogen * Hyperosmolar state initially now better * Bilateral atx and obesity with no sig hypercarbia * Encephalopathy due to myxedema REC Stable Change IV fluids to d5 .45 ns with kcl at 50 cc from now on cont other meds OOB to chair to increase po food
--- NOTE | 2018-01-17 12:44 | PN- Endocrinology ---
Assessment/Plan Endoscopy Assessment: 62 y/o female, hx of thyroid cancer which was diagnosed in and was treated with thyroid surgery twice and ELDER twice. Detail unclear. She was supposed to take Levothyroxine 150 mcg daily. However, she hasn't been compliance with the medication. Patient was in ER in 05/2017 and 08/2017-- her TSH was > 60 and free T4 was < 0.07. She presented to ER today again after she was found that she was on the floor. Patient was hypothermia and bradycardic. Blood work showed profound hypothyroidism along with borderline low cortisol, abnormal LFT and pancytopenia. She was put on Levothyroxine 100 mcg iv and stress dose of steroid. She has been on off on dopamine drip. Currently she is still on Levothyroxine 100 mcg iv daily and hydrocortisone 50 mg iv every 8 hours. Her BP and HR have been relately stable at this point. On 01/17/2018, repeat TSH 14.1 and free T4 0.58. Plan: 1. continue Levothyroxine 100 mcg iv daily for now; 2. decrease Hydrocortisone to 50 mg iv every 12 hours; 3. repeat TFT in 2 days; 4. monitor vital signs will follow. Subjective Subjective: She is sleeping at this moment. Objective Last 24 Hrs of Vital Signs/I&O Vital Signs Date Time Temp Pulse Resp B/P B/P Pulse O2 O2 Flow FiO2 Mean Ox Delivery Rate 01/17 0834 97.1 57 22 109/57 96 Room Air 01/17 0800 96 Room Air 01/17 0000 97.6 48 12 102/60 93 Room Air Room Air 01/16 1600 92 Room Air 01/16 1555 97.8 49 11 92/62 92 Room Air Intake & Output 01/17 1600 01/17 0800 01/17 0000 Intake Total 862 1000 Output Total 270 150 Balance 592 850 Intake, IV 862 1000 Intake, Oral 0 0 Number 0 Bowel Movements Output, Urine 270 150 Results Pertinent Lab/Chad Results: Laboratory Tests 01/17 01/16 0345 1910 Chemistry Sodium (137 - 145 mmol/L) 143 Potassium (3.5 - 5.1 mmol/L) 3.8 Chloride (98 - 107 mmol/L) 108 H Carbon Dioxide (22 - 30 mmol/L) 30 Anion Gap (5 - 16) 5 BUN (7 - 17 mg/dL) 16 Creatinine (0.5 - 1.0 mg/dL) 0.5 Estimated GFR (>60 ml/min) > 60 Glucose (65 - 99 mg/dL) 120 H Calcium (8.4 - 10.2 mg/dL) 7.8 L Phosphorus (2.5 - 4.5 mg/dL) 2.2 L Magnesium (1.6 - 2.3 mg/dL) 1.9 Total Bilirubin (0.2 - 1.3 mg/dL) 1.0 AST (14 - 36 U/L) 28 ALT (9 - 52 U/L) 245 H Albumin (3.5 - 5.0 g/dL) 2.6 L TSH (0.270 - 4.200 uIU/mL) 14.100 H Free T4 (0.78 - 2.44 ng/dL) 0.58 L Coagulation PT (9.4 - 12.5 SEC) 10.5 INR (0.90 - 1.19) 0.96 APTT (25 - 37 SEC) 25 Fibrinogen Activity (200 - 393 MG/DL) 148 L D-Dimer High Sensitivty (0 - 243 ng/ml) < 200 Hematology CBC w Diff NO MAN DIFF REQ NO MAN DIFF REQ WBC (4.8 - 10.8 /CUMM) 3.8 L 4.8 RBC (4.20 - 5.40 /CUMM) 2.62 L 2.73 L Hgb (12.0 - 16.0 G/DL) 8.4 L 8.6 L Hct (37 - 47 %) 24.5 L 25.8 L MCV (81.0 - 99.0 FL) 93.7 94.3 MCH (27.0 - 31.0 PG) 32.0 H 31.6 H MCHC (33.0 - 37.0 G/DL) 34.2 33.5 RDW (11.5 - 14.5 %) 16.9 H 16.3 H Plt Count (130 - 400 /CUMM) 81 L 79 L MPV (7.4 - 10.4 FL) 7.9 8.0 Gran % (42.2 - 75.2 %) 92.3 H 91.8 H Lymphocytes % (20.5 - 51.1 %) 4.8 L 4.4 L Monocytes % (1.7 - 9.3 %) 2.9 3.6 Eosinophils % (0 - 5 %) 0 0.1 Basophils % (0.0 - 2.0 %) 0 0.1 Absolute Granulocytes (1.4 - 6.5 /CUMM) 3.5 4.4 Absolute Lymphocytes (1.2 - 3.4 /CUMM) 0.2 L 0.2 L Absolute Monocytes (0.10 - 0.60 /CUMM) 0.1 0.2 Absolute Eosinophils (0.0 - 0.7 /CUMM) 0 0 Absolute Basophils (0.0 - 0.2 /CUMM) 0 0
[2018-01-17 16:00] VITALS: BP 119/76
--- NOTE | 2018-01-17 19:23 | PN- Cardiology ---
Subjective Subjective: Feels "okay", but fatigued. Sinus bradycardia on bedside monitor in the 50 bpm range. Objective Vital Signs and I&Os Vital Signs Date Time Temp Pulse Resp B/P B/P Pulse O2 O2 Flow FiO2 Mean Ox Delivery Rate 01/17 1600 94 Room Air 01/17 1600 97.2 50 14 119/76 94 Room Air 01/17 1200 93 Room Air 01/17 0834 97.1 57 22 109/57 96 Room Air 01/17 0800 96 Room Air 01/17 0000 97.6 48 12 102/60 93 Room Air Room Air Intake & Output 01/17 1600 01/17 0800 01/17 0000 01/16 1600 01/16 0800 01/16 0000 Intake Total 0681 527 8763 1142 1083 1046.3 Output Total 250 270 150 200 305 300 Balance 920 592 850 942 778 746.3 Intake, IV 2729 422 0451 1112 1083 1046.3 Intake, Oral 100 0 0 30 0 0 Number 2 0 0 0 Bowel Movements Output, Stool 0 Output, Urine 250 270 150 200 305 300 Physical Exam: Middle-aged female in no acute distress. Vital signs: See above. Lungs: Clear to auscultation bilaterally. Heart S1, S2. Abdomen: Soft, nontender, positive bowel sounds. Extremities: No edema. Current Medications: Current Medications Sig/Tabatha Start time Last Medication Dose Route Stop Time Status Admin Atropine Sulfate 0.5 MG Q 5 MINUTES X 3 DO.. 01/12 2230 AC IV Glycerin/Mineral Oil 1 JUAN ALBERTO TID PRN 01/08 1645 AC 01/09 TOP 0430 Hydrocortisone 50 MG Q12 01/17 2100 AC Sodium Succinate IV Hydrocortisone 50 MG Q8 01/12 1400 DC 01/17 Sodium Succinate IV 1330 Levothyroxine Sodium 100 MCG DAILY 01/12 1000 AC 01/17 IV 0925 Pantoprazole Sodium 40 MG DAILY 01/08 1930 AC 01/17 IV 0925 Potassium Chloride 40 MEQ Q20H 01/17 1500 AC 01/17 Dextrose/Sodium 1,000 ML IV 1538 Chloride Potassium Chloride 40 MEQ Q8H 01/17 1230 DC 01/17 Dextrose/Sodium 1,000 ML IV 1317 Chloride Potassium Chloride 40 MEQ 125 MLS/HR 01/17 1200 CAN IV Potassium Chloride 40 MEQ Q13H 01/17 0400 DC 04/14 Sodium Chloride 1,000 ML IV 0458 Potassium Chloride 40 MEQ Q13H 01/12 1815 DC 01/16 Sodium Chloride 1,000 ML IV 2032 Results Last 48 Hrs of Labs/Mics: Laboratory Tests 01/17/18 0345: Anion Gap 5, Estimated GFR > 60, Glucose 120 H, Calcium 7.8 L, Phosphorus 2.2 L, Magnesium 1.9, Total Bilirubin 1.0, AST 28, ALT 245 H, Albumin 2.6 L, TSH 14.100 H, Free T4 0.58 L, PT 10.5, INR 0.96, APTT 25, Fibrinogen Activity 148 L, D-Dimer High Sensitivty < 200, CBC w Diff NO MAN DIFF REQ, RBC 2.62 L, MCV 93.7, MCH 32.0 H, MCHC 34.2, RDW 16.9 H, MPV 7.9, Gran % 92.3 H, Lymphocytes % 4.8 L, Monocytes % 2.9, Eosinophils % 0, Basophils % 0, Absolute Granulocytes 3.5, Absolute Lymphocytes 0.2 L, Absolute Monocytes 0.1, Absolute Eosinophils 0 , Absolute Basophils 0 01/16/181909: CBC w Diff NO MAN DIFF REQ, RBC 2.73 L, MCV 94.3, MCH 31.6 H, MCHC 33.5, RDW 16.3 H, MPV 8.0, Gran % 91.8 H, Lymphocytes % 4.4 L, Monocytes % 3.6, Eosinophils % 0.1, Basophils % 0.1, Absolute Granulocytes 4.4, Absolute Lymphocytes 0.2 L, Absolute Monocytes 0.2, Absolute Eosinophils 0, Absolute Basophils 0 01/16/189: Anion Gap 4 L, Estimated GFR > 60, Glucose 115 H, Calcium 7.7 L, Phosphorus 2.1 L, Magnesium 1.8, Total Bilirubin 1.0, Direct Bilirubin 0.5 H, AST 30, ALT 279 H, Alkaline Phosphatase 39, Total Protein 4.9 L, Albumin 2.5 L, PT 10.3, INR 0.95, APTT 25, Fibrinogen Activity 149 L, D-Dimer High Sensitivty < 200, CBC w Diff MAN DIFF ORDERED, RBC 2.63 L, MCV 92.9, MCH 31.7 H, MCHC 34.1, RDW 16.3 H, MPV 8.2, Gran % 90.6 H, Lymphocytes % 5.7 L, Monocytes % 3.6, Eosinophils % 0, Basophils % 0.1, Absolute Granulocytes 3.0, Segmented Neutrophils 88 H, Absolute Lymphocytes 0.2 L, Lymphocytes 9 L, Monocytes 3, Absolute Monocytes 0.1, Absolute Eosinophils 0, Absolute Basophils 0, Nucleated RBCs 1 H, Platelet Estimate DECREASED, Polychromasia 1+, Poikilocytosis 1+, Basophilic Stippling 1+, Ovalocytes 1+, Fld Total RBCs Counted 100 Assessment/Plan Assessment/Plan Middle-aged female history of thyroid carcinoma diagnosed in the s/p thyroid resections 2 and ELDER 2 w/ recurrent medical noncompliance to thyroid replacement who presented with symptomatic hypothyroidism w/ markedly elevated TSH and who continues to slowly improve w /thyroid replacement with improved blood pressure, but continued bradycardia in the high 40-50s. Fortunately, asymptomatic, except for fatigue, and hemodynamically stable. Her anemia could also be contributing to her fatigue. Continue close monitoring with thyroid replacement as per endocrinology. Continue telemetry? Not applicable (In ICU.)
[2018-01-18 04:55] LABS: ABSOLUTE BASOPHIL COUNT 0 /CUMM (0.0-0.2); ABSOLUTE EOSINOPHIL COUNT 0 /CUMM (0.0-0.7); ABSOLUTE GRANULOCYTE CT 3.4 /CUMM (1.4-6.5); ABSOLUTE LYMPH COUNT 0.2 /CUMM (1.2-3.4); ABSOLUTE MONOCYTE COUNT 0.2 /CUMM (0.10-0.60); BASOPHIL % 0.1 % (0.0-2.0); EOSINOPHIL % 0.1 % (0-5); GRANULOCYTE % 90.7 % (42.2-75.2); HEMATOCRIT 24.5 % (37-47); MEAN CORPUSCULAR HGB 32.1 PG (27.0-31.0); MEAN CORPUSCULAR VOLUME 94.3 FL (81.0-99.0); MEAN PLATELET VOLUME 7.9 FL (7.4-10.4); PLATELET COUNT 107 /CUMM (130-400); RBC DISTRIBUTION WIDTH 16.6 % (11.5-14.5); WHITE BLOOD CELL COUNT 3.7 /CUMM (4.8-10.8)
[2018-01-18 05:08] LABS: PT 10.4 SEC (9.4-12.5); PTT 25 SEC (25-37)
[2018-01-18 08:00] VITALS: BP 117/77
--- NOTE | 2018-01-18 09:50 | PN- Resident CRCU ---
Subjective HPI/CRCU Issues: -Myxedema coma due to noncompliance with thyroid medication - improving -Hx of papillary thyroid cancer status post resection and radioactive iodine -Hypotension/bradycardia due to above - resolved. -Pancytopenia (improving). -Transaminitis due to shock liver 2/2 Myxedema coma -resolved. 24 Hour Events: The patient was seen and examined. She offers no complaints. She denies any headache, dizziness, lightheadedness, nausea, vomiting, chest pain, shortness of breath. 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 Vital signs remained stable. No overnight events reported. Platelet count improving, now 107, hemoglobin stable, WBC 3.7 Objective Vital Signs & I&O Last 8 Hrs of Vitals and I&O: Vital Signs Date Time Temp Pulse Resp B/P B/P Pulse O2 O2 Flow FiO2 Mean Ox Delivery Rate 01/18 1151 94 Room Air 01/18 0800 97.4 44 10 117/77 97 Room Air Exam General Appearance: no apparent distress, alert, awake Head: atraumatic Other Physical Findings: Head: atraumatic, normal appearance, left cheek swelling noted Neck: normal inspection, supple Respiratory: normal breath sounds, chest non-tender, lungs clear Cardiovascular: regular rate/rhythm Gastrointestinal: normal bowel sounds, soft, nontender Extremities: no lower extremity edema, mild edema in hands, stable left eye echymosis Cranial Nerves: normal hearing, normal speech, PERRL Current Medications: Current Medications Sig/Tabatha Start time Last Medication Dose Route Stop Time Status Admin Atropine Sulfate 0.5 MG Q 5 MINUTES X 3 DO.. 01/12 2230 AC IV Glycerin/Mineral Oil 1 JUAN ALBERTO TID PRN 01/08 1645 01/09 TOP 0430 Hydrocortisone 25 MG Q12 01/18 2100 AC Sodium Succinate IV Hydrocortisone 50 MG Q12 01/17 2100 DC 01/18 Sodium Succinate IV 1033 Hydrocortisone 50 MG Q8 01/12 1400 DC 01/17 Sodium Succinate IV 1330 Levothyroxine Sodium 100 MCG DAILY 01/12 1000 AC 01/18 IV 1033 Magnesium Sulfate 1 GM ONCE ONE 01/18 0545 DC 01/18 Dextrose/Water 100 ML IV 01/18 0944 1034 Pantoprazole Sodium 40 MG DAILY 01/08 1930 AC 01/18 IV 1033 Potassium Chloride 40 MEQ ONCE ONE 01/18 0530 DC 01/18 PO 01/18 0531 0615 Potassium Chloride 40 MEQ Q20H 01/17 1500 AC 01/18 Dextrose/Sodium 1,000 ML IV 0609 Chloride Potassium Chloride 40 MEQ Q8H 01/17 1230 DC 01/17 Dextrose/Sodium 1,000 ML IV 1317 Chloride Impression/Plan Impression/Problem List Impression: This is a 62-year-old female with past medical history significant for iatrogenic hypothyroidism status post total thyroidectomy for thyroid cancer admitted to the hospital with myxedema coma secondary to noncompliance, neutropenia, thrombocytopenia and bradycardia. Problem list: * Myxedema coma with profound hypothyroidism-improving * Encephalopathy-likely secondary to myxedema * Hypotension, likely secondary to hypothyroidism versus possible hypercortisolism-improving * Bradycardia-stable * Pancytopenia-slowly improving Plan: * Continue to monitor in the ICU * Replete potassium, monitor electrolytes and replete accordingly * Will discontinue IV fluids and Noble catheter * Follow-up endocrinology recommendations, recheck TSH free T4 in the morning * Decreased dose of hydrocortisone to 25 twice a day * Monitor fibrinogen level * Out of bed to chair Problem List: 1. Pancytopenia 2. Myxedema coma Pain Ratin Tomorrow's Labs & Rationales: CBC to monitor H&H, WBC, Platelet ICU bundle to monitor electrolytes Fibrinogen Plan DVT/Prophylaxis: mechanical (only due to thrombocytopenia)
--- NOTE | 2018-01-18 11:17 | PN- CRCU ---
Subjective HPI/Critical Care Issues: Doing much better Eating a little better Mild bradycardia persist No other complaints Petechia persists Ecchymosis stable Review of symptoms otherwise unremarkable BUN/creatinine stable Potassium continues to be low Phosphorous is low Thyroid functions are being monitored White count 3.7 stable hemoglobin stable platelets have come up to 107 February level is more than 100 Previous flow cytometry unremarkable Cultures negative Objective Current Medications: Current Medications Sig/Tabatha Start time Last Medication Dose Route Stop Time Status Admin Atropine Sulfate 0.5 MG Q 5 MINUTES X 3 DO.. 01/12 2230 AC IV Glycerin/Mineral Oil 1 JUAN ALBERTO TID PRN 01/08 1645 AC 01/09 TOP 0430 Hydrocortisone 50 MG Q12 01/17 2100 AC 01/17 Sodium Succinate IV 2110 Hydrocortisone 50 MG Q8 01/12 1400 DC 01/17 Sodium Succinate IV 1330 Levothyroxine Sodium 100 MCG DAILY 01/12 1000 AC 01/17 IV 0925 Magnesium Sulfate 1 GM ONCE ONE 01/18 0545 DC Dextrose/Water 100 ML IV 01/18 0944 Pantoprazole Sodium 40 MG DAILY 01/08 1930 AC 01/17 IV 0925 Potassium Chloride 40 MEQ ONCE ONE 01/18 0530 DC 01/18 PO 01/18 0531 0615 Potassium Chloride 40 MEQ Q20H 01/17 1500 AC 01/18 Dextrose/Sodium 1,000 ML IV 0609 Chloride Potassium Chloride 40 MEQ Q8H 01/17 1230 DC 01/17 Dextrose/Sodium 1,000 ML IV 1317 Chloride Potassium Chloride 40 MEQ 125 MLS/HR 01/17 1200 CAN IV Potassium Chloride 40 MEQ Q13H 01/17 0400 DC 01/17 Sodium Chloride 1,000 ML IV 0458 Vital Signs & I&O Last 24 Hrs of Vitals and I&O: Vital Signs Date Time Temp Pulse Resp B/P B/P Pulse O2 O2 Flow FiO2 Mean Ox Delivery Rate 01/18 0400 Room Air 01/18 0000 Room Air 01/17 1600 94 Room Air 01/17 1600 97.2 50 14 119/76 94 Room Air 01/17 1200 93 Room Air Intake & Output 01/18 1600 01/18 0800 01/18 0000 Intake Total 520 200 Output Total 250 220 Balance 270 -20 Intake, IV 520 200 Output, Urine 250 220 Laboratory Tests 01/18 01/17 0415 0345 Chemistry Sodium (137 - 145 mmol/L) 143 143 Potassium (3.5 - 5.1 mmol/L) 3.4 L 3.8 Chloride (98 - 107 mmol/L) 107 108 H Carbon Dioxide (22 - 30 mmol/L) 31 H 30 Anion Gap (5 - 16) 5 5 BUN (7 - 17 mg/dL) 14 16 Creatinine (0.5 - 1.0 mg/dL) 0.5 0.5 Estimated GFR (>60 ml/min) > 60 > 60 Glucose (65 - 99 mg/dL) 150 H 120 H Calcium (8.4 - 10.2 mg/dL) 8.0 L 7.8 L Phosphorus (2.5 - 4.5 mg/dL) 2.3 L 2.2 L Magnesium (1.6 - 2.3 mg/dL) 1.8 1.9 Total Bilirubin (0.2 - 1.3 mg/dL) 0.8 1.0 AST (14 - 36 U/L) 21 28 ALT (9 - 52 U/L) 199 H 245 H Albumin (3.5 - 5.0 g/dL) 2.5 L 2.6 L TSH (0.270 - 4.200 uIU/mL) 14.100 H Free T4 (0.78 - 2.44 ng/dL) 0.58 L Coagulation PT (9.4 - 12.5 SEC) 10.4 10.5 INR (0.90 - 1.19) 0.95 0.96 APTT (25 - 37 SEC) 25 25 Fibrinogen Activity (200 - 393 MG/DL) 133 L 148 L D-Dimer High Sensitivty (0 - 243 ng/ml) 226 < 200 Hematology CBC w Diff NO MAN DIFF REQ NO MAN DIFF REQ WBC (4.8 - 10.8 /CUMM) 3.7 L 3.8 L RBC (4.20 - 5.40 /CUMM) 2.60 L 2.62 L Hgb (12.0 - 16.0 G/DL) 8.4 L 8.4 L Hct (37 - 47 %) 24.5 L 24.5 L MCV (81.0 - 99.0 FL) 94.3 93.7 MCH (27.0 - 31.0 PG) 32.1 H 32.0 H MCHC (33.0 - 37.0 G/DL) 34.0 34.2 RDW (11.5 - 14.5 %) 16.6 H 16.9 H Plt Count (130 - 400 /CUMM) 107 L 81 L MPV (7.4 - 10.4 FL) 7.9 7.9 Gran % (42.2 - 75.2 %) 90.7 H 92.3 H Lymphocytes % (20.5 - 51.1 %) 4.9 L 4.8 L Monocytes % (1.7 - 9.3 %) 4.2 2.9 Eosinophils % (0 - 5 %) 0.1 0 Basophils % (0.0 - 2.0 %) 0.1 0 Absolute Granulocytes (1.4 - 6.5 /CUMM) 3.4 3.5 Absolute Lymphocytes (1.2 - 3.4 /CUMM) 0.2 L 0.2 L Absolute Monocytes (0.10 - 0.60 /CUMM) 0.2 0.1 Absolute Eosinophils (0.0 - 0.7 /CUMM) 0 0 Absolute Basophils (0.0 - 0.2 /CUMM) 0 0 01/16 1910 Hematology CBC w Diff NO MAN DIFF REQ WBC (4.8 - 10.8 /CUMM) 4.8 RBC (4.20 - 5.40 /CUMM) 2.73 L Hgb (12.0 - 16.0 G/DL) 8.6 L Hct (37 - 47 %) 25.8 L MCV (81.0 - 99.0 FL) 94.3 MCH (27.0 - 31.0 PG) 31.6 H MCHC (33.0 - 37.0 G/DL) 33.5 RDW (11.5 - 14.5 %) 16.3 H Plt Count (130 - 400 /CUMM) 79 L MPV (7.4 - 10.4 FL) 8.0 Gran % (42.2 - 75.2 %) 91.8 H Lymphocytes % (20.5 - 51.1 %) 4.4 L Monocytes % (1.7 - 9.3 %) 3.6 Eosinophils % (0 - 5 %) 0.1 Basophils % (0.0 - 2.0 %) 0.1 Absolute Granulocytes (1.4 - 6.5 /CUMM) 4.4 Absolute Lymphocytes (1.2 - 3.4 /CUMM) 0.2 L Absolute Monocytes (0.10 - 0.60 /CUMM) 0.2 Absolute Eosinophils (0.0 - 0.7 /CUMM) 0 Absolute Basophils (0.0 - 0.2 /CUMM) 0 Impression/Plan Impression/Plan Impression/Plan: General Appearance: no apparent distress, alert, awake, comfortable Head: atraumatic, central line in right neck Respiratory: normal breath sounds, chest non-tender, no respiratory distress, quiet respiration Cardiovascular: bradycardia Abdomen: normal bowel sounds, soft, non-tender, no organomegaly Extremities: no edema Neuro: more alert and oriented, somnolent still Skin: ecchymosis in thigh , petechia in extremites 62-year-old female with past history of iatrogenic hypothyroidism after total thyroidectomy for thyroid cancer on oral supplements presented with myxedema picture secondary to noncompliance, pancytopenia, and bradycardia Issues * Profound hypothyroidism with myexedema coma like features now improving slowly * Mild hypotension now better due to hypothyroidism and prob hypocortisol with no clinical evidence of septic focus * Pt has a small pericardial effusion but no tamponade physiology * Stable Sig belen * Pancytopenia prob related to his endo issues, hiv neg and no evidence of consumption, pt does have low fibrinogen, but seems to be improving * Hyperosmolar state initially now better * Bilateral atx and obesity with no sig hypercarbia * Encephalopathy due to myxedema REC Stable Agg po kcl 40 bid for now DC ivf and observe for today OOB to chair Dc amelie Consider dc of tlc Follow fibrinogen level cont other meds OOB to chair to increase po food
--- NOTE | 2018-01-18 12:28 | PN- Endocrinology ---
Assessment/Plan Endoscopy Assessment: 62 y/o female, hx of thyroid cancer which was diagnosed in and was treated with thyroid surgery twice and ELDER twice. Detail unclear. She was supposed to take Levothyroxine 150 mcg daily. However, she hasn't been compliance with the medication. Patient was in ER in 05/2017 and 08/2017-- her TSH was > 60 and free T4 was < 0.07. She presented to ER today again after she was found that she was on the floor. Patient was hypothermia and bradycardic. Blood work showed profound hypothyroidism along with borderline low cortisol, abnormal LFT and pancytopenia. She was put on Levothyroxine 100 mcg iv and stress dose of steroid. She has been on off on dopamine drip. Currently she is still on Levothyroxine 100 mcg iv daily and hydrocortisone 50 mg iv every 12 hours. Her BP and HR have been relately stable at this point. On 01/17/2018, repeat TSH 14.1 and free T4 0.58. Plan: 1. continue Levothyroxine 100 mcg iv daily for now; 2. further decrease Hydrocortisone to 25 mg iv every 12 hours; 3. repeat TFT tomorrow;replete K. 4. monitor vital signs and electrolytes. will follow. Plan: see above Subjective Subjective: Patient is alert and awake. She has been eating meals. Objective Last 24 Hrs of Vital Signs/I&O Vital Signs Date Time Temp Pulse Resp B/P B/P Pulse O2 O2 Flow FiO2 Mean Ox Delivery Rate 01/18 1151 94 Room Air 01/18 0800 97.4 44 10 117/77 97 Room Air 01/18 0400 Room Air 01/18 0000 Room Air 01/17 1600 94 Room Air 01/17 1600 97.2 50 14 119/76 94 Room Air Intake & Output 01/18 1600 01/18 0800 01/18 0000 Intake Total 520 200 Output Total 250 220 Balance 270 -20 Intake, IV 520 200 Output, Urine 250 220 Results Pertinent Lab/Chad Results: Laboratory Tests 01/18 0415 Chemistry Sodium (137 - 145 mmol/L) 143 Potassium (3.5 - 5.1 mmol/L) 3.4 L Chloride (98 - 107 mmol/L) 107 Carbon Dioxide (22 - 30 mmol/L) 31 H Anion Gap (5 - 16) 5 BUN (7 - 17 mg/dL) 14 Creatinine (0.5 - 1.0 mg/dL) 0.5 Estimated GFR (>60 ml/min) > 60 Glucose (65 - 99 mg/dL) 150 H Calcium (8.4 - 10.2 mg/dL) 8.0 L Phosphorus (2.5 - 4.5 mg/dL) 2.3 L Magnesium (1.6 - 2.3 mg/dL) 1.8 Total Bilirubin (0.2 - 1.3 mg/dL) 0.8 AST (14 - 36 U/L) 21 ALT (9 - 52 U/L) 199 H Albumin (3.5 - 5.0 g/dL) 2.5 L Coagulation PT (9.4 - 12.5 SEC) 10.4 INR (0.90 - 1.19) 0.95 APTT (25 - 37 SEC) 25 Fibrinogen Activity (200 - 393 MG/DL) 133 L D-Dimer High Sensitivty (0 - 243 ng/ml) 226 Hematology CBC w Diff NO MAN DIFF REQ WBC (4.8 - 10.8 /CUMM) 3.7 L RBC (4.20 - 5.40 /CUMM) 2.60 L Hgb (12.0 - 16.0 G/DL) 8.4 L Hct (37 - 47 %) 24.5 L MCV (81.0 - 99.0 FL) 94.3 MCH (27.0 - 31.0 PG) 32.1 H MCHC (33.0 - 37.0 G/DL) 34.0 RDW (11.5 - 14.5 %) 16.6 H Plt Count (130 - 400 /CUMM) 107 L MPV (7.4 - 10.4 FL) 7.9 Gran % (42.2 - 75.2 %) 90.7 H Lymphocytes % (20.5 - 51.1 %) 4.9 L Monocytes % (1.7 - 9.3 %) 4.2 Eosinophils % (0 - 5 %) 0.1 Basophils % (0.0 - 2.0 %) 0.1 Absolute Granulocytes (1.4 - 6.5 /CUMM) 3.4 Absolute Lymphocytes (1.2 - 3.4 /CUMM) 0.2 L Absolute Monocytes (0.10 - 0.60 /CUMM) 0.2 Absolute Eosinophils (0.0 - 0.7 /CUMM) 0 Absolute Basophils (0.0 - 0.2 /CUMM) 0
--- NOTE | 2018-01-18 12:46 | PN- Cardiology ---
Subjective Subjective: Feels improved today with only complaint being continued fatigue. Objective Vital Signs and I&Os Vital Signs Date Time Temp Pulse Resp B/P B/P Pulse O2 O2 Flow FiO2 Mean Ox Delivery Rate 01/18 1151 94 Room Air 01/18 0800 97.4 44 10 117/77 97 Room Air 01/18 0400 Room Air 01/18 0000 Room Air 01/17 1600 94 Room Air 01/17 1600 97.2 50 14 119/76 94 Room Air Intake & Output 01/18 1600 01/18 0800 01/18 0000 01/17 1600 01/17 0800 01/17 0000 Intake Total 189 147 0549 862 1000 Output Total 250 220 250 270 150 Balance 270 -20 920 592 850 Intake, IV 122 949 8330 862 1000 Intake, Oral 100 0 0 Number 2 0 Bowel Movements Output, Urine 250 220 250 270 150 Physical Exam: Middle-aged female in no acute distress. Vital signs: See above. Lungs: Clear to auscultation bilaterally. Heart S1, S2. Abdomen: Soft, nontender, positive bowel sounds. Extremities: No edema. Current Medications: Current Medications Sig/Tabatha Start time Last Medication Dose Route Stop Time Status Admin Atropine Sulfate 0.5 MG Q 5 MINUTES X 3 DO.. 01/12 2230 AC IV Glycerin/Mineral Oil 1 JUAN ALBERTO TID PRN 01/08 1645 AC 01/09 TOP 0430 Hydrocortisone 25 MG Q12 01/18 2100 AC Sodium Succinate IV Hydrocortisone 50 MG Q12 01/17 2100 DC 01/18 Sodium Succinate IV 1033 Hydrocortisone 50 MG Q8 01/12 1400 DC 01/17 Sodium Succinate IV 1330 Levothyroxine Sodium 100 MCG DAILY 01/12 1000 AC 01/18 IV 1033 Magnesium Sulfate 1 GM ONCE ONE 01/18 0545 DC 01/18 Dextrose/Water 100 ML IV 01/18 0944 1034 Pantoprazole Sodium 40 MG DAILY 01/08 1930 AC 01/18 IV 1033 Potassium Chloride 40 MEQ ONCE ONE 01/18 0530 DC 01/18 PO 01/18 0531 0615 Potassium Chloride 40 MEQ Q20H 01/17 1500 AC 01/18 Dextrose/Sodium 1,000 ML IV 0609 Chloride Potassium Chloride 40 MEQ Q8H 01/17 1230 DC 01/17 Dextrose/Sodium 1,000 ML IV 1317 Chloride Results Last 48 Hrs of Labs/Mics: Laboratory Tests 01/18/18 0415: Anion Gap 5, Estimated GFR > 60, Glucose 150 H, Calcium 8.0 L, Phosphorus 2.3 L, Magnesium 1.8, Total Bilirubin 0.8, AST 21, ALT 199 H, Albumin 2.5 L, PT 10.4, INR 0.95, APTT 25, Fibrinogen Activity 133 L, D-Dimer High Sensitivty 226 , CBC w Diff NO MAN DIFF REQ, RBC 2.60 L, MCV 94.3, MCH 32.1 H, MCHC 34.0, RDW 16.6 H, MPV 7.9, Gran % 90.7 H, Lymphocytes % 4.9 L, Monocytes % 4.2, Eosinophils % 0.1, Basophils % 0.1, Absolute Granulocytes 3.4, Absolute Lymphocytes 0.2 L, Absolute Monocytes 0.2, Absolute Eosinophils 0, Absolute Basophils 0 01/17/18 0345: Anion Gap 5, Estimated GFR > 60, Glucose 120 H, Calcium 7.8 L, Phosphorus 2.2 L, Magnesium 1.9, Total Bilirubin 1.0, AST 28, ALT 245 H, Albumin 2.6 L, TSH 14.100 H, Free T4 0.58 L, PT 10.5, INR 0.96, APTT 25, Fibrinogen Activity 148 L, D-Dimer High Sensitivty < 200, CBC w Diff NO MAN DIFF REQ, RBC 2.62 L, MCV 93.7, MCH 32.0 H, MCHC 34.2, RDW 16.9 H, MPV 7.9, Gran % 92.3 H, Lymphocytes % 4.8 L, Monocytes % 2.9, Eosinophils % 0, Basophils % 0, Absolute Granulocytes 3.5, Absolute Lymphocytes 0.2 L, Absolute Monocytes 0.1, Absolute Eosinophils 0 , Absolute Basophils 0 01/16/18 1910: CBC w Diff NO MAN DIFF REQ, RBC 2.73 L, MCV 94.3, MCH 31.6 H, MCHC 33.5, RDW 16.3 H, MPV 8.0, Gran % 91.8 H, Lymphocytes % 4.4 L, Monocytes % 3.6, Eosinophils % 0.1, Basophils % 0.1, Absolute Granulocytes 4.4, Absolute Lymphocytes 0.2 L, Absolute Monocytes 0.2, Absolute Eosinophils 0, Absolute Basophils 0 Assessment/Plan Assessment/Plan Middle-aged female with a history of thyroid carcinoma diagnosed in the s/p thyroid resections 2 and ELDER 2 w/ recurrent medical noncompliance to thyroid replacement (levothyroxine 150 mcg) who presented with symptomatic hypothyroidism with markedly elevated TSH with improved blood pressure, but continued bradycardia in the high 40-50s with thyroid replacement. Fortunately, asymptomatic, except for fatigue, and hemodynamically stable. Her anemia could also be contributing to her fatigue. Continue close monitoring with thyroid replacement as per endocrinology. Continue telemetry? Not applicable (In ICU.)
[2018-01-18 16:43] VITALS: BP 110/74
[2018-01-19] VITALS: BP 134/73
[2018-01-19 05:07] LABS: ABSOLUTE BASOPHIL COUNT 0 /CUMM (0.0-0.2); ABSOLUTE EOSINOPHIL COUNT 0 /CUMM (0.0-0.7); ABSOLUTE GRANULOCYTE CT 3.6 /CUMM (1.4-6.5); ABSOLUTE LYMPH COUNT 0.3 /CUMM (1.2-3.4); ABSOLUTE MONOCYTE COUNT 0.2 /CUMM (0.10-0.60); BASOPHIL % 0 % (0.0-2.0); EOSINOPHIL % 0.3 % (0-5); HEMATOCRIT 25.3 % (37-47); MEAN CORPUSCULAR HGB 31.9 PG (27.0-31.0); MEAN CORPUSCULAR HGB CONC 33.6 G/DL (33.0-37.0); MEAN PLATELET VOLUME 7.6 FL (7.4-10.4); PLATELET COUNT 125 /CUMM (130-400); RED BLOOD CELL CT 2.66 /CUMM (4.20-5.40); WHITE BLOOD CELL COUNT 4.1 /CUMM (4.8-10.8)
--- NOTE | 2018-01-19 07:43 | PN- Hematology ---
Subjective Subjective: She is doing better. Mental status is significantly improved. She denies any new pain. She states she had not been taking her thyroid medication for 6 months. Review of Systems: Constitutional: Denies: fever. Gastrointestinal: Denies: abdominal pain. Musculoskeletal: Denies: back pain. Neurological/Psychological: Reports: confusion. All Other Systems: Reviewed and Negative Objective Vital Signs and I&Os Vital Signs Date Time Temp Pulse Resp B/P B/P Pulse O2 O2 Flow FiO2 Mean Ox Delivery Rate 01/19 0000 97.1 42 16 134/73 95 Room Air 01/18 1643 97.6 67 18 110/74 95 Room Air 01/18 1151 94 Room Air 01/18 0800 97.4 44 10 117/77 97 Room Air Intake & Output 01/19 0800 01/19 0000 01/18 1600 01/18 0800 01/18 0000 01/17 1600 Intake Total 500 550 560 280 782 0007 Output Total 650 250 220 250 Balance 500 550 -90 270 -20 920 Intake, IV 400 400 460 954 211 5780 Intake, Oral 100 150 100 100 Number 2 1 2 Bowel Movements Output, Urine 650 250 220 250 Physical Exam: General Appearance: no apparent distress, alert, awake, comfortable Head: atraumatic, central line in right neck Respiratory: normal breath sounds, chest non-tender, no respiratory distress, quiet respiration Cardiovascular: bradycardia Abdomen: normal bowel sounds, soft, non-tender, no organomegaly Extremities: no edema Neuro: alert and oriented, somnolent still Skin: ecchymosis in thigh, petechia in extremites (worse in the RUE) Current Medications: Current Medications Sig/Tabatha Start time Last Medication Dose Route Stop Time Status Admin Atropine Sulfate 0.5 MG Q 5 MINUTES X 3 DO.. 01/12 2230 AC IV Glycerin/Mineral Oil 1 JUAN ALBERTO TID PRN 01/08 1645 AC 01/09 TOP 0430 Hydrocortisone 25 MG Q12 01/18 2100 AC 01/18 Sodium Succinate IV 202 Hydrocortisone 50 MG Q12 01/17 2100 DC 01/18 Sodium Succinate IV 1033 Levothyroxine Sodium 100 MCG DAILY 01/12 1000 AC 01/18 IV 1033 Magnesium Sulfate 1 GM ONCE ONE 01/19 0615 AC Dextrose/Water 100 ML IV 01/19 1014 Magnesium Sulfate 1 GM ONCE ONE 01/18 0545 DC 01/18 Dextrose/Water 100 ML IV 01/18 0944 1034 Pantoprazole Sodium 40 MG DAILY 01/08 1930 AC 01/18 IV 1033 Potassium Chloride 40 MEQ ONCE ONE 01/19 0645 DC PO 01/19 0646 Potassium Chloride 40 MEQ ONCE ONE 01/19 0615 DC PO 01/19 0616 Potassium Chloride 40 MEQ Q20H 01/17 1500 AC 01/18 Dextrose/Sodium 1,000 ML IV 0609 Chloride Results Last 24 Hours of Lab Results: Laboratory Tests 01/19 0445 Chemistry Sodium (137 - 145 mmol/L) 141 Potassium (3.5 - 5.1 mmol/L) 3.2 L Chloride (98 - 107 mmol/L) 103 Carbon Dioxide (22 - 30 mmol/L) 33 H Anion Gap (5 - 16) 5 BUN (7 - 17 mg/dL) 11 Creatinine (0.5 - 1.0 mg/dL) 0.5 Estimated GFR (>60 ml/min) > 60 Glucose (65 - 99 mg/dL) 144 H Calcium (8.4 - 10.2 mg/dL) 7.9 L Phosphorus (2.5 - 4.5 mg/dL) 2.4 L Magnesium (1.6 - 2.3 mg/dL) 1.7 Total Bilirubin (0.2 - 1.3 mg/dL) 0.8 AST (14 - 36 U/L) 18 ALT (9 - 52 U/L) 185 H Albumin (3.5 - 5.0 g/dL) 2.6 L TSH (0.270 - 4.200 uIU/mL) 17.000 H Free T4 (0.78 - 2.44 ng/dL) 0.77 L Coagulation Fibrinogen Activity (200 - 393 MG/DL) 132 L Hematology CBC w Diff NO MAN DIFF REQ WBC (4.8 - 10.8 /CUMM) 4.1 L RBC (4.20 - 5.40 /CUMM) 2.66 L Hgb (12.0 - 16.0 G/DL) 8.5 L Hct (37 - 47 %) 25.3 L MCV (81.0 - 99.0 FL) 95.0 MCH (27.0 - 31.0 PG) 31.9 H MCHC (33.0 - 37.0 G/DL) 33.6 RDW (11.5 - 14.5 %) 17.0 H Plt Count (130 - 400 /CUMM) 125 L MPV (7.4 - 10.4 FL) 7.6 Gran % (42.2 - 75.2 %) 88.0 H Lymphocytes % (20.5 - 51.1 %) 6.7 L Monocytes % (1.7 - 9.3 %) 5.0 Eosinophils % (0 - 5 %) 0.3 Basophils % (0.0 - 2.0 %) 0 Absolute Granulocytes (1.4 - 6.5 /CUMM) 3.6 Absolute Lymphocytes (1.2 - 3.4 /CUMM) 0.3 L Absolute Monocytes (0.10 - 0.60 /CUMM) 0.2 Absolute Eosinophils (0.0 - 0.7 /CUMM) 0 Absolute Basophils (0.0 - 0.2 /CUMM) 0 Assessment/Plan Hematology Assessment/Recommendations: Mrs. Goode is a 62-year-old female with hypothyroidism, thyroid malignancy status post total thyroidectomy, ELDER ablation who presented to the hospital after being found to be confused and down by her . On presentation, she was noted to be pancytopenic with WBC 1.0, platelet of 32,000, and hemoglobin of 10.9. Vitamin B12 and folated was normal. Ferritin was elevated at 5770. Her AST and ALT were >2000. LDH is elevated at 7954. Bilirubin was elevated at 1.5. Her TSH was elevated and T4 was low. There is concern for myxedema coma. She was started on hydrocortisone and levothyroxine. She was started on empiric antibiotics. Imaging with CT head, cervical, chest, abdomen, and pelvis are reviewed and negative for any significant acute findings. Pancytopenia of unclear etiology but likely from underlying myxedema coma. Flow cytometry is unremarkable. DIC evaluation demonstrates low fibrinogen. Fibrinogen remains relatively stable but low at 132. Platelet count has improved to 125,000. Hemoglobin has been stable at 8.5 with hematocrit of 25.3. WBC is improving. She seems to be improving overall. She is more alert and awake. Thyroid function improving. Pancytopenia: -continue to monitor DIC panel -monitor CBC -transfuse with cryo if fibrinogen <100 or bleeding Myxedema coma: -endocrinology following -treatment as per primary and endocrinology Please call [phone] with any questions or concerns. Problem List: 1. Pancytopenia 2. Myxedema coma
[2018-01-19 08:00] VITALS: BP 118/74
--- NOTE | 2018-01-19 08:07 | PN- Resident CRCU ---
Aron QUICK,[facility] 01/19/18 0806: Subjective HPI/CRCU Issues: -Myxedema coma due to noncompliance with thyroid medication - resolved -Hx of papillary thyroid cancer status post resection and radioactive iodine -Hypotension/bradycardia due to above - resolved. -Pancytopenia (improving). -Transaminitis due to shock liver 2/2 Myxedema coma -resolved. 24 Hour Events: Patient alert and awake, asking questions about her further plan of care today. Also wants to know if she could be switched to a regular diet as she is having soft bowel movements with the liquid diet. Denies any abdominal pain, nausea, vomiting, chest pain, lightheadedness/ dizziness or any overnight events. Viatal Signs remain stable, with Free T4 and pancytopenia improving. Noble catheter removed yesterday. [facility] . Objective Vital Signs & I&O Last 8 Hrs of Vitals and I&O: Intake & Output 01/19 1600 Intake Total 700 Output Total 500 Balance 200 Intake, IV 300 Intake, Oral 400 Number 1 Bowel Movements Output, Urine 500 Exam General Appearance: well developed/nourished, no apparent distress, alert, awake , comfortable Head: atraumatic, normal appearance Respiratory: normal breath sounds, chest non-tender, lungs clear Cardiovascular: regular rate/rhythm Gastrointestinal: normal bowel sounds, soft, non-tender Extremities: no edema, Stable echymosis on the left thigh Cranial Nerves: normal hearing, normal speech, PERRL Current Medications: Current Medications Sig/Tabatha Start time Last Medication Dose Route Stop Time Status Admin Atropine Sulfate 0.5 MG Q 5 MINUTES X 3 DO.. 01/12 2230 IV Glycerin/Mineral Oil 1 JUAN ALBERTO TID PRN 01/08 1645 01/09 TOP 0430 Hydrocortisone 25 MG Q12 01/18 2100 AC 01/19 Sodium Succinate IV 0815 Hydrocortisone 50 MG Q12 01/17 2100 DC 01/18 Sodium Succinate IV 1033 Levothyroxine Sodium 100 MCG DAILY 01/12 1000 01/19 IV 0918 Magnesium Sulfate 1 GM ONCE ONE 01/19 0615 AC 01/19 Dextrose/Water 100 ML IV 01/19 1014 0919 Magnesium Sulfate 1 GM ONCE ONE 01/18 0545 DC 01/18 Dextrose/Water 100 ML IV 01/18 0944 1034 Pantoprazole Sodium 40 MG DAILY 01/08 1930 01/19 IV 0815 Potassium Chloride 40 MEQ ONCE ONE 01/19 0645 DC /16 PO 01/19 0646 0918 Potassium Chloride 40 MEQ ONCE ONE 01/19 0615 DC /16 PO 01/19 0616 0801 Potassium Chloride 40 MEQ Q20H 01/17 1500 DC 01/18 Dextrose/Sodium 1,000 ML IV 0609 Chloride Impression/Plan Impression/Problem List Impression: Patient is a 62-year-old female with past medical history significant for iatrogenic hypothyroidism status post total thyroidectomy for thyroid cancer presenting this admission with myxedema coma secondary to noncompliance, neutropenia, thrombocytopenia and bradycardia. Patient is admitted to the ICU for management of following: Respiratory Patient not on supplemental oxygen and saturating above 90% on room air. Infectious: Neutropenia Patient has an absolute neutrophil count of 700 on admission, now fluctuating b/ w 1.7 to 6.2. Etiology of patient's neutropenia is unclear at this time however may be secondary to severe hypothyroidism, less likely infectious as patient is HIV and hepatitis negative, Rapid flu, lyme titre, blood and urine Cx were negative and CXR also negative for any acute pathology. Patient was initially prophylactically covered with antibiotics as the mortality rate of patient's with myxedema coma who become septic is much higher, however antibiotics have been stopped as there are no signs of acute infection and likely neutropenia was secondary to severe hypothyroidism. - Follow off antibiotics - Repeat CBCs in a.m. - Blood and urine cultures - remain negative - Monitor vitals closely Cardiac: 1. Bradycardia Likely secondary to severe hypothyroidism. Lyme titer ordered in setting of bradycardia and pancytopneia was negative. Patient was initially started on Levophed for hypotension but was switched to dopamine for hypotension and bradycardia. Initial echocardiogram showed normal ejection fraction with small pericardial effusion. Repeat limited echo was done for concerns of worsening pericardial effusion as patient's EKG on 01/11/18 showed low voltage, but repeat echocardiogram showed trace pericardial effusion. - Off dopamine drip - Appreciate cardiology recommendations - Transcutaneous pacer pads and atropine at bedside - Monitor on telemetry 2. Hypotension Patient's hypotension is likely secondary to severe hypothyroidism. Patient's hypotension worsened on 01/10 requiring levophed and a central line. A right internal jugular line was placed on 01/09/18. Levo fed was discontinued over the weekend and was started on dopamine because of persistent hypotesion and bradycardia. Currently off dopamine drip with systolic blood pressure remaining above 100 and bradycardia improved. - Continue to monitor bp . - Will dicontinue IV fluids - Continue IV solucortef 25mg Q 12 . - Continue compress on right arm as needed.(Phlebitis from peripheral levophed) Heme: Pancytopenia: Improving Patient on admission was neutropenic, anemic and severely thrombocytopenic. There have been case reports of pancytopenia with severe hypothyroidism however patient will require further workup at this time. Patient had a reticulocyte count of 1.48% with absolute reticulocyte count of 1.1 and a reticulocyte count index of 0.75 indicating bone marrow suppression which can be caused by hypothyroidism. LDH count is elevated. Iron panel revealed elevated iron, normal TIBC and elevated ferritin. Vitamin B12 is elevated. Folate levels normal. HIV negative. haptoglobin level is 17 Flow cytometry was performed which showed no evidence of active myelodysplasia or blasts, monoclonal B-cell lymphoproliferative disease, and no unusual phenotype T cells identified. Cell lines improving with current treatment it is likely that patient's pancytopenia is due to her severe hypothyroidism. - Continue to monitor CBC - Hematology consulted. Appreciate recommendations. - Fibrinogen level dropped from 181--> 149--> 148--> 138, will repeat DIC panel tomorrow, if fibrinogen level less than 100 can give cryo precipitate. - Thrombocytopenic precautions Metabolic: Myxedema coma; from medication non-compliance Patient presented confused, hypothermic, bradycardic and with elevated TSH and low T4. Patient's hypothermia has resolved. Continues to remain on IV Solu- Cortef 25 mg every 8 hours with heart rate remaining in high 40s and systolic blood pressure 90-100 off dopamine drip. - Appreciate endocrinology recommendations - Continue IV Levothyroxine - Continue IV Solu-Cortef ; decreased dose from 50 miligrams every 8 hours to every 12 hours. - Free T4 improving, will repeat levels in 2 days. - Warming with bear hugger if necessary. Transaminitis: Resolved Unclear etiology of abnormal LFTs. Patient reports no abdominal pain. LFTs are improving. CT Abd/Pelvis shows no focal defects in the liver. Patient is s/p cholecystectomy. Alk phos and bili are normal. These abnormal LFTs may be secondary to severe hypothyroidism, however this is unclear. Alimentary 1. Hypernatremia; resolved Patients with hypothyroidism typically have hyponatremia, however patient on presentation appeared severely dehydrated which may be the cause of her hypernatremia. Patient has also been given multiple doses of normal saline. - Will discontinue IV fluids - Continue to monitor Na 2. Hypokalemia; - continue to monitor and replete accordingly. 3. Swallow evaluation - Continue pure and nectar thick liquids. - f/u Seech/swallow recommendations Neurology Altered mental status in setting of severe hypothyroidism. Resolved Patient was found on the ground with a dresser over her - it is unclear if she fell. Patient has had multiple falls recently. Head CT and cervical CT were negative for any acute findings. Tibula/ fibula and humerus x-rays without any acute fracture. Repeat Head CT was done on 01/14/18 for worsening mental status which remained negative. Neurology consultation was obtained who recommended mild encephalopathy with some epileptogenic potential but was negative for any acute seizures. Ammonia level normal. Psych consulted as well. - Neurology recommendations apprecited - f/u psych recommendations - Neurochecks - PT eval- pending - Fall precautions Nephrology: None DVT prophylaxis: Alps only in the setting of thrombocytopenia Patient is full code [place] to Telemetry Problem List: 1. Hypothyroidism 2. Bradycardia 3. Pancytopenia 4. Hypokalemia Pain Ratin Pain Location: NA Pain Goal: Remain pain free Pain Plan: NA Tomorrow's Labs & Rationales: CBC ICU Bundle Fibrinogen level Plan DVT/Prophylaxis: mechanical (only due to thrombocytopenia) Beni Bo MD 01/19/18 1305: Attending MD Review Statement Attending Sign Off Attending Cosign Statement: I have: examined this patient, [facility], personally reviewd images, discussd w/resident/PA/CONDOMINIUM MANAGER, discussed mgmt plan w/clarence, discussed mgmt plan w/CM, discussed mgmt plan w/pt, agreed w/resident/PA/CONDOMINIUM MANAGER, amended to note. Other Findings: Impression 62 year old woman * pancytopenia * hx of thyroid ca - significant hypothyroidism consistent with myxedema * transaminitis improved * bradycardia improved Plan -f/u endocrine and heme recs -steroids, iv thyroid replacement -EF 50%, off dopamine -f/u cardiology -neurology appreciated -significant mental status improvement DVT prophylaxis at all times TTS 35 min DG to tele obtain peripheral iv access if successful remove central line
--- NOTE | 2018-01-19 10:40 | PN- Endocrinology ---
Assessment/Plan Endoscopy Assessment: 62 y/o female, hx of thyroid cancer which was diagnosed in and was treated with thyroid surgery twice and ELDER twice. Detail unclear. She was supposed to take Levothyroxine 150 mcg daily. However, she hasn't been compliance with the medication. Patient was in ER in 05/2017 and 08/2017-- her TSH was > 60 and free T4 was < 0.07. She presented to ER today again after she was found that she was on the floor. Patient was hypothermia and bradycardic. Blood work showed profound hypothyroidism along with borderline low cortisol, abnormal LFT and pancytopenia. She was put on Levothyroxine 100 mcg iv and stress dose of steroid. She has been on off on dopamine drip. Currently she is still on Levothyroxine 100 mcg iv daily and hydrocortisone 25 mg iv every 12 hours. Her BP and HR have been relately stable at this point. On 01/19/2018, repeat TSH 17 and free T4 0.77. Plan: 1. continue Levothyroxine 100 mcg iv daily for now; 2. continue Hydrocortisone 25 mg iv every 12 hours; 3. repeat TFT in 2 days;replete K. 4. monitor vital signs and electrolytes. will follow. Subjective Subjective: she looks much better this morning. Objective Last 24 Hrs of Vital Signs/I&O Vital Signs Date Time Temp Pulse Resp B/P B/P Pulse O2 O2 Flow FiO2 Mean Ox Delivery Rate 01/19 0000 97.1 42 16 134/73 95 Room Air 01/18 1643 97.6 67 18 110/74 95 Room Air 01/18 1151 94 Room Air Intake & Output 01/19 1600 01/19 0800 01/19 0000 Intake Total 500 550 Output Total Balance 500 550 Intake, IV 400 400 Intake, Oral 100 150 Number 2 Bowel Movements Results Pertinent Lab/Chad Results: Laboratory Tests 01/19 0445 Chemistry Sodium (137 - 145 mmol/L) 141 Potassium (3.5 - 5.1 mmol/L) 3.2 L Chloride (98 - 107 mmol/L) 103 Carbon Dioxide (22 - 30 mmol/L) 33 H Anion Gap (5 - 16) 5 BUN (7 - 17 mg/dL) 11 Creatinine (0.5 - 1.0 mg/dL) 0.5 Estimated GFR (>60 ml/min) > 60 Glucose (65 - 99 mg/dL) 144 H Calcium (8.4 - 10.2 mg/dL) 7.9 L Phosphorus (2.5 - 4.5 mg/dL) 2.4 L Magnesium (1.6 - 2.3 mg/dL) 1.7 Total Bilirubin (0.2 - 1.3 mg/dL) 0.8 AST (14 - 36 U/L) 18 ALT (9 - 52 U/L) 185 H Albumin (3.5 - 5.0 g/dL) 2.6 L TSH (0.270 - 4.200 uIU/mL) 17.000 H Free T4 (0.78 - 2.44 ng/dL) 0.77 L Coagulation Fibrinogen Activity (200 - 393 MG/DL) 132 L Hematology CBC w Diff NO MAN DIFF REQ WBC (4.8 - 10.8 /CUMM) 4.1 L RBC (4.20 - 5.40 /CUMM) 2.66 L Hgb (12.0 - 16.0 G/DL) 8.5 L Hct (37 - 47 %) 25.3 L MCV (81.0 - 99.0 FL) 95.0 MCH (27.0 - 31.0 PG) 31.9 H MCHC (33.0 - 37.0 G/DL) 33.6 RDW (11.5 - 14.5 %) 17.0 H Plt Count (130 - 400 /CUMM) 125 L MPV (7.4 - 10.4 FL) 7.6 Gran % (42.2 - 75.2 %) 88.0 H Lymphocytes % (20.5 - 51.1 %) 6.7 L Monocytes % (1.7 - 9.3 %) 5.0 Eosinophils % (0 - 5 %) 0.3 Basophils % (0.0 - 2.0 %) 0 Absolute Granulocytes (1.4 - 6.5 /CUMM) 3.6 Absolute Lymphocytes (1.2 - 3.4 /CUMM) 0.3 L Absolute Monocytes (0.10 - 0.60 /CUMM) 0.2 Absolute Eosinophils (0.0 - 0.7 /CUMM) 0 Absolute Basophils (0.0 - 0.2 /CUMM) 0
--- NOTE | 2018-01-19 12:43 | Transfer of Care Summary ---
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 Patient was admitted to the ICU for the management of followin. Severe hypothyroidism with myxedema coma features - resolved 2. Pancytopenia - improving 3. Persistent Bradycardia - improving 4. Hypotension 2/2 hypothyroidism and adrenal insufficiency - resolved 5. Small pericardial effusion 6. Shock liver with hepatosteatosis - resolved 7. Confusion/AMS 2/2 to hypothyroidism - resolved Myxedema coma Patient presented confused, hypothermic, bradycardic and with elevated TSH and low T4. Patient has been noncompliant with medications. Endocrinology was consulted. Patient was started on levothyroxine 100 g IV. A cortisol level was checked in the setting of hypotension. Patient's cortisol level was low and she was started on 100 mg IV Solu-Cortef q8h. - Continue IV Levothyroxine - Continue IV Solu-Cortef, decreased to 25mg Q12 - Repeat free T4 and TSH per endo - f/u endocrinology recommendations Altered mental status in setting of severe hypothyroidism. Patient was found on the ground with a dresser over her - it is unclear if she fell. Patient has had multiple falls recently. Head CT and cervical CT were negative for any acute findings. Tibula/ fibula and humerus x-rays without any acute fracture. Patient's mental status initially worsened, and a repeat head CT was done which remained negative. Neurology consult was obtained, recommended checking ammonia level which was normal and also an EEG which showed epileptogenic potential but no acute seizure activity. Psych consult was also obtained , who thought that the mental status could be secondary to the severe hypothyroidism, depression and anxiety along with a neurocognitive disorder. Patient had spontaneous improvement in her mental status, probably back to her baseline. - F/U Neurology recommendations - F/u Psych Recommendations - Neurochecks - Fall precautions - PT eval - pending Bradycardia Likely secondary to severe hypothyroidism. Lyme titer ordered in setting of bradycardia and pancytopneia was negative. Patient was initially started on Levophed for hypotension but was switched to dopamine for hypotension and bradycardia. Initial echocardiogram showed normal ejection fraction with small pericardial effusion. Repeat limited echo was done for concerns of worsening pericardial effusion as patient's EKG on 01/11/18 showed low voltage, but repeat echocardiogram showed trace pericardial effusion. - F/U Cardiology recommendations - Heat rate now ranging between 40s-50s - Monitor on telemetry - Transcutaneous pacer pads and atropine at bedside Hypotension - resolved Patient's hypotension is likely secondary to severe hypothyroidism. Patient has received IV fluid boluses along with stress dose steroids. Patient continues to remain hypotensive however patient's manual blood pressure this morning is >90 systolic after receiving a small fluid bolus. Patient's hypotension worsened on 01/10 requiring levophed and a central line. A right internal jugular line was placed. Patient had received levophed peripherally for a short duration prior to accessing central line. After ~15 minutes patient had an adverse reaction to the levophed in the right arm and appeared to have phlebitis. The levophed through the peripheral IV site was stopped. Patient was given phentolamine to counter act the vasocontrictive effect of levophed and a cold compress was placed on top. The site appears to be improving. - continue to monitor bp - IV fluids Dced - RIJ removed on 01/20/2018 - Decreased IV Solucortef to 25 mg daily - continue compress on right arm as needed Shock liver 2/2 Severe hypothyroidism - Resolved Abnormal LFTs may be secondary to severe hypothyroidism, however this is unclear. Patient reported no abdominal pain. LFTs improved, currently in normal range. CT Abd/Pelvis showed no focal defects in the liver. Patient is s/p cholecystectomy. Alk phos and bili levels normal. Neutropenia; Patient has an absolute neutrophil count of 700 on admission, now fluctuating between . Etiology of patient's neutropenia is unclear at this time however may be secondary to severe hypothyroidism. Patient is HIV and hepatitis negative. Rapid flu was negative. CXR shows no infiltrates. Blood and urine cultures were sent with no growth. Lyme titer was negative. Patient was prophylaxtically covered with antibiotics as the mortality rate of patient's with myxedema coma who become septic is much higher, however antibiotics have been stopped as there are no signs of acute infection and WBC count has increased to normal and likely neutropenia was secondary to severe hypothyroidism. - Repeat CBCs in a.m. - Blood cultures - remains negative - Urine cultures - remains negative - Rapid Flu test - negative - Monitor vitals closely Pancytopenia: Resolving Patient on admission was neutropenic, anemic and severely thrombocytopenic. Patient had a reticulocyte count of 1.48% with absolute reticulocyte count of 1.1 and a reticulocyte count index of 0.75 indicating bone marrow suppression which can be caused by hypothyroidism. LDH count is elevated. Iron panel revealed elevated iron, normal TIBC and elevated ferritin. Vitamin B12 is elevated. Folate levels normal. HIV negative. Haptoglobin level is 17. Flow cytometry was performed which showed no evidence of active myelodysplasia or blasts, monoclonal B-cell lymphoproliferative disease, and no unusual phenotype T cells identified. As all cell lines are improving with current treatment it is likely that patient 's pancytopenia is due to her severe hypothyroidism. - Continue to monitor CBC - F/U Hematology recommendations. - Repeat DIC panel everyday, if fibrinogen level < 100, can give Cryo. - Thrombocytopenic precautions Hypernatremia - resolved Patients with hypothyroidism typically have hyponatremia, however patient on presentation appears severely dehydrated which may be the cause of her hypernatremia. Patient has also been given multiple doses of normal saline, later switced to D51/2 NS. IV fluids have been discontinued now with Na level within normal range. - Continue to monitor Na Hypokalemia and Hypomagnesemia; - Continue to monitor and replete accordingly. Swallow evaluation; Patient placed on puree with nectar thick liquids. - f/u Swallow Eval recommendations. DVT prophylaxis: Alps only in the setting of thrombocytopenia Assessment/Plan: See Above
[2018-01-19 16:00] VITALS: BP 114/78
--- NOTE | 2018-01-19 20:14 | PN- Cardiology ---
Subjective Subjective: * This patient is now conversant and she denies any chest discomfort, shortness of breath, lightheadedness or palpitations. * Platetes have improved although the patient continues to be anemic with neutropenia. * free T4 is now in the low normal range * sinus bradycardia with well controlled blood pressure Objective Vital Signs and I&Os Vital Signs Date Time Temp Pulse Resp B/P B/P Pulse O2 O2 Flow FiO2 Mean Ox Delivery Rate 01/20 1600 95 Room Air Room Air 01/19 1600 97.2 54 18 114/78 95 Room Air Room Air 01/19 0800 94 Room Air Room Air 01/19 08 96.8 52 18 118/74 95 Room Air Room Air 01/19 0000 97.1 42 16 134/73 95 Room Air Intake & Output 01/19 0801/19 0000 01/18 1600 01/18 0801/18 0000 Intake Total 700 500 550 560 520 200 Output Total 500 650 250 220 Balance 200 500 550 -90 270 -20 Intake, IV 300 400 400 460 520 200 Intake, Oral 400 100 150 100 Number 1 2 1 Bowel Movements Output, Urine 500 650 250 220 Physical Exam: General: WD/WN female; alert and oriented x 3 HEENT: swollen left cheek, PERRL, EOMI Neck: no JVD, no carotid bruit Heart: RRR, no murmur Lungs: clear bilaterally Extremities; no edema Assessment/Plan Assessment/Plan * This patient is now hemodynamically stable. Her heart rate tends to be in the low normal range but it is clearly improving. We will continue to monitor for any significant heart block or symptomatic bradycardia. * repeat a 12 lead ECG Continue telemetry? Yes
[2018-01-19 23:19] VITALS: BP 128/78
[2018-01-20 04:51] LABS: ABSOLUTE BASOPHIL COUNT 0 /CUMM (0.0-0.2); ABSOLUTE EOSINOPHIL COUNT 0 /CUMM (0.0-0.7); ABSOLUTE GRANULOCYTE CT 3.2 /CUMM (1.4-6.5); ABSOLUTE LYMPH COUNT 0.4 /CUMM (1.2-3.4); ABSOLUTE MONOCYTE COUNT 0.2 /CUMM (0.10-0.60); BASOPHIL % 0 % (0.0-2.0); EOSINOPHIL % 0.6 % (0-5); HEMATOCRIT 24.2 % (37-47); MEAN CORPUSCULAR HGB 32.3 PG (27.0-31.0); MEAN CORPUSCULAR HGB CONC 34.3 G/DL (33.0-37.0); MEAN CORPUSCULAR VOLUME 94.2 FL (81.0-99.0); MEAN PLATELET VOLUME 7.5 FL (7.4-10.4); RBC DISTRIBUTION WIDTH 16.2 % (11.5-14.5); RED BLOOD CELL CT 2.57 /CUMM (4.20-5.40); WHITE BLOOD CELL COUNT 3.8 /CUMM (4.8-10.8)
[2018-01-20 05:39] LABS: GRANULOCYTE % 83.6 % (42.2-75.2); PLATELET COUNT 133 /CUMM (130-400)
--- NOTE | 2018-01-20 07:47 | PN- Resident CRCU ---
Aron QUICK,[facility] 01/20/18 0747: Subjective HPI/CRCU Issues: -Myxedema coma due to noncompliance with thyroid medication - resolved -Hx of papillary thyroid cancer status post resection and radioactive iodine -Hypotension/bradycardia due to above - resolved. -Pancytopenia (improving). -Transaminitis due to shock liver 2/2 Myxedema coma -resolved. 24 Hour Events: Patient continues to improve, does not have any active complaints. Denies any chest pain, abdominal pain, nausea, vomiting, diarrhea/constipation or any overnight events. Heart rate and blood pressure remained stable off dopamine drip. Objective Vital Signs & I&O Last 8 Hrs of Vitals and I&O: Intake & Output 01/20 1600 Intake Total 500 Output Total 850 Balance -350 Intake, IV 100 Intake, Oral 400 Output, Urine 850 Exam General Appearance: well developed/nourished, alert, awake, comfortable Head: atraumatic, normal appearance Respiratory: normal breath sounds, chest non-tender, lungs clear Cardiovascular: regular rate/rhythm, bradycardia Gastrointestinal: normal bowel sounds, soft, non-tender Extremities: no edema, Ecchymosis on the left thigh, stable Cranial Nerves: normal hearing, normal speech, PERRL Central Line Site: Right IJ Current Medications: Current Medications Sig/Tabatha Start time Last Medication Dose Route Stop Time Status Admin Atropine Sulfate 0.5 MG Q 5 MINUTES X 3 DO.. 01/12 2230 AC IV Glycerin/Mineral Oil 1 JUAN ALBERTO TID PRN 01/08 1645 AC 01/09 TOP 0430 Hydrocortisone 25 MG Q12 01/18 2100 AC 01/20 Sodium Succinate IV 0844 Levothyroxine Sodium 100 MCG DAILY 01/12 1000 AC 01/20 IV 0843 Magnesium Sulfate 1 GM ONCE ONE 01/20 0600 DC 01/20 Dextrose/Water 100 ML IV 01/20 0959 0650 Magnesium Sulfate 1 GM ONCE ONE 01/19 1945 DC 01/19 Dextrose/Water 100 ML IV 01/19 2344 2015 Pantoprazole Sodium 40 MG DAILY 01/08 1930 AC 01/20 IV 0843 Potassium Chloride 40 MEQ ONCE ONE 01/20 0645 DC 01/20 PO 01/20 0646 0649 Potassium Chloride 40 MEQ ONCE ONE 01/20 0600 CAN PO 01/20 0601 Potassium Chloride 40 MEQ ONCE ONE 01/19 194 DC 01/19 PO 01/19 194 2124 Potassium Phosphate 15 mMol ONE ONE 01/19 1145 DC 01/19 Dextrose/Water 250 ML IV 01/19 3564 1417 Impression/Plan Impression/Problem List Impression: Patient is a 62-year-old female with past medical history significant for iatrogenic hypothyroidism status post total thyroidectomy for thyroid cancer presenting this admission with myxedema coma secondary to noncompliance, neutropenia, thrombocytopenia and bradycardia. Patient is admitted to the ICU for management of following: Respiratory Patient not on supplemental oxygen and saturating above 90% on room air. Infectious: Neutropenia Patient has an absolute neutrophil count of 700 on admission, now fluctuating b/ w 1.7 to 6.2. Etiology of patient's neutropenia is unclear at this time however may be secondary to severe hypothyroidism, less likely infectious as patient is HIV and hepatitis negative, Rapid flu, lyme titre, blood and urine Cx were negative and CXR also negative for any acute pathology. Patient was initially prophylactically covered with antibiotics as the mortality rate of patient's with myxedema coma who become septic is much higher, however antibiotics have been stopped as there are no signs of acute infection and likely neutropenia was secondary to severe hypothyroidism. - Follow off antibiotics - Repeat CBCs in a.m. - Blood and urine cultures - remain negative - Monitor vitals closely Cardiac: 1. Bradycardia Likely secondary to severe hypothyroidism. Lyme titer ordered in setting of bradycardia and pancytopneia was negative. Patient was initially started on Levophed for hypotension but was switched to dopamine for hypotension and bradycardia. Initial echocardiogram showed normal ejection fraction with small pericardial effusion. Repeat limited echo was done for concerns of worsening pericardial effusion as patient's EKG on 01/11/18 showed low voltage, but repeat echocardiogram showed trace pericardial effusion. - Off dopamine drip - Appreciate cardiology recommendations - Transcutaneous pacer pads and atropine at bedside - Monitor on telemetry 2. Hypotension Patient's hypotension is likely secondary to severe hypothyroidism. Patient's hypotension worsened on 01/10 requiring levophed and a central line. A right internal jugular line was placed on 01/09/18. Levo fed was discontinued over the weekend and was started on dopamine because of persistent hypotesion and bradycardia. Currently off dopamine drip with systolic blood pressure remaining above 100 and bradycardia improved. - Will try to remove the TLC today after securing a new peripheral IV access. - Continue to monitor bp . - Decrease IV solucortef to 25mg daily . - Continue compress on right arm as needed.(Phlebitis from peripheral levophed) Heme: Pancytopenia: Improving Patient on admission was neutropenic, anemic and severely thrombocytopenic. There have been case reports of pancytopenia with severe hypothyroidism however patient will require further workup at this time. Patient had a reticulocyte count of 1.48% with absolute reticulocyte count of 1.1 and a reticulocyte count index of 0.75 indicating bone marrow suppression which can be caused by hypothyroidism. LDH count is elevated. Iron panel revealed elevated iron, normal TIBC and elevated ferritin. Vitamin B12 is elevated. Folate levels normal. HIV negative. haptoglobin level is 17 Flow cytometry was performed which showed no evidence of active myelodysplasia or blasts, monoclonal B-cell lymphoproliferative disease, and no unusual phenotype T cells identified. Cell lines improving with current treatment it is likely that patient's pancytopenia is due to her severe hypothyroidism. - Continue to monitor CBC - Hematology consulted. Appreciate recommendations. - Fibrinogen level dropped from 181--> 149--> 148--> 133, will repeat Fibrinogen level tomorrow, if fibrinogen level less than 100 can give cryo precipitate. - Thrombocytopenic precautions Metabolic: Myxedema coma; from medication non-compliance Patient presented confused, hypothermic, bradycardic and with elevated TSH and low T4. Patient's hypothermia has resolved. Continues to remain on IV Solu- Cortef 25 mg every 8 hours with heart rate now in 50s and systolic blood pressure above 100 off dopamine drip. - Appreciate endocrinology recommendations - Continue IV Levothyroxine - Continue IV Solu-Cortef ; decreased dose from 25 miligrams every 12 hours to once daily. - Free T4 improving. - Warming with bear hugger if necessary. Transaminitis: Resolved Unclear etiology of abnormal LFTs. Patient reports no abdominal pain. LFTs are improving. CT Abd/Pelvis shows no focal defects in the liver. Patient is s/p cholecystectomy. Alk phos and bili are normal. These abnormal LFTs may be secondary to severe hypothyroidism, however this is unclear. Alimentary 1. Hypernatremia; resolved Patients with hypothyroidism typically have hyponatremia, however patient on presentation appeared severely dehydrated which may be the cause of her hypernatremia. Patient has also been given multiple doses of normal saline. - IV fluids discontinued. - Continue to monitor Na 2. Hypokalemia; - continue to monitor and replete accordingly. 3. Swallow evaluation - Diet changed to chopped and regular thins today. - f/u Speech/swallow recommendations Neurology Altered mental status in setting of severe hypothyroidism. Resolved Patient was found on the ground with a dresser over her - it is unclear if she fell. Patient has had multiple falls recently. Head CT and cervical CT were negative for any acute findings. Tibula/ fibula and humerus x-rays without any acute fracture. Repeat Head CT was done on 01/14/18 for worsening mental status which remained negative. Neurology consultation was obtained who recommended mild encephalopathy with some epileptogenic potential but was negative for any acute seizures. Ammonia level normal. Psych consulted as well. - Neurology recommendations apprecited - f/u psych recommendations - Neurochecks - PT eval- pending - Fall precautions Nephrology: None DVT prophylaxis: Alps only in the setting of thrombocytopenia Patient is full code [place] to Telemetry Problem List: 1. Hypothyroidism 2. Myxedema coma 3. Bradycardia 4. Pancytopenia 5. Hypokalemia Pain Ratin Pain Location: None Pain Goal: Remain pain free Pain Plan: Pain pathway Tomorrow's Labs & Rationales: CBC(pancytopenia) ICU bundle Fibrinogen level Plan DVT/Prophylaxis: mechanical (only due to thrombocytopenia) Beni Bo MD 01/20/18 1350: Attending MD Review Statement Attending Sign Off Attending Cosign Statement: I have: examined this patient, reviewed [facility] EMR data, personally reviewd images, discussd w/resident/PA/[employer], discussed mgmt plan w/clarence, discussed mgmt plan w/CM, discussed mgmt plan w/pt, agreed w/resident/PA/[employer], amended to note. Other Findings: Impression 62 year old woman * pancytopenia * hx of thyroid ca - significant hypothyroidism consistent with myxedema * transaminitis improved * bradycardia improved Plan -f/u endocrine and heme recs -steroids/synthroid per endocrinology -EF 50%, off dopamine -f/u cardiology -neurology appreciated -significant mental status improvement DVT prophylaxis at all times Telemetry hold will sign out to hospitalist team obtain peripheral iv access if successful remove central line
[2018-01-20 08:00] VITALS: BP 110/62
--- NOTE | 2018-01-20 09:10 | PN- Endocrinology ---
Assessment/Plan Endoscopy Assessment: 62 y/o female, hx of thyroid cancer which was diagnosed in and was treated with thyroid surgery twice and ELDER twice. Detail unclear. She was supposed to take Levothyroxine 150 mcg daily. However, she hasn't been compliance with the medication. Patient was in ER in 05/2017 and 08/2017-- her TSH was > 60 and free T4 was < 0.07. She presented to ER today again after she was found that she was on the floor. Patient was hypothermia and bradycardic. Blood work showed profound hypothyroidism along with borderline low cortisol, abnormal LFT and pancytopenia. She was put on Levothyroxine 100 mcg iv and stress dose of steroid. She has been on off on dopamine drip. Currently she is still on Levothyroxine 100 mcg iv daily and hydrocortisone 25 mg iv every 12 hours. Her BP and HR have been relately stable at this point. On 01/19/2018, repeat TSH 17 and free T4 0.77. Tele monitor showed frequent PVCs this morning. Plan: 1. continue Levothyroxine 100 mcg iv daily for now; 2. decrease Hydrocortisone to 25 mg iv daily; 3. repeat TFT. 4. monitor vital signs and electrolytes. will follow. Subjective Subjective: She feels better. Objective Last 24 Hrs of Vital Signs/I&O Vital Signs Date Time Temp Pulse Resp B/P B/P Pulse O2 O2 Flow FiO2 Mean Ox Delivery Rate 01/20 0000 96 Room Air 01/19 2319 96.8 55 14 128/78 96 Room Air 01/19 1600 95 Room Air Room Air 01/19 1600 97.2 54 18 114/78 95 Room Air Room Air Intake & Output 01/20 1600 01/20 0800 01/20 0000 Intake Total 100 370 Output Total 150 400 Balance -50 -30 Intake, IV 100 130 Intake, Oral 240 Number 0 0 Bowel Movements Output, Urine 150 400 Results Pertinent Lab/Chad Results: Laboratory Tests 01/20 01/19 0415 1810 Chemistry Sodium (137 - 145 mmol/L) 137 Potassium (3.5 - 5.1 mmol/L) 3.6 3.5 Chloride (98 - 107 mmol/L) 99 Carbon Dioxide (22 - 30 mmol/L) 34 H Anion Gap (5 - 16) 4 L BUN (7 - 17 mg/dL) 8 Creatinine (0.5 - 1.0 mg/dL) 0.5 Estimated GFR (>60 ml/min) > 60 Glucose (65 - 99 mg/dL) 131 H Calcium (8.4 - 10.2 mg/dL) 7.9 L Phosphorus (2.5 - 4.5 mg/dL) 2.6 3.2 Magnesium (1.6 - 2.3 mg/dL) 1.8 1.7 Total Bilirubin (0.2 - 1.3 mg/dL) 0.8 AST (14 - 36 U/L) 16 ALT (9 - 52 U/L) 164 H Albumin (3.5 - 5.0 g/dL) 2.6 L TSH (0.270 - 4.200 uIU/mL) Pending Free T4 (0.78 - 2.44 ng/dL) 0.72 L Coagulation Fibrinogen Activity (200 - 393 MG/DL) 133 L Hematology CBC w Diff NO MAN DIFF REQ WBC (4.8 - 10.8 /CUMM) 3.8 L RBC (4.20 - 5.40 /CUMM) 2.57 L Hgb (12.0 - 16.0 G/DL) 8.3 L Hct (37 - 47 %) 24.2 L MCV (81.0 - 99.0 FL) 94.2 MCH (27.0 - 31.0 PG) 32.3 H MCHC (33.0 - 37.0 G/DL) 34.3 RDW (11.5 - 14.5 %) 16.2 H Plt Count (130 - 400 /CUMM) 133 MPV (7.4 - 10.4 FL) 7.5 Gran % (42.2 - 75.2 %) 83.6 H Lymphocytes % (20.5 - 51.1 %) 10.2 L Monocytes % (1.7 - 9.3 %) 5.6 Eosinophils % (0 - 5 %) 0.6 Basophils % (0.0 - 2.0 %) 0 Absolute Granulocytes (1.4 - 6.5 /CUMM) 3.2 Absolute Lymphocytes (1.2 - 3.4 /CUMM) 0.4 L Absolute Monocytes (0.10 - 0.60 /CUMM) 0.2 Absolute Eosinophils (0.0 - 0.7 /CUMM) 0 Absolute Basophils (0.0 - 0.2 /CUMM) 0
[2018-01-20 16:00] VITALS: BP 118/72
--- NOTE | 2018-01-20 17:19 | PN- Cardiology ---
Subjective Subjective: * Patient is alert and responsive without complaints. * sinus rhythm at times in the 70's * Patient is too weak to stand at the present time. * improved platelets but low H/H and WBC count * free T4 remains a bit low Objective Vital Signs and I&Os Vital Signs Date Time Temp Pulse Resp B/P B/P Pulse O2 O2 Flow FiO2 Mean Ox Delivery Rate 01/20 1600 97.6 52 20 118/72 96 Room Air Room Air 01/20 1557 Room Air Room Air 01/20 1528 Room Air Room Air 01/20 0800 95 Room Air Room Air 01/20 0800 96.5 52 18 110/62 94 Room Air Room Air 01/20 0000 96 Room Air 01/19 2319 96.8 55 14 128/78 96 Room Air Intake & Output 01/20 1600 01/20 0800 01/20 0000 01/19 1600 01/19 0800 01/19 0000 Intake Total 500 100 370 700 500 550 Output Total 850 150 400 500 Balance -350 -50 -30 200 500 550 Intake, IV 100 100 130 300 400 400 Intake, Oral 400 240 400 100 150 Number 0 0 1 2 Bowel Movements Output, Urine 850 150 400 500 Physical Exam: General: WD/WN female; alert and oriented x 3 HEENT: swollen left cheek, PERRL, EOMI Neck: no JVD, no carotid bruit Heart: RRR, no murmur Lungs: clear bilaterally Extremities; no edema Assessment/Plan Assessment/Plan * This patient is now hemodynamically stable. Her heart rate tends to be in the low normal range but it is clearly improving. She no longer has heart block and has not had symptomatic bradycardia. * A repeat a 12 lead ECG continues to show low voltage. Would consider amyloidosis. Consider an abdominal fat pad biopsy. Continue telemetry? Yes
--- NOTE | 2018-01-20 18:35 | Event Note ---
Event Note Event Note: Right internal jugular triple-lumen catheter was removed at bedside at around 6: 30 PM Tip of the catheter was viewed No complications, no bleeding Vitals remained stable
[2018-01-21] VITALS: BP 124/76
[2018-01-21 01:03] VITALS: BP 136/80
[2018-01-21 05:56] VITALS: BP 126/80
--- NOTE | 2018-01-21 07:24 | PN- Endocrinology ---
Assessment/Plan Endoscopy Assessment: The patient is out of the intensive care unit. She continues on levothyroxine 100 mcg intravenously daily. Her hydrocortisone has been reduced to 25 mg once a day. She is alert and awake and is feeling better in general. Plan: Suggest continue levothyroxine 100 mcg intravenously daily. Continue to follow her free T4 and TSH on a daily basis. Tomorrow we can discontinue hydrocortisone completely. On Friday morning we can measure a serum cortisol level. Subjective Subjective: Feels improved Review of Systems Constitutional: Denies: chills, fever. Cardiovascular: Denies: chest pain. Respiratory: Denies: cough, short of breath. Gastrointestinal: Denies: abdominal pain, nausea, vomiting. Objective Last 24 Hrs of Vital Signs/I&O Vital Signs Date Time Temp Pulse Resp B/P B/P Pulse O2 O2 Flow FiO2 Mean Ox Delivery Rate 01/21 0556 97.2 56 20 126/80 95 Room Air 01/21 0103 97.0 66 20 136/80 93 Room Air 01/21 0000 97 Room Air 01/21 0000 96.7 57 19 124/76 97 Room Air 01/20 1600 97.6 52 20 118/72 96 Room Air Room Air 01/20 1600 96 Room Air Room Air 01/20 1557 Room Air Room Air 01/20 1528 Room Air Room Air 01/20 0800 95 Room Air Room Air 01/20 0800 96.5 52 18 110/62 94 Room Air Room Air Intake & Output 01/21 0800 01/21 0000 01/20 1600 Intake Total 110 50 500 Output Total 1150 800 850 Balance -1040 -750 -350 Intake, IV 10 0 100 Intake, Oral 100 50 400 Output, Urine 1150 800 850 Patient 195 lb Weight Vital Signs Date Time Temp Pulse Resp B/P B/P Pulse O2 O2 Flow FiO2 Mean Ox Delivery Rate 01/21 0556 97.2 56 20 126/80 95 Room Air 01/21 0103 97.0 66 20 136/80 93 Room Air 01/21 0000 97 Room Air 04/ 0000 96.7 57 19 124/76 97 Room Air 01/20 1600 97.6 52 20 118/72 96 Room Air Room Air 01/20 1600 96 Room Air Room Air 01/20 1557 Room Air Room Air 01/20 1528 Room Air Room Air 01/20 0800 95 Room Air Room Air 01/20 0800 96.5 52 18 110/62 94 Room Air Room Air Intake & Output 01/21 0800 01/21 0000 01/20 1600 Intake Total 110 50 500 Output Total 1150 800 850 Balance -1040 -750 -350 Intake, IV 10 0 100 Intake, Oral 100 50 400 Output, Urine 1150 800 850 Patient 195 lb Weight Physical Exam General Appearance: alert, awake, comfortable Head: normal appearance Respiratory: normal breath sounds Cardiovascular: regular rate/rhythm Current Medications: Current Medications Sig/Tabatha Start time Last Medication Dose Route Stop Time Status Admin Atropine Sulfate 0.5 MG Q 5 MINUTES X 3 DO.. 01/12 2230 AC IV Glycerin/Mineral Oil 1 JUAN ALBERTO TID PRN 01/08 1645 AC 01/09 TOP 0430 Hydrocortisone 25 MG DAILY 01/21 09 AC Sodium Succinate IV Hydrocortisone 25 MG Q12 01/18 2100 DC 01/20 Sodium Succinate IV 0844 Levothyroxine Sodium 100 MCG DAILY 01/12 1000 AC 01/20 IV 0843 Magnesium Sulfate 1 GM ONCE ONE 01/20 0600 DC 01/20 Dextrose/Water 100 ML IV 01/20 0959 0650 Pantoprazole Sodium 40 MG DAILY 01/08 1930 AC 01/20 IV 0843 Results Pertinent Lab/Chad Results: Laboratory Tests 01/21 01/20 01/19 0640 0410 1810 Chemistry Sodium (137 - 145 mmol/L) Pending 137 Potassium (3.5 - 5.1 mmol/L) Pending 3.6 3.5 Chloride (98 - 107 mmol/L) Pending 99 Carbon Dioxide (22 - 30 mmol/L) Pending 34 H Anion Gap (5 - 16) Pending 4 L BUN (7 - 17 mg/dL) Pending 8 Creatinine (0.5 - 1.0 mg/dL) Pending 0.5 Estimated GFR (>60 ml/min) > 60 Glucose (65 - 99 mg/dL) Pending 131 H Calcium (8.4 - 10.2 mg/dL) Pending 7.9 L Phosphorus (2.5 - 4.5 mg/dL) Pending 2.6 3.2 Magnesium (1.6 - 2.3 mg/dL) Pending 1.8 1.7 Total Bilirubin (0.2 - 1.3 mg/dL) Pending 0.8 AST (14 - 36 U/L) Pending 16 ALT (9 - 52 U/L) Pending 164 H Albumin (3.5 - 5.0 g/dL) Pending 2.6 L TSH (0.270 - 4.200 uIU/mL) 20.000 H Free T4 (0.78 - 2.44 ng/dL) 0.72 L Coagulation Fibrinogen Activity (200 - 393 MG/DL) Pending 133 L Hematology CBC w Diff Pending NO MAN DIFF REQ WBC (4.8 - 10.8 /CUMM) Pending 3.8 L RBC (4.20 - 5.40 /CUMM) Pending 2.57 L Hgb (12.0 - 16.0 G/DL) Pending 8.3 L Hct (37 - 47 %) Pending 24.2 L MCV (81.0 - 99.0 FL) Pending 94.2 MCH (27.0 - 31.0 PG) Pending 32.3 H MCHC (33.0 - 37.0 G/DL) Pending 34.3 RDW (11.5 - 14.5 %) Pending 16.2 H Plt Count (130 - 400 /CUMM) Pending 133 MPV (7.4 - 10.4 FL) Pending 7.5 Gran % (42.2 - 75.2 %) 83.6 H Lymphocytes % (20.5 - 51.1 %) 10.2 L Monocytes % (1.7 - 9.3 %) 5.6 Eosinophils % (0 - 5 %) 0.6 Basophils % (0.0 - 2.0 %) 0 Absolute Granulocytes (1.4 - 6.5 /CUMM) 3.2 Absolute Lymphocytes (1.2 - 3.4 /CUMM) 0.4 L Absolute Monocytes (0.10 - 0.60 /CUMM) 0.2 Absolute Eosinophils (0.0 - 0.7 /CUMM) 0 Absolute Basophils (0.0 - 0.2 /CUMM) 0
--- NOTE | 2018-01-21 07:59 | PN- Housestaff ---
Alfonzo Haddad 01/21/18 0758: Subjective Follow-up For: -Myxedema coma due to noncompliance with thyroid medication - improving -Hx of papillary thyroid cancer status post resection and radioactive iodine -Hypotension/bradycardia due to above - resolved. -Pancytopenia (improving). -Transaminitis due to shock liver 2/2 Myxedema coma -resolved. Subjective: The patient was seen and examined. She offers no complaints. She denies any headache, dizziness, lightheadedness, nausea, vomiting, chest pain, shortness of breath. Appetite has improved. Vital signs remained stable. No overnight events reported. Platelet count improving, now 141, fibrinogen 155. WBC 2.5. Review of Systems Constitutional: Reports: no symptoms. Objective Last 24 Hrs of Vital Signs/I&O Vital Signs Date Time Temp Pulse Resp B/P B/P Pulse O2 O2 Flow FiO2 Mean Ox Delivery Rate 01/21 0556 97.2 56 20 126/80 95 Room Air 01/21 0103 97.0 66 20 136/80 93 Room Air 01/21 0000 97 Room Air 01/21 0000 96.7 57 19 124/76 97 Room Air 01/20 1600 97.6 52 20 118/72 96 Room Air Room Air 01/20 1600 96 Room Air Room Air 01/20 1557 Room Air Room Air 01/20 1528 Room Air Room Air 01/20 0800 95 Room Air Room Air 01/20 0800 96.5 52 18 110/62 94 Room Air Room Air Intake & Output 01/21 0800 01/21 0000 01/20 1600 Intake Total 110 50 500 Output Total 1150 800 850 Balance -1040 -750 -350 Intake, IV 10 0 100 Intake, Oral 100 50 400 Output, Urine 1150 800 850 Patient 195 lb Weight Physical Exam General Appearance: Alert, Oriented X3, Cooperative, No Acute Distress Other Physical Findings: Head: atraumatic, normal appearance, left cheek swelling noted Neck: normal inspection, supple Respiratory: normal breath sounds, chest non-tender, lungs clear Cardiovascular: regular rate/rhythm Gastrointestinal: normal bowel sounds, soft, nontender Extremities: no lower extremity edema, mild edema in hands, stable left eye echymosis Cranial Nerves: normal hearing, normal speech, PERRL Current Medications: Current Medications Sig/Tabatha Start time Last Medication Dose Route Stop Time Status Admin Atropine Sulfate 0.5 MG Q 5 MINUTES X 3 DO.. 01/12 2230 AC IV Glycerin/Mineral Oil 1 JUAN ALBERTO TID PRN 01/08 1645 AC 01/09 TOP 0430 Hydrocortisone 25 MG DAILY 01/21 0900 AC Sodium Succinate IV Hydrocortisone 25 MG Q12 01/18 2100 DC 01/20 Sodium Succinate IV 0844 Levothyroxine Sodium 100 MCG DAILY 01/12 1000 AC 01/20 IV 0843 Magnesium Sulfate 1 GM ONCE ONE 01/20 0600 DC 01/20 Dextrose/Water 100 ML IV 01/20 0959 0650 Pantoprazole Sodium 40 MG DAILY 01/08 1930 AC 01/20 IV 0843 Last 24 Hrs of Lab/Chad Results Last 24 Hrs of Labs/Mics: Laboratory Tests 01/21/18 0640: Sodium Pending, Potassium Pending, Chloride Pending, Carbon Dioxide Pending, Anion Gap Pending, BUN Pending, Creatinine Pending, Glucose Pending, Calcium Pending, Phosphorus Pending, Magnesium Pending, Total Bilirubin Pending, AST Pending, ALT Pending, Albumin Pending, Fibrinogen Activity Pending, CBC w Diff Pending, WBC Pending, RBC Pending, Hgb Pending, Hct Pending, MCV Pending, MCH Pending, MCHC Pending, RDW Pending, Plt Count Pending, MPV Pending Assessment/Plan Assessment: This is a 62-year-old female with past medical history significant for iatrogenic hypothyroidism status post total thyroidectomy for thyroid cancer admitted to the hospital with myxedema coma secondary to noncompliance, neutropenia, thrombocytopenia and bradycardia. Problem list: * Myxedema coma with profound hypothyroidism-improving * Encephalopathy-likely secondary to myxedema * Hypotension, likely secondary to hypothyroidism versus possible hypercortisolism-improving * Bradycardia-stable * Pancytopenia-slowly improving Plan: * Continue to monitor on telemetry * Replete potassium, monitor electrolytes and replete accordingly * Follow-up endocrinology recommendations, recheck TSH free T4 in the morning * On hydrocortisone to 25 daily, per endo can DC tomorrow. * Check cortisol level on Friday * Monitor fibrinogen level * PT eval * DVT PPX: ALPS * Full code Problem List: 1. Myxedema coma 2. Bradycardia Pain Ratin Pain Location: NA Pain Goal: Remain pain free Pain Plan: NA Tomorrow's Labs & Rationales: CBC to monitor H&H BEP, magnesium 2 monitor electrolytes TSH free T4 Fibrinogen Yannick Jaime 01/21/18 1356: Attending MD Review Statement Attending Statement Attending MD Statement: examined this patient, discuss w/resident/PA/LAND RECLAMATION SPECIALIST, agreed w/resident/PA/LAND RECLAMATION SPECIALIST, discussed with family, reviewed EMR data (avail), discussed with nursing, discussed with case mgmt, reviewed images, amended to note Attending Assessment/Plan: Patient transferred from ICU to telemetry s/p treatment for myxedema coma requiring iv levothyroxine and iv hydrocortisone. Patient condition clinically improved and she is aaox 3 mental status. She is OOB to chair today. Vital stable. Patient is being followed by Endocrinology, cardiology, hematology as multidiscplinary approach. Recommend to change iv ppi to PO. C/w iv levo for now, taper steroids as per endocrinology. PT consult for general physical deconditioning.
[2018-01-21 08:21] LABS: ABSOLUTE BASOPHIL COUNT 0 /CUMM (0.0-0.2); ABSOLUTE EOSINOPHIL COUNT 0 /CUMM (0.0-0.7); ABSOLUTE GRANULOCYTE CT 1.7 /CUMM (1.4-6.5); ABSOLUTE MONOCYTE COUNT 0.1 /CUMM (0.10-0.60)
[2018-01-21 08:33] LABS: ABSOLUTE LYMPH COUNT 0.7 /CUMM (1.2-3.4); BASOPHIL % 0.2 % (0.0-2.0); EOSINOPHIL % 0.9 % (0-5); GRANULOCYTE % 67.6 % (42.2-75.2); HEMATOCRIT 25.6 % (37-47); MEAN CORPUSCULAR HGB CONC 34.2 G/DL (33.0-37.0); MEAN CORPUSCULAR VOLUME 93.7 FL (81.0-99.0); MEAN PLATELET VOLUME 7.7 FL (7.4-10.4); PLATELET COUNT 141 /CUMM (130-400); RBC DISTRIBUTION WIDTH 16.6 % (11.5-14.5); RED BLOOD CELL CT 2.73 /CUMM (4.20-5.40); WHITE BLOOD CELL COUNT 2.5 /CUMM (4.8-10.8)
--- NOTE | 2018-01-21 10:14 | PN- Psychiatry ---
Assessment/Plan Impression: The patient is showing improved cognition since our last visit. She may be close to baseline and is exhibiting some paranoid traits, continuing to be distrustful of medications and hesitating to say she is safe her (today) or at home (several days ago, in the ICU). Her chief psychiatric complaints today are confusion and anxiety. We have discussed with the patient and her spouse, Juan Luis, the risks, benefits and side effects of quetiapine/Seroquel, including the increased risk of sudden on the elderly and the increased risk of suicidal ideation. We will start this as a low dose, to allow her to beomce adjusted to it, and to minimize side effects, but it will likely need to be titrated to effect. We are choosing this medication because of its ability to organize her thoughts and treat paranoia, although this is usually affected at higher doses. Also, this medication has anxiolytic and antidepressant properties, as has a side effect of sedation, and should be given at night. Suggestion: 1. Please start quetiapine 12.5 mg PO before bedtime. Monitor and replete potassium and magnesium to the upper portion of their ranges; hold for hypokalemia or hypomagnesemia. Replete potassium before starting this medication (3.3 on 01/21/18.) Monitor EKG and hold for arrythmia or QTc greater than 475 mS. Hold for oversedation or respiratory depression. 2. Please advise of the patient's disposition plan, including discharge date, when known. 3. The patient is agreeable to come to [facility]. If she transfers to an [facility], we ask that the receiving facility call and make an appointment for her, . The office is at [address] [place] [address]. The patient's spouse is aware of this plan, and has a business card to contact us. We will continue to follow along with you. Subjective Subjective: The patient is alert and oriented. Her speech is slow, without delay. She is calm and pleasant. She denies depressive feelings, "I feel more confused." She denies hopelessness and helplessness, but endorses worthlessness "Maybe." She denies guilty feelings. The patient scales her anxiety as 8/10; 10/10 is the worst. She states that she is feeling that her body is starting to collapse. She can only identify more frequent bathroom trips as an example. She feels that falling at home and the dresser falling on her is having repercussions. The patient states that she feels safe here after a pause. She denies AH, VH, and states that she does not like to take a lot of medicine. She denies suicidal or homicidal ideation. When asked about sleep, she replies that she "slept pretty good last night, eight hours." Later, she states that she did not get much sleep last night, and even less the night before. She has no knowledge of anyone in her family being treated for mood disorders, or other psychiatric illness. She reports that her appetite is good. Review of Systems Neurological/Psychological: Reports: anxiety, confusion. Objective Last 24 Hrs of Vital Signs/I&O Vital Signs Date Time Temp Pulse Resp B/P B/P Pulse O2 O2 Flow FiO2 Mean Ox Delivery Rate 01/21 0933 Room Air Room Air 01/21 0919 Room Air Room Air 01/21 0556 97.2 56 20 126/80 95 Room Air 01/21 0103 97.0 66 20 136/80 93 Room Air 01/21 0000 97 Room Air 01/21 0000 96.7 57 19 124/76 97 Room Air 01/20 1600 97.6 52 20 118/72 96 Room Air Room Air 01/20 1600 96 Room Air Room Air 01/20 1557 Room Air Room Air 01/20 1528 Room Air Room Air Intake & Output 01/21 1600 01/21 0800 01/21 0000 Intake Total 110 50 Output Total 1150 800 Balance -1040 -750 Intake, IV 10 0 Intake, Oral 100 50 Output, Urine 1150 800 Patient 195 lb Weight Physical Exam: Not performed Physical Exam General Appearance: no apparent distress, alert, awake, anxious, comfortable Neurologic/Psychiatric: awake, alert, oriented x 3 Current Medications: Current Medications Sig/Tabatha Start time Last Medication Dose Route Stop Time Status Admin Atropine Sulfate 0.5 MG Q 5 MINUTES X 3 DO.. 01/12 2230 AC IV Glycerin/Mineral Oil 1 JUAN ALBERTO TID PRN 01/08 1645 AC 01/09 TOP 0430 Hydrocortisone 25 MG DAILY 01/21 0900 AC Sodium Succinate IV Hydrocortisone 25 MG Q12 01/18 2100 DC 01/20 Sodium Succinate IV 0844 Levothyroxine Sodium 100 MCG DAILY 01/12 1000 AC 01/20 IV 0843 Pantoprazole Sodium 40 MG DAILY 01/08 1930 AC 01/20 IV 0843 Results Last 24 Hrs of Labs/Mics: Laboratory Tests 01/21 0640 Chemistry Sodium (137 - 145 mmol/L) 137 Potassium (3.5 - 5.1 mmol/L) 3.3 L Chloride (98 - 107 mmol/L) 96 L Carbon Dioxide (22 - 30 mmol/L) 34 H Anion Gap (5 - 16) 7 BUN (7 - 17 mg/dL) 8 Creatinine (0.5 - 1.0 mg/dL) 0.5 Estimated GFR (>60 ml/min) > 60 Glucose (65 - 99 mg/dL) 84 Calcium (8.4 - 10.2 mg/dL) 8.2 L Phosphorus (2.5 - 4.5 mg/dL) 3.0 Magnesium (1.6 - 2.3 mg/dL) 1.9 Total Bilirubin (0.2 - 1.3 mg/dL) 0.9 AST (14 - 36 U/L) 18 ALT (9 - 52 U/L) 149 H Albumin (3.5 - 5.0 g/dL) 2.8 L Coagulation Fibrinogen Activity (200 - 393 MG/DL) 155 L Hematology CBC w Diff MAN DIFF ORDERED WBC (4.8 - 10.8 /CUMM) 2.5 L RBC (4.20 - 5.40 /CUMM) 2.73 L Hgb (12.0 - 16.0 G/DL) 8.8 L Hct (37 - 47 %) 25.6 L MCV (81.0 - 99.0 FL) 93.7 MCH (27.0 - 31.0 PG) 32.0 H MCHC (33.0 - 37.0 G/DL) 34.2 RDW (11.5 - 14.5 %) 16.6 H Plt Count (130 - 400 /CUMM) 141 MPV (7.4 - 10.4 FL) 7.7 Gran % (42.2 - 75.2 %) 67.6 Lymphocytes % (20.5 - 51.1 %) 26.7 Monocytes % (1.7 - 9.3 %) 4.6 Eosinophils % (0 - 5 %) 0.9 Basophils % (0.0 - 2.0 %) 0.2 Absolute Granulocytes (1.4 - 6.5 /CUMM) 1.7 Segmented Neutrophils (42.2 - 75.2 %) 61 Band Neutrophils (0.0 - 5.0 %) 1 Absolute Lymphocytes (1.2 - 3.4 /CUMM) 0.7 L Lymphocytes (20.5 - 51.1 %) 27 Monocytes (1.7 - 9.3 %) 5 Absolute Monocytes (0.10 - 0.60 /CUMM) 0.1 Eosinophils (0 - 5.0 %) 3 Absolute Eosinophils (0.0 - 0.7 /CUMM) 0 Absolute Basophils (0.0 - 0.2 /CUMM) 0 Myelocytes (0 - 0 %) 3 H Platelet Estimate (ADEQUATE) ADEQUATE Polychromasia Hypochromic-Microcytic 1+ Basophilic Stippling Anisocytosis 1+ Recent Imaging Studies: PATIENT: MILAGROS PEREIRA PRESENT AGE: 62 PATIENT ACCOUNT NO: [id number] : 54 LOCATION: [facility] ORDERING PHYSICIAN: Eun Sharp MD SERVICE DATE: 01/14/18- EXAM TYPE: CAT - CT FACE/SINUS WITHOUT CONT; CT HEAD WO IV CONTRAST EXAMINATION: CT HEAD AND FACE. CLINICAL INFORMATION: Altered mental status. COMPARISON: CT scan of the head 01/08/2018. TECHNIQUE: Transmission Rebuilder images were obtained. CT acquisition of the head and face was performed without intravenous administration of contrast. Data was reformatted into multiplanar images at the acquisition workstation. DLP: 1028.54 mGy-cm. FINDINGS: Head: There is no acute intracranial hemorrhage or abnormal extra-axial collection. No intracranial mass effect or midline shift. Lateral and third ventricles are normal. No hydrocephalus. Rg-white matter differentiation is grossly preserved and there is no evidence of acute territorial infarct. The calvarium and skull base are intact. Mastoid air cells and middle ear cavities are well aerated. Face: There is mild swelling within the subcutaneous tissues over the left zygomatic arch. Nasal bones, zygomatic arches, and pterygoid processes are intact. No evidence of an acute facial fracture. The lamina papyracea and orbital floors are intact. Orbital apices are unremarkable. Globes are symmetric. No abnormal retrobulbar mass or inflammation. Of note there is a prominent torus palatini that is partially included within the [id number] of this examination. No active paranasal sinus disease. Major paranasal sinuses pathways are patent. IMPRESSION: Mild asymmetric facial swelling over the left zygomatic arch. No acute facial fracture. No acute intracranial hemorrhage. DICTATED BY: Lance Garcia MD DATE/TIME DICTATED:01/14/181337 MANAGER HRIS:TIGIST DATE/TIME TRANSCRIBED:01/14/181337 CONFIDENTIAL, DO NOT COPY WITHOUT APPROPRIATE AUTHORIZATION. <Electronically signed in Other Vendor System> SIGNED BY: Lance Garcia MD 01/14 8367
[2018-01-21 15:28] VITALS: BP 118/70
--- NOTE | 2018-01-21 19:02 | PN- Cardiology ---
Subjective Subjective: * Patient is without complaints. * sinus bradycardia * potassium 3.3 * low H/H with neutropenia Objective Vital Signs and I&Os Vital Signs Date Time Temp Pulse Resp B/P B/P Pulse O2 O2 Flow FiO2 Mean Ox Delivery Rate 01/21 1528 97.0 60 18 118/70 96 Room Air 01/21 0933 Room Air Room Air 01/21 0919 Room Air Room Air 01/21 0556 97.2 56 20 126/80 95 Room Air 01/21 0103 97.0 66 20 136/80 93 Room Air 01/21 0000 97 Room Air 01/21 0000 96.7 57 19 124/76 97 Room Air Intake & Output 01/21 1600 01/21 0800 01/21 0000 01/20 1600 01/20 0800 01/20 0000 Intake Total 400 110 50 500 100 370 Output Total 300 1150 800 850 150 400 Balance 100 -1040 -750 -350 -50 -30 Intake, IV 40 10 0 100 100 130 Intake, Oral 360 100 50 400 240 Number 0 0 Bowel Movements Output, Urine 300 1150 800 850 150 400 Patient 195 lb Weight Physical Exam: General: WD/WN female; alert and oriented x 3 HEENT: swollen left cheek, PERRL, EOMI Neck: no JVD, no carotid bruit Heart: RRR, no murmur Lungs: clear bilaterally Extremities; no edema Assessment/Plan Assessment/Plan * This patient is now hemodynamically stable. Her heart rate tends to be in the low normal range but it is clearly improving. She no longer has heart block and has not had symptomatic bradycardia. * A repeat a 12 lead ECG continues to show low voltage. Would consider amyloidosis. Consider an abdominal fat pad biopsy. * replete potassium Continue telemetry? Yes
[2018-01-21 22:37] VITALS: BP 118/78
[2018-01-22 06:49] VITALS: BP 134/78
--- NOTE | 2018-01-22 07:40 | PN- Hematology ---
Subjective Subjective: She feels "fine." She is out of the ICU. She has no new pain. She is alert and oriented. Her speech is slowed. Review of Systems: Constitutional: Denies: fever. Gastrointestinal: Denies: abdominal pain. Musculoskeletal: Denies: back pain. Neurological/Psychological: Reports: confusion. All Other Systems: Reviewed and Negative Objective Vital Signs and I&Os Vital Signs Date Time Temp Pulse Resp B/P B/P Pulse O2 O2 Flow FiO2 Mean Ox Delivery Rate 01/22 0649 97.7 69 18 134/78 99 Room Air 01/21 2237 97.6 62 18 118/78 97 Room Air 01/21 1528 97.0 60 18 118/70 96 Room Air 01/21 0933 Room Air Room Air 01/21 0919 Room Air Room Air Intake & Output 01/22 0800 01/22 0000 01/21 1600 01/21 0800 01/21 0000 01/20 1600 Intake Total 200 200 400 110 50 500 Output Total 275 450 718 8131 800 850 Balance -75 -200 100 -1040 -750 -350 Intake, IV 100 40 10 0 100 Intake, Oral 100 200 360 100 50 400 Output, Urine 275 659 857 3895 800 850 Patient 87.798 kg 92.136 kg 88.405 kg Weight Physical Exam: General Appearance: no apparent distress, alert, awake, comfortable Head: atraumatic, central line in right neck Respiratory: normal breath sounds, chest non-tender, no respiratory distress, quiet respiration Cardiovascular: bradycardia Abdomen: normal bowel sounds, soft, non-tender, no organomegaly Extremities: no edema Neuro: alert and oriented x 3, slow speech Skin: ecchymosis in thigh improved, petechia in extremites improved Current Medications: Current Medications Sig/Tabatha Start time Last Medication Dose Route Stop Time Status Admin Atropine Sulfate 0.5 MG Q 5 MINUTES X 3 DO.. 01/12 2230 AC IV Glycerin/Mineral Oil 1 JUAN ALBERTO TID PRN 01/08 1645 AC 01/09 TOP 0430 Hydrocortisone 25 MG DAILY 01/21 09 AC 01/21 Sodium Succinate IV 1006 Levothyroxine Sodium 100 MCG DAILY 01/12 1000 AC 01/21 IV 1212 Omeprazole 40 MG DAILY AC 01/22 0700 AC 01/22 PO 0536 Pantoprazole Sodium 40 MG DAILY 01/08 1930 DC 01/21 IV 1006 Potassium Chloride 40 MEQ ONCE ONE 01/21 2300 DC PO 01/21 2301 Potassium Chloride 40 MEQ ONCE ONE 01/21 2130 DC / PO 01/21 2131 2230 Potassium Chloride 20 MEQ BID 01/21 2100 AC 01/21 PO 2100 Potassium Chloride 80 MEQ ONCE ONE 01/21 1915 CAN PO 01/22 1916 Potassium Chloride 40 MEQ ONCE ONE 01/21 1915 DC / PO 01/22 1916 2030 Quetiapine Fumarate 12.5 MG AT BEDTIME 01/22 2100 AC PO Quetiapine Fumarate 12.5 MG ONCE ONE 01/21 2130 DC 01/21 PO 01/21 2131 2347 Results Last 24 Hours of Lab Results: Laboratory Tests 01/22 0625 Chemistry Sodium Pending Potassium Pending Chloride Pending Carbon Dioxide Pending Anion Gap Pending BUN Pending Creatinine Pending BUN/Creatinine Ratio Pending Magnesium Pending TSH Pending Free T4 Pending Coagulation Fibrinogen Activity Pending Hematology CBC w Diff Pending WBC Pending RBC Pending Hgb Pending Hct Pending MCV Pending MCH Pending MCHC Pending RDW Pending Plt Count Pending MPV Pending Assessment/Plan Hematology Assessment/Recommendations: Mrs. Goode is a 62-year-old female with hypothyroidism, thyroid malignancy status post total thyroidectomy, ELDER ablation who presented to the hospital after being found to be confused and down by her . On presentation, she was noted to be pancytopenic with WBC 1.0, platelet of 32,000, and hemoglobin of 10.9. Vitamin B12 and folated was normal. Ferritin was elevated at 5770. Her AST and ALT were >2000. LDH is elevated at 7954. Bilirubin was elevated at 1.5. Her TSH was elevated and T4 was low. There is concern for myxedema coma. She was started on hydrocortisone and levothyroxine. She was started on empiric antibiotics. Imaging with CT head, cervical, chest, abdomen, and pelvis are reviewed and negative for any significant acute findings. Pancytopenia of unclear etiology but likely from underlying myxedema coma. Flow cytometry is unremarkable. DIC evaluation demonstrates low fibrinogen. Fibrinogen is improving. Platelet count has normalized. WBC is slightly worse. Hgb and Hct are improved. She does not need intervention at the moment. DIC panel may be monitored less frequently now. WBC may still fluctuate. She can be monitored for now. Endocrinology is following her thyroid management. Pancytopenia: -monitor CBC for now -no intervention needed at the moment Myxedema coma: -endocrinology following -management as per primary and endocrinology Please call [phone] with any questions or concerns. Problem List: 1. Pancytopenia 2. Myxedema coma
--- NOTE | 2018-01-22 07:49 | PN- Housestaff ---
Alfonzo Haddad 01/22/18 0749: Subjective Follow-up For: -Myxedema coma due to noncompliance with thyroid medication - improving -Hx of papillary thyroid cancer status post resection and radioactive iodine -Hypotension/bradycardia due to above - resolved. -Pancytopenia (improving). -Transaminitis due to shock liver 2/2 Myxedema coma -resolved. Subjective: The patient was seen and examined. She offers no complaints. Was noted to be confused by third shift lieutenant staff, AAO 3 at the time of our physical exam. She denies any headache, dizziness, lightheadedness, nausea, vomiting, chest pain, shortness of breath. Appetite has improved however still has poor by mouth intake. Vital signs remained stable. No overnight events reported. Platelet count improving, now 135, fibrinogen 159. WBC 2.9. Review of Systems Constitutional: Reports: no symptoms. Objective Last 24 Hrs of Vital Signs/I&O Vital Signs Date Time Temp Pulse Resp B/P B/P Pulse O2 O2 Flow FiO2 Mean Ox Delivery Rate 01/22 0649 97.7 69 18 134/78 99 Room Air 01/21 2237 97.6 62 18 118/78 97 Room Air 01/21 1528 97.0 60 18 118/70 96 Room Air 01/21 0933 Room Air Room Air 01/21 0919 Room Air Room Air Intake & Output 01/22 1600 01/22 0800 01/22 0000 Intake Total 200 200 Output Total 275 400 Balance -75 -200 Intake, IV 100 Intake, Oral 100 200 Output, Urine 275 400 Patient 194 lb 203 lb Weight Physical Exam General Appearance: Alert, Oriented X3, Cooperative, No Acute Distress Other Physical Findings: Head: atraumatic, normal appearance, left cheek swelling noted Neck: normal inspection, supple Respiratory: normal breath sounds, chest non-tender, lungs clear Cardiovascular: regular rate/rhythm Gastrointestinal: normal bowel sounds, soft, nontender, midline hernia noted Extremities: no lower extremity edema, mild edema in hands, stable left eye echymosis Cranial Nerves: normal hearing, normal speech, PERRL Current Medications: Current Medications Sig/Tabatha Start time Last Medication Dose Route Stop Time Status Admin Atropine Sulfate 0.5 MG Q 5 MINUTES X 3 DO.. 01/12 2230 AC IV Glycerin/Mineral Oil 1 JUAN ALBERTO TID PRN 01/08 1645 AC 01/09 TOP 0430 Hydrocortisone 25 MG DAILY 04/18 0900 DC 01/22 Sodium Succinate IV 0759 Levothyroxine Sodium 100 MCG DAILY 01/12 1000 AC 01/21 IV 1212 Omeprazole 40 MG DAILY AC 01/22 0700 AC 01/22 PO 0536 Pantoprazole Sodium 40 MG DAILY 01/08 1930 DC 01/21 IV 1006 Potassium Chloride 40 MEQ ONCE ONE 01/21 2300 DC PO 01/21 230 Potassium Chloride 40 MEQ ONCE ONE 01/21 2130 DC 01/21 PO 01/21 2131 2230 Potassium Chloride 20 MEQ BID 01/21 2100 AC 01/22 PO 0759 Potassium Chloride 80 MEQ ONCE ONE 01/21 191 CAN PO 01/21 191 Potassium Chloride 40 MEQ ONCE ONE 01/21 191 DC 01/21 PO 01/22 1916 2030 Quetiapine Fumarate 12.5 MG AT BEDTIME 01/22 2100 AC PO Quetiapine Fumarate 12.5 MG ONCE ONE 01/21 2130 DC 01/21 PO 01/21 2131 2347 Last 24 Hrs of Lab/Chad Results Last 24 Hrs of Labs/Mics: Laboratory Tests 01/22/18 0625: Anion Gap 7, Estimated GFR > 60, BUN/Creatinine Ratio 20.0, Magnesium 1.7, TSH 42.300 H, Free T4 0.84, Fibrinogen Activity 159 L, CBC w Diff NO MAN DIFF REQ, RBC 2.67 L, MCV 94.8, MCH 33.8 H, MCHC 35.7, RDW 16.9 H, MPV 8.0, Gran % 72.1 , Lymphocytes % 23.0, Monocytes % 3.8, Eosinophils % 1.0, Basophils % 0.1, Absolute Granulocytes 2.1, Absolute Lymphocytes 0.7 L, Absolute Monocytes 0.1, Absolute Eosinophils 0, Absolute Basophils 0 Assessment/Plan Assessment: This is a 62-year-old female with past medical history significant for iatrogenic hypothyroidism status post total thyroidectomy for thyroid cancer admitted to the hospital with myxedema coma secondary to noncompliance, neutropenia, thrombocytopenia and bradycardia. Problem list: * Myxedema coma with profound hypothyroidism-improving * Encephalopathy-likely secondary to myxedema * Hypotension, likely secondary to hypothyroidism versus possible hypercortisolism-improving * Bradycardia-stable * Pancytopenia-slowly improving Plan: * Continue to monitor on telemetry * Replete potassium, monitor electrolytes and replete accordingly * Follow-up endocrinology recommendations, recheck TSH free T4 in the morning * DC hydrocortisone to 25 daily, unfortunately received the dose today. Will recheck cortisol on Friday. * Monitor fibrinogen level * PT eval * DVT PPX: ALPS * Full code Problem List: 1. Anemia 2. Thrombocytopenia 3. Pancytopenia 4. Bradycardia 5. Myxedema coma Pain Ratin Pain Location: NA Pain Goal: Remain pain free Pain Plan: NA Tomorrow's Labs & Rationales: CBC to monitor H&H BEP, magnesium 2 monitor electrolytes TSH free T4 Fibrinogen AddisonHilario maldonadocynthia 01/22/18 1119: Attending MD Review Statement Attending Statement Attending MD Statement: examined this patient, discuss w/resident/PA/POST GRADUATE INTERN, agreed w/resident/PA/POST GRADUATE INTERN, discussed with family, reviewed EMR data (avail), discussed with nursing, discussed with case mgmt, reviewed images, amended to note Attending Assessment/Plan: Patient transferred from ICU to telemetry s/p treatment for myxedema coma requiring iv levothyroxine and iv hydrocortisone. Patient condition clinically improved and she is aaox 3 mental status. Vital stable. Not eating much. Patient is being followed by Endocrinology, Recommend C/w iv levothyroxine dose, complete steroids as per endocrinology. Check thryoid fucntion levels. Cardiology o/p amyloidosis work up, consider abdominal fat pad biopsy. hematology monitor fibrinogen levels. PT ongoing for general physical deconditioning. bedside and d/wd plan of care.
--- NOTE | 2018-01-22 08:01 | PN- Endocrinology ---
Assessment/Plan Endoscopy Assessment: The patient states she is confused. She does know that she is in [facility]. She is oriented to person and place. Apparently the patient is eating poorly. We have been tapering the patient's hydrocortisone replacement. The patient should be off hydrocortisone completely today. She is still on levothyroxine 100 mcg IV daily. Yesterday her TSH was 20 and free T4 0.72. This did not show any improvement over her previous days labs. Plan: The patient should receive no further hydrocortisone as of today. We can measure his serum cortisol tomorrow a.m. Continue levothyroxine 100 mcg IV daily. If there is no improvement in her thyroid hormone level we will have to increase the dose of levothyroxine to 125 mcg daily. We need to improve the patient's nutrition. She needs dietary supplements. Subjective Subjective: Feels confused Review of Systems Constitutional: Denies: chills, fever. Cardiovascular: Denies: chest pain. Respiratory: Denies: cough, short of breath. Gastrointestinal: Denies: abdominal pain. Skin: Reports: no symptoms. Objective Last 24 Hrs of Vital Signs/I&O Vital Signs Date Time Temp Pulse Resp B/P B/P Pulse O2 O2 Flow FiO2 Mean Ox Delivery Rate 01/22 0649 97.7 69 18 134/78 99 Room Air 01/21 2237 97.6 62 18 118/78 97 Room Air 01/21 1528 97.0 60 18 118/70 96 Room Air 01/21 0933 Room Air Room Air 01/21 0919 Room Air Room Air Intake & Output 01/22 0800 01/22 0000 01/21 1600 Intake Total 200 200 400 Output Total 275 400 300 Balance -75 -200 100 Intake, IV 100 40 Intake, Oral 100 200 360 Output, Urine 275 400 300 Patient 194 lb 203 lb Weight Vital Signs Date Time Temp Pulse Resp B/P B/P Pulse O2 O2 Flow FiO2 Mean Ox Delivery Rate 01/22 0649 97.7 69 18 134/78 99 Room Air 01/21 2237 97.6 62 18 118/78 97 Room Air 01/21 1528 97.0 60 18 118/70 96 Room Air 01/21 0933 Room Air Room Air 01/21 0919 Room Air Room Air Intake & Output 01/22 0800 01/22 0000 01/21 1600 Intake Total 200 200 400 Output Total 275 400 300 Balance -75 -200 100 Intake, IV 100 40 Intake, Oral 100 200 360 Output, Urine 275 400 300 Patient 194 lb 203 lb Weight Physical Exam General Appearance: alert, awake, anxious Head: swelling (swelling left cheek) Neck: normal inspection Respiratory: normal breath sounds Cardiovascular: regular rate/rhythm Extremities: normal inspection Current Medications: Laboratory Tests 01/22 01/21 0625 0640 Chemistry Sodium (137 - 145 mmol/L) Pending 137 Potassium (3.5 - 5.1 mmol/L) Pending 3.3 L Chloride (98 - 107 mmol/L) Pending 96 L Carbon Dioxide (22 - 30 mmol/L) Pending 34 H Anion Gap (5 - 16) Pending 7 BUN (7 - 17 mg/dL) Pending 8 Creatinine (0.5 - 1.0 mg/dL) Pending 0.5 Estimated GFR (>60 ml/min) > 60 BUN/Creatinine Ratio Pending Glucose (65 - 99 mg/dL) 84 Calcium (8.4 - 10.2 mg/dL) 8.2 L Phosphorus (2.5 - 4.5 mg/dL) 3.0 Magnesium (1.6 - 2.3 mg/dL) Pending 1.9 Total Bilirubin (0.2 - 1.3 mg/dL) 0.9 AST (14 - 36 U/L) 18 ALT (9 - 52 U/L) 149 H Albumin (3.5 - 5.0 g/dL) 2.8 L TSH Pending Free T4 Pending Coagulation Fibrinogen Activity (200 - 393 MG/DL) Pending 155 L Hematology CBC w Diff Pending MAN DIFF ORDERED WBC (4.8 - 10.8 /CUMM) Pending 2.5 L RBC (4.20 - 5.40 /CUMM) Pending 2.73 L Hgb (12.0 - 16.0 G/DL) Pending 8.8 L Hct (37 - 47 %) Pending 25.6 L MCV (81.0 - 99.0 FL) Pending 93.7 MCH (27.0 - 31.0 PG) Pending 32.0 H MCHC (33.0 - 37.0 G/DL) Pending 34.2 RDW (11.5 - 14.5 %) Pending 16.6 H Plt Count (130 - 400 /CUMM) Pending 141 MPV (7.4 - 10.4 FL) Pending 7.7 Gran % (42.2 - 75.2 %) 67.6 Lymphocytes % (20.5 - 51.1 %) 26.7 Monocytes % (1.7 - 9.3 %) 4.6 Eosinophils % (0 - 5 %) 0.9 Basophils % (0.0 - 2.0 %) 0.2 Absolute Granulocytes (1.4 - 6.5 /CUMM) 1.7 Segmented Neutrophils (42.2 - 75.2 %) 61 Band Neutrophils (0.0 - 5.0 %) 1 Absolute Lymphocytes (1.2 - 3.4 /CUMM) 0.7 L Lymphocytes (20.5 - 51.1 %) 27 Monocytes (1.7 - 9.3 %) 5 Absolute Monocytes (0.10 - 0.60 /CUMM) 0.1 Eosinophils (0 - 5.0 %) 3 Absolute Eosinophils (0.0 - 0.7 /CUMM) 0 Absolute Basophils (0.0 - 0.2 /CUMM) 0 Myelocytes (0 - 0 %) 3 H Platelet Estimate (ADEQUATE) ADEQUATE Polychromasia Hypochromic-Microcytic 1+ Basophilic Stippling Anisocytosis 1+ Current Treatment: Current Medications Sig/Tabatha Start time Last Medication Dose Route Stop Time Status Admin Atropine Sulfate 0.5 MG Q 5 MINUTES X 3 DO.. 01/12 2230 AC IV Glycerin/Mineral Oil 1 JUAN ALBERTO TID PRN 01/08 1645 AC 01/09 TOP 0430 Hydrocortisone 25 MG DAILY 01/21 0900 AC 01/21 Sodium Succinate IV 1006 Levothyroxine Sodium 100 MCG DAILY 01/12 1000 AC 01/21 IV 1212 Omeprazole 40 MG DAILY AC 01/22 0700 AC 01/22 PO 0536 Pantoprazole Sodium 40 MG DAILY 01/08 1930 DC 01/21 IV 1006 Potassium Chloride 40 MEQ ONCE ONE 01/21 2300 DC PO 01/21 230 Potassium Chloride 40 MEQ ONCE ONE 01/21 2130 DC 01/21 PO 01/21 2131 223 Potassium Chloride 20 MEQ BID 01/21 2100 AC 01/21 PO 2100 Potassium Chloride 80 MEQ ONCE ONE 01/21 191 CAN PO 01/21 191 Potassium Chloride 40 MEQ ONCE ONE 01/21 191 DC 01/21 PO 01/22 1916 2030 Quetiapine Fumarate 12.5 MG AT BEDTIME 01/22 2100 AC PO Quetiapine Fumarate 12.5 MG ONCE ONE 01/21 2130 DC 01/21 PO 01/219 3514 Results Pertinent Lab/Chad Results: Laboratory Tests 01/22 01/21 0625 0640 Chemistry Sodium (137 - 145 mmol/L) Pending 137 Potassium (3.5 - 5.1 mmol/L) Pending 3.3 L Chloride (98 - 107 mmol/L) Pending 96 L Carbon Dioxide (22 - 30 mmol/L) Pending 34 H Anion Gap (5 - 16) Pending 7 BUN (7 - 17 mg/dL) Pending 8 Creatinine (0.5 - 1.0 mg/dL) Pending 0.5 Estimated GFR (>60 ml/min) > 60 BUN/Creatinine Ratio Pending Glucose (65 - 99 mg/dL) 84 Calcium (8.4 - 10.2 mg/dL) 8.2 L Phosphorus (2.5 - 4.5 mg/dL) 3.0 Magnesium (1.6 - 2.3 mg/dL) Pending 1.9 Total Bilirubin (0.2 - 1.3 mg/dL) 0.9 AST (14 - 36 U/L) 18 ALT (9 - 52 U/L) 149 H Albumin (3.5 - 5.0 g/dL) 2.8 L TSH Pending Free T4 Pending Coagulation Fibrinogen Activity (200 - 393 MG/DL) Pending 155 L Hematology CBC w Diff Pending MAN DIFF ORDERED WBC (4.8 - 10.8 /CUMM) Pending 2.5 L RBC (4.20 - 5.40 /CUMM) Pending 2.73 L Hgb (12.0 - 16.0 G/DL) Pending 8.8 L Hct (37 - 47 %) Pending 25.6 L MCV (81.0 - 99.0 FL) Pending 93.7 MCH (27.0 - 31.0 PG) Pending 32.0 H MCHC (33.0 - 37.0 G/DL) Pending 34.2 RDW (11.5 - 14.5 %) Pending 16.6 H Plt Count (130 - 400 /CUMM) Pending 141 MPV (7.4 - 10.4 FL) Pending 7.7 Gran % (42.2 - 75.2 %) 67.6 Lymphocytes % (20.5 - 51.1 %) 26.7 Monocytes % (1.7 - 9.3 %) 4.6 Eosinophils % (0 - 5 %) 0.9 Basophils % (0.0 - 2.0 %) 0.2 Absolute Granulocytes (1.4 - 6.5 /CUMM) 1.7 Segmented Neutrophils (42.2 - 75.2 %) 61 Band Neutrophils (0.0 - 5.0 %) 1 Absolute Lymphocytes (1.2 - 3.4 /CUMM) 0.7 L Lymphocytes (20.5 - 51.1 %) 27 Monocytes (1.7 - 9.3 %) 5 Absolute Monocytes (0.10 - 0.60 /CUMM) 0.1 Eosinophils (0 - 5.0 %) 3 Absolute Eosinophils (0.0 - 0.7 /CUMM) 0 Absolute Basophils (0.0 - 0.2 /CUMM) 0 Myelocytes (0 - 0 %) 3 H Platelet Estimate (ADEQUATE) ADEQUATE Polychromasia Hypochromic-Microcytic 1+ Basophilic Stippling Anisocytosis 1+
[2018-01-22 08:21] LABS: ABSOLUTE BASOPHIL COUNT 0 /CUMM (0.0-0.2); ABSOLUTE EOSINOPHIL COUNT 0 /CUMM (0.0-0.7); ABSOLUTE GRANULOCYTE CT 2.1 /CUMM (1.4-6.5); ABSOLUTE LYMPH COUNT 0.7 /CUMM (1.2-3.4); ABSOLUTE MONOCYTE COUNT 0.1 /CUMM (0.10-0.60); BASOPHIL % 0.1 % (0.0-2.0); GRANULOCYTE % 72.1 % (42.2-75.2); HEMATOCRIT 25.3 % (37-47); MEAN CORPUSCULAR HGB 33.8 PG (27.0-31.0); MEAN CORPUSCULAR HGB CONC 35.7 G/DL (33.0-37.0); MEAN CORPUSCULAR VOLUME 94.8 FL (81.0-99.0); PLATELET COUNT 135 /CUMM (130-400); RBC DISTRIBUTION WIDTH 16.9 % (11.5-14.5); RED BLOOD CELL CT 2.67 /CUMM (4.20-5.40); WHITE BLOOD CELL COUNT 2.9 /CUMM (4.8-10.8)
[2018-01-22 15:30] VITALS: BP 110/58
--- NOTE | 2018-01-22 20:38 | PN- Cardiology ---
Subjective Subjective: * no complaints * Thyroid improved. * platelets improved * off steroids Objective Vital Signs and I&Os Vital Signs Date Time Temp Pulse Resp B/P B/P Pulse O2 O2 Flow FiO2 Mean Ox Delivery Rate 01/22 1530 98.3 58 16 110/58 96 01/22 0649 97.7 69 18 134/78 99 Room Air 01/21 2237 97.6 62 18 118/78 97 Room Air Intake & Output 01/22 1600 01/22 0800 01/22 0000 01/21 1600 01/21 0800 01/21 0000 Intake Total 300 200 200 400 110 50 Output Total 600 275 148 897 1216 800 Balance -300 -75 -200 100 -1040 -750 Intake, IV 50 100 40 10 0 Intake, Oral 250 100 200 360 100 50 Output, Urine 600 275 188 202 3031 800 Patient 194 lb 203 lb 195 lb Weight Physical Exam: General: WD/WN female; alert and oriented x 3 HEENT: swollen left cheek, PERRL, EOMI Neck: no JVD, no carotid bruit Heart: RRR, no murmur Lungs: clear bilaterally Extremities; no edema Assessment/Plan Assessment/Plan * This patient is now hemodynamically stable. Her heart rate tends to be in the low normal range but it is clearly improving. She no longer has heart block and has not had symptomatic bradycardia. Ok to stop telemetry. Continue telemetry? No
[2018-01-22 23:07] VITALS: BP 130/58
[2018-01-23 06:00] VITALS: BP 112/68
--- NOTE | 2018-01-23 08:00 | PN- Housestaff ---
Alfonzo Haddad 01/23/18 0800: Subjective Follow-up For: -Myxedema coma due to noncompliance with thyroid medication - improving -Hx of papillary thyroid cancer status post resection and radioactive iodine -Hypotension/bradycardia due to above - resolved. -Pancytopenia (improving). -Transaminitis due to shock liver 2/2 Myxedema coma -resolved. Subjective: The patient was seen and examined. She offers no complaints. She denies any headache, dizziness, lightheadedness, nausea, vomiting, chest pain, shortness of breath. Appetite has improved however still has poor by mouth intake. Vital signs remained stable. No overnight events reported. refused labs this am. Review of Systems Constitutional: Reports: no symptoms. Objective Last 24 Hrs of Vital Signs/I&O Vital Signs Date Time Temp Pulse Resp B/P B/P Pulse O2 O2 Flow FiO2 Mean Ox Delivery Rate 01/24 2032 96 Room Air 01/23 1950 96.5 67 18 130/68 97 Room Air 01/23 1531 97.0 60 20 102/66 92 01/23 0600 97.3 62 16 112/68 93 Room Air 01/22 2307 97.5 60 16 130/58 96 Room Air Intake & Output 01/23 1600 01/23 0800 01/23 0000 Intake Total 320 10 100 Output Total 300 100 Balance 20 -90 100 Intake, IV 20 Intake, Oral 300 10 100 Output, Urine 300 100 Patient 206 lb Weight Physical Exam General Appearance: Alert, Oriented X3, Cooperative, No Acute Distress Other Physical Findings: Head: atraumatic, normal appearance, left cheek swelling noted Neck: normal inspection, supple Respiratory: normal breath sounds, chest non-tender, lungs clear Cardiovascular: regular rate/rhythm Gastrointestinal: normal bowel sounds, soft, nontender, midline hernia noted Extremities: no lower extremity edema, mild edema in hands, stable left eye echymosis Cranial Nerves: normal hearing, normal speech, PERRL Current Medications: Current Medications Sig/Tabatha Start time Last Medication Dose Route Stop Time Status Admin Acetaminophen 650 MG ONCE ONE 01/23 2015 DC 01/23 PO 01/23 Atropine Sulfate 0.5 MG Q 5 MINUTES X 3 DO.. 01/12 223 AC IV Glycerin/Mineral Oil 1 JUAN ALBERTO TID PRN 01/08 1645 AC 01/09 TOP 0430 Levothyroxine Sodium 0.225 MG DAILY 01/24 0900 AC PO Levothyroxine Sodium 100 MCG DAILY 01/12 1000 DC 01/23 IV 0943 Omeprazole 40 MG DAILY AC 01/22 0700 AC 01/23 PO 0614 Potassium Chloride 20 MEQ BID 01/21 2100 AC 01/23 PO 2020 Quetiapine Fumarate 12.5 MG AT BEDTIME 01/22 2100 AC 01/23 PO 2020 Senna/Docusate Sodium 2 TAB DAILY PRN 01/22 1600 AC 01/23 PO 0802 Last 24 Hrs of Lab/Chad Results Last 24 Hrs of Labs/Mics: Laboratory Tests 01/23/18 0640: Anion Gap 8, Estimated GFR > 60, BUN/Creatinine Ratio 26.0 H, TSH 43.200 H, Free T4 0.91 Assessment/Plan Assessment: This is a 62-year-old female with past medical history significant for iatrogenic hypothyroidism status post total thyroidectomy for thyroid cancer admitted to the hospital with myxedema coma secondary to noncompliance, neutropenia, thrombocytopenia and bradycardia. Problem list: * Myxedema coma with profound hypothyroidism-improving * Encephalopathy-likely secondary to myxedema * Hypotension, likely secondary to hypothyroidism versus possible hypercortisolism-improving * Bradycardia-stable * Pancytopenia-slowly improving Plan: * Change IV levothyroxine to PO. * Follow-up endocrinology recommendations, recheck TSH free T4 in the morning * Consider MRI brain depending on TSH results tomorrow * Appreciate endo recs. * Will recheck cortisol on Friday. * Monitor fibrinogen level * PT eval * DVT PPX: ALPS * Full code Problem List: 1. Bradycardia 2. Thrombocytopenia Pain Ratin Pain Location: NA Pain Goal: Remain pain free Pain Plan: NA Tomorrow's Labs & Rationales: CBC to monitor H&H BEP, magnesium to monitor electrolytes TSH free T4 Fibrinogen Yannick Jaime 01/23/18 1046: Attending MD Review Statement Attending Statement Attending MD Statement: examined this patient, discuss w/resident/PA/DROP WIRE OPERATOR, agreed w/resident/PA/DROP WIRE OPERATOR, discussed with family, reviewed EMR data (avail), discussed with nursing, discussed with case mgmt, reviewed images, amended to note Attending Assessment/Plan: Patient transferred from ICU to telemetry s/p treatment for myxedema coma requiring iv levothyroxine and iv hydrocortisone. No new complaints today. Her bradycardia improved. Encourage PO intake Patient is being followed by Endocrinology, Recommend C/w iv levothyroxine dose, completed steroids as per endocrinology. f/u thyroid functions. Cardiology o/p amyloidosis work up, consider abdominal fat pad biopsy. PT ongoing for general physical deconditioning. Overall slow clinical improvement. Patient can be discharged to rehab if ok with endo on PO levothyroxine. Discontinue telemetry.
--- NOTE | 2018-01-23 09:35 | PN- Endocrinology ---
Assessment/Plan Endoscopy Assessment: 62 y/o female, hx of thyroid cancer which was diagnosed in and was treated with thyroid surgery twice and ELDER twice. Detail unclear. She was supposed to take Levothyroxine 150 mcg daily. However, she hasn't been compliance with the medication. Patient was in ER in 05/2017 and 08/2017-- her TSH was > 60 and free T4 was < 0.07. She presented to ER today again after she was found that she was on the floor. Patient was hypothermia and bradycardic. Blood work showed profound hypothyroidism along with borderline low cortisol, abnormal LFT and pancytopenia. She was put on Levothyroxine 100 mcg iv and stress dose of steroid. She has been on off on dopamine drip and stress dose of steroid. Currently she is still on Levothyroxine 100 mcg iv daily. Her BP and HR have been relately stable at this point. On 01/22/2018, repeat TSH 42.3 and free T4 0.84. Plan: 1. stop Levothyroxine 100 mcg iv daily today; 2. start Levothyroxine 225 mcg po daily tomorrow; 3. repeat TSH, free T4 on 01/25/2018 to look for a trend; 4. if her free T4 continues improving and TSH continues rising, I will consider ordering pituitary MRI to r/o TSH secreting tumor; 5. check am cortisol, prolactin, E2, FSH and LH tomorrow am to evaluate her other pituitary hormones. Subjective Subjective: she is still slightly confused this morning. Objective Last 24 Hrs of Vital Signs/I&O Vital Signs Date Time Temp Pulse Resp B/P B/P Pulse O2 O2 Flow FiO2 Mean Ox Delivery Rate 01/23 0600 97.3 62 16 112/68 93 Room Air 01/22 2307 97.5 60 16 130/58 96 Room Air 01/22 1530 98.3 58 16 110/58 96 Intake & Output 01/23 1600 01/23 0800 01/23 0000 Intake Total 10 100 Output Total 100 Balance -90 100 Intake, Oral 10 100 Output, Urine 100 Patient 206 lb Weight
[2018-01-23 15:31] VITALS: BP 102/66
[2018-01-23 19:50] VITALS: BP 130/68
[2018-01-23 21:53] VITALS: BP 126/70
--- NOTE | 2018-01-23 23:41 | Discharge Summary ---
See Addendum Visit Information Visit Dates Admission Date: 01/08/18 Discharge Date: 01/27/18 Hospital Course Course Attending Physician: Bryson Roberts MD Primary Care Physician: Jefferson Mead MD Consulting Request: 1 Consulting Specialty: Endocrinology Consulting Request: 2 Consulting Specialty: Cardiology Consulting Request: 3 Consulting Specialty: Hematology/Oncology Consulting Request: 4 Consulting Specialty: Neurology Consulting Request: 5 Consulting Specialty: Psychiatry Hospital Course: Patient is a 62-year-old female with past medical history significant for iatrogenic hypothyroidism status post total thyroidectomy for thyroid cancer presenting this admission with myxedema coma secondary to noncompliance, neutropenia, thrombocytopenia and bradycardia. Physical exam on admission: Vital Signs Date Time Temp Pulse Resp B/P B/P Pulse O2 O2 Flow FiO2 Mean Ox Delivery Rate 01/08 1833 52 20 96/58 98 Nasal 2.0L Cannula 01/08 1807 Nasal 2.0L Cannula 01/08 1626 94/60 01/08 1625 108 22 104/76 100 Nasal 2.0L Cannula 01/08 1438 72 22 108/71 100 Nasal 2.0L Cannula 01/08 1352 99 Nasal 2.0L Cannula 01/08 1254 90 18 126/74 100 Nasal Cannula General Appearance Alert, No Acute Distress, patient is alert to person but not place or time, only states she is fine, follows some commands, but not all Skin dry skin, cuts on hands and feet, bruising on her shins Skin Temp/Moisture Exam: Cool/Dry HEENT Atraumatic, dry mucosal membranes, pupils are equal and reactive to light but sluggish Neck No thryomegaly, No LAD Cardiovascular Normal S1, Normal S2, bradycardic Lungs Clear to Auscultation, Normal Air Movement Abdomen Soft, No Tenderness, hypoactive bowel sounds Neurological Cranial Nerves 3-12 NL, unable to assess completely due to confusion, moving all extremities, absent deep tendon reflexes Extremities No Clubbing, No Cyanosis, No Edema, Normal Pulses, No Tenderness/ Swelling, dry skin, bruising, dry blood and cuts on toes of right foot Pertinent labs on admission: 01/08/18 1758: Urine Opiates Screen < 100, Methadone Screen < 40, Barbiturate Screen < 60, Ur Phencyclidine Scrn < 6.00, Amphetamines Screen < 100, U Benzodiazepines Scrn < 85, Urine Cocaine Screen < 50, Urine Cannabis Screen < 5.00, Urine Color Pending , Urine Clarity Pending, Urine pH Pending, Ur Specific [place] Pending, Urine Protein Pending, Urine Ketones Pending, Urine Nitrite Pending, Urine Bilirubin Pending, Urine Urobilinogen Pending, Ur Leukocyte Esterase Pending, Ur Microscopic SEDIMENT EXAMINED, Urine RBC Pending, Urine Hemoglobin Pending, Urine Glucose Pending 01/08/18 1330: Lactic Acid 1.3 01/08/18 1330: Anion Gap 10, Estimated GFR > 60, BUN/Creatinine Ratio 48.6 H, Glucose 145 H, Calcium 9.7, Total Bilirubin 1.5 H, AST 2923 H, ALT 2400 H, Alkaline Phosphatase 76, Lactate Dehydrogenase 21841 H, Troponin I < 0.01, Total Protein 6.8, Albumin 3.8, Globulin 3.0, Albumin/Globulin Ratio 1.3, Free T4 < 0.07 L, TSH &T3 &Free T4 Intrp 63.500 H, Cortisol PM Sample 14.8 H, CBC w Diff MAN DIFF ORDERED, RBC 3.42 L, MCV 93.9, MCH 32.0 H, MCHC 34.0, RDW 16.7 H, MPV 8.9, Gran % 71.7, Lymphocytes % 20.1 L, Monocytes % 7.7, Eosinophils % 0.3, Basophils % 0.2, Absolute Granulocytes 0.7 L, Segmented Neutrophils 61, Band Neutrophils 5, Absolute Lymphocytes 0.2 L, Lymphocytes 20 L, Monocytes 11 H, Absolute Monocytes 0.1, Absolute Eosinophils 0, Basophils 3 H, Absolute Basophils 0, Nucleated RBCs 2 H, Platelet Estimate, Hypochromic-Microcytic 2+, Poikilocytosis 1+, Anisocytosis 1+, Retic Count 1.48 The patient was initially admitted to the ICU later on was downgraded to telemtry floor. The followng problems were addressed during the course of her hospital stay: #Myxedema coma: Patient presented confused, hypothermic, bradycardic and with elevated TSH and low T4. Patient has been noncompliant with medications. Endocrinology was consulted. Patient was started on levothyroxine IV. A cortisol level was checked in the setting of hypotension. Patient's cortisol level was low and she was started on IV Solu-Cortef. Repeat free T4 and TSH were monitored daily. IV Solu-cortef was discontinued on 01/22/18. Levothyroxine was changed to PO on 01/24. Patient's TSH levels stayed elevated eventhough she received levothyroxine, endocrinology recommeded ordering pituitary MRI to r/o TSH secreting tumor which revealed a grossly normal pituitary gland. The patient to be discharged on levothyroxine 225 g daily and close follow-up with endocrinology as an outpatient. Per endocrinology the patient needs monitoring her TFT once a week while she is in rehab till her TFT is stable.Her am cortisol was borderline; we recommend monitoring her am cortisol as outpatient. #Altered mental status in setting of severe hypothyroidism: Patient was found on the ground with a dresser over her - it is unclear if she fell. Patient has had multiple falls recently. Head CT and cervical CT were negative for any acute findings. Tibula/ fibula and humerus x-rays without any acute fracture. Patient's mental status initially worsened, and a repeat head CT was done which remained negative. Neurology consult was obtained, recommended checking ammonia level which was normal and also an EEG which showed epileptogenic potential but no acute seizure activity. Psych consult was also obtained , who thought that the mental status could be secondary to the severe hypothyroidism, depression and anxiety along with a neurocognitive disorder. Patient had spontaneous improvement in her mental status, probably back to her baseline. Neurochecks were done. She was on. Fall precautions. PT recommended STR. #Bradycardia: - Resolved Likely secondary to severe hypothyroidism. Lyme titer ordered in setting of bradycardia and pancytopneia was negative. Patient was initially started on Levophed for hypotension but was switched to dopamine for hypotension and bradycardia. Initial echocardiogram showed normal ejection fraction with small pericardial effusion. Repeat limited echo was done for concerns of worsening pericardial effusion as patient's EKG on 01/11/18 showed low voltage, but repeat echocardiogram showed trace pericardial effusion. Her heart rate imporved to 40s-50s while she was in the ICU. After being downgraded to telemtry her heart rate further improved to 60s. She was followed by cardiology during her hospital stay. #Hypotension: - Resolved Patient's hypotension was thought to be likely secondary to severe hypothyroidism. Patient has received IV fluid boluses along with stress dose steroids. Patient continues to remain hypotensive however patient's manual blood pressure this morning is >90 systolic after receiving a small fluid bolus. Patient's hypotension worsened on 01/10 requiring levophed and a central line. A right internal jugular line was placed. Patient had received levophed peripherally for a short duration prior to accessing central line. After ~15 minutes patient had an adverse reaction to the levophed in the right arm and appeared to have phlebitis. The levophed through the peripheral IV site was stopped. Patient was given phentolamine to counter act the vasocontrictive effect of levophed and a cold compress was placed on top. The site appears to be improving. RIJ removed on 01/20/2018 when she was downgraded to telemetry. IV Solucortef was tapered down and eventually discontinued on 01/22/18. #Shock liver 11/07 Severe hypothyroidism: - Resolved Abnormal LFTs may be secondary to severe hypothyroidism, however this is unclear. Patient reported no abdominal pain. LFTs improved, currently in normal range. CT Abd/Pelvis showed no focal defects in the liver. Patient is s/p cholecystectomy. Alk phos and bili levels normal. #Neutropenia: Patient has an absolute neutrophil count of 700 on admission, now fluctuating between . Etiology of patient's neutropenia is unclear at this time however may be secondary to severe hypothyroidism. Patient is HIV and hepatitis negative. Rapid flu was negative. CXR shows no infiltrates. Blood and urine cultures were sent with no growth. Lyme titer was negative. Patient was prophylaxtically covered with antibiotics as the mortality rate of patient's with myxedema coma who become septic is much higher, however antibiotics have been stopped as there are no signs of acute infection and WBC count has increased to normal and likely neutropenia was secondary to severe hypothyroidism. Blood cultures, Urine cultures remain negative. Rapid Flu test was negative. #Pancytopenia: Resolving Patient on admission was neutropenic, anemic and severely thrombocytopenic. Patient had a reticulocyte count of 1.48% with absolute reticulocyte count of 1.1 and a reticulocyte count index of 0.75 indicating bone marrow suppression which can be caused by hypothyroidism. LDH count was elevated. Iron panel revealed elevated iron, normal TIBC and elevated ferritin. Vitamin B12 is elevated. Folate levels normal. HIV negative. Haptoglobin level 17. Flow cytometry was performed which showed no evidence of active myelodysplasia or blasts, monoclonal B-cell lymphoproliferative disease, and no unusual phenotype T cells identified. As all cell lines are improving with current treatment it is likely that patient 's pancytopenia is due to her severe hypothyroidism. The patient was followed by hematology. Daily fibrinoges were wnl. Plt levels normalized. #Hypernatremia - resolved Patients with hypothyroidism typically have hyponatremia, however patient on presentation appears severely dehydrated which may be the cause of her hypernatremia. Patient has also been given multiple doses of normal saline, later switced to D51/2 NS. IV fluids have been discontinued now with Na level within normal range. #Swallow evaluation:Initially the patient was placed on puree with nectar thick liquids which was advanced as tolerated. Now on regular diet . #DVT prophylaxis: Alps #The patient was evaluated by psychiatry during her hospital stay. Please see recommendations below:The patient is agreeable to come to [facility]. If she transfers to an [facility], we ask that the receiving facility call and make an appointment for her, . The office is at [address] [place] [address]. The patient's spouse is aware of this plan, and has a business card to contact us. #Patient to be discharged to [facility] facility. Allergies: Coded Allergies: Sulfa (Sulfonamide Antibiotics) (UNKNOWN 09/03/17) Pertinent Lab Results: Laboratory Tests 01/24 01/24 01/23 0700 0700 0640 Chemistry Sodium (137 - 145 mmol/L) Pending 139 Potassium (3.5 - 5.1 mmol/L) Pending 3.4 L Chloride (98 - 107 mmol/L) Pending 98 Carbon Dioxide (22 - 30 mmol/L) Pending 33 H Anion Gap (5 - 16) Pending 8 BUN (7 - 17 mg/dL) Pending 13 Creatinine (0.5 - 1.0 mg/dL) Pending 0.5 Estimated GFR (>60 ml/min) > 60 BUN/Creatinine Ratio (7 - 25 %) Pending 26.0 H Magnesium Pending TSH (0.270 - 4.200 uIU/mL) 43.200 H Free T4 (0.78 - 2.44 ng/dL) Pending 0.91 TSH &T3 &Free T4 Intrp Pending Prolactin Pending Cortisol AM Sample Cancelled Pending Coagulation Fibrinogen Activity Pending Cancelled Hematology CBC w Diff Pending Cancelled WBC Pending Cancelled RBC Pending Cancelled Hgb Pending Cancelled Hct Pending Cancelled MCV Pending Cancelled MCH Pending Cancelled MCHC Pending Cancelled RDW Pending Cancelled Plt Count Pending Cancelled MPV Pending Cancelled 01/22 0625 Chemistry Sodium (137 - 145 mmol/L) 138 Potassium (3.5 - 5.1 mmol/L) 3.9 Chloride (98 - 107 mmol/L) 98 Carbon Dioxide (22 - 30 mmol/L) 33 H Anion Gap (5 - 16) 7 BUN (7 - 17 mg/dL) 12 Creatinine (0.5 - 1.0 mg/dL) 0.6 Estimated GFR (>60 ml/min) > 60 BUN/Creatinine Ratio (7 - 25 %) 20.0 Magnesium (1.6 - 2.3 mg/dL) 1.7 TSH (0.270 - 4.200 uIU/mL) 42.300 H Free T4 (0.78 - 2.44 ng/dL) 0.84 Coagulation Fibrinogen Activity (200 - 393 MG/DL) 159 L Hematology CBC w Diff NO MAN DIFF REQ WBC (4.8 - 10.8 /CUMM) 2.9 L RBC (4.20 - 5.40 /CUMM) 2.67 L Hgb (12.0 - 16.0 G/DL) 9.0 L Hct (37 - 47 %) 25.3 L MCV (81.0 - 99.0 FL) 94.8 MCH (27.0 - 31.0 PG) 33.8 H MCHC (33.0 - 37.0 G/DL) 35.7 RDW (11.5 - 14.5 %) 16.9 H Plt Count (130 - 400 /CUMM) 135 MPV (7.4 - 10.4 FL) 8.0 Gran % (42.2 - 75.2 %) 72.1 Lymphocytes % (20.5 - 51.1 %) 23.0 Monocytes % (1.7 - 9.3 %) 3.8 Eosinophils % (0 - 5 %) 1.0 Basophils % (0.0 - 2.0 %) 0.1 Absolute Granulocytes (1.4 - 6.5 /CUMM) 2.1 Absolute Lymphocytes (1.2 - 3.4 /CUMM) 0.7 L Absolute Monocytes (0.10 - 0.60 /CUMM) 0.1 Absolute Eosinophils (0.0 - 0.7 /CUMM) 0 Absolute Basophils (0.0 - 0.2 /CUMM) 0 Disposition Summary Disposition Principal Diagnosis: Myxedema coma Hypotension/bradycardia Additional Diagnosis: Pancytopenia Discharge Disposition: SNF Discharge Instructions General Discharge Information Code Status: Full Code Patient's Diet: Regular diet Patient's Activity: As tolerated Follow-Up Instructions/Appts: Please follow up with your PCP within a week of discharge. Please follow up with photovoltaic installation technician Dr. Liriano within a week of discharge. Please follow up with program host Dr. Bess within a week of discharge. Please follow up with neurologist, Dr. Feng within a week of discharge. Please follow up with balance staff staker Dr. Daniel within a week of discharge. Please call and make an appointment for her with [facility] psychiatry, . The office is at [address] [place] [address]. Ms. Goode needs monitoring her TFT once a week while she is in rehab till her TFT is stable.Her am cortisol was borderline; we recommend monitoring her am cortisol as outpatient. Medications at Discharge Discharge Medications: Stop taking the following medications: Levothyroxine Sodium (Levothyroxine Sodium) 150 MCG TABLET ORAL DAILY Qty = 30 Start taking the following new medications: Omeprazole (Omeprazole) 20 MG CAPSULE. 1 Tablet ORAL DAILY BEFORE BREAKFAST Qty = 30 No Refills Comments: Last Taken: 01/27/18 Time: 5:30 AM Potassium Chloride (Potassium Chloride) 20 MEQ PACKET 20 Millequivalent ORAL TWICE DAILY Qty = 30 No Refills Comments: Last Taken: 01/27/18 Time: 9:00 AM Sennosides/Docusate Sodium (Senna Plus Tablet) 8.6 MG-50 MG TABLET 2 Tablet ORAL DAILY as needed for CONSTIPATION Qty = 30 No Refills Comments: Last Taken:01/23/18 Time:08:02AM Levothyroxine Sodium (Synthroid) 200 MCG TABLET 0.225 Milligram ORAL 0700 Qty = 30 No Refills Comments: Last Taken: 01/27/18 Time: 5:30 AM Copies To: [place] QUICK,Jefferson Kimball
[2018-01-24 07:04] VITALS: BP 112/66
--- NOTE | 2018-01-24 08:02 | Patient Discharge Instructions ---
Discharge Instructions General Discharge Information You were seen/treated for: Myxedema coma Hypotension/bradycardia Pancytopenia Special Instructions: Please follow up with your PCP within a week of discharge. Please follow up with home and family living professor Dr. Liriano within a week of discharge. Please follow up with outside property agent Dr. Bess within a week of discharge. Please follow up with neurologist, Dr. Feng within a week of discharge. Please follow up with underground miner Dr. Daniel within a week of discharge. Please call and make an appointment for her with [facility] psychiatry, . The office is at [address] [place] [address]. Ms. Goode needs monitoring her TFT once a week while she is in rehab till her TFT is stable.Her am cortisol was borderline; we recommend monitoring her am cortisol as outpatient. Diet Additional DIET Information: Chopped/thin liquies Activity Additional ACTIVITY Info: As tolerated Acute Coronary Syndrome Inclusion Criteria At DC or during hospital stay patient has or had the following: ACS DIAGNOSIS No Discharge Core Measures Meds if any: Prescribed or Continued at Discharge Meds if any: NOT Prescribed or Continued at Discharge Congestive Heart Failure Inclusion Criteria At DC or during hospital stay patient has or had the following: CHF DIAGNOSIS No Discharge Core Measures Meds if any: Prescribed or Continued at Discharge Meds if any: NOT Prescribed or Continued at Discharge Cerebrovascular accident Inclusion Criteria At DC or during hospital stay patient has or had the following: CVA/TIA Diagnosis No Discharge Core Measures Meds if any: Prescribed or Continued at Discharge Meds if any: NOT Prescribed or Continued at Discharge Venous thromboembolism Inclusion Criteria VTE Diagnosis No VTE Type NONE VTE Confirmed by (Test) NONE Discharge Core Measures - Per Current guidelines, there needs to be overlap - treatment for the first 5 days of Warfarin therapy. - If discharged on Warfarin prior to 5 days of - overlap therapy, the patient will need to be - assessed for post discharge needs including - *Post discharge parental anticoagulation - *Warfarin and/or parental anticoagulation education - *Follow up date to check INR post discharge At least 5 days overlap therapy as Inpatient No Meds if any: Prescribed or Continued at Discharge Note: Overlap Therapy is Warfarin and Anticoagulant Meds if any: NOT Prescribed or Continued at Discharge
[2018-01-24] MEDS ORDERED: OMEPRAZOLE20 M2 PO (08:08)
[2018-01-24 08:31] LABS: ABSOLUTE BASOPHIL COUNT 0 /CUMM (0.0-0.2); ABSOLUTE EOSINOPHIL COUNT 0 /CUMM (0.0-0.7); ABSOLUTE LYMPH COUNT 0.6 /CUMM (1.2-3.4); ABSOLUTE MONOCYTE COUNT 0.2 /CUMM (0.10-0.60); BASOPHIL % 0.4 % (0.0-2.0); EOSINOPHIL % 0.4 % (0-5); GRANULOCYTE % 72.5 % (42.2-75.2); HEMATOCRIT 23.9 % (37-47); MEAN CORPUSCULAR HGB 32.3 PG (27.0-31.0); MEAN CORPUSCULAR HGB CONC 34.5 G/DL (33.0-37.0); MEAN CORPUSCULAR VOLUME 93.5 FL (81.0-99.0); MEAN PLATELET VOLUME 7.7 FL (7.4-10.4); PLATELET COUNT 119 /CUMM (130-400); RBC DISTRIBUTION WIDTH 18.4 % (11.5-14.5); RED BLOOD CELL CT 2.55 /CUMM (4.20-5.40); WHITE BLOOD CELL COUNT 2.7 /CUMM (4.8-10.8)
--- NOTE | 2018-01-24 10:32 | PN- Endocrinology ---
Assessment/Plan Endoscopy Assessment: Patient states she feels better this morning. She has been switched from intravenous levothyroxine to levothyroxine 225 mcg by mouth daily. Because the patient's TSH is beginning to rise the suspicion of a pituitary adenoma has been raised. This a.m. the patient's cortisol was 6.8 and prolactin is normal at 11.8. LH however is low at 12.7. This should be elevated and a postmenopausal woman. FSH and estradiol was supposed to be ordered but I do not see them in the computer. Plan: Suggest that the patient can stay off steroid replacement therapy. We can continue levothyroxine 225 mcg by mouth daily given before breakfast. We should order an FSH and estradiol level on the blood already drawn. If both FSH and LH are low in a postmenopausal woman this would suggest pituitary dysfunction. The patient will need to undergo some imaging of her pituitary with an MRI if she can cooperate. She does complain of some frontal headaches. Subjective Subjective: Feels okay Review of Systems Constitutional: Denies: chills, fever. Cardiovascular: Denies: chest pain. Gastrointestinal: Denies: nausea, vomiting. Skin: Reports: no symptoms. Objective Last 24 Hrs of Vital Signs/I&O Vital Signs Date Time Temp Pulse Resp B/P B/P Pulse O2 O2 Flow FiO2 Mean Ox Delivery Rate 01/24 0704 97.1 69 18 112/66 96 Room Air 01/233 96.5 126/70 01/24 2032 96 Room Air 01/23 1950 96.5 67 18 130/68 97 Room Air 01/23 1531 97.0 60 20 102/66 92 Intake & Output 01/24 1600 01/24 0800 01/24 0000 Intake Total 240 240 Output Total 200 200 Balance -200 240 40 Intake, Oral 240 240 Number 3 Bowel Movements Output, Urine 200 200 Vital Signs Date Time Temp Pulse Resp B/P B/P Pulse O2 O2 Flow FiO2 Mean Ox Delivery Rate 01/24 0704 97.1 69 18 112/66 96 Room Air 01/233 96.5 126/70 01/24 2032 96 Room Air 01/23 1950 96.5 67 18 130/68 97 Room Air 01/23 1531 97.0 60 20 102/66 92 Intake & Output 01/24 1600 01/24 0800 01/24 0000 Intake Total 240 240 Output Total 200 200 Balance -200 240 40 Intake, Oral 240 240 Number 3 Bowel Movements Output, Urine 200 200 Physical Exam Respiratory: normal breath sounds Cardiovascular: regular rate/rhythm Abdomen: normal bowel sounds, soft Current Medications: Current Medications Sig/Tabatha Start time Last Medication Dose Route Stop Time Status Admin Acetaminophen 650 MG Q4P PRN 01/23 2315 AC PO Acetaminophen 650 MG ONCE ONE 01/23 2015 DC 01/23 PO 01/23 Atropine Sulfate 0.5 MG Q 5 MINUTES X 3 DO.. 01/12 223 AC IV Glycerin/Mineral Oil 1 JUAN ALBERTO TID PRN 01/08 1645 AC 01/09 TOP 0430 Levothyroxine Sodium 0.225 MG DAILY 01/24 09 AC 01/24 PO 0809 Levothyroxine Sodium 100 MCG DAILY 01/12 1000 DC 01/23 IV 0943 Omeprazole 40 MG DAILY AC 01/22 0700 AC 01/24 PO 0510 Potassium Chloride 20 MEQ BID 01/21 2100 AC 01/24 PO 0810 Quetiapine Fumarate 12.5 MG AT BEDTIME 01/22 2100 DC 01/23 PO 2020 Senna/Docusate Sodium 2 TAB DAILY PRN 01/22 1600 AC 01/23 PO 0802 Results Pertinent Lab/Chad Results: Laboratory Tests 01/24 01/24 0700 0700 Chemistry Sodium (137 - 145 mmol/L) 136 L Potassium (3.5 - 5.1 mmol/L) 3.5 Chloride (98 - 107 mmol/L) 99 Carbon Dioxide (22 - 30 mmol/L) 35 H Anion Gap (5 - 16) 3 L BUN (7 - 17 mg/dL) 13 Creatinine (0.5 - 1.0 mg/dL) 0.5 Estimated GFR (>60 ml/min) > 60 BUN/Creatinine Ratio (7 - 25 %) 26.0 H Magnesium (1.6 - 2.3 mg/dL) 1.5 L Free T4 (0.78 - 2.44 ng/dL) 0.95 Total T3 (0.97 - 1.69 ng/mL) 0.54 L TSH &T3 &Free T4 Intrp (0.270 - 4.20 uIU/mL) 40.100 H Prolactin (3.0 - 18.6 ng/mL) 11.8 Cortisol AM Sample (4.46 - 22.7 ug/dL) Cancelled 6.8 Coagulation Fibrinogen Activity (200 - 393 MG/DL) 195 L Hematology CBC w Diff NO MAN DIFF REQ WBC (4.8 - 10.8 /CUMM) 2.7 L RBC (4.20 - 5.40 /CUMM) 2.55 L Hgb (12.0 - 16.0 G/DL) 8.3 L Hct (37 - 47 %) 23.9 L MCV (81.0 - 99.0 FL) 93.5 MCH (27.0 - 31.0 PG) 32.3 H MCHC (33.0 - 37.0 G/DL) 34.5 RDW (11.5 - 14.5 %) 18.4 H Plt Count (130 - 400 /CUMM) 119 L MPV (7.4 - 10.4 FL) 7.7 Gran % (42.2 - 75.2 %) 72.5 Lymphocytes % (20.5 - 51.1 %) 20.6 Monocytes % (1.7 - 9.3 %) 6.1 Eosinophils % (0 - 5 %) 0.4 Basophils % (0.0 - 2.0 %) 0.4 Absolute Granulocytes (1.4 - 6.5 /CUMM) 2.0 Absolute Lymphocytes (1.2 - 3.4 /CUMM) 0.6 L Absolute Monocytes (0.10 - 0.60 /CUMM) 0.2 Absolute Eosinophils (0.0 - 0.7 /CUMM) 0 Absolute Basophils (0.0 - 0.2 /CUMM) 0 04/20 0640 Chemistry Sodium (137 - 145 mmol/L) 139 Potassium (3.5 - 5.1 mmol/L) 3.4 L Chloride (98 - 107 mmol/L) 98 Carbon Dioxide (22 - 30 mmol/L) 33 H Anion Gap (5 - 16) 8 BUN (7 - 17 mg/dL) 13 Creatinine (0.5 - 1.0 mg/dL) 0.5 Estimated GFR (>60 ml/min) > 60 BUN/Creatinine Ratio (7 - 25 %) 26.0 H TSH (0.270 - 4.200 uIU/mL) 43.200 H Free T4 (0.78 - 2.44 ng/dL) 0.91 Coagulation Fibrinogen Activity Cancelled Hematology CBC w Diff Cancelled WBC Cancelled RBC Cancelled Hgb Cancelled Hct Cancelled MCV Cancelled MCH Cancelled MCHC Cancelled RDW Cancelled Plt Count Cancelled MPV Cancelled
--- NOTE | 2018-01-24 13:50 | PN- Att Addend ---
Attending Addendum Attending Brief Note The patient was seen and examined. She offers no complaints. She denies any headache, dizziness, lightheadedness, nausea, vomiting, chest pain, shortness of breath. Appetite slow improvement. Ate her breakfast this am. Vital signs remained stable. Slow to work with PT. General Appearance: Alert, Oriented X3, Cooperative, No Acute Distress Other Physical Findings: Head: atraumatic, normal appearance, left cheek swelling noted Neck: normal inspection, supple Respiratory: normal breath sounds, chest non-tender, lungs clear Cardiovascular: regular rate/rhythm Gastrointestinal: normal bowel sounds, soft, nontender, midline hernia noted Extremities: no lower extremity edema, mild edema in hands, stable left eye echymosis Cranial Nerves: normal hearing, normal speech, PERRL Patient is being followed by Endocrinology, Levothyroxine dsoe changed to PO, completed steroids as per endocrinology. Obtain FSH/LH. If low would suggest pituitary dysfunction. MRI pituitary as per Endo. Cardiology o/p amyloidosis work up, consider abdominal fat pad biopsy. PT ongoing for general physical deconditioning. Overall slow clinical improvement. Anticipate dc planning as her clinical condition improves and needs o/p f/u with Endocrinology Dr Draper. Admission Lab Results I reviewed the following labs: Laboratory Tests 01/24 01/24 0700 0700 Chemistry Sodium (137 - 145 mmol/L) 136 L Potassium (3.5 - 5.1 mmol/L) 3.5 Chloride (98 - 107 mmol/L) 99 Carbon Dioxide (22 - 30 mmol/L) 35 H Anion Gap (5 - 16) 3 L BUN (7 - 17 mg/dL) 13 Creatinine (0.5 - 1.0 mg/dL) 0.5 Estimated GFR (>60 ml/min) > 60 BUN/Creatinine Ratio (7 - 25 %) 26.0 H Magnesium (1.6 - 2.3 mg/dL) 1.5 L Free T4 (0.78 - 2.44 ng/dL) 0.95 Total T3 (0.97 - 1.69 ng/mL) 0.54 L TSH &T3 &Free T4 Intrp (0.270 - 4.20 uIU/mL) 40.100 H Prolactin (3.0 - 18.6 ng/mL) 11.8 Cortisol AM Sample (4.46 - 22.7 ug/dL) Cancelled 6.8 Coagulation Fibrinogen Activity (200 - 393 MG/DL) 195 L Hematology CBC w Diff NO MAN DIFF REQ WBC (4.8 - 10.8 /CUMM) 2.7 L RBC (4.20 - 5.40 /CUMM) 2.55 L Hgb (12.0 - 16.0 G/DL) 8.3 L Hct (37 - 47 %) 23.9 L MCV (81.0 - 99.0 FL) 93.5 MCH (27.0 - 31.0 PG) 32.3 H MCHC (33.0 - 37.0 G/DL) 34.5 RDW (11.5 - 14.5 %) 18.4 H Plt Count (130 - 400 /CUMM) 119 L MPV (7.4 - 10.4 FL) 7.7 Gran % (42.2 - 75.2 %) 72.5 Lymphocytes % (20.5 - 51.1 %) 20.6 Monocytes % (1.7 - 9.3 %) 6.1 Eosinophils % (0 - 5 %) 0.4 Basophils % (0.0 - 2.0 %) 0.4 Absolute Granulocytes (1.4 - 6.5 /CUMM) 2.0 Absolute Lymphocytes (1.2 - 3.4 /CUMM) 0.6 L Absolute Monocytes (0.10 - 0.60 /CUMM) 0.2 Absolute Eosinophils (0.0 - 0.7 /CUMM) 0 Absolute Basophils (0.0 - 0.2 /CUMM) 0 Admission Meds I reviewed the following Meds: Current Medications Sig/Tabatha Start time Last Medication Dose Stop Time Status Admin Acetaminophen 650 MG Q4P PRN 01/23 2315 AC (Tylenol) Atropine Sulfate 0.5 MG Q 5 MINUTES X 3 DO.. 01/12 2230 AC (Atropine) Glycerin/Mineral Oil 1 JUAN ALBERTO TID PRN 01/08 1645 AC 01/09 (Lubriderm) 0430 Levothyroxine Sodium 0.225 MG 0701/25 07 AC (Synthroid) Omeprazole 40 MG DAILY AC 01/22 0700 AC 01/24 (Prilosec) 0510 Potassium Chloride 20 MEQ BID 01/21 2100 AC 01/24 (Klor) 0810 Senna/Docusate Sodium 2 TAB DAILY PRN 01/22 1600 AC 01/23 (Senokot S) 0802
[2018-01-24 15:07] VITALS: BP 114/62
[2018-01-24 23:43] VITALS: BP 114/65
[2018-01-25 07:29] VITALS: BP 128/74
[2018-01-25 08:33] LABS: ABSOLUTE BASOPHIL COUNT 0 /CUMM (0.0-0.2); ABSOLUTE EOSINOPHIL COUNT 0 /CUMM (0.0-0.7); ABSOLUTE GRANULOCYTE CT 1.8 /CUMM (1.4-6.5); ABSOLUTE LYMPH COUNT 0.6 /CUMM (1.2-3.4); ABSOLUTE MONOCYTE COUNT 0.2 /CUMM (0.10-0.60); BASOPHIL % 0.7 % (0.0-2.0); EOSINOPHIL % 0.4 % (0-5); HEMATOCRIT 24.4 % (37-47); MEAN CORPUSCULAR HGB 32.9 PG (27.0-31.0); MEAN CORPUSCULAR HGB CONC 34.8 G/DL (33.0-37.0); MEAN CORPUSCULAR VOLUME 94.6 FL (81.0-99.0); MEAN PLATELET VOLUME 7.4 FL (7.4-10.4); PLATELET COUNT 126 /CUMM (130-400); RBC DISTRIBUTION WIDTH 18.8 % (11.5-14.5); RED BLOOD CELL CT 2.58 /CUMM (4.20-5.40); WHITE BLOOD CELL COUNT 2.6 /CUMM (4.8-10.8)
--- NOTE | 2018-01-25 10:33 | PN- Endocrinology ---
Assessment/Plan Endoscopy Assessment: The patient states she feels okay. We added yesterday and FSH to her blood work which came back as 43.8 and an estradiol level of 34. These are consistent with menopause. Her prolactin is normal. Thus there is no definite signs of pituitary disease. The patient is presently on 225 mcg of levothyroxine daily by mouth. Her blood pressure has remained good off steroid therapy. Plan: Suggest continue the present dose of thyroid hormone. Repeat the patient's free T4 and TSH tomorrow. Subjective Subjective: Feels okay Review of Systems Constitutional: Denies: chills, fever. Cardiovascular: Denies: chest pain. Respiratory: Denies: short of breath. Gastrointestinal: Denies: abdominal pain, nausea, vomiting. Objective Last 24 Hrs of Vital Signs/I&O Vital Signs Date Time Temp Pulse Resp B/P B/P Pulse O2 O2 Flow FiO2 Mean Ox Delivery Rate 01/25 0729 97.5 65 18 128/74 97 Room Air 01/24 2343 97.6 64 20 114/65 98 Room Air 01/24 1507 97.6 77 18 114/62 94 Room Air Intake & Output 01/25 1600 01/25 0800 01/25 0000 Intake Total 240 240 Output Total 525 Balance 240 -285 Intake, Oral 240 240 Output, Urine 525 Physical Exam General Appearance: alert, awake, comfortable Neck: normal inspection Respiratory: normal breath sounds Cardiovascular: regular rate/rhythm Abdomen: normal bowel sounds Extremities: normal inspection Current Medications: Current Medications Sig/Tabatha Start time Last Medication Dose Route Stop Time Status Admin Acetaminophen 650 MG Q4P PRN 01/23 2315 AC PO Atropine Sulfate 0.5 MG Q 5 MINUTES X 3 DO.. 01/12 2230 AC IV Glycerin/Mineral Oil 1 JUAN ALBERTO TID PRN 01/08 1645 AC 01/09 TOP 0430 Levothyroxine Sodium 0.225 MG 01/25 0700 AC 01/25 PO 0612 Levothyroxine Sodium 0.225 MG DAILY 01/24 0900 DC 01/24 PO 0809 Omeprazole 40 MG DAILY AC 01/22 0700 AC 01/25 PO 0612 Potassium Chloride 20 MEQ BID 01/21 2100 AC 01/25 PO 0844 Senna/Docusate Sodium 2 TAB DAILY PRN 01/22 1600 AC 01/23 PO 0802 Results Pertinent Lab/Chad Results: Laboratory Tests 01/25 01/24 0709 0700 Chemistry Sodium (137 - 145 mmol/L) 139 Potassium (3.5 - 5.1 mmol/L) 3.8 Chloride (98 - 107 mmol/L) 98 Carbon Dioxide (22 - 30 mmol/L) 33 H Anion Gap (5 - 16) 7 BUN (7 - 17 mg/dL) 13 Creatinine (0.5 - 1.0 mg/dL) 0.6 Estimated GFR (>60 ml/min) > 60 BUN/Creatinine Ratio (7 - 25 %) 21.7 Cortisol AM Sample Cancelled Hematology CBC w Diff NO MAN DIFF REQ WBC (4.8 - 10.8 /CUMM) 2.6 L RBC (4.20 - 5.40 /CUMM) 2.58 L Hgb (12.0 - 16.0 G/DL) 8.5 L Hct (37 - 47 %) 24.4 L MCV (81.0 - 99.0 FL) 94.6 MCH (27.0 - 31.0 PG) 32.9 H MCHC (33.0 - 37.0 G/DL) 34.8 RDW (11.5 - 14.5 %) 18.8 H Plt Count (130 - 400 /CUMM) 126 L MPV (7.4 - 10.4 FL) 7.4 Gran % (42.2 - 75.2 %) 69.0 Lymphocytes % (20.5 - 51.1 %) 23.0 Monocytes % (1.7 - 9.3 %) 6.9 Eosinophils % (0 - 5 %) 0.4 Basophils % (0.0 - 2.0 %) 0.7 Absolute Granulocytes (1.4 - 6.5 /CUMM) 1.8 Absolute Lymphocytes (1.2 - 3.4 /CUMM) 0.6 L Absolute Monocytes (0.10 - 0.60 /CUMM) 0.2 Absolute Eosinophils (0.0 - 0.7 /CUMM) 0 Absolute Basophils (0.0 - 0.2 /CUMM) 0 01/24 0700 Chemistry Sodium (137 - 145 mmol/L) 136 L Potassium (3.5 - 5.1 mmol/L) 3.5 Chloride (98 - 107 mmol/L) 99 Carbon Dioxide (22 - 30 mmol/L) 35 H Anion Gap (5 - 16) 3 L BUN (7 - 17 mg/dL) 13 Creatinine (0.5 - 1.0 mg/dL) 0.5 Estimated GFR (>60 ml/min) > 60 BUN/Creatinine Ratio (7 - 25 %) 26.0 H Magnesium (1.6 - 2.3 mg/dL) 1.5 L Free T4 (0.78 - 2.44 ng/dL) 0.95 Total T3 (0.97 - 1.69 ng/mL) 0.54 L TSH &T3 &Free T4 Intrp (0.270 - 4.20 uIU/mL) 40.100 H Estradiol (E2) Level (pg/mL) 34.2 Prolactin (3.0 - 18.6 ng/mL) 11.8 Cortisol AM Sample (4.46 - 22.7 ug/dL) 6.8 Coagulation Fibrinogen Activity (200 - 393 MG/DL) 195 L Hematology CBC w Diff NO MAN DIFF REQ WBC (4.8 - 10.8 /CUMM) 2.7 L RBC (4.20 - 5.40 /CUMM) 2.55 L Hgb (12.0 - 16.0 G/DL) 8.3 L Hct (37 - 47 %) 23.9 L MCV (81.0 - 99.0 FL) 93.5 MCH (27.0 - 31.0 PG) 32.3 H MCHC (33.0 - 37.0 G/DL) 34.5 RDW (11.5 - 14.5 %) 18.4 H Plt Count (130 - 400 /CUMM) 119 L MPV (7.4 - 10.4 FL) 7.7 Gran % (42.2 - 75.2 %) 72.5 Lymphocytes % (20.5 - 51.1 %) 20.6 Monocytes % (1.7 - 9.3 %) 6.1 Eosinophils % (0 - 5 %) 0.4 Basophils % (0.0 - 2.0 %) 0.4 Absolute Granulocytes (1.4 - 6.5 /CUMM) 2.0 Absolute Lymphocytes (1.2 - 3.4 /CUMM) 0.6 L Absolute Monocytes (0.10 - 0.60 /CUMM) 0.2 Absolute Eosinophils (0.0 - 0.7 /CUMM) 0 Absolute Basophils (0.0 - 0.2 /CUMM) 0
--- NOTE | 2018-01-25 12:17 | PN- Housestaff ---
Lauren QUICK,[facility] 01/25/18 1216: Subjective Follow-up For: -Myxedema coma due to noncompliance with thyroid medication - improving -Hx of papillary thyroid cancer status post resection and radioactive iodine -Hypotension/bradycardia due to above - resolved. -Pancytopenia (improving). -Transaminitis due to shock liver 2/2 Myxedema coma -resolved. Complaints: no complaints Subjective: The patient was seen and examined. She offers no complaints. She denies any headache, dizziness, lightheadedness, nausea, vomiting, chest pain, shortness of breath. Appetite has improved however still has poor by mouth intake. Review of Systems Constitutional: Reports: see HPI. Denies: chills, fever. Objective Last 24 Hrs of Vital Signs/I&O Vital Signs Date Time Temp Pulse Resp B/P B/P Pulse O2 O2 Flow FiO2 Mean Ox Delivery Rate 01/26 2208 97.8 64 20 112/70 95 Room Air 01/25 1939 96.9 01/25 1451 97.6 63 18 126/92 96 Room Air 01/25 0729 97.5 65 18 128/74 97 Room Air Intake & Output 01/26 0800 01/26 0000 01/25 1600 Intake Total 250 720 Output Total 400 1200 Balance -150 -480 Intake, Oral 250 720 Output, Urine 400 1200 Physical Exam General Appearance: Alert, Oriented X3, Cooperative, No Acute Distress Skin: No Rashes Skin Temp/Moisture Exam: Warm/Dry Sepsis Skin Exam (color): Normal for Ethnicity HEENT: Atraumatic, PERRLA, EOMI, Mucous Membr. moist/pink Neck: No JVD, No thryomegaly Lymphatic: Cervical nl Cardiovascular: Regular Rate, Normal S1, Normal S2, No Murmurs Lungs: Clear to Auscultation, Normal Air Movement Abdomen: Normal Bowel Sounds, Soft, No Tenderness, No Hepatospenomegaly, No Masses Neurological: Normal Speech, Normal Tone, Cranial Nerves 3-12 NL Extremities: No Clubbing, No Edema Current Medications: Current Medications Sig/Tabatha Start time Last Medication Dose Route Stop Time Status Admin Acetaminophen 650 MG Q4P PRN 01/23 2315 AC PO Atropine Sulfate 0.5 MG Q 5 MINUTES X 3 DO.. 01/12 2230 DC IV Glycerin/Mineral Oil 1 JUAN ALBERTO TID PRN 01/08 1645 AC 01/09 TOP 0430 Levothyroxine Sodium 0.225 MG 0700 01/25 0700 AC 01/25 PO 0612 Omeprazole 40 MG DAILY AC 01/22 0700 AC 01/25 PO 06 Potassium Chloride 20 MEQ BID 01/21 2100 AC 01/25 PO 2129 Senna/Docusate Sodium 2 TAB DAILY PRN 01/22 1600 AC 01/23 PO 0802 Last 24 Hrs of Lab/Chad Results Last 24 Hrs of Labs/Mics: Laboratory Tests 01/25/18 0709: Anion Gap 7, Estimated GFR > 60, BUN/Creatinine Ratio 21.7, CBC w Diff NO MAN DIFF REQ, RBC 2.58 L, MCV 94.6, MCH 32.9 H, MCHC 34.8, RDW 18.8 H, MPV 7.4, Gran % 69.0, Lymphocytes % 23.0, Monocytes % 6.9, Eosinophils % 0.4, Basophils % 0.7, Absolute Granulocytes 1.8, Absolute Lymphocytes 0.6 L, Absolute Monocytes 0.2, Absolute Eosinophils 0, Absolute Basophils 0 Assessment/Plan Assessment: This is a 62-year-old female with past medical history significant for iatrogenic hypothyroidism status post total thyroidectomy for thyroid cancer admitted to the hospital with myxedema coma secondary to noncompliance, neutropenia, thrombocytopenia and bradycardia. Problem list: * Myxedema coma with profound hypothyroidism-improving * Encephalopathy-likely secondary to myxedema-improved today * Hypotension, likely secondary to hypothyroidism versus possible hypercortisolism-improving * Bradycardia-resolved * Pancytopenia-slowly improving Plan: * Continue PO levothyroxine to PO. * Follow-up endocrinology recommendations, recheck TSH free T4 in the morning * Appreciate endo recs * fibrinogen level 195 yesterday. Will recheck tomorrow * PT evaluation recommend STR * DVT PPX: ALPS * Full code Problem List: 1. Myxedema coma Pain Ratin Pain Location: None Pain Goal: Remain pain free Pain Plan: Tylenol PRN Tomorrow's Labs & Rationales: TSH and Free T4 for thyroid function DVT/Prophylaxis: mechanical Consulting Request: Consulting Specialty: Psychiatry AddiosnYannick 01/25/18 1240: Attending Review Statement Attending Statement Attending MD Statement: examined this patient, discuss w/resident/PA/LATHMAKER, agreed w/resident/PA/LATHMAKER, discussed with family, reviewed EMR data (avail), discussed with nursing, discussed with case mgmt, reviewed images, amended to note Attending Assessment/Plan: Patient with slow clinical improvement. She is on PO levothyroxine. Patient is aaox 3 oriented and ate her breakfast this morning. She is slow in her usual phycial activity and encouraged to STR at dsicharge. Patient also has hernia non obstructed with passage of bowel movement and flatus. Case discussed with endocrinology Dr Draper who feels wh should check her Thyroid fucntion tests tomorrow and if they are acceptable it would suggest she is tolerating her PO levothyroxine 225. Anticipate dc soon.
[2018-01-25 14:51] VITALS: BP 126/92
[2018-01-25 22:08] VITALS: BP 112/70
[2018-01-26 05:59] VITALS: BP 108/70
--- NOTE | 2018-01-26 08:30 | PN- Housestaff ---
See Addendum Subjective Follow-up For: -Myxedema coma due to noncompliance with thyroid medication - improving -Hx of papillary thyroid cancer status post resection and radioactive iodine -Hypotension/bradycardia due to above - resolved. -Pancytopenia (improving). -Transaminitis due to shock liver 2/2 Myxedema coma -resolved. Subjective: The patient was seen and examined. The patient would like us to ask permission for MRI of the brain from her . She denies any headache, dizziness, lightheadedness, nausea, vomiting, chest pain, shortness of breath. Nursing staff reports that patient is having good appetite and by mouth intake. Her diet was advanced to regular. TSH rising. Fibrinogen within normal limits. VSS. No overnight events. Review of Systems Constitutional: Denies: chills, diaphoresis, fever, malaise, weakness, unexplained weight loss. Objective Last 24 Hrs of Vital Signs/I&O Vital Signs Date Time Temp Pulse Resp B/P B/P Pulse O2 O2 Flow FiO2 Mean Ox Delivery Rate 01/26 1437 97.9 67 20 100/62 01/26 1431 97.9 67 20 100/62 98 Room Air 01/26 0559 97.9 63 20 108/70 92 01/25 2208 97.8 64 20 112/70 95 Room Air 01/25 1939 96.9 Intake & Output 01/26 1600 01/26 0800 01/26 0000 Intake Total 720 240 250 Output Total 450 500 400 Balance 270 -260 -150 Intake, Oral 720 240 250 Output, Urine 450 500 400 Physical Exam General Appearance: Alert, Oriented X3, Cooperative, No Acute Distress Other Physical Findings: Head: atraumatic, normal appearance, left cheek swelling noted Neck: normal inspection, supple Respiratory: normal breath sounds, chest non-tender, lungs clear Cardiovascular: regular rate/rhythm Gastrointestinal: normal bowel sounds, soft, nontender, midline hernia noted Extremities: no lower extremity edema, edema in hands has resolved, stable left eye echymosis much improved Cranial Nerves: normal hearing, normal speech, PERRL Current Medications: Current Medications Sig/Tabatha Start time Last Medication Dose Route Stop Time Status Admin Acetaminophen 650 MG Q4P PRN 01/23 2315 AC PO Glycerin/Mineral Oil 1 JUAN ALBERTO TID PRN 01/08 1645 AC 01/09 TOP 0430 Levothyroxine Sodium 0.225 MG 0700 01/25 0700 AC 01/26 PO 0606 Omeprazole 40 MG DAILY AC 01/22 0700 AC 01/26 PO 0606 Potassium Chloride 20 MEQ BID 01/21 2100 AC 01/26 PO 0758 Senna/Docusate Sodium 2 TAB DAILY PRN 01/22 1600 AC 01/23 PO 0802 Last 24 Hrs of Lab/Chad Results Last 24 Hrs of Labs/Mics: Laboratory Tests 01/26/18 0740: Free T4 1.11, Total T3 0.68 L, TSH &T3 &Free T4 Intrp 48.600 H, Fibrinogen Activity 251, CBC w Diff NO MAN DIFF REQ, RBC 2.73 L, MCV 94.7, MCH 32.5 H, MCHC 34.3, RDW 19.4 H, MPV 7.5, Gran % 70.8, Lymphocytes % 21.1, Monocytes % 7.1, Eosinophils % 0.6, Basophils % 0.4, Absolute Granulocytes 2.2, Absolute Lymphocytes 0.6 L, Absolute Monocytes 0.2, Absolute Eosinophils 0, Absolute Basophils 0 Assessment/Plan Assessment: This is a 62-year-old female with past medical history significant for iatrogenic hypothyroidism status post total thyroidectomy for thyroid cancer admitted to the hospital with myxedema coma secondary to noncompliance, neutropenia, thrombocytopenia and bradycardia. Problem list: * Myxedema coma with profound hypothyroidism-improving * Encephalopathy-likely secondary to myxedema * Hypotension, likely secondary to hypothyroidism versus possible hypercortisolism-improving * Bradycardia-stable * Pancytopenia-slowly improving Plan: * Continue with current dose of levothyroxine PO 225 g daily. * Follow-up endocrinology recommendations, recheck TSH free T4 in the morning * Discussed with patient's Mr. Bryson Goode over the phone. Mr. Goode is very concerned about the possibility of any tumor and would like MRI and workup to be done while the patient is admitted to the hospital. * Follow-up results of MRI brain pituitary protocol * Appreciate endo recs. * Cortisol 6.8, on 01/24/2018 * Fibrinogen level wnl * PT eval recommends rehabilitation * She was reevaluated by speech therapy and her diet was advanced to regular * DVT PPX: ALPS * Full code Problem List: 1. Pancytopenia 2. Myxedema coma Pain Ratin Pain Location: NA Pain Goal: Remain pain free Pain Plan: NA Tomorrow's Labs & Rationales: CBC to monitor H&H and platelets BEP to monitor electrolytes TSH, free T4 Consulting Request: Consulting Specialty: Psychiatry
[2018-01-26 08:52] LABS: ABSOLUTE BASOPHIL COUNT 0 /CUMM (0.0-0.2); ABSOLUTE EOSINOPHIL COUNT 0 /CUMM (0.0-0.7); ABSOLUTE GRANULOCYTE CT 2.2 /CUMM (1.4-6.5); ABSOLUTE LYMPH COUNT 0.6 /CUMM (1.2-3.4); ABSOLUTE MONOCYTE COUNT 0.2 /CUMM (0.10-0.60); BASOPHIL % 0.4 % (0.0-2.0); EOSINOPHIL % 0.6 % (0-5); GRANULOCYTE % 70.8 % (42.2-75.2); HEMATOCRIT 25.8 % (37-47); MEAN CORPUSCULAR HGB 32.5 PG (27.0-31.0); MEAN CORPUSCULAR HGB CONC 34.3 G/DL (33.0-37.0); MEAN CORPUSCULAR VOLUME 94.7 FL (81.0-99.0); MEAN PLATELET VOLUME 7.5 FL (7.4-10.4); PLATELET COUNT 119 /CUMM (130-400); RBC DISTRIBUTION WIDTH 19.4 % (11.5-14.5); RED BLOOD CELL CT 2.73 /CUMM (4.20-5.40); WHITE BLOOD CELL COUNT 3.1 /CUMM (4.8-10.8)
--- NOTE | 2018-01-26 09:14 | PN- Hematology ---
Subjective Subjective: She denies any new symptoms. She denies any new pain. She has no fever or chills. Review of Systems Constitutional: Denies: chills, fever, weakness. Cardiovascular: Denies: chest pain. Gastrointestinal: Denies: abdominal pain. Musculoskeletal: Denies: back pain. Neurological/Psychological: Denies: anxiety, confusion. All Other Systems: Reviewed and Negative Objective Vital Signs and I&Os Vital Signs Date Time Temp Pulse Resp B/P B/P Pulse O2 O2 Flow FiO2 Mean Ox Delivery Rate 01/26 0559 97.9 63 20 108/70 92 01/25 2208 97.8 64 20 112/70 95 Room Air 01/25 1939 96.9 01/25 1451 97.6 63 18 126/92 96 Room Air Intake & Output 01/26 1600 01/26 0800 01/26 0000 01/25 1600 01/25 0800 01/25 0000 Intake Total 240 250 720 240 240 Output Total 760 573 2319 525 Balance -260 -150 -480 240 -285 Intake, Oral 240 250 720 240 240 Output, Urine 099 993 7772 525 Physical Exam: General Appearance: no apparent distress, alert, awake, comfortable Head: atraumatic, central line in right neck Respiratory: normal breath sounds, chest non-tender, no respiratory distress, quiet respiration Cardiovascular: bradycardia Abdomen: normal bowel sounds, soft, non-tender, no organomegaly Extremities: no edema Neuro: alert and oriented x 3, slow speech Skin: ecchymosis in thigh improved, petechia in extremites improved Current Medications: Current Medications Sig/Tabatha Start time Last Medication Dose Route Stop Time Status Admin Acetaminophen 650 MG Q4P PRN 01/23 2315 AC PO Atropine Sulfate 0.5 MG Q 5 MINUTES X 3 DO.. 01/12 2230 DC IV Glycerin/Mineral Oil 1 JUAN ALBERTO TID PRN 01/08 1645 AC 01/09 TOP 0430 Levothyroxine Sodium 0.225 MG 0700 01/25 0700 AC 01/26 PO 0606 Omeprazole 40 MG DAILY AC 01/22 0700 AC 01/26 PO 0606 Potassium Chloride 20 MEQ BID 01/21 2100 AC 01/26 PO 0758 Senna/Docusate Sodium 2 TAB DAILY PRN 01/22 1600 AC 01/23 PO 0802 Results Last 24 Hours of Lab Results: Laboratory Tests 01/26 0740 Chemistry Free T4 (0.78 - 2.44 ng/dL) 1.11 Total T3 (0.97 - 1.69 ng/mL) Pending TSH &T3 &Free T4 Intrp (0.270 - 4.20 uIU/mL) Pending Coagulation Fibrinogen Activity (200 - 393 MG/DL) 251 Hematology CBC w Diff NO MAN DIFF REQ WBC (4.8 - 10.8 /CUMM) 3.1 L RBC (4.20 - 5.40 /CUMM) 2.73 L Hgb (12.0 - 16.0 G/DL) 8.9 L Hct (37 - 47 %) 25.8 L MCV (81.0 - 99.0 FL) 94.7 MCH (27.0 - 31.0 PG) 32.5 H MCHC (33.0 - 37.0 G/DL) 34.3 RDW (11.5 - 14.5 %) 19.4 H Plt Count (130 - 400 /CUMM) 119 L MPV (7.4 - 10.4 FL) 7.5 Gran % (42.2 - 75.2 %) 70.8 Lymphocytes % (20.5 - 51.1 %) 21.1 Monocytes % (1.7 - 9.3 %) 7.1 Eosinophils % (0 - 5 %) 0.6 Basophils % (0.0 - 2.0 %) 0.4 Absolute Granulocytes (1.4 - 6.5 /CUMM) 2.2 Absolute Lymphocytes (1.2 - 3.4 /CUMM) 0.6 L Absolute Monocytes (0.10 - 0.60 /CUMM) 0.2 Absolute Eosinophils (0.0 - 0.7 /CUMM) 0 Absolute Basophils (0.0 - 0.2 /CUMM) 0 Assessment/Plan Hematology Assessment/Recommendations: Mrs. Goode is a 62-year-old female with hypothyroidism, thyroid malignancy status post total thyroidectomy, ELDER ablation who presented to the hospital after being found to be confused and down by her . On presentation, she was noted to be pancytopenic with WBC 1.0, platelet of 32,000, and hemoglobin of 10.9. Vitamin B12 and folated was normal. Ferritin was elevated at 5770. Her AST and ALT were >2000. LDH is elevated at 7954. Bilirubin was elevated at 1.5. Her TSH was elevated and T4 was low. There is concern for myxedema coma. She was started on hydrocortisone and levothyroxine. She was started on empiric antibiotics. Imaging with CT head, cervical, chest, abdomen, and pelvis are reviewed and negative for any significant acute findings. Pancytopenia of unclear etiology but likely from underlying myxedema coma. Flow cytometry is unremarkable. DIC evaluation demonstrated low fibrinogen. Fibrinogen has normalized. DIC does not need to be checked for now. Platelet count continues to be low but above 100,000. The rest of the counts are stable. She can be monitored for now. Endocrinology is following her thyroid management. Pancytopenia: -monitor CBC for now Myxedema coma: -management as per primary and endocrinology Please call [phone] with any questions or concerns. Problem List: 1. Pancytopenia 2. Myxedema coma
--- NOTE | 2018-01-26 13:07 | PN- Endocrinology ---
Assessment/Plan Endoscopy Assessment: 62 y/o female, hx of thyroid cancer which was diagnosed in and was treated with thyroid surgery twice and ELDER twice. Detail unclear. She was supposed to take Levothyroxine 150 mcg daily. However, she hasn't been compliance with the medication. Patient was in ER in 05/2017 and 08/2017-- her TSH was > 60 and free T4 was < 0.07. She presented to ER today again after she was found that she was on the floor. Patient was hypothermia and bradycardic. Blood work showed profound hypothyroidism along with borderline low cortisol, abnormal LFT and pancytopenia. She was put on Levothyroxine 100 mcg iv and stress dose of steroid. She has been on off on dopamine drip and stress dose of steroid. Currently she is on Levothyroxine 225 mg po daily. Her BP and HR have been relatively stable. Plan: continue Levothyroxine 225 mcg daily for now; monitor TSH and free T4 tomorrow am to look for a trend. will follow. Subjective Subjective: She feels better. Objective Last 24 Hrs of Vital Signs/I&O Vital Signs Date Time Temp Pulse Resp B/P B/P Pulse O2 O2 Flow FiO2 Mean Ox Delivery Rate 01/26 0559 97.9 63 20 108/70 92 01/25 2208 97.8 64 20 112/70 95 Room Air 01/25 1939 96.9 01/25 1451 97.6 63 18 126/92 96 Room Air Intake & Output 01/26 1600 01/26 0800 01/26 0000 Intake Total 240 250 Output Total 500 400 Balance -260 -150 Intake, Oral 240 250 Output, Urine 500 400 Results Pertinent Lab/Chad Results: Laboratory Tests 01/26 0740 Chemistry Free T4 (0.78 - 2.44 ng/dL) 1.11 Total T3 (0.97 - 1.69 ng/mL) 0.68 L TSH &T3 &Free T4 Intrp (0.270 - 4.20 uIU/mL) 48.600 H Coagulation Fibrinogen Activity (200 - 393 MG/DL) 251 Hematology CBC w Diff NO MAN DIFF REQ WBC (4.8 - 10.8 /CUMM) 3.1 L RBC (4.20 - 5.40 /CUMM) 2.73 L Hgb (12.0 - 16.0 G/DL) 8.9 L Hct (37 - 47 %) 25.8 L MCV (81.0 - 99.0 FL) 94.7 MCH (27.0 - 31.0 PG) 32.5 H MCHC (33.0 - 37.0 G/DL) 34.3 RDW (11.5 - 14.5 %) 19.4 H Plt Count (130 - 400 /CUMM) 119 L MPV (7.4 - 10.4 FL) 7.5 Gran % (42.2 - 75.2 %) 70.8 Lymphocytes % (20.5 - 51.1 %) 21.1 Monocytes % (1.7 - 9.3 %) 7.1 Eosinophils % (0 - 5 %) 0.6 Basophils % (0.0 - 2.0 %) 0.4 Absolute Granulocytes (1.4 - 6.5 /CUMM) 2.2 Absolute Lymphocytes (1.2 - 3.4 /CUMM) 0.6 L Absolute Monocytes (0.10 - 0.60 /CUMM) 0.2 Absolute Eosinophils (0.0 - 0.7 /CUMM) 0 Absolute Basophils (0.0 - 0.2 /CUMM) 0
[2018-01-26 14:31] VITALS: BP 100/62
[2018-01-26 14:37] VITALS: BP 100/62
--- NOTE | 2018-01-26 17:21 | MRI REPORT ---
EXAMINATION: MR BRAIN WITHOUT CONTRAST CLINICAL INFORMATION: Elevated TSH not responding to hormone therapy. COMPARISON: Head CT from 01/14/2018. TECHNIQUE: Multiplanar, multisequence imaging of the brain was performed without contrast. FINDINGS: No diffusion abnormalities are identified to suggest an acute infarct. The ventricles are normal in size. No mass effect or midline shift is seen. Nonspecific mild white matter signal changes are present. Scattered subcentimeter foci of T2 hyperintense signal change in the rina may be due to chronic microangiopathy. No extra-axial fluid collections are seen. The cerebellum is normal. The pituitary gland is grossly normal on this limited noncontrast study. The craniovertebral junction, marrow signal, and remaining midline structures are normal. The major intracranial flow voids at the level of the [place] of [place] are preserved. The dural venous sinus flow voids are maintained. The mastoid air cells and paranasal sinuses are fairly well aerated. IMPRESSION: Nonspecific mild white matter signal changes which may be due to chronic microangiopathy. No acute process. Pituitary gland is grossly normal on this limited noncontrast study, however, the possibility of a small microadenoma cannot be ruled out.
[2018-01-26 22:36] VITALS: BP 106/60
[2018-01-27 06:33] VITALS: BP 100/62
[2018-01-27 07:22] VITALS: BP 109/57
--- NOTE | 2018-01-27 08:06 | PN- Housestaff ---
Alfonzo Haddad 01/27/18 0805: Subjective Follow-up For: -Myxedema coma due to noncompliance with thyroid medication - improving -Hx of papillary thyroid cancer status post resection and radioactive iodine -Hypotension/bradycardia due to above - resolved. -Pancytopenia (improving). -Transaminitis due to shock liver 2/2 Myxedema coma -resolved. Subjective: The patient was seen and examined. The patient denies any headache, dizziness, lightheadedness, nausea, vomiting, chest pain, shortness of breath. TSH pending. Fibrinogen within normal limits yesterday. VSS. No overnight events. Review of Systems Constitutional: Denies: chills, diaphoresis, fever, malaise, weakness, unexplained weight loss. Objective Last 24 Hrs of Vital Signs/I&O Vital Signs Date Time Temp Pulse Resp B/P B/P Pulse O2 O2 Flow FiO2 Mean Ox Delivery Rate 01/27 0722 98.3 72 18 109/57 97 Room Air 01/27 0633 97.9 67 20 100/62 01/26 2236 97.9 64 18 106/60 97 Room Air 01/26 1437 97.9 67 20 100/62 01/26 1431 97.9 67 20 100/62 98 Room Air Intake & Output 01/27 1600 01/27 0800 01/27 0000 Intake Total 120 480 Output Total 300 400 Balance -180 80 Intake, Oral 120 480 Number 0 Bowel Movements Output, Urine 300 400 Physical Exam General Appearance: Alert, Oriented X3, Cooperative, No Acute Distress Other Physical Findings: Head: atraumatic, normal appearance, left cheek swelling noted Neck: normal inspection, supple Respiratory: normal breath sounds, chest non-tender, lungs clear Cardiovascular: regular rate/rhythm Gastrointestinal: normal bowel sounds, soft, nontender, midline hernia noted Extremities: no lower extremity edema, edema in hands has resolved, stable left eye echymosis much improved;almost resolved. Cranial Nerves: normal hearing, normal speech, PERRL Current Medications: Current Medications Sig/Tabatha Start time Last Medication Dose Route Stop Time Status Admin Acetaminophen 650 MG Q4P PRN 01/23 2315 AC PO Glycerin/Mineral Oil 1 JUAN ALBERTO TID PRN 01/08 1645 AC 01/09 TOP 0430 Levothyroxine Sodium 0.225 MG 0700 01/25 0700 AC 04/24 PO 0511 Omeprazole 40 MG DAILY AC 01/22 0700 AC 01/27 PO 0511 Patient Medication 1 ED ONE ONE 01/26 1715 DC 01/26 Teaching ED 01/26 Potassium Chloride 20 MEQ BID 01/21 2100 AC 01/27 PO 0916 Senna/Docusate Sodium 2 TAB DAILY PRN 01/22 1600 AC 01/23 PO 0802 Last 24 Hrs of Lab/Chad Results Last 24 Hrs of Labs/Mics: Laboratory Tests 01/27/18 0735: Anion Gap 6, Estimated GFR > 60, BUN/Creatinine Ratio 28.3 H, TSH 43.900 H, Free T4 1.14, CBC w Diff NO MAN DIFF REQ, RBC 2.51 L, MCV 95.7, MCH 32.6 H, MCHC 34.0, RDW 20.2 H, MPV 7.4, Gran % 65.4, Lymphocytes % 24.8, Monocytes % 8.4, Eosinophils % 0.4, Basophils % 1.0, Absolute Granulocytes 1.8, Absolute Lymphocytes 0.7 L, Absolute Monocytes 0.2, Absolute Eosinophils 0, Absolute Basophils 0 Assessment/Plan Assessment: This is a 62-year-old female with past medical history significant for iatrogenic hypothyroidism status post total thyroidectomy for thyroid cancer admitted to the hospital with myxedema coma secondary to noncompliance, neutropenia, thrombocytopenia and bradycardia. Problem list: * Myxedema coma with profound hypothyroidism-improving * Encephalopathy-likely secondary to myxedema * Hypotension, likely secondary to hypothyroidism versus possible hypercortisolism-improving * Bradycardia-stable * Pancytopenia-slowly improving Plan: * Continue with current dose of levothyroxine PO 225 g daily upon discharge. * Follow-up endocrinology recommendations, needs monitoring her TFT once a week while she is in rehab till her TFT is stable.Her am cortisol was borderline; we recommend monitoring her am cortisol as outpatient. * MRI brain pituitary protocol negative for any pituitary pathology. * Appreciate endo recs. * Cortisol 6.8, on 01/24/2018 * Fibrinogen level wnl * PTrecommends rehabilitation * She was reevaluated by speech therapy and her diet was advanced to regular * DVT PPX: ALPS * Full code * Stable for discharge to rehab Problem List: 1. Myxedema coma 2. Bradycardia 3. Thrombocytopenia Pain Ratin Pain Location: NA Pain Goal: Remain pain free Pain Plan: NA Tomorrow's Labs & Rationales: NA Consulting Request: Consulting Specialty: Psychiatry Bryson Roberts MD 01/27/18 1256: Attending MD Review Statement Attending Statement Attending MD Statement: examined this patient, discuss w/resident/PA/TILE SETTER SUPERVISOR, agreed w/resident/PA/TILE SETTER SUPERVISOR, discussed with family, reviewed EMR data (avail), discussed with nursing, discussed with case mgmt, amended to note Attending Assessment/Plan: The patient was seen and discussed with house staff, nursing, case management, and family (). Free T4 remains normal today. Has bed at [facility]. OK to discharge to [facility] today with close follow-up of thyroid indices.
[2018-01-27] MEDS ORDERED: POTASSIUM CHLO20 ME3 PO (08:21)
[2018-01-27] MEDS ORDERED: SENNA PLUS TAB1 EACH PO (08:21)
[2018-01-27] MEDS ORDERED: SYNTHROID200 MCG PO (08:21)
[2018-01-27 08:41] LABS: ABSOLUTE BASOPHIL COUNT 0 /CUMM (0.0-0.2); ABSOLUTE EOSINOPHIL COUNT 0 /CUMM (0.0-0.7); ABSOLUTE GRANULOCYTE CT 1.8 /CUMM (1.4-6.5); ABSOLUTE LYMPH COUNT 0.7 /CUMM (1.2-3.4); ABSOLUTE MONOCYTE COUNT 0.2 /CUMM (0.10-0.60); EOSINOPHIL % 0.4 % (0-5); GRANULOCYTE % 65.4 % (42.2-75.2); MEAN CORPUSCULAR HGB 32.6 PG (27.0-31.0); MEAN CORPUSCULAR VOLUME 95.7 FL (81.0-99.0); MEAN PLATELET VOLUME 7.4 FL (7.4-10.4); PLATELET COUNT 115 /CUMM (130-400); RBC DISTRIBUTION WIDTH 20.2 % (11.5-14.5); RED BLOOD CELL CT 2.51 /CUMM (4.20-5.40); WHITE BLOOD CELL COUNT 2.7 /CUMM (4.8-10.8)
--- NOTE | 2018-01-27 08:46 | PN- Endocrinology ---
Assessment/Plan Endoscopy Assessment: 62 y/o female, hx of thyroid cancer which was diagnosed in and was treated with thyroid surgery twice and [facility] twice. Detail unclear. She was supposed to take Levothyroxine 150 mcg daily. However, she hasn't been compliance with the medication. Patient was in ER in 05/2017 and 08/2017-- her TSH was > 60 and free T4 was < 0.07. She presented to ER today again after she was found that she was on the floor. Patient was hypothermia and bradycardic. Blood work showed profound hypothyroidism along with borderline low cortisol, abnormal LFT and pancytopenia. She was put on Levothyroxine 100 mcg iv and stress dose of steroid. She has been on off on dopamine drip and stress dose of steroid. Currently she is on Levothyroxine 225 mg po daily. Her BP and HR have been relatively stable. Repeat TFT done on 01/26/2018 showed TSH 48.6, free T4 1.11 and TT3 0.68; MRI of pituitary was unremarkable. Her FSH was 49.7, LH 12.7, prolactin 11.8 and am cortisol 6.8. Repeat TFT on 01/27/2018-- TSH 43.9, free T4 1.14. Plan: 1. continue Levothyroxine 225 mcg daily for now; 2. recommend monitoring her TFT once a week while she is in rehab till her TFT is stable.; 3. f/u with Dr. Mead after she is discharged from rehab. 4. her am cortisol was borderline; I will recommend monitoring her am cortisol as outpatient. Subjective Subjective: she feels better this morning. Objective Last 24 Hrs of Vital Signs/I&O Vital Signs Date Time Temp Pulse Resp B/P B/P Pulse O2 O2 Flow FiO2 Mean Ox Delivery Rate 01/27 0722 98.3 72 18 109/57 97 Room Air 01/27 0633 97.9 67 20 10001/26 2236 97.9 64 18 106/60 97 Room Air 01/26 1437 97.9 67 20 01/26 1431 97.9 67 20 98 Room Air Intake & Output 01/27 1600 01/27 0800 01/27 0000 Intake Total 120 480 Output Total 300 400 Balance -180 80 Intake, Oral 120 480 Number 0 Bowel Movements Output, Urine 300 400
--- NOTE | 2018-01-28 22:23 | Discharge Summary ---
Hospital Course Course Consulting Request: Consulting Specialty: Psychiatry Allergies: Coded Allergies: Sulfa (Sulfonamide Antibiotics) (UNKNOWN 09/03/17) Discharge Instructions General Discharge Information Code Status: Full Code Medications at Discharge Discharge Medications: Stop taking the following medications: Levothyroxine Sodium (Levothyroxine Sodium) 150 MCG TABLET ORAL DAILY Qty = 30 Start taking the following new medications: Omeprazole (Omeprazole) 20 MG CAPSULE.DR 1 Tablet ORAL DAILY BEFORE BREAKFAST Qty = 30 No Refills Comments: Last Taken: 01/27/18 Time: 5:30 AM Potassium Chloride (Potassium Chloride) 20 MEQ PACKET 20 Millequivalent ORAL TWICE DAILY Qty = 30 No Refills Comments: Last Taken: 01/27/18 Time: 9:00 AM Sennosides/Docusate Sodium (Senna Plus Tablet) 8.6 MG-50 MG TABLET 2 Tablet ORAL DAILY as needed for CONSTIPATION Qty = 30 No Refills Comments: Last Taken:01/23/18 Time:08:02AM Levothyroxine Sodium (Synthroid) 200 MCG TABLET 0.225 Milligram ORAL 0700 Qty = 30 No Refills Comments: Last Taken: 01/27/18 Time: 5:30 AM
== END 2018-01-27 13:05 | DRG 80 ==
LOC: ERH 12:46 → ERHI 15:09 → CRI 15:09 → ENRESERV 17:35 → ENTRNSPT 18:22 → EDTRNSPTSTS 18:39 → EDTRNSPT 18:39 → CMPTRNSPT 18:50 → CRI 19:01 → 1NO 01-21 00:54 → ENTRNSPT 01-23 22:18 → EDTRNSPTSTS 01-23 22:24 → EDTRNSPT 01-23 22:24 → 2NB 01-23 22:27 → CMPTRNSPT 01-23 22:39 → 2NB 01-26 09:22
PROVIDERS: Emergency Medicine; Internal Medicine; Internal Medicine Hematology & Oncology; Radiology Vascular & Interventional Radiology; Student in an Organized Health Care Education/Training Program
PROC: 02H633Z Insertion of Infusion Device into Right Atrium, Percutaneous Approach (ICD-10-PCS; principal; 2018-01-09)
DX: E03.5 Myxedema coma (principal); K72.01 Acute and subacute hepatic failure with coma; D61.818 Other pancytopenia; E87.0 Hyperosmolality and hypernatremia; I95.9 Hypotension, unspecified; I31.3 Pericardial effusion (noninflammatory); R00.1 Bradycardia, unspecified; R41.82 Altered mental status, unspecified; Z88.2 Allergy status to sulfonamides; Z85.850 Personal history of malignant neoplasm of thyroid; Z90.49 Acquired absence of other specified parts of digestive tract; Z91.14 Patient's other noncompliance with medication regimen; R74.0 Nonspecific elevation of levels of transaminase and lactic acid dehydrogenase [LDH]; Z87.891 Personal history of nicotine dependence; F32.9 Major depressive disorder, single episode, unspecified; I44.1 Atrioventricular block, second degree; D64.9 Anemia, unspecified; E66.9 Obesity, unspecified; Z68.25 Body mass index [BMI] 25.0-25.9, adult; E87.6 Hypokalemia
CPT/HCPCS: 1NSP; 2NBSP; 70551; 86618; 86800; CCU; 36415; 36592; 71045; 73060-RT; 73590-RT; 74176; 80307; 81001; 82436; 82670; 83010; 87040; 87086; 87389; 87804; 87804-59; 88184; 93005; 93010; 93306; 93308; 93321; 95816; 96374; 96375; 97110-GO; 97112-GO; 97161-GP; 97164-GP; 97165-GO; 97530-GO; 99233; 99291; J0713; J1265; J1720; J2060; J2930; J3370; J7040; J7042; J7060; J7120

== ENCOUNTER 2018-02-23 17:30 | Inpatient (IN) | payer OTHER ==
[~2018-02-23] VITALS: Ht 170.2 cm; Wt 68.5 kg
[~2018-02-23 17:30] MED LIST changes: +OMEPRAZOLE20 M2 PO; +POTASSIUM CHLO20 ME3 PO; +SENNA PLUS TAB1 EACH PO; +SYNTHROID200 MCG PO
[2018-02-23 18:50] LABS: ABSOLUTE BASOPHIL COUNT 0 /CUMM (0.0-0.2); ABSOLUTE EOSINOPHIL COUNT 0 /CUMM (0.0-0.7); ABSOLUTE GRANULOCYTE CT 5.5 /CUMM (1.4-6.5); ABSOLUTE LYMPH COUNT 0.8 /CUMM (1.2-3.4); ABSOLUTE MONOCYTE COUNT 0.4 /CUMM (0.10-0.60); BASOPHIL % 0.5 % (0.0-2.0); EOSINOPHIL % 0.2 % (0-5); GRANULOCYTE % 80.9 % (42.2-75.2); HEMATOCRIT 35.5 % (37-47); MEAN CORPUSCULAR HGB 31.2 PG (27.0-31.0); MEAN CORPUSCULAR HGB CONC 33.1 G/DL (33.0-37.0); MEAN CORPUSCULAR VOLUME 94.2 FL (81.0-99.0); MEAN PLATELET VOLUME 8.1 FL (7.4-10.4); PLATELET COUNT 182 /CUMM (130-400); RBC DISTRIBUTION WIDTH 16.1 % (11.5-14.5); RED BLOOD CELL CT 3.77 /CUMM (4.20-5.40); WHITE BLOOD CELL COUNT 6.8 /CUMM (4.8-10.8)
--- NOTE | 2018-02-23 19:00 | CT SCAN REPORT ---
EXAMINATION: CT ABDOMEN AND PELVIS WITHOUT CONTRAST CLINICAL INFORMATION: No bowel movement in 11 days. Question bowel obstruction. COMPARISON: CT abdomen and pelvis of 01/08/2018, 09/03/2017. TECHNIQUE: Multidetector volumetric imaging was performed from the superior aspect of the liver through the pubic symphysis. Sagittal and coronal reformatted images were obtained on the technologist's workstation. DLP: 306.09 mGy-cm FINDINGS: LUNG BASES: Small pericardial effusion has improved compared to last CT. No pleural effusions. Lung bases are unremarkable. LIVER, GALLBLADDER, AND BILIARY TREE: The liver is normal in size, shape, and attenuation. No focal hepatic lesion or biliary ductal dilatation is present. The gallbladder is surgically absent. PANCREAS: Gqqf-hi-fsmsmijl atrophy of the pancreas is a stable finding. No focal pancreatic mass or pancreatic ductal dilatation. No pancreatic parenchymal calcifications. SPLEEN: Unremarkable. ADRENAL GLANDS: Unremarkable. KIDNEYS AND URETERS: The kidneys are normal in size, shape, and attenuation. No hydronephrosis, hydroureter, or calculi seen. No perinephric stranding. BLADDER: Unremarkable. GASTROINTESTINAL TRACT: The cecum is mobile, located in the right upper abdominal quadrant and partially interposed between the liver and diaphragm on current examination. The appendix is normal. Sssabmls-oa-hvcmn stool burden is noted in the colon. The rectum is mildly dilated with fecal bolus, measuring 7 cm in AP diameter. There might be mild rectal wall thickening. No evidence of thickening of the remainder of the colon. Remainder of the colon is normal in caliber. Mild presacral fat stranding is likely slightly prominent compared to last CT. Otherwise, no pericolonic fat stranding is noted. The stomach and small bowel are not dilated. PERITONEAL CAVITY: No evidence of free intraperitoneal air or fluid. ABDOMINAL WALL: Note is again made of lower anterior abdominal wall midline fat-containing hernia measuring 9.1 x 4.2 x 9.8 cm. LYMPH NODES: No evidence of pathologically enlarged lymph nodes. VASCULAR: The aortoiliac vessels are normal in caliber. Minimal scattered calcific atherosclerosis of the aorta. PELVIC VISCERA: The uterus and adnexa/ovaries are unremarkable. Eaigd-zh-vtfzvxry volume air in the vaginal cuff is likely external in origin. OSSEOUS STRUCTURES: Multilevel mild degenerative changes are noted throughout the spine. No acute or suspicious osseous abnormality. IMPRESSION: 1. Pbqjitlf-ia-mcaea volume stool burden throughout the colon. The rectum is mildly dilated with probable mild rectal wall thickening; findings may represent stercoral colitis in the proper clinical settings. No definite colonic wall thickening is noted. Remainder of the colon is normal in caliber. No evidence of intestinal pneumatosis. Mild presacral fat stranding. No evidence of bowel obstruction. 2. Small pericardial effusion, improved compared to last study. 3. Known anterior abdominal wall midline fat-containing hernia.
--- NOTE | 2018-02-23 20:56 | ED GI/GU/ABDOMINAL COMPLAINT ---
History of Present Illness General Chief Complaint: General Adult Stated Complaint: BIBA FOR NO BM X 11DAYS Source: patient, family Exam Limitations: no limitations Vital Signs & Intake/Output Vital Signs & Intake/Output Vital Signs Date Time Temp Pulse Resp B/P B/P Pulse O2 O2 Flow FiO2 Mean Ox Delivery Rate 02/23 2238 98.4 70 18 90/60 96 Room Air 02/23 1731 98.2 75 20 108/66 97 Room Air Allergies Coded Allergies: Sulfa (Sulfonamide Antibiotics) (UNKNOWN 09/03/17) Reconcile Medications Levothyroxine Sodium (Synthroid) 200 MCG TABLET 0.225 MG PO 0700 Thyroid Omeprazole 20 MG CAPSULE.DR 1 TAB PO DAILY AC GI prophylaxis Potassium Chloride 20 MEQ PACKET 20 MEQ PO BID Supplement Sennosides/Docusate Sodium (Senna Plus Tablet) 8.6 MG-50 MG TABLET 2 TAB PO DAILY PRN CONSTIPATION Triage Note: PT BIBA FROM [facility] FOR C/O CONSTIPATION FOR "22 SHIFTS", HAD XRAY YESTERDAY PER .PER W-10 PT HAS 3 PRN BOWEL ORDERS, MILK OF MAGNESIA, DUCOLAX SUPP AND FLEETS ENEMAS, NONE OF WHICH ARE SIGNED OFF GIVEN AT ALL DURING THE MONTH OF FEBRUARY. PT DENIES ABD PAIN. Triage Nurses Notes Reviewed? yes ? n Is pt currently ? No Onset: Abrupt Duration: day(s): Timing: recent history Radiation: no radiation Activities at Onset: none HPI: 63-year-old female sent in from nursing facility for no bowel movement in 10 days. Patient was not on any medications for constipation. She was finally given something last night but has not had a bowel movement was sent in for further evaluation. No fever. No vomiting. She currently denies any abdominal. She reports that she has no symptoms at all. (Srinivasan Swartz) Past History Travel History Traveled to [place] past 21 day No Medical History Any Pertinent Medical History? see below for history Neurological: MYXEDEMA COMA EENT: DYSPAGIA Cardiovascular: BRADYCARDIA,HYPOTENSION HYPOKALEMIA Respiratory: NONE Gastrointestinal: HERNIA Hepatic: NONE Renal: NONE Musculoskeletal: NONE Psychiatric: depression Endocrine: hypothyroidism Blood Disorders: anemia, LEUKOPENIA, HYPOKALEMIA, HYPONATREMIA,THROMBOCYTOP Cancer(s): THYROID CA CHARGE HAND/Reproductive: NONE History of MRSA: No History of VRE: No History of CDIFF: No Surgical History Surgical History: cholecystectomy, THYROIDECTOMY hernia repair Psychosocial History Who do you live with Spouse Services at Home None What is your primary language Sierra Leonean Tobacco Use: Never used ETOH Use: denies use Illicit Drug Use: denies illicit drug use Family History Hx Contributory? No (Srinivasan Swartz) Review of Systems Review of Systems Constitutional: Reports: no symptoms. EENTM: Reports: no symptoms. Respiratory: Reports: no symptoms. Cardiovascular: Reports: no symptoms. GI: Reports: see HPI. Genitourinary: Reports: no symptoms. Musculoskeletal: Reports: no symptoms. Skin: Reports: no symptoms. Neurological/Psychological: Reports: no symptoms. Hematologic/Endocrine: Reports: no symptoms. Immunologic/Allergic: Reports: no symptoms. All Other Systems: Reviewed and Negative (Srinivasan Swartz) Physical Exam Physical Exam General Appearance: well developed/nourished, no apparent distress, alert Head: atraumatic, normal appearance Eyes: Bilateral: normal appearance. Ears, Nose, Throat, Mouth: hearing grossly normal, moist mucous membrane Neck: normal inspection Respiratory: normal breath sounds, no respiratory distress Cardiovascular: regular rate/rhythm Gastrointestinal: soft, non-tender Back: normal inspection Extremities: normal range of motion Neurologic/Psych: awake, alert Skin: intact, normal color Core Measures ACS in differential dx? No Sepsis Present: No Sepsis Focused Exam Completed? No (Srinivasan Swartz) Progress Differential Diagnosis: bowel obstruction, diverticulitis, constipation Plan of Care: Orders Procedure Date/time Status Heart Healthy Diet 02/24 B Active ED Holding Orders 02/24 2332 Active Admit to inpatient 02/23 233 Active Vital Signs 02/24 2332 Active Code Status 02/23 233 Active LACTIC ACID 02/23 2050 Active Enema 02/23 190 Active LIPASE 02/23 175 Complete LACTIC ACID 02/23 175 Complete COMPREHENSIVE METABOLIC PANEL 02/23 175 Complete CBC WITHOUT DIFFERENTIAL 02/23 1750 Complete AMYLASE 02/23 1750 Complete Laboratory Tests 02/23/18 1815: Anion Gap 11, Estimated GFR > 60, BUN/Creatinine Ratio 36.7 H, Glucose 113 H, Lactic Acid 0.9, Calcium 9.5, Total Bilirubin 0.8, AST 15, ALT 16, Alkaline Phosphatase 29, Total Protein 6.1 L, Albumin 3.5, Globulin 2.6, Albumin/ Globulin Ratio 1.3, Amylase 46, Lipase 237, CBC w Diff NO MAN DIFF REQ, RBC 3.77 L, MCV 94.2, MCH 31.2 H, MCHC 33.1, RDW 16.1 H, MPV 8.1, Gran % 80.9 H, Lymphocytes % 12.2 L, Monocytes % 6.2, Eosinophils % 0.2, Basophils % 0.5, Absolute Granulocytes 5.5, Absolute Lymphocytes 0.8 L, Absolute Monocytes 0.4, Absolute Eosinophils 0, Absolute Basophils 0 Diagnostic Imaging: Viewed by Me: CT Scan. Discussed w/RAD: CT Scan. Radiology Impression: PATIENT: MILAGROS PEREIRA PRESENT AGE: 63 PATIENT ACCOUNT NO: [id number] : 54 LOCATION: [facility] ORDERING PHYSICIAN: Srinivasan GUERRA SERVICE DATE: 02/23/18028 EXAM TYPE: CAT - CT ABD & PELVIS W/O IV CONTRAS EXAMINATION: CT ABDOMEN AND PELVIS WITHOUT CONTRAST CLINICAL INFORMATION: No bowel movement in 11 days. Question bowel obstruction. COMPARISON: CT abdomen and pelvis of 01/08/2018, 09/03/2017. TECHNIQUE: Multidetector volumetric imaging was performed from the superior aspect of the liver through the pubic symphysis. Sagittal and coronal reformatted images were obtained on the technologist's workstation. DLP: 306.09 mGy-cm FINDINGS: LUNG BASES: Small pericardial effusion has improved compared to last CT. No pleural effusions. Lung bases are unremarkable. LIVER, GALLBLADDER, AND BILIARY TREE: The liver is normal in size, shape, and attenuation. No focal hepatic lesion or biliary ductal dilatation is present. The gallbladder is surgically absent. PANCREAS: Iwhv-kd-zgdabqhc atrophy of the pancreas is a stable finding. No focal pancreatic mass or pancreatic ductal dilatation. No pancreatic parenchymal calcifications. SPLEEN: Unremarkable. ADRENAL GLANDS: Unremarkable. KIDNEYS AND URETERS: The kidneys are normal in size, shape, and attenuation. No hydronephrosis, hydroureter, or calculi seen. No perinephric stranding. BLADDER: Unremarkable. GASTROINTESTINAL TRACT: The cecum is mobile, located in the right upper abdominal quadrant and partially interposed between the liver and diaphragm on current examination. The appendix is normal. Moderate -to-large stool burden is noted in the colon. The rectum is mildly dilated with fecal bolus, measuring 7 cm in AP diameter. There might be mild rectal wall thickening. No evidence of thickening of the remainder of the colon. Remainder of the colon is normal in caliber. Mild presacral fat stranding is likely slightly prominent compared to last CT. Otherwise, no pericolonic fat stranding is noted. The stomach and small bowel are not dilated. PERITONEAL CAVITY: No evidence of free intraperitoneal air or fluid. ABDOMINAL WALL: Note is again made of lower anterior abdominal wall midline fat-containing hernia measuring 9.1 x 4.2 x 9.8 cm. LYMPH NODES: No evidence of pathologically enlarged lymph nodes. VASCULAR: The aortoiliac vessels are normal in caliber. Minimal scattered calcific atherosclerosis of the aorta. PELVIC VISCERA: The uterus and adnexa/ ovaries are unremarkable. Heacl-qz-ayotiipk volume air in the vaginal cuff is likely external in origin. OSSEOUS STRUCTURES: Multilevel mild degenerative changes are noted throughout the spine. No acute or suspicious osseous abnormality. IMPRESSION: 1. Jqhtneqp-mu-jtrzg volume stool burden throughout the colon. The rectum is mildly dilated with probable mild rectal wall thickening; findings may represent stercoral colitis in the proper clinical settings. No definite colonic wall thickening is noted. Remainder of the colon is normal in caliber. No evidence of intestinal pneumatosis. Mild presacral fat stranding. No evidence of bowel obstruction. 2. Small pericardial effusion, improved compared to last study. 3. Known anterior abdominal wall midline fat-containing hernia. DICTATED BY: Casimiro Omalley MD DATE/TIME DICTATED:02/23/181828 CAMERA STORAGE CLERK: TIGIST DATE/TIME TRANSCRIBED:02/23/181828 CONFIDENTIAL, DO NOT COPY WITHOUT APPROPRIATE AUTHORIZATION. <Electronically signed in Other Vendor System> SIGNED BY: Casimiro Omalley MD 02/23/18 1900 Initial ED EKG: none (Srinivasan Swartz) Departure Departure Disposition: STILL A PATIENT Condition: Stable Clinical Impression Primary Impression: Constipation Secondary Impressions: Colitis Referrals: Jefferson Mead MD (PCP/Family) Departure Forms: Customer Survey General Discharge Information Admission Note Spoke With: Rafy Callahan MD Documentation of Exam: Documentation of any treatments & extenuating circumstances including Concerns Regarding Discharge (functional status, medication knowledge or non-compliance, living conditions, etc.) that warrant an admission rather than observation: PT WILL REQUIRE SOAPS SUDS ENEMAS AND MINERAL OIL ENEMAS AROUND THE CLOCK. NURSING FACILITY UNABLE TO PERFORM THESE. GI CONSULTATION. REPEAT IMAGING WITH XRAYS. (Pablito GUERRA,Srinivasan) PA/SHOP [employer]OPER Co-Sign Statement Statement: ED Attending supervision documentation- [X] I saw and evaluated the patient. I have also reviewed all the pertinent lab results and diagnostic results. I agree with the findings and the plan of care as documented in the PA's/SHOP COOPER's documentation. [X] I have reviewed the ED Record and agree with the PA's/SHOP COOPER's documentation. [] Additions or exceptions (if any) to the PAs/SHOP COOPER's note and plan are summarized below: [Patient to be admitted for severe constipation. Patient will require enemas and a GI consultation.] (Poornima QUICK,Eyad Monsalve)
--- NOTE | 2018-02-23 23:46 | History & Physical ---
Keysha Childers MD,[facility] 02/23/18 5626: General Information and HPI MD Statement: I have seen and personally examined AMINA PEREIRA and documented this H&P. The patient is a 63 year old F who presented with a patient stated chief complaint of [NO bm FOR 11 DAYS]. Source of Information: patient, family Exam Limitations: no limitations History of Present Illness: Patient is 63 y F with PMH of hypothyroidism (S/P total thyroidectomy + ELDER due to thyroid cancer in ), complicated with myxedema (associated with pancytopenia, bradycardia, hypotansion), oropharyngeal dysphagia, depression, ARSENIO was BIBA from [facility] with CC of constipation for the last 11 days. Patient reported not having BM for the last 11 days. Yesterday abdominal xray was performed and patient received Milk magnesia, Ducolax supp and fleet enemam, as she had no BM, she was BIBA to the ED. patient reported passing gas. She also reported mild lower abdominal pain, being tired most of the time, dry skin and itchiness and mild swelling of left leg. Patient denied any chest pain, shortness of breathing. She also reported frequency which she related to drinking gas father. Patient had multiple medical problems since 2015 after being incompliant with thyroid medications. Patient was discharged from [facility] in January 2018 after being managed for myxedema coma most probably due to not being complaint with medications with recommendations to follow with Endocrionologist as outpatient. Patient was placed in ECF after her recent discharge from [facility]. Her last TFT was done on 17 February and Synthroid dose was decreased from 225 to 200 mcg. Patient was also discharged on pure diet but was changed to regular diet in the facility. Before admission to [facility] in January patient was able to ambulate with assistance, however after that she was bedbound moving the wheelchair. During the last month she was treated with two-week period of ciprofloxacin for questionable UTI. Allergies/Medications Allergies: Coded Allergies: Sulfa (Sulfonamide Antibiotics) (UNKNOWN 09/03/17) Home Med list Levothyroxine Sodium (Synthroid) 200 MCG TABLET 0.225 MG PO 0700 Thyroid Omeprazole 20 MG CAPSULE.DR 1 TAB PO DAILY AC GI prophylaxis Potassium Chloride 20 MEQ PACKET 20 MEQ PO BID Supplement Sennosides/Docusate Sodium (Senna Plus Tablet) 8.6 MG-50 MG TABLET 2 TAB PO DAILY PRN CONSTIPATION Past History Travel History Traveled to [place] past 21 day No Medical History Neurological: MYXEDEMA COMA EENT: DYSPAGIA Cardiovascular: BRADYCARDIA,HYPOTENSION HYPOKALEMIA Respiratory: NONE Gastrointestinal: HERNIA Hepatic: NONE Renal: NONE Musculoskeletal: NONE Psychiatric: depression Endocrine: hypothyroidism Blood Disorders: anemia, LEUKOPENIA, HYPOKALEMIA, HYPONATREMIA,THROMBOCYTOP Cancer(s): THYROID CA DIRECTOR OF COLLECTIONS/Reproductive: NONE History of MRSA: No History of VRE: No History of CDIFF: No Surgical History Surgical History: cholecystectomy, THYROIDECTOMY hernia repair Past Family/Social History Psychosocial History Services at Home: None ETOH Use: denies use Illicit Drug Use: denies illicit drug use Review of Systems Review of Systems Constitutional: Reports: see HPI. Exam & Diagnostic Data Last 24 Hrs of Vital Signs/I&O Vital Signs Date Time Temp Pulse Resp B/P B/P Pulse O2 O2 Flow FiO2 Mean Ox Delivery Rate 02/23 2238 98.4 70 18 90/60 96 Room Air 02/23 1731 98.2 75 20 108/66 97 Room Air Physical Exam General Appearance Alert, Oriented X3, Cooperative, No Acute Distress Skin crust in skin Skin Temp/Moisture Exam: Warm/Dry Sepsis Skin Exam (color): Normal for Ethnicity HEENT Atraumatic, EOMI, hamartoma on left cheek Cardiovascular Normal S1, Normal S2 Lungs Clear to Auscultation, Normal Air Movement Abdomen Soft, No Tenderness, bowel loops palpable, bowel sounds present Neurological Normal Speech, Strength at 5/5 X4 Ext, Cranial Nerves 3-12 NL Extremities mild non pitting edema of L >R Last 24 Hrs of Labs/Chda: Laboratory Tests 02/23/182049: Lactic Acid Cancelled 02/23/181814: Anion Gap 11, Estimated GFR > 60, BUN/Creatinine Ratio 36.7 H, Glucose 113 H, Lactic Acid 0.9, Calcium 9.5, Total Bilirubin 0.8, AST 15, ALT 16, Alkaline Phosphatase 29, Total Protein 6.1 L, Albumin 3.5, Globulin 2.6, Albumin/ Globulin Ratio 1.3, Amylase 46, Lipase 237, TSH 0.126 L, Thyroxine (T4) 18.4 H , CBC w Diff NO MAN DIFF REQ, RBC 3.77 L, MCV 94.2, MCH 31.2 H, MCHC 33.1, RDW 16.1 H, MPV 8.1, Gran % 80.9 H, Lymphocytes % 12.2 L, Monocytes % 6.2, Eosinophils % 0.2, Basophils % 0.5, Absolute Granulocytes 5.5, Absolute Lymphocytes 0.8 L, Absolute Monocytes 0.4, Absolute Eosinophils 0, Absolute Basophils 0 Assessment/Plan Assessment: Patient is 63 y F was BIBA from [facility] with CC of constipation for the last 11 days recent test of TSH, decreased dose of levothyroxin PMH of hypothyroidism (S/P total thyroidectomy + ELDER due to thyroid cancer in ), complicated with myxedema (associated with pancytopenia, bradycardia, hypotansion), oropharyngeal dysphagia, depression, ARSENIO VS, Ph Ex at admission: No fever, BP 90/60, ID 75 Labs at admission: WBC 6.8, Hgb 11.8, PLT 182 BEP: insignificant Imagings at admission: abd pelvic CT: 1. Yppnxert-bm-vplgy volume stool burden throughout the colon. The rectum is mildly dilated with probable mild rectal wall thickening; findings may represent stercoral colitis in the proper clinical settings. No definite colonic wall thickening is noted. Remainder of the colon is normal in caliber. No evidence of intestinal pneumatosis. Mild presacral fat stranding. No evidence of bowel obstruction. 2. Small pericardial effusion, improved compared to last study. 3. Known anterior abdominal wall midline fat-containing hernia. Patient was admitted to GM floor for management of following conditions: Constipation Stercoral colitis Chronic medical conditions, on levothyroxin - admit patient to floor - vital signs - bowel regimen - stool dis-impaction - Consider decreasing levothyroxin - no pain medication, narcotics - Continue home medications - Endo consult FC DVT ppx: ALPS and pharmacological Regular diet As Ranked By This Provider Problem List: 1. Constipation 2. Hypothyroidism Core Measures/Misc (06/22) Acute Coronary Syndrome ACS Diagnosis: No Congestive Heart Failure Congestive Heart Failure Diagnosis No Cerebrovascular Accident CVA/TIA Diagnosis: No VTE (View Protocol) VTE Risk Factors Age>40 No Mechanical VTE Prophylaxis d/t N/A MechProphylax Ordered No VTE Pharm Prophylaxis d/t NA PharmProphylax ordered Sepsis (View protocol) Sepsis Present: No Rafy Callahan 02/24/18 0447: Attending MD Review Statement Attending Statement Attending MD Statement: examined this patient, discuss w/resident/PA/ELECTRONIC INSTRUMENT TRADES WORKER, agreed w/resident/PA/ELECTRONIC INSTRUMENT TRADES WORKER, reviewed EMR data (avail), reviewed images, amended to note Attending Assessment/Plan: CC: Constipation PMH: Hypothyroidism secondary to thyroid surgery, history of myxedema coma Patient was brought in ER through EMS for no bowel movement since last 11 days. Patient was discharged on January 27 to rehabilitation, she was admitted for myxedema coma, bradycardia, pancytopenia, hypotension which gradually improved after the treatment. Even though after discharge to rehabilitation, she is been working with physical therapy but she is not very active, does not ambulate him independently. She feels abdominal pain, mostly in the lower area, nonradiating, denies nausea, vomiting, she is passing gas, tolerating food. Different laxatives were tried in retirement, enema was tried as well without much relief. So she was sent to ER. On ROM, She feels weak and lethargic, chronic date dizziness. Patient also completed 2 weeks of ciprofloxacin for possible UTI. Recently her levothyroxine dose was decreased to 200 g. Vitals: Temperature 98.2, pulse 75, RR 20, blood pressure 108/66, saturating 97% on room air. On exam: A O 3, cooperative, no acute distress, neck supple, JVD normal, no lymphadenopathy, mucosa moist, no focal neurological deficit, lower extremity nonpitting edema, skin dry and flaky, left cheek hamartoma CVS: S1-S2, RRR. RS: Clear to auscultate bilaterally. Abdomen: Soft, distended, mild tenderness but no guarding or rigidity, bowel sounds present. CT abdomen pelvis without contrast: 1. Xbajqfld-kk-yiieu volume stool burden throughout the colon. The rectum is mildly dilated with probable mild rectal wall thickening; findings may represent stercoral colitis in the proper clinical settings. No definite colonic wall thickening is noted. Remainder of the colon is normal in caliber. No evidence of intestinal pneumatosis. Mild presacral fat stranding. No evidence of bowel obstruction. 2. Small pericardial effusion, improved compared to last study. 3. Known anterior abdominal wall midline fat-containing hernia. Assessment and plan 63-year-old female with history of hypothyroidism secondary to thyroid surgery secondary to cancer, noncompliant with her medication in the past, was admitted for myxedema coma most recently in month of January, discharged to short-term rehabilitation where she did not have bowel movement for last 11 days. She is passing gas, no nausea, vomiting, appetite is normal. On examination abdomen is full, mildly tender but no guarding or rigidity and bowel sounds present. CT abdomen and pelvis confirms high stool burden. Constipation appears secondary to hypothyroidism. Patient is not on any narcotics. Different laxatives were tried in short-term rehabilitation without relief. Patient may be developing stercoral colitis, requiring aggressive bowel regimen. She will benefit hospitalization. Initially soap water enema was tried in ER and patient did not tolerate it well, later mineral oil enema was administered without complications. Patient tolerated it well, no bowel movement so far, we'll continue to repeat an enema, and bowel regimen. + Constipation + Stercoral Colitis + Hypothyroidism - Admit to general medicine - Continue mineral oil enema in a.m. - Continue by mouth docusate and lactulose - stool disimpaction - Continue regular diet - Inform rn transition about patient being in hospital for severe constipation - Patient may benefit from promotility agents if enema fails - Serial abdominal examination, if worsening repeat imaging with x-ray to rule out any ileus - DVT prophylaxis Sachi QUICK,[facility] 02/24/18 0450: Resident Review Statement Resident Statement: examined this patient, discussed with internet marketing assistant, agreed with internet marketing assistant, discussed with family, reviewed EMR data (avail) Other Findings: Amina is a 62-year-old female with past medical history significant for thyroid cancer status post total thyroidectomy, hypothyroidism (recent admission 01/08 to 01/27 for myxedema due to iatrogenic hypothyroidism complicated with neutropenia, thrombocytopenia and bradycardia) was discharged to [facility] to control hypothyroidism, presented to ED with chief complaint of severe constipation. Patient reported last bowel movement was 10 days ago, she had abdominal ultrasound that showed mild colonic ileus, failed lactulose. Patient denied any abdominal pain, nausea or vomiting, she has been passing gas. Patient had follow-up visit with Dr. lopez today, TSH and free T4 obtained on 02/17 where 0.6, 2.[address] lopez's office told the patient to decrease Synthroid to 200 MCG based on this lab work. Patient reported weakness, fatigue , she is basically bedridden except when they take her to physical therapy session and bring her back to bed, nasal congestion, dizziness that is chronic, dry skin. Patient reported history of UTI 2 weeks ago for which he received ciprofloxacin. Patient reported anxiety, denied depression. Problem list #Severe constipation #Hypothyroidism (history of fatigue, very dry skin, severe constipation, depression) #Anxiety #Low vitamin D Plan Admit to general medical floor Vitals every shift Repeat CBCs and PEB in a.m. Lactulose 20 mg p.o. 3 times daily Stool disimpaction Regular diet Avoid narcotics and anticholinergic Endocrine consultation TSH, free T4 Vitamin D 50,000 units p.o. weekly Continue home medication Synthroid Consider psych evaluation DVT prophylaxis Alps and heparin subcutaneous Code full (patient seemed very depressed and in fact she wanted to change her CODE STATUS to be DNR/DNI, we discussed with her that her anxiety and depression are affecting her decision, she agreed and kept her CODE STATUS full for now. Patient will discuss end-of-life wishes with her ).
[2018-02-24 01:30] VITALS: BP 116/68
--- NOTE | 2018-02-24 04:49 | Admission Certification ---
Admission Certification Certification Statement - As attending physician, I certify that at the time of - admission, based on clinical presentation, severity of - symptoms, need for further diagnostic testing and - therapeutic interventions, and risk of adverse outcomes - without in-hospital treatment, in my clinical assessment, - this patient requires an acute hospital stay for a minimum - of two nights or longer. I have also considered psychsocial - factors such as support system, advanced age, financial - issues, cognitive issues, and failed out-patient treatments, - past re-admission history, safety of patient, and lack of - compliance as applicable. Specific rationale supporting this admission is: severe constipation, stercoral colitis
[2018-02-24 06:55] VITALS: BP 110/58
--- NOTE | 2018-02-24 07:22 | PN- Housestaff ---
Subjective Follow-up For: Severe constipation stercoral colitis Subjective: Patient seen and examined. Resting comfortably in the bed. Complains of being constipated for the past 11 days. No bowel movement since yesterday despite fleet enema or mineral oil enema Complains of lower abdominal pain which improved from yesterday. She is passing gas and tolerating food. She denied any nausea vomiting fever chills. Review of Systems Constitutional: Reports: no symptoms. Objective Last 24 Hrs of Vital Signs/I&O Vital Signs Date Time Temp Pulse Resp B/P B/P Pulse O2 O2 Flow FiO2 Mean Ox Delivery Rate 02/24 0655 97.5 71 16 110/58 95 Room Air 02/24 0130 98.0 69 16 116/68 97 Room Air 02/24 0128 Room Air 02/24 0054 97.8 72 18 102/62 98 Room Air 02/23 2238 98.4 70 18 90/60 96 Room Air 02/23 1731 98.2 75 20 108/66 97 Room Air Intake & Output 02/24 1600 02/24 0800 02/24 0000 Intake Total 240 Output Total Balance 240 Intake, Oral 240 Patient 151 lb 151 lb Weight Weight Reported by Patient Reported by Patient Measurement Method Physical Exam General Appearance: Alert, Oriented X3, Cooperative, No Acute Distress Skin: dry HEENT: left cheek HAMARTOMA Cardiovascular: Normal S1, Normal S2 Lungs: Clear to Auscultation, Normal Air Movement Abdomen: Normal Bowel Sounds, Soft, No Tenderness, surgical scar lower abdomen Current Medications: Current Medications Sig/Tabatha Start time Last Medication Dose Route Stop Time Status Admin Acetaminophen 325 MG Q6P PRN 02/24 0245 AC PO Bisacodyl 5 MG DAILY 02/24 900 AC 02/24 PO 0838 Cholecalciferol 1,000 IU DAILY 02/24 900 DC PO Ergocalciferol 50,000 IU ONCE A WEEK 02/24 1000 AC 02/24 PO 0838 Heparin Sodium 5,000 UNIT Q8 02/24 06 AC 02/24 (Porcine) SC 0532 Lactulose 20 GM TID 02/24 09 AC 02/24 PO 0843 Levothyroxine Sodium 0.2 MG 02/24 0700 AC 02/24 PO 0532 Levothyroxine Sodium 0.025 MG 02/24 0700 AC 02/24 PO 0532 Magnesium Citrate 300 ML ONE ONE 02/23 1915 DC 02/23 PO 02/23 Magnesium Hydroxide 30 ML DAILY 02/24 1014 AC 02/24 PO 1104 Omeprazole 20 MG DAILY AC 02/24 0700 AC 02/24 PO 0532 Polyethylene Glycol 17 GM DAILY 02/24 1014 AC 02/24 PO 1104 Senna/Docusate Sodium 1 TAB BID PRN 02/24 1015 AC PO Sodium Phosphate 1 UNIT Q SHIFT PRN 02/24 0845 AC VT Last 24 Hrs of Lab/Chad Results Last 24 Hrs of Labs/Mics: Laboratory Tests 02/24/18 06: Anion Gap 9, Estimated GFR > 60, BUN/Creatinine Ratio 36.7 H, Free T4 3.50 H, CBC w Diff NO MAN DIFF REQ, RBC 3.36 L, MCV 93.8, MCH 31.1 H, MCHC 33.2, RDW 16.0 H, MPV 8.6, Gran % 72.1, Lymphocytes % 17.9 L, Monocytes % 8.6, Eosinophils % 1.0, Basophils % 0.4, Absolute Granulocytes 3.0, Absolute Lymphocytes 0.7 L, Absolute Monocytes 0.4, Absolute Eosinophils 0, Absolute Basophils 0 02/23/182049: Lactic Acid Cancelled 02/23/181814: Anion Gap 11, Estimated GFR > 60, BUN/Creatinine Ratio 36.7 H, Glucose 113 H, Lactic Acid 0.9, Calcium 9.5, Total Bilirubin 0.8, AST 15, ALT 16, Alkaline Phosphatase 29, Total Protein 6.1 L, Albumin 3.5, Globulin 2.6, Albumin/ Globulin Ratio 1.3, Amylase 46, Lipase 237, TSH 0.126 L, Thyroxine (T4) 18.4 H , CBC w Diff NO MAN DIFF REQ, RBC 3.77 L, MCV 94.2, MCH 31.2 H, MCHC 33.1, RDW 16.1 H, MPV 8.1, Gran % 80.9 H, Lymphocytes % 12.2 L, Monocytes % 6.2, Eosinophils % 0.2, Basophils % 0.5, Absolute Granulocytes 5.5, Absolute Lymphocytes 0.8 L, Absolute Monocytes 0.4, Absolute Eosinophils 0, Absolute Basophils 0 Assessment/Plan Assessment: 62-year-old female with past medical history significant for thyroid cancer status post total thyroidectomy, hypothyroidism (recent admission 01/08 to 01/27 for myxedema due to iatrogenic hypothyroidism complicated with neutropenia, thrombocytopenia and bradycardia) was discharged to [facility] to control hypothyroidism, presented to ED with chief complaint of severe constipation She has been admitted to the general medicine floor and was being treated evaluated for following conditions #Severe constipation and Stercoral colitis No BM for the past [address] scan findings indicate possibility of Stercoral colitis -Extensive bowel regimen with lactulose, milk of magnesia, senna, Colace, miralax -Enemas every shift with mineral oil or tap water -Manual disimpaction -Serial abdominal examination, if worsening repeat imaging with x-ray to rule out any ileus -If patient does not have a bowel movement with the above measures she will require a GI consultation for colonoscopic disimpaction. -Consider addition of Linzess or Amitiza to prevent constipation in future #History of hypothyroidism s/p thyroidectomy with history of myxedema coma Reports symptoms of fatigue and dry skin feeling down and constipation. Synthroid dose was decreased from 225 to 200 mcg on 02/17. TSH 0.126 , free T4 3.50 -Continue Synthyroid 200 MCG -Endocrine follow-up -Repeat thyroid function test in one month #Mental health As per admitting team note pt appeared to be depressed, and wanted CODE STATUS to DNR/DNI after discussion she agreed to be full code. She reports baseline anxiety as well. It is possible that hypothyroidism might be contributing to her mood symptoms. -Psychiatric evaluation #Regular diet/DVT prophylaxis with ALPS and Subcutaneous Heparin/Full Code Problem List: 1. Constipation Pain Ratin Pain Location: lower abd pain Pain Goal: Pain 4 or less Pain Plan: prn Tomorrow's Labs & Rationales: none
[2018-02-24 08:54] LABS: ABSOLUTE BASOPHIL COUNT 0 /CUMM (0.0-0.2); ABSOLUTE EOSINOPHIL COUNT 0 /CUMM (0.0-0.7); ABSOLUTE LYMPH COUNT 0.7 /CUMM (1.2-3.4); ABSOLUTE MONOCYTE COUNT 0.4 /CUMM (0.10-0.60); BASOPHIL % 0.4 % (0.0-2.0); GRANULOCYTE % 72.1 % (42.2-75.2); HEMATOCRIT 31.5 % (37-47); MEAN CORPUSCULAR HGB 31.1 PG (27.0-31.0); MEAN CORPUSCULAR HGB CONC 33.2 G/DL (33.0-37.0); MEAN CORPUSCULAR VOLUME 93.8 FL (81.0-99.0); MEAN PLATELET VOLUME 8.6 FL (7.4-10.4); PLATELET COUNT 154 /CUMM (130-400); RED BLOOD CELL CT 3.36 /CUMM (4.20-5.40); WHITE BLOOD CELL COUNT 4.2 /CUMM (4.8-10.8)
--- NOTE | 2018-02-24 10:39 | PN- Att Addend ---
Attending Addendum Attending Brief Note Patient seen and examined. Plan of care discussed with the medical team and the patient. Available lab work and radiology test reports were reviewed. Patient still has not moved any bowel motion. She denied any nausea vomiting fever chills difficulty breathing or abdominal pain. Exam: General: Patient awake alert oriented without any distress CVS: S1 plus S2 without any murmur or gallops Chest: Few scattered crepitation without any wheeze. There is no respiratory distress. Abdomen: Soft non-tender, bowel sound present, no guarding or rebound; surgical scar noted in lower abdomen SPEECH AND HEARING CLINIC DIRECTOR: Awake alert oriented; she is paraparesis in both lower extremities and power is 2 out of 5 bilaterally and follows commands appropriately Extremities: No edema; no clubbing or cyanosis noted Assessment * Severe constipation * Stercoral colitis * History of hypothyroidism, surgically removed thyroid * Paraparesis Plan * Perform rectal exam and digitally disimpact if possible * Continue enemas every shift with mineral oil or tap water; continue lactulose and senna Colace and milk of magnesia by mouth; * Patient will need GI consult and colonoscopy disimpaction if above failed to improve her constipation * Patient ultimately will need addition of lubiprostone to prevent constipation * No need to check labs tomorrow Current Medications Sig/Tabatha Start time Last Medication Dose Route Stop Time Status Admin Acetaminophen 325 MG Q6P PRN 02/24 0245 AC PO Bisacodyl 5 MG DAILY 02/24 0900 AC 02/24 PO 0838 Cholecalciferol 1,000 IU DAILY 02/24 09 DC PO Ergocalciferol 50,000 IU ONCE A WEEK 02/24 1000 AC 02/24 PO 0838 Heparin Sodium 5,000 UNIT Q8 02/24 06 AC 02/24 (Porcine) SC 0532 Lactulose 20 GM TID 02/24 09 AC 02/24 PO 0843 Levothyroxine Sodium 0.2 MG 02/24 07 AC 02/24 PO 0532 Levothyroxine Sodium 0.025 MG 02/24 07 AC 02/24 PO 0532 Magnesium Citrate 300 ML ONE ONE 02/23 1915 DC 02/23 PO 02/23 Magnesium Hydroxide 30 ML DAILY 02/24 1014 AC PO Omeprazole 20 MG DAILY AC 02/24 0700 AC 02/24 PO 0532 Polyethylene Glycol 17 GM DAILY 02/24 1014 AC PO Senna/Docusate Sodium 1 TAB BID PRN 02/24 1015 AC PO Sodium Phosphate 1 UNIT Q SHIFT PRN 02/24 0845 AC DC Laboratory Tests 02/24/18 0605: Anion Gap 9, Estimated GFR > 60, BUN/Creatinine Ratio 36.7 H, Free T4 3.50 H, CBC w Diff NO MAN DIFF REQ, RBC 3.36 L, MCV 93.8, MCH 31.1 H, MCHC 33.2, RDW 16.0 H, MPV 8.6, Gran % 72.1, Lymphocytes % 17.9 L, Monocytes % 8.6, Eosinophils % 1.0, Basophils % 0.4, Absolute Granulocytes 3.0, Absolute Lymphocytes 0.7 L, Absolute Monocytes 0.4, Absolute Eosinophils 0, Absolute Basophils 0 02/23/182049: Lactic Acid Cancelled 02/23/181814: Anion Gap 11, Estimated GFR > 60, BUN/Creatinine Ratio 36.7 H, Glucose 113 H, Lactic Acid 0.9, Calcium 9.5, Total Bilirubin 0.8, AST 15, ALT 16, Alkaline Phosphatase 29, Total Protein 6.1 L, Albumin 3.5, Globulin 2.6, Albumin/ Globulin Ratio 1.3, Amylase 46, Lipase 237, TSH 0.126 L, Thyroxine (T4) 18.4 H , CBC w Diff NO MAN DIFF REQ, RBC 3.77 L, MCV 94.2, MCH 31.2 H, MCHC 33.1, RDW 16.1 H, MPV 8.1, Gran % 80.9 H, Lymphocytes % 12.2 L, Monocytes % 6.2, Eosinophils % 0.2, Basophils % 0.5, Absolute Granulocytes 5.5, Absolute Lymphocytes 0.8 L, Absolute Monocytes 0.4, Absolute Eosinophils 0, Absolute Basophils 0 Vital Signs Date Time Temp Pulse Resp B/P B/P Pulse O2 O2 Flow FiO2 Mean Ox Delivery Rate 02/24 0655 97.5 71 16 110/58 95 Room Air 02/24 0130 98.0 69 16 116/68 97 Room Air 02/24 0128 Room Air 02/24 0054 97.8 72 18 102/62 98 Room Air 02/23 2238 98.4 70 18 90/60 96 Room Air 02/23 1731 98.2 75 20 108/66 97 Room Air Intake & Output 02/24 1600 02/24 0800 02/24 0000 Intake Total 240 Output Total Balance 240 Intake, Oral 240 Patient 151 lb 151 lb Weight Weight Reported by Patient Reported by Patient Measurement Method
[2018-02-24 13:58] VITALS: BP 100/60
--- NOTE | 2018-02-24 17:47 | Cons- Psychiatry ---
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 Psychiatric Treatment History Diagnosis: F32.9 major depressive disorder, unspecified, with anxious features Mood disorder due to a medical condition, hypothyroidism Risk Factors: chronic/serious med cond., SA/MH hospitalized, limited support Assessment/Plan Impression: INITIAL PSYCHIATRIC CONSULTATION NOTE This is 63 y/o F with a PMH of hypothyroidism recent myxedema coma who was BIBA from [facility] w/ c/o constipation X 11 days. Consult called for ?depression. PPHx: Denies though chart review states ARSENIO and depression. No suicide attempts or inpatient treatment. Brief therapy 10 years ago. No substance. FH: Denies. No mental illness no substance. SH: Lives at [facility]. . One daughter. Previously high functioning Current Medications Sig/Tabatha Start time Last Medication Dose Route Stop Time Status Admin Acetaminophen 325 MG Q6P PRN 02/24 0245 AC PO Bisacodyl 5 MG DAILY 02/24 09 DC 02/24 PO 0838 Cholecalciferol 1,000 IU DAILY 02/24 09 DC PO Ergocalciferol 50,000 IU ONCE A WEEK 02/24 1000 AC 02/24 PO 0838 Heparin Sodium 5,000 UNIT Q8 02/24 0600 AC 02/24 (Porcine) SC 1309 Lactulose 20 GM TID 02/24 09 AC 02/24 PO 0843 Levothyroxine Sodium 0.175 MG DAILY AC 02/25 0700 AC PO Levothyroxine Sodium 0.2 MG 0702/24 0700 DC 02/24 PO 0532 Levothyroxine Sodium 0.025 MG 0702/24 0700 DC 02/24 PO 0532 Magnesium Citrate 300 ML ONE ONE 05/1914 DC 02/23 PO 02/23 Magnesium Hydroxide 30 ML DAILY 02/24 1014 DC 02/24 PO 1104 Omeprazole 20 MG DAILY AC 02/24 0700 AC 02/24 PO 0532 Patient Medication 1 ED ONE ONE 02/24 1715 DC Teaching ED 02/24 1716 Polyethylene Glycol 17 GM DAILY 02/24 1014 DC 02/24 PO 1104 Senna/Docusate Sodium 1 TAB BID PRN 02/24 1015 AC PO Sodium Phosphate 1 UNIT ONCE ONE 02/24 1330 DC 02/24 WV 02/24 1331 1337 Sodium Phosphate 1 UNIT Q SHIFT PRN 02/24 0845 AC 02/24 WV 1313 MSE: Pt is in bed in gown alert and calm, engages in interview. No obvious movement abnormalities. Speech is mildly slowed normal volume. Thought process is circumstantial/tangential. Thought content reveals no SI or HI, question of delusions, (?a force pushed her back on her last fall) feels she hallucinates but she will not endorse this (responding to things on tv that are not there, strange inappropriate responses.) He feels she is off somehow. She is guarded. Her reponses are extremely longwinded and detailed but never to the point. She has many generalized worries. Calls him 6 times a day. Washes lettuce with purified water. Upset she can't wash her hands more often. Would not take thyroid medicine because it was the wrong color and she was spitting out pills, found 80 of them on ground behind an end table. Afraid to eat re: incontinence. Dining comes in she is afraid to order. Nursing comes in she exhibits childlike behavior and sick role behavior. feels what she is telling me is not the way things actually happen. She denies gross hallucinations. A/ 63 y/o F with non-compliance with thyroid medications who presented last month with myxedema coma now here with constipation. Pt has a definite anxiety disorder manifesting in obsessionalism and distorted thinking vs formal thought disorder. Thoughts like these can be related to severe OCD but included in the differential is mood disorder with psychotic features. She is not grossly psychotic at this time. She is too guarded on exam today to determine the exact nature of her symptoms. P/ -Discussed differential with pt and her . She is afraid of treatment but I emphasized the importance of psychiatric treatment given that her worries are preventing her from taking vital medications. -She is going to discuss psychotropics with -She agrees to tell medicine team if she decides she wants treatment Thank you for the consult. Page with any questions. Amber QUICK #[id number]
--- NOTE | 2018-02-24 20:42 | Cons- Endocrinology ---
General Information and HPI Consulting Request Date of Consult: 02/24/18 Requested By: medical team Reason for Consult: management of hypothyroidism Source of Information: patient, family, old records Exam Limitations: no limitations History of Present Illness: 62 y/o female, hx of thyroid cancer which was diagnosed in and was treated with thyroid surgery twice and ELDER twice. She was supposed to take Levothyroxine 150 mcg daily. Patient was admitted to in 01/2018 for profound hypothyroidism/ myedema coma with TSH of 63.3 along with free T4 of less than 0.07. She was on Levothyroxine 100 mcg iv daily fora while. She was discharged to rehab with Levothyroxine 225 mcg daily. Patient was admitted to today for constipation. In ER, repeat TSH 0.126 and TT4 18.4. She denied having palpitation. Allergies/Medications Allergies: Coded Allergies: Sulfa (Sulfonamide Antibiotics) (UNKNOWN 09/03/17) Home Med List: Levothyroxine Sodium (Synthroid) 200 MCG TABLET 0.225 MG PO 0700 Thyroid Omeprazole 20 MG CAPSULE.DR 1 TAB PO DAILY AC GI prophylaxis Potassium Chloride 20 MEQ PACKET 20 MEQ PO BID Supplement Sennosides/Docusate Sodium (Senna Plus Tablet) 8.6 MG-50 MG TABLET 2 TAB PO DAILY PRN CONSTIPATION Review of Systems Review of Systems Constitutional: Reports: see HPI. Cardiovascular: Denies: chest pain, palpitations. Respiratory: Denies: short of breath. GI: Reports: constipation. Musculoskeletal: Reports: see HPI (muscle weakness). Hematologic/Endocrine: Denies: polyuria, polydipsia. 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 Extended Care Facility Services at Home: None Smoking Status: Former Smoker ETOH Use: denies use Illicit Drug Use: denies illicit drug use Exam & Diagnostic Data Last 24 Hrs of Vital Signs/I&O Vital Signs Date Time Temp Pulse Resp B/P B/P Pulse O2 O2 Flow FiO2 Mean Ox Delivery Rate 02/24 1358 98.2 74 18 100/60 94 Room Air 02/24 0655 97.5 71 16 110/58 95 Room Air 02/24 0130 98.0 69 16 116/68 97 Room Air 02/24 0128 Room Air 02/24 0054 97.8 72 18 102/62 98 Room Air 02/23 2238 98.4 70 18 90/60 96 Room Air Intake & Output 02/24 1600 02/24 0800 02/24 0000 Intake Total 360 240 Output Total 100 Balance 260 240 Intake, Oral 360 240 Number 1 Bowel Movements Output, Urine 100 Patient 151 lb 151 lb Weight Weight Reported by Patient Reported by Patient Measurement Method Physical Exam General Appearance: no apparent distress Neck: thyroid gland is absent Respiratory: lungs clear Cardiovascular: regular rate/rhythm Gastrointestinal: soft, non-tender Extremities: no edema Labs/Chad Results: Laboratory Tests 02/24 02/23 0605 2050 Chemistry Sodium (137 - 145 mmol/L) 143 Potassium (3.5 - 5.1 mmol/L) 4.4 Chloride (98 - 107 mmol/L) 103 Carbon Dioxide (22 - 30 mmol/L) 31 H Anion Gap (5 - 16) 9 BUN (7 - 17 mg/dL) 22 H Creatinine (0.5 - 1.0 mg/dL) 0.6 Estimated GFR (>60 ml/min) > 60 BUN/Creatinine Ratio (7 - 25 %) 36.7 H Lactic Acid Cancelled Free T4 (0.78 - 2.44 ng/dL) 3.50 H Hematology CBC w Diff NO MAN DIFF REQ WBC (4.8 - 10.8 /CUMM) 4.2 L RBC (4.20 - 5.40 /CUMM) 3.36 L Hgb (12.0 - 16.0 G/DL) 10.4 L Hct (37 - 47 %) 31.5 L MCV (81.0 - 99.0 FL) 93.8 MCH (27.0 - 31.0 PG) 31.1 H MCHC (33.0 - 37.0 G/DL) 33.2 RDW (11.5 - 14.5 %) 16.0 H Plt Count (130 - 400 /CUMM) 154 MPV (7.4 - 10.4 FL) 8.6 Gran % (42.2 - 75.2 %) 72.1 Lymphocytes % (20.5 - 51.1 %) 17.9 L Monocytes % (1.7 - 9.3 %) 8.6 Eosinophils % (0 - 5 %) 1.0 Basophils % (0.0 - 2.0 %) 0.4 Absolute Granulocytes (1.4 - 6.5 /CUMM) 3.0 Absolute Lymphocytes (1.2 - 3.4 /CUMM) 0.7 L Absolute Monocytes (0.10 - 0.60 /CUMM) 0.4 Absolute Eosinophils (0.0 - 0.7 /CUMM) 0 Absolute Basophils (0.0 - 0.2 /CUMM) 0 Assessment/Plan Assessment/Plan 62 y/o female, hx of thyroid cancer which was diagnosed in and was treated with thyroid surgery twice and ELDER twice. She was supposed to take Levothyroxine 150 mcg daily. Patient was admitted to in 01/2018 for profound hypothyroidism/ myedema coma with TSH of 63.3 along with free T4 of less than 0.07 due to noncompliance of thyroid medication. Currently she is on Levothyroxine 225 mcg daily. Patient was admitted to today for constipation. In ER, repeat TSH 0.126 and TT4 18.4. She denied having palpitation. Plan: 1. decrease Levothyroxine to 175 mcg daily; 2. monitor TSH, free T4 and TT4 in 2-3 days to look for a trend. will follow Consult Acknowledgment - Thank you for your consult request.
[2018-02-24 22:04] VITALS: BP 100/62
[2018-02-25 06:20] VITALS: BP 100/58
--- NOTE | 2018-02-25 07:09 | PN- Housestaff ---
Subjective Follow-up For: Severe constipation stercoral colitis Subjective: Patient had a large bowel movement yesterday after Fleet enema manual disimpaction. reports feeling and resolution of abd pain. Pt has been evaluated by Psych doshajit want to persue any treatment at present she will be provided with a referral on d/c Review of Systems Constitutional: Reports: see HPI. Objective Last 24 Hrs of Vital Signs/I&O Vital Signs Date Time Temp Pulse Resp B/P B/P Pulse O2 O2 Flow FiO2 Mean Ox Delivery Rate 02/25 1616 98.6 95 20 100/60 02/25 1507 98.6 95 20 100/60 95 02/25 1133 Room Air 02/25 1113 Room Air 02/25 0620 97.5 62 16 100/58 94 Room Air 02/24 2204 95.9 73 19 100/62 96 Room Air Intake & Output 02/25 1600 02/25 0800 02/25 0000 Intake Total 200 60 480 Output Total Balance 200 60 480 Intake, Oral 200 60 480 Number 0 Bowel Movements Physical Exam General Appearance: Alert, Oriented X3, Cooperative Cardiovascular: Normal S1, Normal S2 Lungs: Clear to Auscultation Abdomen: Normal Bowel Sounds, Soft, No Tenderness Neurological: Normal Speech Assessment/Plan Assessment: 62-year-old female with past medical history significant for thyroid cancer status post total thyroidectomy, hypothyroidism (recent admission 01/08 to 01/27 for myxedema due to iatrogenic hypothyroidism complicated with neutropenia, thrombocytopenia and bradycardia) was discharged to [facility] to control hypothyroidism, presented to ED with chief complaint of severe constipation She has been admitted to the general medicine floor and was being treated evaluated for following conditions #Severe constipation and Stercoral colitis No BM for the past [address] scan findings indicate possibility of Stercoral colitis. had BM yesterday after fleet eneam and Manual disimpaction -Extensive bowel regimen with lactulose, milk of magnesia, senna, Colace, miralax -Amitiza to prevent constipation in future #History of hypothyroidism s/p thyroidectomy with history of myxedema coma Reports symptoms of fatigue and dry skin feeling down and constipation. Synthroid dose was decreased from 225 to 200 mcg on 02/17. TSH 0.126 , free T4 3.50 -Synthyroid 175 MCG -Endocrine follow-up on d/c -Repeat thyroid function test on 02/27 #Mental health As per admitting team note pt appeared to be depressed, and wanted CODE STATUS to DNR/DNI after discussion she agreed to be full code. She reports baseline anxiety as well. It is possible that hypothyroidism might be contributing to her mood symptoms. -Psychiatric evaluation -Doesnot want any antipsychotic at present -Outpatient follow-up information provided #Regular diet/DVT prophylaxis with ALPS and Subcutaneous Heparin/Full Code Patient is stable to be discharged to a short-term rehabilitation facility. Problem List: 1. Constipation 2. Colitis Pain Ratin Pain Location: none Pain Goal: Pain 4 or less Pain Plan: prn Tomorrow's Labs & Rationales: none
[2018-02-25] MEDS ORDERED: MILK OF MA400 MG/52 PO (07:13)
[2018-02-25] MEDS ORDERED: SYNTHROID175 MCG PO (07:13)
[2018-02-25] MEDS ORDERED: AMITIZA8 MC1 PO (07:13)
[2018-02-25] MEDS ORDERED: MIRALAX119 GM PO (07:13)
[2018-02-25] MEDS ORDERED: VITAMIN D250000 UNIT PO (07:13)
--- NOTE | 2018-02-25 10:39 | Discharge Summary ---
Visit Information Visit Dates Admission Date: 02/23/18 Discharge Date: 02/25/18 Hospital Course Course Attending Physician: Elliot QUICK,Ismael Primary Care Physician: Jefferson Mead MD Hospital Course: Patient is a 62-year-old female with past medical history significant for thyroid cancer status post total thyroidectomy, hypothyroidism (recent admission 01/08 to 01/27 for myxedema due to iatrogenic hypothyroidism complicated with neutropenia, thrombocytopenia and bradycardia) was discharged to [facility] to control hypothyroidism, presented to ED with chief complaint of severe constipation. On admission, patient reported last bowel movement was 10 days ago, she had abdominal ultrasound that showed mild colonic ileus, failed lactulose. Patient denied any abdominal pain, nausea or vomiting, she has been passing gas. Patient reported weakness, fatigue, she is basically bedridden except when they take her to physical therapy session and bring her back to bed. Patient also reported of nasal congestion, dizziness that is chronic and dry skin. Patient reported history of UTI 2 weeks ago for which he received ciprofloxacin. Patient was seen and treated for; #Severe constipation #Hypothyroidism (history of fatigue, very dry skin, severe constipation, depression) #Anxiety #Low vitamin D Severe constipation: Patient was given extensive bowel regimen with actulose, milk of magnesia, senna, Colace, miralax along with enemias. She finally had a bowel movement on 02/24/2018. Manual disimpaction was also performed at bedside. Patient is advised to continue laxatives to prevent constipation in future. Hypothyroidism: Patient reported of fatigue, dry skin and depression, Synthroid dose was adjusted by Dr. Bess from 225 to 200 mcg on 02/17 to 175 mcg on 2017. Patient will be given a prescription to repeat TSH, free T4 in 3 days and follow up with Dr. Bess as an outpatient. Symptoms of depression: Patient reports low apetite and feelings of being sad and depressed however she is reluctant to try anti depressants. Psyc evaluation was done as inpatient and the patient again expressed her reluctance to start the treatment. Low apetite: Patients stated that she would like to see the developmental specialist, Pushpa, at her rehab facility for dietary consultation. Code status: Full code. Allergies: Coded Allergies: Sulfa (Sulfonamide Antibiotics) (UNKNOWN 09/03/17) Disposition Summary Disposition Principal Diagnosis: severe constipation Additional Diagnosis: hypothyroidism Discharge Disposition: SNF Discharge Instructions General Discharge Information Code Status: Full Code Patient's Diet: regular Patient's Activity: as tolerated Follow-Up Instructions/Appts: TSH, t4 on 02/27 Medications at Discharge Discharge Medications: Stop taking the following medications: Levothyroxine Sodium (Synthroid) 200 MCG TABLET ORAL 0700 Qty = 30 Continue taking these medications: Omeprazole (Omeprazole) 20 MG CAPSULE.DR 1 Tablet ORAL DAILY BEFORE BREAKFAST Qty = 30 Comments: Last Taken: 02/25/18 Time: 600 AM Potassium Chloride (Potassium Chloride) 20 MEQ PACKET 20 Millequivalent ORAL TWICE DAILY Qty = 30 Comments: NOT GIVEN Sennosides/Docusate Sodium (Senna Plus Tablet) 8.6 MG-50 MG TABLET 2 Tablet ORAL DAILY as needed for CONSTIPATION Qty = 30 Comments: NOT GIVEN Start taking the following new medications: Magnesium Hydroxide (Milk Of Magnesia) 400 MG/5 ML ORAL.SUSP 30 Milliliters ORAL DAILY as needed for CONSTIPATION Qty = 1 No Refills Comments: Last Taken: 02/24/18 Time: 1100AM Polyethylene Glycol 3350 (Miralax) 17 GRAM/DOSE POWDER 17 Gram ORAL DAILY as needed for CONSTIPATION Qty = 1 No Refills Comments: Last Taken: 02/24/18 Time: 1100AM Levothyroxine Sodium (Synthroid) 175 MCG TABLET 1 Tablet ORAL DAILY BEFORE BREAKFAST Qty = 30 No Refills Comments: OTHER DOSE GIVEN IN HOSPITAL Ergocalciferol (Vitamin D2) (Vitamin D2) 50,000 UNIT CAPSULE 50,000 International Unit ORAL ONCE A WEEK Qty = 7 No Refills Instructions: AFTER 7 WEEKS PT SHOULD TAKE 2000 IU OTC SUPPLEMENTAION Comments: Last Taken: 02/24/18 Time: 830AM Lubiprostone (Amitiza) 8 MCG CAPSULE 1 Capsule ORAL TWICE DAILY Qty = 60 No Refills Comments: NOT GIVEN IN HOSPITAL Copies To: Elliot QUICK,Ismael; Shahriar QUICK,Deborah Attending MD Review Statement Documenting Attending: Ismael Zaraet MD
--- NOTE | 2018-02-25 10:47 | Patient Discharge Instructions ---
Discharge Instructions General Discharge Information You were seen/treated for: Severe constipation and Stercoral colitis Special Instructions: -Please follow up with primary care provider within 1 week of discharge -please follow up with beauty specialist within 1 week -please get thyroid tests done on 02/27/2018 -Please follow up with breakfast host at facility -Please consider making appointment with Bharath HOGAN at [address] [place] [phone] Diet Continue normal diet: Yes Activity Activity Self Limited: Yes Acute Coronary Syndrome Inclusion Criteria At DC or during hospital stay patient has or had the following: ACS DIAGNOSIS No Discharge Core Measures Meds if any: Prescribed or Continued at Discharge Meds if any: NOT Prescribed or Continued at Discharge Congestive Heart Failure Inclusion Criteria At DC or during hospital stay patient has or had the following: CHF DIAGNOSIS No Discharge Core Measures Meds if any: Prescribed or Continued at Discharge Meds if any: NOT Prescribed or Continued at Discharge Cerebrovascular accident Inclusion Criteria At DC or during hospital stay patient has or had the following: CVA/TIA Diagnosis No Discharge Core Measures Meds if any: Prescribed or Continued at Discharge Meds if any: NOT Prescribed or Continued at Discharge Venous thromboembolism Inclusion Criteria VTE Diagnosis No VTE Type NONE VTE Confirmed by (Test) NONE Discharge Core Measures - Per Current guidelines, there needs to be overlap - treatment for the first 5 days of Warfarin therapy. - If discharged on Warfarin prior to 5 days of - overlap therapy, the patient will need to be - assessed for post discharge needs including - *Post discharge parental anticoagulation - *Warfarin and/or parental anticoagulation education - *Follow up date to check INR post discharge At least 5 days overlap therapy as Inpatient No Meds if any: Prescribed or Continued at Discharge Note: Overlap Therapy is Warfarin and Anticoagulant Meds if any: NOT Prescribed or Continued at Discharge
--- NOTE | 2018-02-25 11:35 | PN- Att Addend ---
Attending Addendum Attending Brief Note Patient seen and examined. Plan of care discussed with the medical team and the patient. Available lab work and radiology test reports were reviewed. Patient was disimpacted yesterday and she moved bowel motion yesterday. She denied any nausea vomiting fever chills difficulty breathing or abdominal pain. Exam: General: Patient awake alert oriented without any distress CVS: S1 plus S2 without any murmur or gallops Chest: Few scattered crepitation without any wheeze. There is no respiratory distress. Abdomen: Soft non-tender, bowel sound present, no guarding or rebound; surgical scar noted in lower abdomen BAIT DIGGER: Awake alert oriented; she is paraparesis in both lower extremities and power is 2 out of 5 bilaterally and follows commands appropriately Extremities: No edema; no clubbing or cyanosis noted Assessment * Severe constipation * Stercoral colitis * History of hypothyroidism, surgically removed thyroid * Paraparesis * Depression- patient was assessed by psychiatry however patient refuses and is adamant not to take any medications Plan * continue lactulose and senna Colace and milk of magnesia by mouth; * addition of lubiprostone to prevent constipation * Discharge back to senior living today * Dietitian evaluation at the senior living Current Medications Sig/Tabatha Start time Last Medication Dose Route Stop Time Status Admin Acetaminophen 325 MG Q6P PRN 02/24 0245 AC PO Bisacodyl 5 MG DAILY 02/24 0900 DC 02/24 PO 0838 Ergocalciferol 50,000 IU ONCE A WEEK 02/24 1000 AC 02/24 PO 0838 Heparin Sodium 5,000 UNIT Q8 02/24 0600 AC 02/25 (Porcine) SC 0556 Lactulose 20 GM TID 02/24 0900 AC 02/24 PO 0843 Levothyroxine Sodium 0.175 MG DAILY AC 02/25 0700 AC 02/25 PO 0637 Levothyroxine Sodium 0.2 MG 0702/24 0700 DC 02/24 PO 0532 Levothyroxine Sodium 0.025 MG 0702/24 0700 DC 02/24 PO 0532 Magnesium Hydroxide 30 ML DAILY NEEDED PRN 02/25 0715 AC PO Magnesium Hydroxide 30 ML DAILY 02/24 1014 DC 02/24 PO 1104 Omeprazole 20 MG DAILY AC 02/24 0700 AC 02/25 PO 0556 Patient Medication 1 ED ONE ONE 02/24 1715 DC 02/24 Teaching ED 02/24 1716 1957 Polyethylene Glycol 17 GM DAILY NEEDED PRN 02/25 0715 AC PO Polyethylene Glycol 17 GM DAILY 02/24 1014 DC 02/24 PO 1104 Senna/Docusate Sodium 1 TAB BID PRN 02/24 1015 AC PO Sodium Phosphate 1 UNIT ONCE ONE 02/24 1330 DC 02/24 OH 02/24 1331 1337 Sodium Phosphate 1 UNIT Q SHIFT PRN 02/24 0845 AC 02/24 OH 1313 Laboratory Tests 02/24/18 0605: Anion Gap 9, Estimated GFR > 60, BUN/Creatinine Ratio 36.7 H, Free T4 3.50 H, CBC w Diff NO MAN DIFF REQ, RBC 3.36 L, MCV 93.8, MCH 31.1 H, MCHC 33.2, RDW 16.0 H, MPV 8.6, Gran % 72.1, Lymphocytes % 17.9 L, Monocytes % 8.6, Eosinophils % 1.0, Basophils % 0.4, Absolute Granulocytes 3.0, Absolute Lymphocytes 0.7 L, Absolute Monocytes 0.4, Absolute Eosinophils 0, Absolute Basophils 0 02/23/182049: Lactic Acid Cancelled 02/23/181814: Anion Gap 11, Estimated GFR > 60, BUN/Creatinine Ratio 36.7 H, Glucose 113 H, Lactic Acid 0.9, Calcium 9.5, Total Bilirubin 0.8, AST 15, ALT 16, Alkaline Phosphatase 29, Total Protein 6.1 L, Albumin 3.5, Globulin 2.6, Albumin/ Globulin Ratio 1.3, Amylase 46, Lipase 237, TSH 0.126 L, Thyroxine (T4) 18.4 H , CBC w Diff NO MAN DIFF REQ, RBC 3.77 L, MCV 94.2, MCH 31.2 H, MCHC 33.1, RDW 16.1 H, MPV 8.1, Gran % 80.9 H, Lymphocytes % 12.2 L, Monocytes % 6.2, Eosinophils % 0.2, Basophils % 0.5, Absolute Granulocytes 5.5, Absolute Lymphocytes 0.8 L, Absolute Monocytes 0.4, Absolute Eosinophils 0, Absolute Basophils 0 Vital Signs Date Time Temp Pulse Resp B/P B/P Pulse O2 O2 Flow FiO2 Mean Ox Delivery Rate 02/25 06 97.5 62 16 100/58 94 Room Air 05/22 2204 95.9 73 19 100/62 96 Room Air 02/24 1358 98.2 74 18 100/60 94 Room Air Intake & Output 02/25 1600 02/25 0800 02/25 0000 Intake Total 60 480 Output Total Balance 60 480 Intake, Oral 60 480 Number 0 Bowel Movements Total time spent in preparation for discharge plan, patient education, and CMR preparation was 35 minutes.
--- NOTE | 2018-02-25 13:44 | PN- Endocrinology ---
Assessment/Plan Endoscopy Assessment: 62 y/o female, hx of thyroid cancer which was diagnosed in and was treated with thyroid surgery twice and ELDER twice. She was supposed to take Levothyroxine 150 mcg daily. Patient was admitted to in 01/2018 for profound hypothyroidism/ myedema coma with TSH of 63.3 along with free T4 of less than 0.07 due to noncompliance of thyroid medication. She was on Levothyroxine 225 mcg daily. Patient was admitted to on 02/24 for constipation. In ER, repeat TSH 0.126 and TT4 18.4. She denied having palpitation. Levothyroxine was decreased to 175 mcg daily on 02/25. Plan: continue Levothyroxine 175 mcg daily for now; monitor TSH, free T4 and TT4 in 2-3 days to look for a trend. will follow Subjective Subjective: She feels okay. Objective Last 24 Hrs of Vital Signs/I&O Vital Signs Date Time Temp Pulse Resp B/P B/P Pulse O2 O2 Flow FiO2 Mean Ox Delivery Rate 02/25 1133 Room Air 02/25 1113 Room Air 02/25 0620 97.5 62 16 100/58 94 Room Air 02/24 2204 95.9 73 19 100/62 96 Room Air 02/24 1358 98.2 74 18 100/60 94 Room Air Intake & Output 02/25 1600 02/25 0800 02/25 0000 Intake Total 60 480 Output Total Balance 60 480 Intake, Oral 60 480 Number 0 Bowel Movements
[2018-02-25 15:07] VITALS: BP 100/60
[2018-02-25 16:16] VITALS: BP 100/60
== END 2018-02-25 17:25 | DRG 392 ==
LOC: ERH 17:30 → ERHI 23:32 → 2NA 23:32 → ENRESERV 02-24 00:05 → 2NA 02-24 01:01 → ENPENDDIS 02-25 16:43 → 2NA 02-25 17:25
PROVIDERS: Physician Assistant Medical; Student in an Organized Health Care Education/Training Program
DX: K59.00 Constipation, unspecified (principal); E55.9 Vitamin D deficiency, unspecified; E89.0 Postprocedural hypothyroidism; Z88.2 Allergy status to sulfonamides; F32.9 Major depressive disorder, single episode, unspecified; Z90.49 Acquired absence of other specified parts of digestive tract; F41.9 Anxiety disorder, unspecified; K52.89 Other specified noninfective gastroenteritis and colitis
CPT/HCPCS: 2NASP; ERO; 36592; 74176; 82436; J1644